=== PATIENT | male | born 1965 | race Two or more races ===

== ENCOUNTER 2020-02-20 09:58 | Outpatient (REF) | payer MEDICAID, SELFPAY ==
--- NOTE | 2020-02-20 10:03 | XR_ITS ---
EXAMINATION: XR KNEE AP STANDING CLINICAL INFORMATION: Primary osteoarthritis left knee. M17.12 COMPARISON: Radiographs left knee 10/02/2018 TECHNIQUE: Standing AP view of both knees is performed. FINDINGS: Left knee shows marked osteoarthritis medial compartment with prominent joint narrowing along with spurring from the femoral condyle and tibial plateau. Small lateral spur seen. There is mild secondary genu varus. No visible erosive change or chondrocalcinosis. No destructive process. Right knee also shows osteoarthritis medial compartment with joint narrowing and spurring. There is secondary right genu varus, slightly greater than that on the left. No visible erosive change or chondrocalcinosis. No destructive process. XR/XR knee standing BI IMPRESSION: 1. Bilateral osteoarthritis, greatest medial knee joint compartments. 2. Bilateral secondary genu varus, slightly greater on right.
== END 2020-02-20 09:59 | disposition home or self-care (01) ==
LOC: HO.HOSX 09:58
PROVIDERS: Visit Provider Orthopaedic Surgery
DX: M17.12 Unilateral primary osteoarthritis, left knee (principal); M75.51 Bursitis of right shoulder
CPT/HCPCS: 20610; 73565; 99202; J1100

== ENCOUNTER 2020-08-14 07:46 | Outpatient (REF) | payer MEDICAID, SELFPAY ==
--- NOTE | ~2020-08-14 | XR_ITS ---
EXAMINATION: XR SHOULDER, RIGHT CLINICAL INFORMATION: Shoulder pain. COMPARISON: X-ray 10/02/2018. TECHNIQUE: Three views of the right shoulder. FINDINGS: Severe glenohumeral joint arthritis, joint space loss, osteophytes, sclerosis and cysts. Cystic focus with peripheral sclerotic margin, could be related to degenerative changes, or could represent underlying avascular necrosis. [id number] AC joint arthritis. No acute fracture or dislocation. XR/XR shoulder RT min 2V IMPRESSION: Severe glenohumeral joint arthritis. Interval progression from previous. Focus of lucency and peripheral sclerosis in the subchondral right femoral head, could be related to arthritic changes versus underlying avascular necrosis. Further evaluation with MRI as clinically warranted.
== END 2020-08-14 07:47 | disposition home or self-care (01) ==
LOC: HO.HOSX 07:46
PROVIDERS: Visit Provider Physician Assistant
DX: M25.511 Pain in right shoulder (principal); M19.011 Primary osteoarthritis, right shoulder; M75.51 Bursitis of right shoulder; F17.210 Nicotine dependence, cigarettes, uncomplicated
CPT/HCPCS: 73030; 99202

== ENCOUNTER 2020-10-12 13:24 | Outpatient (REF) | payer MEDICAID, SELFPAY ==
--- NOTE | ~2020-10-12 | FL_ITS ---
EXAMINATION: XR ARTHROGRAM SHOULDER, RIGHT CLINICAL INFORMATION: Severe right shoulder pain from osteoarthritis. COMPARISON: None TECHNIQUE: Following explaining fluoroscopy-guided right shoulder steroid injection procedure, benefits and risk, a written consent was obtained. Patient was placed supine on fluoroscopy table and anterior aspect of right shoulder was cleaned and draped in usual sterile manner. 1% lidocaine was injected at the marked site along the anterior shoulder. A 22-gauge spinal needle was then inserted from the anterior skin into to the inferior glenohumeral joint space and 2 mL of nonionic contrast was injected. After confirming contrast in the joint space, 3 mL of 1% lidocaine, 3 mL of 0.25% Marcaine and 80 mg of prednisone was injected and needle withdrawn. Patient tolerated procedure extremely well. FINDINGS: On preliminary imaging of the right shoulder, hypertrophic bony spurring along the inferior glenohumeral shoulder joint. There is subchondral cystic change along the superior medial humeral head. Contrast opacifies the right joint space. There is likely hypotrophic capsular changes along the inferior glenohumeral joint producing small focal defects. Successful fluoroscopy-guided steroid injection performed. FLUOROSCOPY TIME: 1.6 minutes DOSE AREA PRODUCT: 9.307 uGy-m2 (microgray-meter squared) FL/FL arthrogram shoulder RT IMPRESSION: Successful fluoroscopy-guided right shoulder steroid injection performed without immediate complications.
== END 2020-10-12 13:25 | disposition home or self-care (01) ==
LOC: HO.XRAY 13:24
PROVIDERS: PCP Internal Medicine Geriatric Medicine; Visit Provider Physician Assistant
DX: M19.011 Primary osteoarthritis, right shoulder (principal)
CPT/HCPCS: 23350; 73040

== ENCOUNTER 2021-09-22 14:12 | Outpatient (REF) | payer MEDICAID, SELFPAY ==
--- NOTE | ~2021-09-22 | US_ITS ---
EXAMINATION: US SOFT TISSUE HEAD/NECK CLINICAL INFORMATION: Mass in area of right mastoid. COMPARISON: None. TECHNIQUE: Linear transducer grayscale and color Doppler examination of the right area of mastoid lump. FINDINGS: There is a hypoechoic heterogeneous lesion with peripheral vascularity in the region of the right mastoid sinus corresponding to the palpable lump. It measures 2.4 x 2.6 x 1.3 cm. No additional lesions seen. US/US soft tiss head and/or neck IMPRESSION: Solid hypoechoic lesion with peripheral vascular flow overlying the right mastoid sinus corresponding to the palpable lump. Question sebaceous cyst or lipoma. Other differential diagnoses, less likely, are fibromatosis, ganglion or schwannoma.
== END 2021-09-22 14:13 | disposition home or self-care (01) ==
LOC: HO.US 14:12
PROVIDERS: Visit Provider Registered Nurse
DX: H93.8X1 Other specified disorders of right ear (principal)
CPT/HCPCS: 76536

== ENCOUNTER 2022-09-10 12:32 | Inpatient (IN) | payer MEDICAID, SELFPAY ==
[2022-09-10] VITALS (7 sets, daily range): BP systolic 130–242; BP diastolic 61–136; PULSE 73–101; RESP 15–24; TEMP 36.2–36.7; O2SAT 88–97; BMI 45.0; BMI 44.2
--- NOTE | ~2022-09-10 | US_ITS ---
EXAMINATION: US SCROTUM CLINICAL INFORMATION: Scrotal swelling. COMPARISON: None available. TECHNIQUE: A sonogram of the scrotum was performed assessing raines-scale appearance and color Doppler flow. Spectral Doppler analysis of the arterial and venous flow were performed in the testes bilaterally. FINDINGS: RIGHT: Right testicle measures 4.9 x 2.3 x 2.9 cm, volume 17.1 mL. No focal testicular parenchymal lesions are visualized. Spectral Doppler analysis of the arterial and venous flow is normal in the right testis. Right epididymal head is normal in size. There is a large right hydrocele present. No right varicocele is seen. Right epididymal Doppler flow is normal. LEFT: Left testicle measures 5.2 x 2.7 x 3.0 cm, volume 21.9 mL. No focal testicular parenchymal lesions are visualized. Spectral Doppler analysis of the arterial and venous flow is normal in the left testis. Left epididymal head is normal in size. No left hydrocele or varicocele is seen. Left epididymal Doppler flow is normal. US/US scrotum IMPRESSION: Large right hydrocele accounts for the patient's scrotal swelling.
--- NOTE | ~2022-09-10 | XR_ITS ---
EXAMINATION: XR CHEST CLINICAL INFORMATION: Shortness of breath. COMPARISON: 06/23/2017 chest radiographs. TECHNIQUE: Frontal view of the chest was obtained. FINDINGS: Mild linear markings are seen at the right lung base. The right upper lung field and left lung are clear. The heart and mediastinal structures are unremarkable XR/XR chest 1V IMPRESSION: Bibasilar linear markings represent interval increase in the previous study and could represent atelectasis. A developing infiltrate cannot be excluded.
--- NOTE | 2022-09-10 13:23 | ECG_ITS ---
Test Reason : SOB Blood Pressure : / mmHG Vent. Rate : 085 BPM Atrial Rate : 085 BPM P-R Int : 144 ms QRS Dur : 082 ms QT Int : 420 ms P-R-T Axes : 071 027 062 degrees QTc Int : 499 ms Normal sinus rhythm Prolonged QT Abnormal ECG No previous ECGs available Referred By: Ori Marshall Electronically Signed By:PORFIRIO PEREZ
[2022-09-10] MEDS: dexAMETHasone 2 MG TABLET 10 MG PO (13:49)
[2022-09-10 14:08] LABS: MANUAL DIFF FLAG NO
[2022-09-10 14:13] LABS: VBG Base Excess 8.3 mmol/L; VBG HCO3 36 mmol/L (22-26); VBG pCO2 63 mmHg; VBG pH 7.36 (7.32-7.43); VBG pO2 75 mmHg
[2022-09-10 14:13] LABS: Venous Blood Gas Refer to POC result
[2022-09-10 14:14] LABS: Basophils Absolute Auto 0.1 X10*3/uL (0.0-0.2); Basophils Percent Auto 0.6 % (0-2); Eosinophils Absolute Auto 0.8 X10*3/uL (0.0-0.4); Hematocrit 40.2 % (42.0-52.0); Hemoglobin 12.6 g/dl (14.0-18.0); Imm Gran Abs Auto 0.03 X10*3/uL (0.00-0.03); Imm Gran Pct Auto 0.3 % (0.0-0.4); Lymphocytes Percent Auto 11.4 % (20-40); Mean Corpuscular HGB Conc 31.3 g/dl (31.0-36.0); Mean Corpuscular Hemoglobin 27.5 pg (27.0-33.0); Mean Corpuscular Volume 87.8 fL (80.0-98.0); Mean Platelet Volume 9.7 fL (9.4-12.4); Monocytes Absolute Auto 0.5 X10*3/uL (0.1-1.2); Monocytes Percent Auto 6.2 % (2-11); Neutrophils Absolute Auto 6.3 x10*3/uL (2.0-8.3); Neutrophils Percent Auto 72.5 % (45-73); Platelet Count 202 X10*3/uL (160-400); Red Blood Count 4.58 X10*6/uL (4.60-5.80); Red Cell Distribution Width 13.8 % (11.0-16.0); White Blood Count 8.7 X10*3/uL (4.8-10.8)
[2022-09-10 14:25] LABS: COVID-19 Test Negative (Negative); IDNOW Serial# BCCEAD1C
[2022-09-10 14:29] LABS: Alanine Aminotransferase 177 U/L (0-40); Albumin Level 3.7 g/dL (3.5-5.0); Alkaline Phosphatase 87 U/L (39-117); Anion Gap 11 (12-20); Aspartate Amino Transferase 194 U/L (5-37); Bilirubin Total 0.3 mg/dL (0.0-1.0); Blood Urea Nitrogen 10 mg/dL (9-16); Calcium 8.9 mg/dL (8.4-10.2); Carbon Dioxide 32 mmol/L (22-29); Chloride 104 mmol/L (96-108); Creatinine Clr Calc Pharmacy 143.3; Estimated Glomerular Filt Rate > 60; Glucose Random 110 mg/dL (60-115); Sodium 143 mmol/L (135-145); Total Protein 7.4 g/dL (6.5-8.0)
--- NOTE | 2022-09-10 14:31 | ED.SOB ---
HPI - SOB/Dyspnea General Chief Complaint: Dyspnea Stated Complaint: Diff breathing per EMS Time Seen by Provider: 09/10/22 12:59 Source: patient Mode of arrival: EMS Limitations: no limitations History of Present Illness HPI Narrative: Patient with history of COPD/ asthma, smoker, obese,with sleep apnea not on CPAP machine not on home oxygen comes here for increased shortness of breath for last few days getting worse saturating 88% at room air has cough mostly dry came with audible wheezing no fever no chills no significant leg swelling no chest pain or palpitation patient had sleep studies done about 2 years ago has not received the machine yet Related Data Home Medications Medication Instructions Recorded Confirmed albuterol sulfate 90 mcg/actuation 1 inh inhalation QID 02/19/20 02/20/20 aerosol inhaler buprenorphine 8 mg-naloxone 2 mg 2 film buccal DAILY 02/19/20 02/20/20 sublingual film (Suboxone) montelukast 10 mg tablet 10 mg PO DAILY 02/19/20 02/20/20 naloxone 4 mg/actuation nasal 4 mg intranasal Q2M PRN 02/19/20 02/20/20 spray (Narcan) Allergies Allergy/AdvReac Type Severity Reaction Status Date / Time No Known Allergies Allergy Verified 08/14/20 14:04 Review of Systems Review of Systems: Yes all other systems are reviewed and are negative PMFSH Past Medical History Medical History Bursitis of right shoulder COPD (chronic obstructive pulmonary disease) Obstructive sleep apnea Opioid use disorder (~08/27/18) Osteoarthritis of left knee Social History Social History Alcohol intake: current Alcohol intake frequency: holidays/special occasions only Advance Directives: No Advance Directives Information Provided: Yes Current occupational status: unemployed Current occupation: right handed Physical Exam Vital Signs: Vital Signs: Last Vital Signs Temp 98.1 F 09/10/22 12:39 Pulse 95 09/10/22 13:54 Resp 15 09/10/22 13:54 BP 157/91 H 09/10/22 12:39 Pulse Ox 97 09/10/22 12:39 O2 Del Method Nasal Cannula 09/10/22 12:39 Oxygen Flow Rate 3 09/10/22 12:39 BMI result Body Mass Index 45.0 Appearance: Alert. Oriented X3. Obese with audible wheezing Eyes: PERRLA, No Nystagmus ENT: Pharynx normal. Oral Mucosa moist Neck: Normal inspection. Neck supple. CVS: Normal heart rate and rhythm. Pulses normal. Respiratory: Moderate respiratory distress. Equal air entry bilateral, bilateral wheezing Abdomen: Soft and nontender. Bowel sounds are present, no mass palpable, no CVA tenderness Skin: Skin warm and dry. Normal skin color. Normal skin turgor. Extremities: Trace lower extremity edema. No calf tenderness Neuro: Oriented X 3. No motor deficit. No sensory deficit.No cerebellar signs , cranial nerves II-XII intact Medications Administered Discontinued Medications Generic Name Dose Route Start Last Admin Trade Name Freq PRN Reason Stop Dose Admin Albuterol Sulfate 5 mg/ 0 mg 09/10/22 13:27 09/10/22 13:49 Albuterol/Ipratropium 3 ml INHALE 09/10/22 13:28 5 each ONCE ONE Administration Dexamethasone 10 mg 09/10/22 13:28 09/10/22 13:49 Dexamethasone 2 Mg Tablet PO 09/10/22 13:29 10 mg ONCE ONE Administration Medical Decision Making Medical Decision Making MDM Narrative: Patient obese sleep apnea COPD hypoxic at room air does not have any oxygen or CPAP at home no signs of CHF chest x-ray clear will admit patient for COPD, chronic hypoxia, sleep apnea Consult Healthcare Provider Management of the patient was discussed with: Hospitalist Lab Data MDM Lab Attestation statement: I reviewed the patient's lab results. 09/10/22 14:01 09/10/22 14:01 Labs: Lab Results 09/10/22 09/10/22 09/10/22 Range/Units 14:01 14:01 14:01 WBC 8.7 (4.8-10.8) X10*3/uL RBC 4.58 L (4.60-5.80) X10*6/uL Hgb 12.6 L (14.0-18.0) g/dl Hct 40.2 L (42.0-52.0) % MCV 87.8 (80.0-98.0) fL MCH 27.5 (27.0-33.0) pg MCHC 31.3 (31.0-36.0) g/dl RDW 13.8 (11.0-16.0) % Plt Count 202 (160-400) X10*3/uL MPV 9.7 (9.4-12.4) fL Immature Gran % (Auto) 0.3 (0.0-0.4) % Neut % (Auto) 72.5 (45-73) % Lymph % (Auto) 11.4 L (20-40) % [place] % (Auto) 6.2 (2-11) % Eos % (Auto) 9.0 H (0-4) % Baso % (Auto) 0.6 (0-2) % Lymph # (Auto) 1.0 L (1.2-4.9) X10*3/uL [place] # (Auto) 0.5 (0.1-1.2) X10*3/uL Eos # (Auto) 0.8 H (0.0-0.4) X10*3/uL Baso # (Auto) 0.1 (0.0-0.2) X10*3/uL Abs Immat Gran (auto) 0.03 (0.00-0.03) X10*3/uL Absolute Neuts (auto) 6.3 (2.0-8.3) x10*3/uL Absolute Nucleated RBC 0.000 (0.0-0.012) X10*3/uL Nucleated RBC % (auto) 0.0 (0.0-0.2) /100WBC VBG pH (7.32-7.43) VBG pCO2 mmHg VBG pO2 mmHg VBG HCO3 (22-26) mmol/L VBG O2 Saturation % VBG Base Excess mmol/L Sodium 143 (135-145) mmol/L Potassium 4.0 (3.3-5.1) mmol/L Chloride 104 (96-108) mmol/L Carbon Dioxide 32 H (22-29) mmol/L Anion Gap 11 L (12-20) BUN 10 (9-16) mg/dL Creatinine 0.81 (0.5-1.4) mg/dL Estim Creat Clear Calc 143.3 Estimated GFR > 60 Random Glucose 110 (60-115) mg/dL Calcium 8.9 (8.4-10.2) mg/dL Total Bilirubin 0.3 (0.0-1.0) mg/dL AST 194 H (5-37) U/L ALT 177 H (0-40) U/L Alkaline Phosphatase 87 (39-117) U/L Troponin I High Sens (<3.5-35.0) ng/L B-Natriuretic Peptide (<100) pg/mL Total Protein 7.4 (6.5-8.0) g/dL Albumin 3.7 (3.5-5.0) g/dL COVID-19 (SABINO) Negative (Negative) COVID-19 Clin Com See Note 09/10/22 09/10/22 09/10/22 Range/Units 14:01 14:01 14:06 WBC (4.8-10.8) X10*3/uL RBC (4.60-5.80) X10*6/uL Hgb (14.0-18.0) g/dl Hct (42.0-52.0) % MCV (80.0-98.0) fL MCH (27.0-33.0) pg MCHC (31.0-36.0) g/dl RDW (11.0-16.0) % Plt Count (160-400) X10*3/uL MPV (9.4-12.4) fL Immature Gran % (Auto) (0.0-0.4) % Neut % (Auto) (45-73) % Lymph % (Auto) (20-40) % [place] % (Auto) (2-11) % Eos % (Auto) (0-4) % Baso % (Auto) (0-2) % Lymph # (Auto) (1.2-4.9) X10*3/uL [place] # (Auto) (0.1-1.2) X10*3/uL Eos # (Auto) (0.0-0.4) X10*3/uL Baso # (Auto) (0.0-0.2) X10*3/uL Abs Immat Gran (auto) (0.00-0.03) X10*3/uL Absolute Neuts (auto) (2.0-8.3) x10*3/uL Absolute Nucleated RBC (0.0-0.012) X10*3/uL Nucleated RBC % (auto) (0.0-0.2) /100WBC VBG pH 7.36 (7.32-7.43) VBG pCO2 63 mmHg VBG pO2 75 mmHg VBG HCO3 36 H (22-26) mmol/L VBG O2 Saturation 93.0 % VBG Base Excess 8.3 mmol/L Sodium (135-145) mmol/L Potassium (3.3-5.1) mmol/L Chloride (96-108) mmol/L Carbon Dioxide (22-29) mmol/L Anion Gap (12-20) BUN (9-16) mg/dL Creatinine (0.5-1.4) mg/dL Estim Creat Clear Calc Estimated GFR Random Glucose (60-115) mg/dL Calcium (8.4-10.2) mg/dL Total Bilirubin (0.0-1.0) mg/dL AST (5-37) U/L ALT (0-40) U/L Alkaline Phosphatase (39-117) U/L Troponin I High Sens 16.1 (<3.5-35.0) ng/L B-Natriuretic Peptide 97 (<100) pg/mL Total Protein (6.5-8.0) g/dL Albumin (3.5-5.0) g/dL COVID-19 (SABINO) (Negative) COVID-19 Clin Com Independent Interpretation I performed an independent interpretation of an: EKG Interpretation: Normal sinus rhythm heart rate 85 beats per minute normal axis QTC 499 no acute ischemia Discharge Plan Discharge Clinical Impression: Acute exacerbation of chronic obstructive airways disease, Chronic respiratory failure due to obstructive sleep apnea Patient Disposition: Admitted As Inpatient
[2022-09-10 14:34] LABS: B Type Natriuretic Peptide 97 pg/mL (<100)
[2022-09-10 14:35] LABS: Troponin-I High Sensitivity 16.1 ng/L (<3.5-35.0)
--- NOTE | 2022-09-10 14:59 | P.HPHOSP_ITS ---
History of Present Illness Date of Service: 09/10/22 Attending physician on admission: Louis Stephens Chief Complaint: sob, productive cough 57 year old male with history of copd, riana not on cpap, htn, and morbid obesity who is a current 5 cigarette per day smoker and uses inhaled heroin presented to the ED for evaluation of worsening SOB/KISER with cough with green sputum production different from baseline over the last few days. He does not use home O2 but has been unable to walk from his bedroom to bathroom without needing to stop. Has been using his nebulizer without success. He does endose orthopnea, apneic episodes, daytime somnolence, and history of BLE edema but states this is has been controlled recently. He was diagnosed with sleep apnea about 2 years ago but never sough out CPAP. No fevers, chills, sore throat, abd pain, n/v/d, lightheadedness, palpitations or chest pain. He is also complaining of scrotal swelling that has been present for over a year. Had an ultrasound at [facility] 10/06 negative for torsion with increasing enlargement of the right epididymal head with worsening marked hyperemia, a worsening large partially complex right hydrocele, and diffuse scroal edema. Findings suggestive of worsening right epididymitis. No urinary symptoms. On arrival, patient hypoxic to 88% placed on 3L supplemental O2, vitals otherwise wnl.No leukocytosis. Renal function normal. Lytes normal, except bicarb 32. VBG ph 7.36, pO2 63, pO2 75 Bicarb 36. AST 194, ALT 177. Bili normal. BNP 97, trop 16.1. UA with trace leuks, +glucose, 3+ protein, elevated specific gravity. Negative for COVID-19. EKG NSR rate 85. No MAUREEN or depressions. CXR shows bibasilar linear markings with possible developing infiltrate. In the ED give 10mg dexamethsone and albuterol neb. Review of Systems Review of Systems: General: No fevers, malaise, unintentional weight loss HEENT: No blurred vision, diplopia. No sore throat, nasal congestion, rhinorrhea, sinus pain, ear pain Cardiovascular: No chest pain, palpitations. +leg edema Respiratory: +sob, kiser, orthopnea, wheezing, productive cough. GI: No abdominal pain, nausea, vomiting, diarrhea, constipation, melena, hematochezia : +scrotal swelling. No dysuria, hematuria, increased urinary frequency, decreased urinary output MSK: No myalgia, back pain Neuro: No headaches, weakness, paresthesias Skin: No rashes or lesions [facility] [place] Medical History (Updated 09/10/22 @ 16:01 by BRINA Patrick) Bursitis of right shoulder Chronic respiratory failure due to obstructive sleep apnea COPD (chronic obstructive pulmonary disease) HTN (hypertension) Obstructive sleep apnea Opioid use disorder (~08/27/18) Osteoarthritis of left knee Social History Alcohol intake: current Alcohol intake frequency: holidays/special occasions only Patient Tobacco Use Status: Current everyday Tobacco user Current occupational status: unemployed Current occupation: right handed Meds Allergies Allergy/AdvReac Type Severity Reaction Status Date / Time No Known Allergies Allergy Verified 08/14/20 14:04 Active Medications: Current Medications Pharmacy Consult (Consult Rx Perform Med Rec) 1 each MISCELLANE ONCE PRN PRN Reason: Consult order Home Medications Medication Instructions Recorded Confirmed Last Taken Type albuterol sulfate 2.5 mg/3 mL 2.5 mg inhalation QID 09/10/22 09/10/22 Unknown History (0.083 %) solution for nebulization albuterol sulfate 90 mcg/actuation 2 puff inhalation Q4-6H PRN 09/10/22 09/10/22 Unknown History aerosol inhaler (Ventolin HFA) Shortness Of Breath Or Wheezing amlodipine 5 mg tablet 5 mg PO DAILY 09/10/22 09/10/22 Unknown History cetirizine 10 mg tablet 10 mg PO DAILY 09/10/22 09/10/22 Unknown History fluticasone 500 mcg-salmeterol 50 1 inh inhalation Q12H 09/10/22 09/10/22 Unknown History mcg/dose blistr powdr for inhalation (Advair Diskus) fluticasone propionate 50 2 spray intranasal DAILY 09/10/22 09/10/22 Unknown History mcg/actuation nasal spray,suspension montelukast 10 mg tablet 10 mg PO QPM 09/10/22 09/10/22 Unknown History Physical Exam Vital Signs and Narrative: Vital Signs: Last Vital Signs Temp 98.1 F 09/10/22 12:39 Pulse 95 09/10/22 13:54 Resp 15 09/10/22 13:54 BP 157/91 H 09/10/22 12:39 Pulse Ox 97 09/10/22 12:39 O2 Del Method Nasal Cannula 09/10/22 12:39 Oxygen Flow Rate 3 09/10/22 12:39 BMI result Body Mass Index 45.0 Constitutional - Somnolent but arousable, No apparent distress Eyes - PERRLA, EOMI Cardiovascular - S1S2, RRR, No edema Respiratory - Normal lung expansion, Normal respiratory effort, No respiratory distress on 3L supplemental O2, coarse lung sounds with diffuse wheezing Gastrointestinal - NT / ND; +BS; No rebound or guarding - right sided testicular swelling, no scrotal edema Extremities - no calf tenderness bilaterally, no swelling Skin - Warm/Dry Neurological - Somnolent but arousable & oriented x3 Psychological - Appropriate affect Results Labs 09/10/22 14:01 09/10/22 14:01 Labs: Laboratory Results - last 24 hr 09/10/22 09/10/22 09/10/22 14:01 14:01 14:01 MCV 87.8 MCH 27.5 MCHC 31.3 RDW 13.8 Plt Count 202 MPV 9.7 Immature Gran % (Auto) 0.3 Neut % (Auto) 72.5 Lymph % (Auto) 11.4 L [place] % (Auto) 6.2 Eos % (Auto) 9.0 H Baso % (Auto) 0.6 Lymph # (Auto) 1.0 L [place] # (Auto) 0.5 Eos # (Auto) 0.8 H Baso # (Auto) 0.1 Abs Immat Gran (auto) 0.03 Absolute Neuts (auto) 6.3 Absolute Nucleated RBC 0.000 Nucleated RBC % (auto) 0.0 VBG pH VBG pCO2 VBG pO2 VBG HCO3 VBG O2 Saturation VBG Base Excess Anion Gap 11 L Estim Creat Clear Calc 143.3 Estimated GFR > 60 Random Glucose 110 Calcium 8.9 Total Bilirubin 0.3 AST 194 H ALT 177 H Alkaline Phosphatase 87 Troponin I High Sens B-Natriuretic Peptide Total Protein 7.4 Albumin 3.7 COVID-19 (SABINO) Negative COVID-19 Clin Com See Note 09/10/22 09/10/22 09/10/22 14:01 14:01 14:06 MCV MCH MCHC RDW Plt Count MPV Immature Gran % (Auto) Neut % (Auto) Lymph % (Auto) [place] % (Auto) Eos % (Auto) Baso % (Auto) Lymph # (Auto) [place] # (Auto) Eos # (Auto) Baso # (Auto) Abs Immat Gran (auto) Absolute Neuts (auto) Absolute Nucleated RBC Nucleated RBC % (auto) VBG pH 7.36 VBG pCO2 63 VBG pO2 75 VBG HCO3 36 H VBG O2 Saturation 93.0 VBG Base Excess 8.3 Anion Gap Estim Creat Clear Calc Estimated GFR Random Glucose Calcium Total Bilirubin AST ALT Alkaline Phosphatase Troponin I High Sens 16.1 B-Natriuretic Peptide 97 Total Protein Albumin COVID-19 (SABINO) COVID-19 Clin Com Imaging Radiologist's Impressions: Impressions Chest X-Ray 09/10/22 13:34 IMPRESSION: Bibasilar linear markings represent interval increase in the previous study and could represent atelectasis. A developing infiltrate cannot be excluded. Assessment and Plan (1) Acute exacerbation of chronic obstructive airways disease: Status: Acute (2) Acute and chronic respiratory failure: Status: Acute Plan 57 year old male with history of copd, riana not on cpap, htn, and morbid obesity who is a current 5 cigarette per day smoker and uses inhaled heroin admitted for acute COPD exacerbation with acute on chronic hypoxemic respiratory failure. #Acute on chronic respiratory failure- 2/2 COPD exacerbation and untreated RIANA -Continue supplemental O2 to maintain oximetry 90-92% -Treat COPD as below #Acute COPD exacerbation -IV methylprednisolone 40mg BID -Duonebs q4h -albuterol wwh prn -Doxycycline BID (initiated 09/10) #Acute developing pneumonia on CXR -with cough with green sputum production. No leukocytosis, Afebile, VSS except for above -IV ceftriaxone and doxycycline bid (initiated 09/10) -supportive management -Follow CBC, cultures #RIANA -Initiate bedtime CPAP -Outpt follow up with pulmonology #Chronic scrotal edema -previous u/s from [facility] concerning for epididymitis -US with trace leuks, +urinary sediment, negative bacteria -U/s scrotum ordered -On ceftriaxone -Follow CBC, UC #Transaminitis -likely fatty liver -Check hep B, C given drug use -Follow CMP #Opiate abuse -addiction medicine consult #Cigarette smoker -declines NRT -Counseled on cessation DVT prophylaxis- lovenox Full code Pt requires inpt stay at least 2 midnights for management of acute on chronic hypoxemic respiratory failure 2/2 COPD exacerbation and RIANA. Time Spent With Patient Time: Total time managing care of this patient today ____ minutes. Quality Stroke Does the patient have a stroke diagnosis?: No VTE Prior VTE?: No VTE Risk Level:: Medical - moderate - high VTE Device Contraindication: Treatment Not Indicated VTE Drug Contraindication: N/A - Med Ordered
--- NOTE | 2022-09-10 15:28 | PHA.MEDREC ---
Pharmacy Consult ? Medication Reconciliation Pharmacy has completed the medication reconciliation. used claim history and significant other (Carmen) to verify medications. She mentioned that the patient is not very adherent with this medications. She said that he last used the nebulizer at home a few days ago but ran out of solution.
[2022-09-10 15:50] LABS: Appearance Urine Cloudy; Color Urine Dark Yellow; Glucose Urine UA 100 mg/dL (Negative); Leukocyte Esterase Urine Trace (Negative); Nitrite Urine Negative (Negative); Specific Gravity - Urine >= 1.030 (1.005-1.025); UMIC TRIGGER UACC YES; Urine Blood Negative (Negative); Urine Ketones Trace mg/dL (Negative); Urine Protein 300 (3+) mg/dL (Neg-Trace)
[2022-09-10 16:03] LABS: Bacteria Urine None Seen (None Seen); Granular Casts Urine Present; Squamous Epithelial Cell Urine >20 /HPF (0-2); UACC Culture Trigger YES; WBC Urine 21-50 /HPF (0-5)
[2022-09-10] MEDS: cefTRIAXone sodium 1 GM in 0.9 % Sodium Chloride 50 ML IV (16:27)
[2022-09-10] MEDS: Albuterol/Iprat 2.5/0.5MG 3 ML AMPUL.NEB INHALE ×2 (16:31→20:10)
[2022-09-10 17:34] LABS: Amphetamine Screen Urine Not Detected (Not Detect); Barbiturates, Urine Not Detected (Not Detect); Benzodiazepines Screen Urine Not Detected (Not Detect); Cannabinoid Screen Urine Not Detected (Not Detect); Cocaine Screen Urine POSITIVE (Not Detect); Fentanyl, urine POSITIVE (Not Detect); Opiate Screen Urine POSITIVE (Not Detect); Phencyclidine Screen Urine Not Detected (Not Detect)
[2022-09-10] MEDS: Doxycycline Hyclate 100 MG in 0.9 % Sodium Chloride 250 ML 166.67 MG IV (20:05)
[2022-09-10] MEDS: guaiFENesin 200 MG/10 ML 10 ML LIQUID PO (20:06)
[2022-09-10] MEDS: Montelukast Sodium 10 MG TABLET PO (20:06)
[2022-09-10] MEDS: Enoxaparin Sodium 40 MG/0.4 ML SYRINGE SUBCUT (20:06)
[2022-09-11] VITALS (13 sets, daily range): BP systolic 125–157; BP diastolic 64–80; PULSE 65–112; RESP 17–28; TEMP 36.2–37.3; O2SAT 56–97
[2022-09-11] MEDS: 0.9 % Sodium Chloride Flush 3 ML SYRINGE IVFLUSH ×4 (00:17→20:47)
--- NOTE | 2022-09-11 02:50 | PC.NURSE ---
approximately 0210, Patient yelled nurse and was found standing, but leaning over bed with severe shortness of breath, arms on bed. O2 sats were 56% room air. RR 28, Patient had CPAP on for the night and removed it so that he could go to the bathroom. He stated he couldnt find call leblanc as it was twisted into sheets. 100% nonrebreather placed and respiratory therapist to floor. O2 sats quickly recovered and patient was placed on nasal cannula ultimately at 3L with sats of 96%. Patient having trouble tolerating CPAP as it is his first time use and does not want it back on. He agrees to cannula for the night. MD and white sugar supervisor notified. Patient placed on continuous O2 monitor and bed alarm on for safety. Instructed to use urinal or call for assistance if OOB and he is agreeable.
[2022-09-11 06:20] LABS: MANUAL DIFF FLAG NO
[2022-09-11] MEDS: methylPREDNISolone Sod Succ 40 MG/ML VIAL IVPUSH (06:24)
[2022-09-11 06:31] LABS: Basophils Percent Auto 0.2 % (0-2); Hematocrit 39.1 % (42.0-52.0); Hemoglobin 12.3 g/dl (14.0-18.0); Imm Gran Abs Auto 0.05 X10*3/uL (0.00-0.03); Imm Gran Pct Auto 0.5 % (0.0-0.4); Lymphocytes Absolute Auto 0.9 X10*3/uL (1.2-4.9); Lymphocytes Percent Auto 9.2 % (20-40); Mean Corpuscular HGB Conc 31.5 g/dl (31.0-36.0); Mean Corpuscular Volume 89.1 fL (80.0-98.0); Mean Platelet Volume 10.1 fL (9.4-12.4); Monocytes Absolute Auto 0.6 X10*3/uL (0.1-1.2); Monocytes Percent Auto 6.2 % (2-11); Neutrophils Absolute Auto 8.3 x10*3/uL (2.0-8.3); Neutrophils Percent Auto 83.9 % (45-73); Platelet Count 206 X10*3/uL (160-400); Red Blood Count 4.39 X10*6/uL (4.60-5.80); Red Cell Distribution Width 13.9 % (11.0-16.0); White Blood Count 9.9 X10*3/uL (4.8-10.8)
[2022-09-11 06:50] LABS: Anion Gap 11 (12-20); Blood Urea Nitrogen 9 mg/dL (9-16); Carbon Dioxide 32 mmol/L (22-29); Chloride 103 mmol/L (96-108); Creatinine Clr Calc Pharmacy 144.4; Estimated Glomerular Filt Rate > 60; Glucose Random 108 mg/dL (60-115); Potassium 4.5 mmol/L (3.3-5.1); Sodium 141 mmol/L (135-145)
[2022-09-11] MEDS: amLODIPine Besylate 5 MG TABLET PO (08:01)
[2022-09-11] MEDS: Fluticasone Propionate Nasal 16 GM SPRAY 2 SPRAY NOSTRIL-B (08:01)
[2022-09-11] MEDS: Loratadine 10 MG TABLET PO (08:01)
[2022-09-11] MEDS: Doxycycline Hyclate 100 MG in 0.9 % Sodium Chloride 250 ML 166.67 MG IV ×2 (08:01→20:47)
[2022-09-11] MEDS: Albuterol/Iprat 2.5/0.5MG 3 ML AMPUL.NEB INHALE ×4 (08:19→19:04)
[2022-09-11] MEDS: Fluticasone/Vilanterol 200/25 BLST.W.DEV 1 PUFF INHALE (08:19)
--- NOTE | 2022-09-11 10:19 | P.PNIM_ITS ---
Subjective Subjective Date of Service: 09/11/22 Interval History: Episode of desaturation overnight when ambulating to bathroom. Return to bed supplemental O2. . . Sats greater than Review of Systems Denies chest pain Admits to exertional shortness of breath Denies nausea vomiting diarrhea Denies fever chills Physical Exam Vital Signs: Vital Signs: Last Vital Signs Temp 97.2 F 09/11/22 07:46 Pulse 75 09/11/22 08:20 Resp 18 09/11/22 08:20 BP 157/80 H 09/11/22 07:46 Pulse Ox 97 09/11/22 07:46 O2 Del Method Nasal Cannula 09/11/22 07:46 O2 Flow Rate 2 09/11/22 07:46 Oxygen Flow Rate 3 09/10/22 12:39 BMI result Body Mass Index 44.2 Const: Other: Awake alert oriented x3 in no acute distress able to speak in full sentences Resp: Other: Diminished at bases with diffuse expiratory wheezes Cardio: Other: No S4; positive S1-S2; no S3 murmurs rubs or gallops GI: Other: Soft nontender nondistended normoactive bowel sounds Extrem: Other: No edema bilaterally Objective Data Active Medications Acetaminophen (Acetaminophen 325 Mg Tablet) 650 mg PO Q6H PRN PRN Reason: Pain, Mild (Pain Scale 1-3) Albuterol Sulfate (Albuterol Sulfate (0.083%) 2.5 Mg/3 Ml Vial.Neb) 2.5 mg INHALE Q2H PRN PRN Reason: Shortness of Breath/Wheezing Albuterol/Ipratropium (Albuterol/Iprat 2.5/0.5mg 3 Ml Ampul.Neb) 3 ml INHALE RQ4H WHILE AWAKE [facility] Last Admin: 09/11/22 08:19 Dose: 3 ml Documented By: KEVIN Amlodipine Besylate (Amlodipine Besylate 5 Mg Tablet) 5 mg PO DAILY [facility]; Protocol Last Admin: 09/11/22 08:01 Dose: 5 mg Documented By: GEOVANNA Benzonatate (Benzonatate 100 Mg Capsule) 100 mg PO TID PRN PRN Reason: Cough Docusate Sodium (Docusate Sodium 100 Mg Capsule) 100 mg PO DAILY PRN PRN Reason: Constipation Enoxaparin Sodium (Enoxaparin Sodium 40 Mg/0.4 Ml Syringe) 40 mg SUBCUT Q24H [facility] Last Admin: 09/10/22 20:06 Dose: 40 mg Documented By: TITA Fluticasone Propionate (Fluticasone Propionate Nasal 16 Gm Means) 2 spray NOSTRIL-B DAILY [facility] Last Admin: 09/11/22 08:01 Dose: 2 spray Documented By: GEOVANNA Fluticasone/Vilanterol (Fluticasone/Vilanterol 200/25 Blst.W.Dev) 1 puff INHALE RDAILY [facility] Last Admin: 09/11/22 08:19 Dose: 1 puff Documented By: KEVIN Guaifenesin (Guaifenesin 200 Mg/10 Ml 10 Ml Liquid) 10 ml PO Q4H PRN PRN Reason: Cough Last Admin: 09/10/22 20:06 Dose: 10 ml Documented By: TITA Ceftriaxone Sodium 1 gm/ (Sodium Chloride) 50 mls @ 100 mls/hr IV Q24H [facility] Last Infusion: 09/10/22 19:00 Dose: 0 mls/hr Documented By: TITA Doxycycline Hyclate 100 mg/ (Sodium Chloride) 250 mls @ 166.67 mls/hr IV Q12H [facility] Last Admin: 09/11/22 08:01 Dose: 166.67 mls/hr Documented By: GEOVANNA Loratadine (Loratadine 10 Mg Tablet) 10 mg PO DAILY [facility] Last Admin: 09/11/22 08:01 Dose: 10 mg Documented By: GEOVANNA Methylprednisolone Sodium Succinate (Methylprednisolone Sod Succ 40 Mg/Ml Vial) 40 mg IVPUSH Q12H [facility] Last Admin: 09/11/22 06:24 Dose: 40 mg Documented By: YASEMIN Montelukast Sodium (Montelukast Sodium 10 Mg Tablet) 10 mg PO BEDTIME [facility] Last Admin: 09/10/22 20:06 Dose: 10 mg Documented By: TITA Ondansetron HCl (Ondansetron Hcl 4 Mg/2 Ml Vial) 4 mg IVPUSH Q8H PRN PRN Reason: Nausea and Vomiting Pharmacy Consult (Consult Rx Perform Med Rec) 1 each MISCELLANE ONCE PRN PRN Reason: Consult order Sodium Chloride (0.9 % Sodium Chloride Flush 3 Ml Syringe) 3 ml IVFLUSH QSHIFT [facility] Last Admin: 09/11/22 08:03 Dose: 3 ml Documented By: GEOVANNA Labs 09/11/22 06:09 09/11/22 06:09 Labs: Laboratory Results - last 24 hr 09/10/22 09/10/22 09/10/22 14:01 14:01 14:01 MCV 87.8 MCH 27.5 MCHC 31.3 RDW 13.8 Plt Count 202 MPV 9.7 Immature Gran % (Auto) 0.3 Neut % (Auto) 72.5 Lymph % (Auto) 11.4 L Rogers % (Auto) 6.2 Eos % (Auto) 9.0 H Baso % (Auto) 0.6 Lymph # (Auto) 1.0 L Rogers # (Auto) 0.5 Eos # (Auto) 0.8 H Baso # (Auto) 0.1 Abs Immat Gran (auto) 0.03 Absolute Neuts (auto) 6.3 Absolute Nucleated RBC 0.000 Nucleated RBC % (auto) 0.0 VBG pH VBG pCO2 VBG pO2 VBG HCO3 VBG O2 Saturation VBG Base Excess Anion Gap 11 L Estim Creat Clear Calc 143.3 Estimated GFR > 60 Random Glucose 110 Calcium 8.9 Total Bilirubin 0.3 AST 194 H ALT 177 H Alkaline Phosphatase 87 Troponin I High Sens B-Natriuretic Peptide Total Protein 7.4 Albumin 3.7 Urine Color Urine Appearance Urine pH Ur Specific Lincoln Urine Protein Urine Glucose (UA) Urine Ketones Urine Blood Urine Nitrite Ur Leukocyte Esterase Urine RBC Urine WBC Ur Squamous Epith Cells Urine Bacteria Hyaline Casts Granular Casts Urine Opiates Screen Urine Fentanyl Screen Ur Barbiturates Screen Ur Phencyclidine Scrn Ur Amphetamines Screen U Benzodiazepines Scrn Urine Cocaine Screen U Marijuana (THC) Screen COVID-19 (SABINO) Negative COVID-19 Clin Com See Note 09/10/22 09/10/22 09/10/22 14:01 14:01 14:06 MCV MCH MCHC RDW Plt Count MPV Immature Gran % (Auto) Neut % (Auto) Lymph % (Auto) Rogers % (Auto) Eos % (Auto) Baso % (Auto) Lymph # (Auto) Rogers # (Auto) Eos # (Auto) Baso # (Auto) Abs Immat Gran (auto) Absolute Neuts (auto) Absolute Nucleated RBC Nucleated RBC % (auto) VBG pH 7.36 VBG pCO2 63 VBG pO2 75 VBG HCO3 36 H VBG O2 Saturation 93.0 VBG Base Excess 8.3 Anion Gap Estim Creat Clear Calc Estimated GFR Random Glucose Calcium Total Bilirubin AST ALT Alkaline Phosphatase Troponin I High Sens 16.1 B-Natriuretic Peptide 97 Total Protein Albumin Urine Color Urine Appearance Urine pH Ur Specific Lincoln Urine Protein Urine Glucose (UA) Urine Ketones Urine Blood Urine Nitrite Ur Leukocyte Esterase Urine RBC Urine WBC Ur Squamous Epith Cells Urine Bacteria Hyaline Casts Granular Casts Urine Opiates Screen Urine Fentanyl Screen Ur Barbiturates Screen Ur Phencyclidine Scrn Ur Amphetamines Screen U Benzodiazepines Scrn Urine Cocaine Screen U Marijuana (THC) Screen COVID-19 (SABINO) COVID-19 Applits Com 09/10/22 09/10/22 09/11/22 15:35 15:35 06:09 MCV 89.1 MCH 28.0 MCHC 31.5 RDW 13.9 Plt Count 206 MPV 10.1 Immature Gran % (Auto) 0.5 H Neut % (Auto) 83.9 H Lymph % (Auto) 9.2 L Rogers % (Auto) 6.2 Eos % (Auto) 0.0 Baso % (Auto) 0.2 Lymph # (Auto) 0.9 L Rogers # (Auto) 0.6 Eos # (Auto) 0.0 Baso # (Auto) 0.0 Abs Immat Gran (auto) 0.05 H Absolute Neuts (auto) 8.3 Absolute Nucleated RBC 0.000 Nucleated RBC % (auto) 0.0 VBG pH VBG pCO2 VBG pO2 VBG HCO3 VBG O2 Saturation VBG Base Excess Anion Gap Estim Creat Clear Calc Estimated GFR Random Glucose Calcium Total Bilirubin AST ALT Alkaline Phosphatase Troponin I High Sens B-Natriuretic Peptide Total Protein Albumin Urine Color Dark Yellow Urine Appearance Cloudy Urine pH 6.0 Ur Specific Lincoln >= 1.030 H Urine Protein 300 (3+) H Urine Glucose (UA) 100 H Urine Ketones Trace Urine Blood Negative Urine Nitrite Negative Ur Leukocyte Esterase Trace H Urine RBC 6-10 H Urine WBC 21-50 H Ur Squamous Epith Cells >20 Urine Bacteria None Seen Hyaline Casts 6-10 Granular Casts Present Urine Opiates Screen POSITIVE H Urine Fentanyl Screen POSITIVE H Ur Barbiturates Screen Not Detected Ur Phencyclidine Scrn Not Detected Ur Amphetamines Screen Not Detected U Benzodiazepines Scrn Not Detected Urine Cocaine Screen POSITIVE H U Marijuana (THC) Screen Not Detected COVID-19 (SABINO) COVID-19 Clin Com 09/11/22 06:09 MCV MCH MCHC RDW Plt Count MPV Immature Gran % (Auto) Neut % (Auto) Lymph % (Auto) Rogers % (Auto) Eos % (Auto) Baso % (Auto) Lymph # (Auto) Rogers # (Auto) Eos # (Auto) Baso # (Auto) Abs Immat Gran (auto) Absolute Neuts (auto) Absolute Nucleated RBC Nucleated RBC % (auto) VBG pH VBG pCO2 VBG pO2 VBG HCO3 VBG O2 Saturation VBG Base Excess Anion Gap 11 L Estim Creat Clear Calc 144.4 Estimated GFR > 60 Random Glucose 108 Calcium 9.0 Total Bilirubin AST ALT Alkaline Phosphatase Troponin I High Sens B-Natriuretic Peptide Total Protein Albumin Urine Color Urine Appearance Urine pH Ur Specific Lincoln Urine Protein Urine Glucose (UA) Urine Ketones Urine Blood Urine Nitrite Ur Leukocyte Esterase Urine RBC Urine WBC Ur Squamous Epith Cells Urine Bacteria Hyaline Casts Granular Casts Urine Opiates Screen Urine Fentanyl Screen Ur Barbiturates Screen Ur Phencyclidine Scrn Ur Amphetamines Screen U Benzodiazepines Scrn Urine Cocaine Screen U Marijuana (THC) Screen COVID-19 (SABINO) COVID-19 Clin Com Microbiology Microbiology Results: Microbiology 09/10/22 16:05 Urine Culture - Final Urine clean catch - Clean Catch Midstream Strep agalactiae (Grp B) Assessment and Plan (1) Acute and chronic respiratory failure: Status: Acute (2) Acute exacerbation of chronic obstructive airways disease: Status: Acute (3) Obstructive sleep apnea: Status: Acute (4) Opioid use disorder: Status: Acute Plan 57 year old male with history of copd, riana not on cpap, htn, and morbid obesity who is a current 5 cigarette per day smoker and uses inhaled heroin admitted for acute COPD exacerbation with acute on chronic hypoxemic respiratory failure. 1.Acute on chronic respiratory failure- 2/2 COPD exacerbation and untreated RIANA -Continue supplemental O2 to maintain oximetry 90-92% -Treat COPD as below 2.Acute COPD exacerbation/pneumonia -increase methylprednisolone to 60mg Q6h -Duonebs q4h -albuterol wwh prn -Doxycycline/CTX(2) 3.RIANA -Initiate bedtime CPAP -Outpt follow up with pulmonology 4.Chronic scrotal edema -previous u/s from [facility] concerning for epididymitis -continue ceftriaxone 5.Opiate abuse -addiction medicine consult david Full code Pt requires ongoing hospitalization for IV antibiotics to treat acute COPD exacerbation secondary to pneumonia Time Spent With Patient Time: Total time managing care of this patient today ____ minutes. Quality Stroke Does the patient have a stroke diagnosis?: No VTE Prior VTE?: No VTE Risk Level:: Medical - moderate - high VTE Device Contraindication: Treatment Not Indicated VTE Drug Contraindication: N/A - Med Ordered
--- NOTE | 2022-09-11 10:39 | MHC.RECOVRN ---
Addendum entered by Theresa Ansari 09/11/22 10:45: Pt is not exhibiting withdrawal at this time. Original Note: Met with pt in 375 after consult placed to Addiction Medicine for opioid use. [place] [facility] [place] to acute and chronic respiratory failure secondary to COPD exacerbation. Pt awake, alert, easily engages in conversation. Pt reports he first began using opioid pills after being released from residential approx 6 years ago. Pt reports upon release he was supposed to seek treatment, however went to [address] street pharmacy. Pt is currently using 1-3 bundles heroin daily, [place], as well as $100-$120 daily cocaine, [place]. Last use prior to arrival. Pt reports being prescribed Suboxone in the past, per chart review it appears he was prescribed around 2019. Per [facility], no Suboxone prescription in the past 2 years. Pt is interested in [facility], discussed risks/benefits, educated pt regarding options, pt would like to restart Suboxone and follow up with the [facility] Pt educated on different induction methods, denies questions or concerns at this time. Discussed with Tanvi Amin APRN.
[2022-09-11] MEDS: methylPREDNISolone Sod Succ 125 MG/2 ML VIAL 60 MG IVPUSH ×3 (11:25→23:22)
--- NOTE | 2022-09-11 11:37 | MHC.RECOVRN ---
After speaking with Tanvi Amin APRN as well as pt, pt choosing to pursue methadone with plans to continue treatment after discharge with [facility] in [place]. Currently, pt QTc 499. Recommendation to not initiate methadone until repeat EKG. If pt is initiated on methadone, referral will need to be sent to [facility] and last dose letter provided upon discharge. Provider aware.
--- NOTE | 2022-09-11 12:17 | MHC.CM.PN ---
PT REPORTS HE LIVES WITH HIS S/O AND IS INDEPENDENT WITH CARE HE HAS A NEBULIZER FOR DME AND NO HOME SERVICES PT WILL CONSIDER COMPLETING A HCP, HE IS AWARE CM CAN ASSIST HE REPORTS HIS PCP IS YAYA JACQUES DCP: HOME NO SERVICES VS WITH [employer] RESOURCES S/O TO TRANSPORT
[2022-09-11] MEDS: cefTRIAXone sodium 1 GM in 0.9 % Sodium Chloride 50 ML IV (15:50)
[2022-09-11] MEDS: Morphine Sulfate 4 MG/ML CARTRIDGE IVPUSH (16:14)
--- NOTE | 2022-09-11 16:44 | ECG_ITS ---
Test Reason : QTc Blood Pressure : / mmHG Vent. Rate : 102 BPM Atrial Rate : 102 BPM P-R Int : 130 ms QRS Dur : 078 ms QT Int : 364 ms P-R-T Axes : 066 013 052 degrees QTc Int : 474 ms Sinus tachycardia Inferior infarct , age undetermined Abnormal ECG When compared with ECG of 10-SEP-2022 13:44, No significant change was found Referred By: Louis Stephens Electronically Signed By:THONY COREY MD
[2022-09-11] MEDS: Enoxaparin Sodium 40 MG/0.4 ML SYRINGE SUBCUT (20:46)
[2022-09-11] MEDS: Montelukast Sodium 10 MG TABLET PO (20:46)
[2022-09-12] VITALS (13 sets, daily range): BP systolic 133–161; BP diastolic 68–85; PULSE 73–110; RESP 16–20; TEMP 36.3–37.1; O2SAT 92–98
[2022-09-12] MEDS: methylPREDNISolone Sod Succ 125 MG/2 ML VIAL 60 MG IVPUSH ×3 (05:06→22:47)
[2022-09-12] MEDS: Morphine Sulfate 4 MG/ML CARTRIDGE IVPUSH ×2 (05:06→08:59)
[2022-09-12 07:22] LABS: Hematocrit 41.5 % (42.0-52.0); Hemoglobin 13.1 g/dl (14.0-18.0); Mean Corpuscular HGB Conc 31.6 g/dl (31.0-36.0); Mean Corpuscular Hemoglobin 27.5 pg (27.0-33.0); Mean Corpuscular Volume 87.2 fL (80.0-98.0); Mean Platelet Volume 10.7 fL (9.4-12.4); Platelet Count 240 X10*3/uL (160-400); Red Blood Count 4.76 X10*6/uL (4.60-5.80); Red Cell Distribution Width 14.2 % (11.0-16.0); White Blood Count 11.3 X10*3/uL (4.8-10.8)
[2022-09-12 07:43] LABS: Alanine Aminotransferase 104 U/L (0-40); Albumin Level 3.7 g/dL (3.5-5.0); Alkaline Phosphatase 73 U/L (39-117); Anion Gap 12 (12-20); Aspartate Amino Transferase 31 U/L (5-37); Bilirubin Total 0.2 mg/dL (0.0-1.0); Blood Urea Nitrogen 15 mg/dL (9-16); Calcium 9.4 mg/dL (8.4-10.2); Carbon Dioxide 30 mmol/L (22-29); Chloride 102 mmol/L (96-108); Creatinine Clr Calc Pharmacy 131.5; Estimated Glomerular Filt Rate > 60; Glucose Fasting 138 mg/dL (60-99); Potassium 4.5 mmol/L (3.3-5.1); Sodium 139 mmol/L (135-145); Total Protein 7.4 g/dL (6.5-8.0)
[2022-09-12] MEDS: Loratadine 10 MG TABLET PO (07:48)
[2022-09-12] MEDS: amLODIPine Besylate 5 MG TABLET PO (07:48)
[2022-09-12] MEDS: Fluticasone Propionate Nasal 16 GM SPRAY 2 SPRAY NOSTRIL-B (07:48)
[2022-09-12] MEDS: Doxycycline Hyclate 100 MG in 0.9 % Sodium Chloride 250 ML 166.67 MG IV ×2 (07:49→21:18)
[2022-09-12 08:18] LABS: HBS Num1 1.16 mIU/mL (0-7.99); HBc Num1 0.09 S/CO (0.00-0.79); HBsAGNum1 0.33 S/CO (0.00-0.99); Hepatitis B Core Antibody Nonreactive (Nonreactive); Hepatitis B Surface Antigen Negative (Negative); ~HepC Num1 0.13 S/CO (0.00-0.79); ~Hepatitis B Surface Antibody NONREACTIVE (Nonreactive); ~Hepatitis C Antibody Nonreactive (Nonreactive)
[2022-09-12] MEDS: methADONE HCl 20 MG/2 ML ORAL.CONC PO (11:37)
[2022-09-12] MEDS: Albuterol/Iprat 2.5/0.5MG 3 ML AMPUL.NEB INHALE ×3 (11:53→20:11)
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
--- NOTE | 2022-09-12 13:00 | P.PNIM_ITS ---
Subjective Subjective Date of Service: 09/12/22 Interval History: Feeling better still complaining of cough productive of clear phlegm, no fevers, no chills, less shortness of breath tolerating diet no nausea, no vomiting, no abdominal pain or diarrhea, no other acute issues overnight. Review of Systems General no headache, no dizziness no fever chills. CVS no chest pain, no palpitation. Gastrointestinal no nausea no vomiting, no abdominal pain no urgency, no frequency Physical Exam Vital Signs: Vital Signs: Last Vital Signs Temp 98.7 F 09/12/22 07:21 Pulse 86 09/12/22 11:54 Resp 18 09/12/22 11:54 BP 144/77 H 09/12/22 07:21 Pulse Ox 97 09/12/22 07:21 O2 Del Method Nasal Cannula 09/12/22 07:21 O2 Flow Rate 2 09/12/22 00:00 Oxygen Flow Rate 3 09/10/22 12:39 BMI result Body Mass Index 44.2 Const: Other: General awake alert x3, resting comfortably in no acute distress. Neck , supple no JVD. CVS regular rate rhythm, Respiratory lungs diminished breath sound, bilateral expiratory wheeze no use of accessory muscles no respiratory distress Gastrointestinal abdomen soft, nontender, bowel sounds audible, no guarding , no rigidity. Extremities no edema. Neuro nonfocal Skin no rash Psych appropriate affect Objective Data Active Medications Acetaminophen (Acetaminophen 325 Mg Tablet) 650 mg PO Q6H PRN PRN Reason: Pain, Mild (Pain Scale 1-3) Albuterol Sulfate (Albuterol Sulfate (0.083%) 2.5 Mg/3 Ml Vial.Neb) 2.5 mg INHALE Q2H PRN PRN Reason: Shortness of Breath/Wheezing Albuterol/Ipratropium (Albuterol/Iprat 2.5/0.5mg 3 Ml Ampul.Neb) 3 ml INHALE RQ4H WHILE AWAKE [facility] Last Admin: 09/12/22 11:53 Dose: 3 ml Documented By: KAREN Amlodipine Besylate (Amlodipine Besylate 5 Mg Tablet) 5 mg PO DAILY [facility]; Protocol Last Admin: 09/12/22 07:48 Dose: 5 mg Documented By: AURELIANO Benzonatate (Benzonatate 100 Mg Capsule) 100 mg PO TID PRN PRN Reason: Cough Docusate Sodium (Docusate Sodium 100 Mg Capsule) 100 mg PO DAILY PRN PRN Reason: Constipation Enoxaparin Sodium (Enoxaparin Sodium 40 Mg/0.4 Ml Syringe) 40 mg SUBCUT Q24H [facility] Last Admin: 09/11/22 20:46 Dose: 40 mg Documented By: GEO Fluticasone Propionate (Fluticasone Propionate Nasal 16 Gm [place]) 2 spray NOSTRIL-B DAILY [facility] Last Admin: 09/12/22 07:48 Dose: 2 spray Documented By: AURELIANO Fluticasone/Vilanterol (Fluticasone/Vilanterol 200/25 Blst.W.Dev) 1 puff INHALE RDAILY [facility] Last Admin: 09/12/22 07:51 Dose: Not Given Documented By: KAREN Non-Admin Reason: pt unavail Guaifenesin (Guaifenesin 200 Mg/10 Ml 10 Ml Liquid) 10 ml PO Q4H PRN PRN Reason: Cough Last Admin: 09/10/22 20:06 Dose: 10 ml Documented By: TITA Ceftriaxone Sodium 1 gm/ (Sodium Chloride) 50 mls @ 100 mls/hr IV Q24H [facility] Last Infusion: 09/11/22 16:27 Dose: 0 mls/hr Documented By: ANITA Doxycycline Hyclate 100 mg/ (Sodium Chloride) 250 mls @ 166.67 mls/hr IV Q12H [facility] Last Infusion: 09/12/22 09:59 Dose: 0 mls/hr Documented By: AURELIANO Loratadine (Loratadine 10 Mg Tablet) 10 mg PO DAILY [facility] Last Admin: 09/12/22 07:48 Dose: 10 mg Documented By: AURELIANO Methadone HCl (Methadone Hcl 20 Mg/2 Ml Oral.Conc) 30 mg PO DAILY [facility] Methylprednisolone Sodium Succinate (Methylprednisolone Sod Succ 125 Mg/2 Ml Vial) 60 mg IVPUSH Q6H [facility] Last Admin: 09/12/22 11:37 Dose: 60 mg Documented By: AURELIANO Montelukast Sodium (Montelukast Sodium 10 Mg Tablet) 10 mg PO BEDTIME [facility] Last Admin: 09/11/22 20:46 Dose: 10 mg Documented By: GEO Ondansetron HCl (Ondansetron Hcl 4 Mg/2 Ml Vial) 4 mg IVPUSH Q8H PRN PRN Reason: Nausea and Vomiting Pharmacy Consult (Consult Rx Perform Med Rec) 1 each MISCELLANE ONCE PRN PRN Reason: Consult order Sodium Chloride (0.9 % Sodium Chloride Flush 3 Ml Syringe) 3 ml IVFLUSH QSHIFT [facility] Last Admin: 09/12/22 07:53 Dose: Not Given Documented By: AURELIANO Non-Admin Reason: IV Running Labs 09/12/22 05:54 09/12/22 05:54 Labs: Laboratory Results - last 24 hr 09/10/22 09/12/22 09/12/22 16:27 05:54 05:54 MCV 87.2 MCH 27.5 MCHC 31.6 RDW 14.2 Plt Count 240 MPV 10.7 Absolute Nucleated RBC 0.000 Nucleated RBC % (auto) 0.0 Anion Gap 12 Estim Creat Clear Calc 131.5 Estimated GFR > 60 Fasting Glucose 138 H Calcium 9.4 Total Bilirubin 0.2 AST 31 ALT 104 H Alkaline Phosphatase 73 Total Protein 7.4 Albumin 3.7 Hep Bs Antigen Negative Hep Bs Antibody NONREACTIVE Hep B Core Total Ab Nonreactive Hepatitis C Ab (EIA) Nonreactive Microbiology Microbiology Results: Microbiology 09/10/22 16:27 Blood Culture - Preliminary Blood - Venous No growth after 24 hours. 09/10/22 16:27 Blood Culture - Preliminary Blood - Venous No growth after 24 hours. 09/10/22 16:05 Urine Culture - Final Urine clean catch - Clean Catch Midstream Strep agalactiae (Grp B) Assessment and Plan (1) Acute and chronic respiratory failure: Status: Acute (2) Acute exacerbation of chronic obstructive airways disease: Status: Acute (3) Obstructive sleep apnea: Status: Acute (4) Opioid use disorder: Status: Acute Plan 57 year old male with history of copd, riana not on cpap, htn, and morbid obesity who is a current 5 cigarette per day smoker and uses inhaled heroin admitted for acute COPD exacerbation with acute on chronic hypoxemic respiratory failure. 1.Acute on chronic respiratory failure- 2/2 COPD exacerbation, developing pneumonia and untreated RIANA -Continue supplemental O2 to maintain oximetry 90-92% -on methylprednisolone 60mg Q6h, will change to 60 q.12 hours continue Duonebs q4h [place],prn albuterol -on IV Doxycycline/CTX day 3 will add scheduled cough medication -add incentive spirometry 3.RIANA -continue bedtime CPAP -Outpt follow up with pulmonology 4.Chronic scrotal edema -previous u/s from [facility] concerning for epididymitis , continue ceftriaxone for 10 days outpatient follow-up with Urology 5.Opiate abuse -urine toxicology positive for opiates, fentanyl and cocaine, on methadone as per addiction medicine 6. Morbid obesity recommend weight reduction and exercise. lovenox Full code Pt. requires ongoing hospitalization for IV antibiotics to treat acute COPD exacerbation secondary to pneumonia Time Spent With Patient Time: Total time managing care of this patient today ____ minutes. Quality Stroke Does the patient have a stroke diagnosis?: No VTE Prior VTE?: No VTE Risk Level:: Medical - moderate - high VTE Device Contraindication: Treatment Not Indicated VTE Drug Contraindication: N/A - Med Ordered
[2022-09-12] MEDS: Benzonatate 100 MG CAPSULE PO ×2 (15:23→21:14)
[2022-09-12] MEDS: cefTRIAXone sodium 1 GM in 0.9 % Sodium Chloride 50 ML IV (15:24)
[2022-09-12] MEDS: Enoxaparin Sodium 40 MG/0.4 ML SYRINGE SUBCUT (21:15)
[2022-09-12] MEDS: Montelukast Sodium 10 MG TABLET PO (21:15)
[2022-09-12] MEDS: 0.9 % Sodium Chloride Flush 3 ML SYRINGE IVFLUSH (22:53)
[2022-09-13] VITALS (8 sets, daily range): BP systolic 135–166; BP diastolic 71–80; PULSE 79–101; RESP 16–20; TEMP 36.2–36.5; O2SAT 94–98
[2022-09-13 07:36] LABS: Alanine Aminotransferase 74 U/L (0-40); Albumin Level 3.9 g/dL (3.5-5.0); Alkaline Phosphatase 69 U/L (39-117); Anion Gap 14 (12-20); Aspartate Amino Transferase 15 U/L (5-37); Bilirubin Total 0.3 mg/dL (0.0-1.0); Blood Urea Nitrogen 15 mg/dL (9-16); Calcium 9.3 mg/dL (8.4-10.2); Carbon Dioxide 29 mmol/L (22-29); Chloride 102 mmol/L (96-108); Creatinine Clr Calc Pharmacy 139.3; Estimated Glomerular Filt Rate > 60; Glucose Fasting 130 mg/dL (60-99); Potassium 4.3 mmol/L (3.3-5.1); Sodium 141 mmol/L (135-145); Total Protein 7.6 g/dL (6.5-8.0)
[2022-09-13] MEDS: Fluticasone/Vilanterol 200/25 BLST.W.DEV 1 PUFF INHALE (07:51)
[2022-09-13] MEDS: Albuterol/Iprat 2.5/0.5MG 3 ML AMPUL.NEB INHALE ×2 (07:52→12:05)
[2022-09-13] MEDS: Doxycycline Hyclate 100 MG in 0.9 % Sodium Chloride 250 ML 166.67 MG IV ×2 (08:22→21:22)
[2022-09-13] MEDS: methADONE HCl 20 MG/2 ML ORAL.CONC 30 MG PO (08:22)
[2022-09-13] MEDS: Benzonatate 100 MG CAPSULE PO ×3 (08:22→21:23)
[2022-09-13] MEDS: Loratadine 10 MG TABLET PO (08:22)
[2022-09-13] MEDS: amLODIPine Besylate 5 MG TABLET PO (08:22)
[2022-09-13] MEDS: 0.9 % Sodium Chloride Flush 3 ML SYRINGE IVFLUSH ×2 (08:23→15:12)
[2022-09-13] MEDS: methylPREDNISolone Sod Succ 125 MG/2 ML VIAL 60 MG IVPUSH (11:34)
--- NOTE | 2022-09-13 13:22 | P.PNIM_ITS ---
Subjective Subjective Date of Service: 09/13/22 Interval History: Feeling better this morning less shortness of breath and cough finger oximetry 95% on 2 L, denies fever chills no other acute events overnight, tolerating diet no nausea, no vomiting, no abdominal pain, no diarrhea, no generalized body ache or tremors. Review of Systems All other system reviewed and negative Physical Exam Vital Signs: Vital Signs: Last Vital Signs Temp 97.3 F 09/13/22 12:00 Pulse 90 09/13/22 12:07 Resp 16 09/13/22 12:07 BP 140/80 H 09/13/22 12:00 Pulse Ox 95 09/13/22 12:00 O2 Del Method Nasal Cannula 09/13/22 12:00 O2 Flow Rate 1.5 09/13/22 12:00 Oxygen Flow Rate 3 09/10/22 12:39 BMI result Body Mass Index 44.2 Const: Other: General awake alert x3, resting comfortably in no acute distress.? Neck , supple no JVD. CVS? regular rate rhythm, Respiratory lungs bilateral expiratory wheeze, no use of accessory muscles, no respiratory distress Gastrointestinal abdomen soft, nontender, bowel sounds audible, no guarding , no rigidity. Extremities no edema. Neuro nonfocal Skin no rash Psych appropriate affect Objective Data Active Medications Acetaminophen (Acetaminophen 325 Mg Tablet) 650 mg PO Q6H PRN PRN Reason: Pain, Mild (Pain Scale 1-3) Albuterol Sulfate (Albuterol Sulfate (0.083%) 2.5 Mg/3 Ml Vial.Neb) 2.5 mg INHALE Q2H PRN PRN Reason: Shortness of Breath/Wheezing Albuterol/Ipratropium (Albuterol/Iprat 2.5/0.5mg 3 Ml Ampul.Neb) 3 ml INHALE RQ4H WHILE AWAKE [facility] Last Admin: 09/13/22 12:05 Dose: 3 ml Documented By: MARIYA Amlodipine Besylate (Amlodipine Besylate 5 Mg Tablet) 5 mg PO DAILY [facility]; Protocol Last Admin: 09/13/22 08:22 Dose: 5 mg Documented By: DABPavithra Benzonatate (Benzonatate 100 Mg Capsule) 100 mg PO TID [facility] Last Admin: 09/13/22 08:22 Dose: 100 mg Documented By: HERMILA Docusate Sodium (Docusate Sodium 100 Mg Capsule) 100 mg PO DAILY PRN PRN Reason: Constipation Enoxaparin Sodium (Enoxaparin Sodium 40 Mg/0.4 Ml Syringe) 40 mg SUBCUT Q24H [facility] Last Admin: 09/12/22 21:15 Dose: 40 mg Documented By: YAIR Fluticasone Propionate (Fluticasone Propionate Nasal 16 Gm [place]) 2 spray NOSTRIL-B DAILY [facility] Last Admin: 09/12/22 07:48 Dose: 2 spray Documented By: AURELIANO Fluticasone/Vilanterol (Fluticasone/Vilanterol 200/25 Blst.W.Dev) 1 puff INHALE RDAILY [facility] Last Admin: 09/13/22 07:51 Dose: 1 puff Documented By: MARIYA Guaifenesin (Guaifenesin 200 Mg/10 Ml 10 Ml Liquid) 10 ml PO TID PRN PRN Reason: Cough Ceftriaxone Sodium 1 gm/ (Sodium Chloride) 50 mls @ 100 mls/hr IV Q24H [facility] Last Infusion: 09/12/22 15:55 Dose: 0 mls/hr Documented By: AURELIANO Doxycycline Hyclate 100 mg/ (Sodium Chloride) 250 mls @ 166.67 mls/hr IV Q12H [facility] Last Infusion: 09/13/22 09:56 Dose: 0 mls/hr Documented By: HERMILA Loratadine (Loratadine 10 Mg Tablet) 10 mg PO DAILY [facility] Last Admin: 09/13/22 08:22 Dose: 10 mg Documented By: HERMILA Methadone HCl (Methadone Hcl 20 Mg/2 Ml Oral.Conc) 30 mg PO DAILY [facility] Last Admin: 09/13/22 08:22 Dose: 30 mg Documented By: HERMILA Methylprednisolone Sodium Succinate (Methylprednisolone Sod Succ 125 Mg/2 Ml Vial) 60 mg IVPUSH Q12H [facility] Last Admin: 09/13/22 11:34 Dose: 60 mg Documented By: HERMILA Montelukast Sodium (Montelukast Sodium 10 Mg Tablet) 10 mg PO BEDTIME [facility] Last Admin: 09/12/22 21:15 Dose: 10 mg Documented By: YAIR Ondansetron HCl (Ondansetron Hcl 4 Mg/2 Ml Vial) 4 mg IVPUSH Q8H PRN PRN Reason: Nausea and Vomiting Pharmacy Consult (Consult Rx Perform Med Rec) 1 each MISCELLANE ONCE PRN PRN Reason: Consult order Sodium Chloride (0.9 % Sodium Chloride Flush 3 Ml Syringe) 3 ml IVFLUSH QSHIFT IVONE Last Admin: 09/13/22 08:23 Dose: 3 ml Documented By: HERMILA Labs 09/12/22 05:54 09/13/22 07:03 Labs: Laboratory Results - last 24 hr 09/13/22 07:03 Anion Gap 14 Estim Creat Clear Calc 139.3 Estimated GFR > 60 Fasting Glucose 130 H Calcium 9.3 Total Bilirubin 0.3 AST 15 ALT 74 H Alkaline Phosphatase 69 Total Protein 7.6 Albumin 3.9 Microbiology Microbiology Results: Microbiology 09/10/22 16:27 Blood Culture - Preliminary Blood - Venous No growth after 48 hours. 09/10/22 16:27 Blood Culture - Preliminary Blood - Venous No growth after 48 hours. Assessment and Plan (1) Acute and chronic respiratory failure: Status: Acute (2) Acute exacerbation of chronic obstructive airways disease: Status: Acute (3) Obstructive sleep apnea: Status: Acute (4) Opioid use disorder: Status: Acute Plan 57 year old male with history of copd, riana not on cpap, htn, and morbid obesity who is a current 5 cigarette per day smoker and uses inhaled heroin admitted for acute COPD exacerbation with acute on chronic hypoxemic respiratory failure. 1.Acute on chronic respiratory failure- 2/2 COPD exacerbation, developing pneumonia and untreated RIANA -wean supplemental O2 to maintain oximetry 90-92% -on methylprednisolone 60mg Q12 hours, continue Duonebs q4h [place],prn albuterol -on IV Doxycycline/CTX day /, continue scheduled cough medication -encourage incentive spirometry -will continue current treatment for 1 more day and re-evaluate patient at a.m. 3.RIANA -continue bedtime CPAP -Outpt follow up with pulmonology, patient not on CPAP at home 4.Chronic scrotal edema -previous u/s from [facility] concerning for epididymitis , scrotal ultrasound on 09/10 showed right hydrocele, continue ceftriaxone for 10 days, outpatient follow-up with Urology 5.Opiate abuse -urine toxicology positive for opiates, fentanyl and cocaine, on methadone as p er addiction medicine 6. Morbid obesity recommend weight reduction and exercise. lovenox Full code Pt. requires ongoing hospitalization for IV antibiotics to treat acute COPD exacerbation secondary to pneumonia, recommend ambulation, and wean oxygen. Time Spent With Patient Time: Total time managing care of this patient today ____ minutes. Quality Stroke Does the patient have a stroke diagnosis?: No VTE Prior VTE?: No VTE Risk Level:: Medical - moderate - high VTE Device Contraindication: Treatment Not Indicated VTE Drug Contraindication: N/A - Med Ordered
--- NOTE | 2022-09-13 14:01 | HO.ADDICTPRO ---
Subjective Subjective Date of Service: 09/13/22 Reason For Visit: copd exacerbation, pneumonia, slava Interim History: Patient seen in follow up Started on methadone 20mg yesterday (09/12). He reports sleeping much better . This morning received methadone 30mg with good effect. Patient denies any withdrawal sx at this time, including anxiety. Discussed increasing dose, patient requesting to stay at this dose for now. Reviewed OTP follow up--information to be provided by bottle label inspector prior to discharge. Review of Systems Constitutional: Reports as per HPI and Reports no additional constitutional complaints Mental Status Exam Mental Status Exam Patient Appearance: Appropriate Patient Orientation: Person, Place, Time and Situation Level of Consciousness: Awake and Appropriate Affect Description: Calm Judgement: Fair Diagnostics Vital Signs (24Hr): Vital Signs - 24 hr 09/12/22 15:37 09/12/22 15:37 09/12/22 19:41 Temperature 97.7 F 97.8 F Pulse Rate 110 H 95 86 Respiratory Rate 20 18 16 Blood Pressure 149/68 H 143/76 H Pulse Oximetry 98 98 Oxygen Delivery Method Room Air Nasal Cannula Oxygen Flow Rate 2 09/12/22 20:14 09/12/22 23:45 09/13/22 02:54 Temperature 97.5 F 97.1 F Pulse Rate 83 84 79 Respiratory Rate 16 16 18 Blood Pressure 158/78 H 166/79 H Pulse Oximetry 96 95 Oxygen Delivery Method CPAP Nasal Cannula Oxygen Flow Rate 2 09/12/22 22:52 09/13/22 07:48 09/13/22 07:54 Temperature 97.3 F Pulse Rate 89 91 Respiratory Rate 17 18 16 Blood Pressure 147/80 H Pulse Oximetry 97 Oxygen Delivery Method Nasal Cannula Oxygen Flow Rate 2 09/13/22 12:07 09/13/22 12:00 Temperature 97.3 F Pulse Rate 90 101 H Respiratory Rate 16 18 Blood Pressure 140/80 H Pulse Oximetry 95 Oxygen Delivery Method Nasal Cannula Oxygen Flow Rate 1.5 BMI result Body Mass Index 44.2 Labs 09/12/22 05:54 09/13/22 07:03 Labs: Laboratory Results - last 48 hr 09/10/22 09/12/22 09/12/22 16:27 05:54 05:54 WBC 11.3 H RBC 4.76 Hgb 13.1 L Hct 41.5 L MCV 87.2 MCH 27.5 MCHC 31.6 RDW 14.2 Plt Count 240 MPV 10.7 Absolute Nucleated RBC 0.000 Nucleated RBC % (auto) 0.0 Sodium 139 Potassium 4.5 Chloride 102 Carbon Dioxide 30 H Anion Gap 12 BUN 15 Creatinine 0.90 Estim Creat Clear Calc 131.5 Estimated GFR > 60 Fasting Glucose 138 H Calcium 9.4 Total Bilirubin 0.2 AST 31 ALT 104 H Alkaline Phosphatase 73 Total Protein 7.4 Albumin 3.7 Hep Bs Antigen Negative Hep Bs Antibody NONREACTIVE Hep B Core Total Ab Nonreactive Hepatitis C Ab (EIA) Nonreactive 09/13/22 07:03 WBC RBC Hgb Hct MCV MCH MCHC RDW Plt Count MPV Absolute Nucleated RBC Nucleated RBC % (auto) Sodium 141 Potassium 4.3 Chloride 102 Carbon Dioxide 29 Anion Gap 14 BUN 15 Creatinine 0.85 Estim Creat Clear Calc 139.3 Estimated GFR > 60 Fasting Glucose 130 H Calcium 9.3 Total Bilirubin 0.3 AST 15 ALT 74 H Alkaline Phosphatase 69 Total Protein 7.6 Albumin 3.9 Hep Bs Antigen Hep Bs Antibody Hep B Core Total Ab Hepatitis C Ab (EIA) Imaging Radiology Impressions: ITS Impressions Chest X-Ray 09/10/22 13:34 IMPRESSION: Bibasilar linear markings represent interval increase in the previous study and could represent atelectasis. A developing infiltrate cannot be excluded. Scrotum Ultrasound 09/10/22 18:10 IMPRESSION: Large right hydrocele accounts for the patient's scrotal swelling. Medications Medications Current Medications Acetaminophen (Acetaminophen 325 Mg Tablet) 650 mg PO Q6H PRN PRN Reason: Pain, Mild (Pain Scale 1-3) Albuterol Sulfate (Albuterol Sulfate (0.083%) 2.5 Mg/3 Ml Vial.Neb) 2.5 mg INHALE Q2H PRN PRN Reason: Shortness of Breath/Wheezing Albuterol/Ipratropium (Albuterol/Iprat 2.5/0.5mg 3 Ml Ampul.Neb) 3 ml INHALE RQ4H WHILE AWAKE [facility] Last Admin: 09/13/22 12:05 Dose: 3 ml Amlodipine Besylate (Amlodipine Besylate 5 Mg Tablet) 5 mg PO DAILY [facility]; Protocol Last Admin: 09/13/22 08:22 Dose: 5 mg Benzonatate (Benzonatate 100 Mg Capsule) 100 mg PO TID IVONE Last Admin: 09/13/22 08:22 Dose: 100 mg Docusate Sodium (Docusate Sodium 100 Mg Capsule) 100 mg PO DAILY PRN PRN Reason: Constipation Enoxaparin Sodium (Enoxaparin Sodium 40 Mg/0.4 Ml Syringe) 40 mg SUBCUT Q24H [facility] Last Admin: 09/12/22 21:15 Dose: 40 mg Fluticasone Propionate (Fluticasone Propionate Nasal 16 Gm [place]) 2 spray NOSTRIL-B DAILY [facility] Last Admin: 09/12/22 07:48 Dose: 2 spray Fluticasone/Vilanterol (Fluticasone/Vilanterol 200/25 Blst.W.Dev) 1 puff INHALE RDAILY [facility] Last Admin: 09/13/22 07:51 Dose: 1 puff Guaifenesin (Guaifenesin 200 Mg/10 Ml 10 Ml Liquid) 10 ml PO TID PRN PRN Reason: Cough Ceftriaxone Sodium 1 gm/ (Sodium Chloride) 50 mls @ 100 mls/hr IV Q24H [facility] Last Infusion: 09/12/22 15:55 Dose: Infused Doxycycline Hyclate 100 mg/ (Sodium Chloride) 250 mls @ 166.67 mls/hr IV Q12H [facility] Last Infusion: 09/13/22 09:56 Dose: Infused Loratadine (Loratadine 10 Mg Tablet) 10 mg PO DAILY [facility] Last Admin: 09/13/22 08:22 Dose: 10 mg Methadone HCl (Methadone Hcl 20 Mg/2 Ml Oral.Conc) 30 mg PO DAILY [facility] Last Admin: 09/13/22 08:22 Dose: 30 mg Methylprednisolone Sodium Succinate (Methylprednisolone Sod Succ 125 Mg/2 Ml Vial) 60 mg IVPUSH Q12H [facility] Last Admin: 09/13/22 11:34 Dose: 60 mg Montelukast Sodium (Montelukast Sodium 10 Mg Tablet) 10 mg PO BEDTIME [facility] Last Admin: 09/12/22 21:15 Dose: 10 mg Ondansetron HCl (Ondansetron Hcl 4 Mg/2 Ml Vial) 4 mg IVPUSH Q8H PRN PRN Reason: Nausea and Vomiting Pharmacy Consult (Consult Rx Perform Med Rec) 1 each MISCELLANE ONCE PRN PRN Reason: Consult order Sodium Chloride (0.9 % Sodium Chloride Flush 3 Ml Syringe) 3 ml IVFLUSH QSHIFT [facility] Last Admin: 09/13/22 08:23 Dose: 3 ml Allergies Allergies Allergy/AdvReac Type Severity Reaction Status Date / Time No Known Allergies Allergy Verified 08/14/20 14:04 Assessment & Plan Assessment & Plan (1) Opioid use disorder: Status: Acute Code(s): F11.99 - Opioid use, unspecified with unspecified opioid-induced disorder Assessment and Plan: continue methadone 30mg daily referral sent to [facility] [place] patient will need last dose letter and take home narcan prior to discharge Total time managing care of this patient today _15___ minutes.
[2022-09-13] MEDS: cefTRIAXone sodium 1 GM in 0.9 % Sodium Chloride 50 ML IV (15:12)
[2022-09-13] MEDS: Enoxaparin Sodium 40 MG/0.4 ML SYRINGE SUBCUT (21:23)
[2022-09-13] MEDS: Montelukast Sodium 10 MG TABLET PO (21:23)
[2022-09-14] MEDS: methylPREDNISolone Sod Succ 125 MG/2 ML VIAL 60 MG IVPUSH ×2 (00:08→11:50)
[2022-09-14] MEDS: 0.9 % Sodium Chloride Flush 3 ML SYRINGE IVFLUSH ×2 (00:09→08:22)
[2022-09-14 03:20] VITALS: BP 144/78; PULSE 67; RESP 16; TEMP 36.4; O2SAT 94
[2022-09-14 04:00] VITALS: O2SAT 97
[2022-09-14 06:39] LABS: Alanine Aminotransferase 53 U/L (0-40); Albumin Level 3.7 g/dL (3.5-5.0); Alkaline Phosphatase 67 U/L (39-117); Anion Gap 11 (12-20); Aspartate Amino Transferase 13 U/L (5-37); Bilirubin Total 0.3 mg/dL (0.0-1.0); Blood Urea Nitrogen 14 mg/dL (9-16); Calcium 9.3 mg/dL (8.4-10.2); Carbon Dioxide 34 mmol/L (22-29); Chloride 100 mmol/L (96-108); Creatinine Clr Calc Pharmacy 131.5; Estimated Glomerular Filt Rate > 60; Glucose Fasting 165 mg/dL (60-99); Potassium 4.5 mmol/L (3.3-5.1); Sodium 140 mmol/L (135-145); Total Protein 7.3 g/dL (6.5-8.0)
[2022-09-14 07:34] VITALS: BP 157/91; PULSE 86; RESP 18; TEMP 37.1; O2SAT 90
[2022-09-14] MEDS: Albuterol/Iprat 2.5/0.5MG 3 ML AMPUL.NEB INHALE ×2 (07:41→11:35)
[2022-09-14 07:43] VITALS: PULSE 86; RESP 18; O2SAT 95
[2022-09-14] MEDS: Loratadine 10 MG TABLET PO (08:18)
[2022-09-14] MEDS: Fluticasone Propionate Nasal 16 GM SPRAY 2 SPRAY NOSTRIL-B (08:18)
[2022-09-14] MEDS: amLODIPine Besylate 5 MG TABLET PO (08:18)
[2022-09-14] MEDS: methADONE HCl 20 MG/2 ML ORAL.CONC 30 MG PO (08:18)
[2022-09-14] MEDS: Doxycycline Hyclate 100 MG in 0.9 % Sodium Chloride 250 ML 166.67 MG IV (08:18)
[2022-09-14] MEDS: Benzonatate 100 MG CAPSULE PO (08:18)
--- NOTE | 2022-09-14 10:55 | MHC.CM.PN ---
DP: PT HAS BEEN MEDICALLY CLEARED FOR DC HOME, NO SERVICES. PT HAS OWN RIDE HOME.
[2022-09-14 11:37] VITALS: PULSE 83; RESP 18; O2SAT 94
--- NOTE | 2022-09-14 11:48 | PM.DS ---
DS: Providers Provider Date of Service: 09/14/22 Date of admission: 09/10/22 15:30 Primary care physician: [facility] Consults: 09/10/22 15:35 Addiction Medicine Routine Consulting Provider: Addiction Covering Reason for consultation: opiate use disorder DS: Diagnosis Discharge Diagnosis (1) Opioid use disorder: Status: Acute DS: Summary Hospital Course Hospital Course: History of presenting illness: Date of Service: 09/10/22 Attending physician on admission: Louis Stephens Chief Complaint: sob, productive cough 57 year old male with history of copd, riana not on cpap, htn, and morbid obesity who is a current 5 cigarette per day smoker and uses inhaled heroin presented to the ED for evaluation of worsening SOB/KISER with cough with green sputum production different from baseline over the last few days. He does not use home O2 but has been unable to walk from his bedroom to bathroom without needing to stop. Has been using his nebulizer without success. He does endose orthopnea, apneic episodes, daytime somnolence, and history of BLE edema but states this is has been controlled recently. He was diagnosed with sleep apnea about 2 years ago but never sough out CPAP. No fevers, chills, sore throat, abd pain, n/v/d, lightheadedness, palpitations or chest pain. He is also complaining of scrotal swelling that has been present for over a year. Had an ultrasound at [facility] 10/06 negative for torsion with increasing enlargement of the right epididymal head with worsening marked hyperemia, a worsening large partially complex right hydrocele, and diffuse scroal edema. Findings suggestive of worsening right epididymitis. No urinary symptoms. On arrival, patient hypoxic to 88% placed on 3L supplemental O2, vitals otherwise wnl.No leukocytosis. Renal function normal. Lytes normal, except bicarb 32. VBG ph 7.36, pO2 63, pO2 75 Bicarb 36. AST 194, ALT 177. Bili normal. BNP 97, trop 16.1. UA with trace leuks, +glucose, 3+ protein, elevated specific gravity. Negative for COVID-19. EKG NSR rate 85. No MAUREEN or depressions. CXR shows bibasilar linear markings with possible developing infiltrate. In the ED give 10mg dexamethsone and albuterol neb. Hospital course 57 year old male with history of copd, riana not on cpap, htn, and morbid obesity who is a current 5 cigarette per day smoker and uses inhaled heroin admitted for acute COPD exacerbation with acute on chronic hypoxemic respiratory failure. 1.Acute on chronic respiratory failure- 2/2 COPD exacerbation, developing pneumonia and untreated RIANA, patient admitted to medical floor treated with IV doxycycline and ceftriaxone, also treated with iv methylprednisolone 60mg Q12 hours,Duonebs q4h [place],prn albuterol patient responded well to above treatment oxygen has been weaned off with stable finger oximetry on room air at discharge patient is now being discharged home on tapering dose of steroids recommended to take cough medication as needed and finished course of antibiotics. 3.RIANA patient treated with CPAP he had outpatient sleep study and waiting for CPAP recommend to follow up with PCP 4.Chronic scrotal edema -previous u/s from [facility] concerning for epididymitis , scrotal ultrasound on 09/10 showed right hydrocele, recommend outpatient follow-up with Urology. 5.Opiate abuse -urine toxicology positive for opiates, fentanyl and cocaine, treated with methadone as per addiction medicine, recommend outpatient follow-up at methadone clinic. 6. Morbid obesity recommend weight reduction and exercise. Time Spent with Patient Time attestation: Total time managing care of this patient today ____ minutes. Discharge coordination time: Greater than 30 minutes Quality: Safe Use of Opioids Does Pt have an Active Cancer Diagnosis on the Problem List?: No Quality: Stroke Does the patient have a stroke diagnosis?: No Physical Exam Vital Signs: Vital Signs: Last Vital Signs Temp 98.7 F 09/14/22 07:34 Pulse 83 09/14/22 11:37 Resp 18 09/14/22 11:37 BP 157/91 H 09/14/22 07:34 Pulse Ox 90 L 09/14/22 07:34 O2 Del Method Nasal Cannula 09/14/22 07:34 O2 Flow Rate 3 09/14/22 07:34 Oxygen Flow Rate 3 09/10/22 12:39 BMI result Body Mass Index 44.2 Const: Other: General awake alert x3, resting comfortably in no acute distress.? Neck , supple no JVD. CVS? regular rate rhythm, Respiratory lungs few expiratory wheeze, no use of accessory muscles, no respiratory distress Gastrointestinal abdomen soft, nontender, bowel sounds audible, no guarding , no rigidity. Extremities no edema. Neuro nonfocal Skin no rash Psych appropriate affect DS: Data Data Completed and Pending Labs on day of discharge: Laboratory Results - last 24 hr 09/14/22 05:55 Sodium 140 Potassium 4.5 Chloride 100 Carbon Dioxide 34 H Anion Gap 11 L BUN 14 Creatinine 0.90 Estim Creat Clear Calc 131.5 Estimated GFR > 60 Fasting Glucose 165 H Calcium 9.3 Total Bilirubin 0.3 AST 13 ALT 53 H Alkaline Phosphatase 67 Total Protein 7.3 Albumin 3.7 Preliminary micro results at discharge 09/10/22 16:27 Blood Culture - Preliminary Blood - Venous No growth after 48 hours. 09/10/22 16:27 Blood Culture - Preliminary Blood - Venous No growth after 48 hours. Discharge Plan Discharge Anticipated Discharge Date/Time: 09/14/22 10:46 Patient Disposition: Home, Self-Care Discharge Diagnosis: Acute on chronic respiratory failure due to COPD exacerbation Early pneumonia Referrals: [place],[facility] [Primary Care Provider] - 1 Week Discharge Medications: New prednisone 20 mg tablet 20 mg PO DAILY Qty: 5 0RF ipratropium-albuterol 0.5 mg-3 mg(2.5 mg base)/3 mL solution for nebulization 3 ml inhalation Q4H PRN (Reason: shortness of breath or wheezing) Qty: 90 0RF Rx Instructions: for 3 doses cefuroxime axetil 500 mg tablet 500 mg PO Q12H Qty: 10 0RF Continued albuterol sulfate 2.5 mg /3 mL (0.083 %) solution for nebulization 2.5 mg inhalation QID cetirizine 10 mg tablet 10 mg PO DAILY amlodipine 5 mg tablet 5 mg PO DAILY fluticasone propion-salmeterol [Advair Diskus] 500-50 mcg/dose blister with device 1 inh INHALATION Q12H montelukast 10 mg tablet 10 mg PO QPM albuterol sulfate [Ventolin HFA] 90 mcg/actuation HFA aerosol inhaler 2 puff INHALATION Q4-6H PRN (Reason: Shortness Of Breath Or Wheezing) fluticasone propionate 50 mcg/actuation spray,suspension 2 spray intranasal DAILY Discharge Orders: Discharge Order (Routine); Ordered 09/14/22 Ordered By: Khalif Polo Diet: Advance to usual diet Activity on Discharge: As tolerated Stand Alone Forms: Patient Portal Discharge page Care Plan Goals: Take all medications as prescribed, take prednisone with food Follow-up at methadone clinic Follow low-calorie diet Obstructive sleep apnea follow-up with PCP for CPAP Health Concerns: Continue all medications as prescribed Plan of Treatment: Follow-up with primary care physician, need referral for outpatient urology follow-up for right scrotal swelling Assessment: As above
--- NOTE | 2022-09-14 12:14 | MHC.RECOVRN ---
This selling underwriter met with patient, patient reports will be discharging today. Patient provided with Last dose letter and [facility] information. Reviewed referral sent to [facility], reviewed must bring last dose letter to [facility] intake and arrive early to be seen. Patient verbalized understanding.
== END 2022-09-14 12:08 | disposition home or self-care (01) | DRG 139 ==
LOC: HO.ED 14:51 → HO.EDOVER 15:39 → HO.S3 17:28
PROVIDERS: Hospitalist; Admitting Provider Physician Assistant; Emergency Provider Internal Medicine; PCP Internal Medicine Geriatric Medicine; Visit Provider Hospitalist
DX: J18.9 Pneumonia, unspecified organism (principal); J96.21 Acute and chronic respiratory failure with hypoxia; K76.0 Fatty (change of) liver, not elsewhere classified; J44.0 Chronic obstructive pulmonary disease with (acute) lower respiratory infection; J44.1 Chronic obstructive pulmonary disease with (acute) exacerbation; G47.33 Obstructive sleep apnea (adult) (pediatric); E66.01 Morbid (severe) obesity due to excess calories; F11.10 Opioid abuse, uncomplicated; Z68.41 Body mass index [BMI] 40.0-44.9, adult; N43.3 Hydrocele, unspecified; N45.1 Epididymitis; F17.210 Nicotine dependence, cigarettes, uncomplicated; Z71.6 Tobacco abuse counseling; Z20.822 Contact with and (suspected) exposure to COVID-19; Z79.51 Long term (current) use of inhaled steroids; Z79.899 Other long term (current) drug therapy
CPT/HCPCS: 36415; 71045; 76870; 80048; 80053; 80307; 81001; 82803; 83880; 84484; 85025; 85027; 86704; 86706; 86803; 87040; 87086; 87147; 87340; 87635; 93005; 94640; 94660; 99285; J0696; J1650; J2270; J2920; J2930; J8540

== ENCOUNTER 2023-02-25 19:55 | Inpatient (IN) | payer MEDICAID, SELFPAY ==
--- NOTE | ~2023-02-25 | XR_ITS ---
EXAMINATION: XR PORTABLE CHEST CLINICAL INFORMATION: Shortness of breath COMPARISON: 09/10/2022 TECHNIQUE: AP portable upright view of the chest FINDINGS: KUBs over the chest. Lungs are clear. No consolidation, pneumothorax, or pleural effusion. Cardiac and mediastinal contours are normal. Pulmonary vasculature is unremarkable. Osseous structures are unremarkable. XR/XR chest 1V IMPRESSION: No acute cardiopulmonary findings
[2023-02-25 20:02] VITALS: BP 149/80; PULSE 95; RESP 25; TEMP 36.1; O2SAT 93; BMI 43.4
--- NOTE | 2023-02-25 20:03 | ECG_ITS ---
Test Reason : SOB Blood Pressure : / mmHG Vent. Rate : 094 BPM Atrial Rate : 094 BPM P-R Int : 148 ms QRS Dur : 078 ms QT Int : 402 ms P-R-T Axes : 077 035 052 degrees QTc Int : 502 ms Sinus rhythm with occasional Premature ventricular complexes Abnormal ECG When compared with ECG of 11-SEP-2022 16:49, Premature ventricular complexes are now Present Referred By: Ivon Marie Electronically Signed By:PAPITO PHILLIPS MD
--- NOTE | 2023-02-25 20:05 | ED.SOB ---
HPI - SOB/Dyspnea General Chief Complaint: Dyspnea Stated Complaint: asthma sob Time Seen by Provider: 02/25/23 21:52 Source: patient and family Mode of arrival: ambulatory Limitations: no limitations History of Present Illness HPI Narrative: Patient is a 58-year-old male with history of HTN, chronic respiratory failure due to RIANA, COPD, opioid use disorder presenting to the emergency department with 2 days of increasing wheezing and shortness of breath. He denies fevers. Denies chest pain or palpitations. Denies lower extremity edema. Reports does not have any asthma medications at home. MD elicited complaint: shortness of breath Pertinent past history: COPD and other (riana) Onset (ago): day(s) Timing: constant Severity: severe Exacerbating factors: exertion Relieving factors: nothing Known history of: COPD Associated symptoms: wheezing Treatment prior to arrival: none Related Data Home Medications Medication Instructions Recorded Confirmed albuterol sulfate 2.5 mg/3 mL 2.5 mg inhalation QID 09/10/22 09/10/22 (0.083 %) solution for nebulization albuterol sulfate 90 mcg/actuation 2 puff inhalation Q4-6H PRN 09/10/22 09/10/22 aerosol inhaler (Ventolin HFA) Shortness Of Breath Or Wheezing amlodipine 5 mg tablet 5 mg PO DAILY 09/10/22 09/10/22 cetirizine 10 mg tablet 10 mg PO DAILY 09/10/22 09/10/22 fluticasone 500 mcg-salmeterol 50 1 inh inhalation Q12H 09/10/22 09/10/22 mcg/dose blistr powdr for inhalation (Advair Diskus) fluticasone propionate 50 2 spray intranasal DAILY 09/10/22 09/10/22 mcg/actuation nasal spray,suspension montelukast 10 mg tablet 10 mg PO QPM 09/10/22 09/10/22 Previous Rx's Medication Instructions Recorded cefuroxime axetil 500 mg tablet 500 mg PO Q12H #10 tabs 09/14/22 ipratropium 0.5 mg-albuterol 3 mg 3 ml inhalation Q4H PRN shortness 09/14/22 (2.5 mg base)/3 mL nebulization of breath or wheezing #90 mL soln prednisone 20 mg tablet 20 mg PO DAILY #5 tabs 09/14/22 Allergies Allergy/AdvReac Type Severity Reaction Status Date / Time No Known Allergies Allergy Verified 08/14/20 14:04 Review of Systems Review of Systems: As per HPI. Yes all other systems are reviewed and are negative [facility] Past Medical History Medical History (Updated 02/25/23 @ 23:37 by Jessi Caldera NP) HTN (hypertension) Chronic respiratory failure due to obstructive sleep apnea Bursitis of right shoulder Osteoarthritis of left knee COPD (chronic obstructive pulmonary disease) Obstructive sleep apnea Opioid use disorder (~08/27/18) Social History Social History Household Members: Family Housing: House Do you presently have visiting nurse or other home services: No Alcohol intake: current Alcohol intake frequency: holidays/special occasions only Patient Tobacco Use Status: Current everyday Tobacco user Tobacco use type: Cigarette Cigarettes Per Day: 5 Years Smoked: 5 Smoked in Last 30 Days: No Use of substances other than those prescribed or required for medical reasons: Yes Substance Use Type: Crack/Cocaine Substance Use Frequency: Daily Last Used Substance: Just Prior to Admission Advance Directives: No Advance Directives Information Provided: Yes service: No Current occupational status: unemployed Current occupation: right handed Physical Exam Vital Signs: Vital Signs: Last Vital Signs Temp 99.1 F 02/25/23 22:25 Pulse 90 02/25/23 22:25 Resp 16 02/25/23 22:25 BP 128/62 02/25/23 22:25 Pulse Ox 94 02/25/23 22:25 O2 Del Method Nasal Cannula 02/25/23 22:25 O2 Flow Rate 2 02/25/23 22:25 Oxygen Flow Rate 2 02/25/23 20:02 BMI result Body Mass Index 43.4 Vital signs have been reviewed and appear to be correct. Blood pressure normal. Heart rate normal. Respiratory rate normal. Temperature normal. Oxygen saturation hypoxic on room air, requiring O2 to maintain O2 saturation. Const: General: no acute distress, alert and awake Orientation/consciousness: patient oriented x3 Limitations: no limitations HEENT: Head: Yes normocephalic and Yes atraumatic Mouth: Normal oral and palatal mucosa present Throat: Yes posterior oropharynx normal, Yes uvula midline and No uvular edema Eyes: Pupils: Equal, round and reactive pupils present Neck: Neck: Yes normal visual inspection and Yes supple Lymphatic: no lymphadenopathy noted Resp: Effort & Inspection: audible wheezes, no retractions and uses accessory muscles Auscultation: wheezes expiratory wheezes, inspiratory wheezes and throughout Cardio: Rate: regular rate Rhythm: regular rhythm Heart sounds: S1 normal heart sound present and S2 normal heart sound present GI: Inspection: Yes normal to inspection Palpation (GI): Soft to palpation and nontender Auscultation: normoactive bowel sounds Skin: General skin exam: elasticity normal and turgor normal Neuro: General: patient oriented x3, tone normal, moves all extremities and CN's II-XI intact bilaterally Cranial nerves: Yes Equal, round and reactive pupils present Extrem: General: Yes normal to inspection, Yes full ROM, Yes capillary refill normal, Yes no pedal edema and Yes no calf tenderness Course Course Course Narrative: this is a rapid medical exam. Defer additional HPI, ROS and PE to prior provider. 58-year-old male with a history of asthma, OUD presents the ER with complaints of shortness of breath. Patient is tachycardic, hypoxic, tachypneic in triage in respiratory distress. Will obtain labs, EKG, chest x-ray, viral testing. Nebulizer, Solu-Medrol, magnesium ordered. Charge nurse notified patient needs immediate placement. Medications Administered Discontinued Medications Generic Name Dose Route Start Last Admin Trade Name Ruiq PRN Reason Stop Dose Admin Albuterol Sulfate 5 mg/ 7.5 mg 02/25/23 20:25 02/25/23 20:28 Albuterol Sulfate 2.5 mg INHALE 02/25/23 20:26 7.5 mg ONCE ONE Administration Albuterol Sulfate 2.5 mg/ 0 mg 02/25/23 20:32 02/25/23 20:35 Albuterol/Ipratropium 3 ml INHALE 02/25/23 20:33 7.5 dose ONCE ONE Administration Magnesium Sulfate 2 gm in 50 mls @ 25 mls/hr 02/25/23 20:03 02/25/23 22:21 Magnesium Sulfate/H2o IV 02/25/23 22:02 Infused ONCE ONE Infusion Ceftriaxone Sodium 1 gm/ 50 mls @ 100 mls/hr 02/25/23 22:54 02/25/23 23:03 Sodium Chloride IV 02/25/23 23:23 100 mls/hr ONCE ONE Administration Methylprednisolone Sodium Succinate 125 mg 02/25/23 20:03 02/25/23 20:18 Methylprednisolone Sod Succ 125 Mg/2 Ml Vial IVPUSH 02/25/23 20:04 125 mg ONCE ONE Administration Medical Decision Making Medical Decision Making [facility] Narrative: Patient is a 58-year-old male with history of HTN, chronic respiratory failure due to RIANA, COPD, opioid use disorder presenting to the emergency department with 2 days of increasing wheezing and shortness of breath. On exam patient is awake, A+Ox3, requiring oxygen via nasal cannula to maintan adequate oxygen saturation, VS otherwise WNL, afebrile, normal neurological exam without focal deficits, physical exam findings as above. Given reported symptoms and physical exam findings, initial differential includes COPD exacerbation, asthma, CHF exacerbation, pneumonia, ACS, viral illness. Do not suspect sepsis at this time. Labs notable for anemia consistent with baseline. X-ray notable for no acute abnormalities. My interpretation is in agreement with the radiologist's interpretation. Patient continues to require oxygen to maintain adequate oxygenation despite medications in the ED. IV ceftriaxone ordered. Discussed admission with Dr. Aragon who accepts admission. Differential Diagnosis Differential Diagnoses: The differential diagnosis associated with the presentation includes As per [facility]. Admission/Observation Consideration of admission/observation: Escalation of care including admission/observation considered Consult Healthcare Provider Management of the patient was discussed with: Hospitalist (Dr. Aragon) Lab Data [facility] Lab Attestation statement: I reviewed the patient's lab results. As per [facility] 02/25/23 20:27 02/25/23 20:27 Labs: Lab Results 02/25/23 02/25/23 Range/Units 20:27 20:33 WBC 8.9 (4.8-10.8) X10*3/uL RBC 4.48 L (4.60-5.80) X10*6/uL Hgb 12.6 L (14.0-18.0) g/dl Hct 39.5 L (42.0-52.0) % MCV 88.2 (80.0-98.0) fL MCH 28.1 (27.0-33.0) pg MCHC 31.9 (31.0-36.0) g/dl RDW 13.3 (11.0-16.0) % Plt Count 219 (160-400) X10*3/uL MPV 9.6 (9.4-12.4) fL Immature Gran % (Auto) 0.1 (0.0-0.4) % Neut % (Auto) 66.7 (45-73) % Lymph % (Auto) 18.4 L (20-40) % [place] % (Auto) 7.2 (2-11) % Eos % (Auto) 7.1 H (0-4) % Baso % (Auto) 0.5 (0-2) % Lymph # (Auto) 1.6 (1.2-4.9) X10*3/uL [place] # (Auto) 0.6 (0.1-1.2) X10*3/uL Eos # (Auto) 0.6 H (0.0-0.4) X10*3/uL Baso # (Auto) 0.0 (0.0-0.2) X10*3/uL Abs Immat Gran (auto) 0.01 (0.00-0.03) X10*3/uL Absolute Neuts (auto) 5.9 (2.0-8.3) x10*3/uL Absolute Nucleated RBC 0.000 (0.0-0.012) X10*3/uL Nucleated RBC % (auto) 0.0 (0.0-0.2) /100WBC PT 11.6 (11.1-13.3) SEC INR 1.0 (0.9-1.1) VBG pH 7.43 (7.32-7.43) VBG pCO2 55 mmHg VBG pO2 142 mmHg VBG HCO3 37 H (22-26) mmol/L VBG O2 Saturation 99.0 % VBG Base Excess 11.0 mmol/L Sodium 144 (135-145) mmol/L Potassium 3.8 (3.3-5.1) mmol/L Chloride 102 (96-108) mmol/L Carbon Dioxide 34 H (22-29) mmol/L Anion Gap 12 (12-20) BUN 8 L (9-16) mg/dL Creatinine 0.92 (0.5-1.4) mg/dL Estim Creat Clear Calc 129.5 Estimated GFR > 60 Random Glucose 140 H (60-115) mg/dL Lactic Acid 1.0 (0.5-2.0) mmol/L Calcium 8.8 (8.4-10.2) mg/dL Magnesium 2.1 (1.6-2.6) mg/dL Total Bilirubin 0.2 (0.0-1.0) mg/dL Direct Bilirubin 0.2 (0.0-0.5) mg/dL AST 23 (5-37) U/L ALT 19 (0-40) U/L Alkaline Phosphatase 79 (39-117) U/L Troponin I High Sens 5.3 D (<3.5-35.0) ng/L Total Protein 8.1 H (6.5-8.0) g/dL Albumin 3.9 (3.5-5.0) g/dL Influenza Type A (PCR) NEGATIVE (Negative) Influenza Type B (PCR) NEGATIVE (Negative) RSV RNA Qual (PCR) NEGATIVE (Negative) SARS-CoV-2 RNA (RT-PCR) NEGATIVE (Negative) Independent Interpretation I performed an independent interpretation of an: EKG and Plain X-Ray Interpretation: EKG shows sinus rhythm with occasional PVCs, rate 94 BPM, prolonged QT interval No acute abnormalities Radiology Impression Discussion of test interpretation with radiology: I have reviewed the radiologist's reading. Radiologist Impression: XR/XR chest 1V IMPRESSION: No acute cardiopulmonary findings Independent Historian Clinical information obtained from an independent historian. History obtained from or confirmed by: Spouse External Record Review External record reviewed: Inpatient record, Office record and Outpatient record Prescription Management I considered prescription management with: Antibiotic Discharge Plan Discharge Patient Disposition: Admitted As Inpatient Prescriptions: No Action albuterol sulfate 2.5 mg /3 mL (0.083 %) solution for nebulization 2.5 mg inhalation QID cetirizine 10 mg tablet 10 mg PO DAILY amlodipine 5 mg tablet 5 mg PO DAILY fluticasone propion-salmeterol [Advair Diskus] 500-50 mcg/dose blister with device 1 inh INHALATION Q12H montelukast 10 mg tablet 10 mg PO QPM albuterol sulfate [Ventolin HFA] 90 mcg/actuation HFA aerosol inhaler 2 puff INHALATION Q4-6H PRN (Reason: Shortness Of Breath Or Wheezing) fluticasone propionate 50 mcg/actuation spray,suspension 2 spray intranasal DAILY prednisone 20 mg tablet 20 mg PO DAILY Qty: 5 0RF ipratropium-albuterol 0.5 mg-3 mg(2.5 mg base)/3 mL solution for nebulization 3 ml inhalation Q4H PRN (Reason: shortness of breath or wheezing) Qty: 90 0RF Rx Instructions: for 3 doses cefuroxime axetil 500 mg tablet 500 mg PO Q12H Qty: 10 0RF
[2023-02-25 20:18] VITALS: PULSE 97; RESP 21; O2SAT 91
[2023-02-25] MEDS: methylPREDNISolone Sod Succ 125 MG/2 ML VIAL IVPUSH (20:18)
[2023-02-25] MEDS: Magnesium Sulfate/H2O 2 GM/50 ML PIGGYBACK IV (20:18)
[2023-02-25] MEDS: Albuterol Sulfate 5 MG, Albuterol Sulfate (0.083%) 2.5 MG 7.5 MG INHALE (20:28)
[2023-02-25 20:32] VITALS: BP 149/76; PULSE 97; RESP 18; O2SAT 98
[2023-02-25 20:33] LABS: MANUAL DIFF FLAG NO
[2023-02-25 20:35] LABS: Basophils Percent Auto 0.5 % (0-2); Eosinophils Absolute Auto 0.6 X10*3/uL (0.0-0.4); Eosinophils Percent Auto 7.1 % (0-4); Hematocrit 39.5 % (42.0-52.0); Hemoglobin 12.6 g/dl (14.0-18.0); Imm Gran Abs Auto 0.01 X10*3/uL (0.00-0.03); Imm Gran Pct Auto 0.1 % (0.0-0.4); Lymphocytes Absolute Auto 1.6 X10*3/uL (1.2-4.9); Lymphocytes Percent Auto 18.4 % (20-40); Mean Corpuscular HGB Conc 31.9 g/dl (31.0-36.0); Mean Corpuscular Hemoglobin 28.1 pg (27.0-33.0); Mean Corpuscular Volume 88.2 fL (80.0-98.0); Mean Platelet Volume 9.6 fL (9.4-12.4); Monocytes Absolute Auto 0.6 X10*3/uL (0.1-1.2); Monocytes Percent Auto 7.2 % (2-11); Neutrophils Absolute Auto 5.9 x10*3/uL (2.0-8.3); Neutrophils Percent Auto 66.7 % (45-73); Platelet Count 219 X10*3/uL (160-400); Red Blood Count 4.48 X10*6/uL (4.60-5.80); Red Cell Distribution Width 13.3 % (11.0-16.0); White Blood Count 8.9 X10*3/uL (4.8-10.8)
[2023-02-25] MEDS: Albuterol Sulfate 2.5 MG, Albuterol/Iprat 2.5/0.5MG 3 ML 3 ML INHALE (20:35)
[2023-02-25 20:37] LABS: VBG HCO3 37 mmol/L (22-26); VBG pCO2 55 mmHg; VBG pH 7.43 (7.32-7.43); VBG pO2 142 mmHg
[2023-02-25 20:39] LABS: Venous Blood Gas Refer to POC result
[2023-02-25 20:40] LABS: Prothrombin Time 11.6 SEC (11.1-13.3)
[2023-02-25 20:49] LABS: Alanine Aminotransferase 19 U/L (0-40); Albumin Level 3.9 g/dL (3.5-5.0); Alkaline Phosphatase 79 U/L (39-117); Anion Gap 12 (12-20); Aspartate Amino Transferase 23 U/L (5-37); Bilirubin Direct 0.2 mg/dL (0.0-0.5); Bilirubin Total 0.2 mg/dL (0.0-1.0); Blood Urea Nitrogen 8 mg/dL (9-16); Calcium 8.8 mg/dL (8.4-10.2); Carbon Dioxide 34 mmol/L (22-29); Chloride 102 mmol/L (96-108); Creatinine Clr Calc Pharmacy 129.5; Estimated Glomerular Filt Rate > 60; Glucose Random 140 mg/dL (60-115); Magnesium 2.1 mg/dL (1.6-2.6); Potassium 3.8 mmol/L (3.3-5.1); Sodium 144 mmol/L (135-145); Total Protein 8.1 g/dL (6.5-8.0)
[2023-02-25 20:57] LABS: Troponin-I High Sensitivity 5.3 ng/L (<3.5-35.0)
--- NOTE | 2023-02-25 21:02 | PC.NURSE ---
pt comes in today d/t asthma exacerbation. pt displays w/ sob/inspiratory/expiratory wheezing. O2 at 98% on RA. pt put on 2L via NC to promote comfort. 2, 20gIVs placed in AC's bilaterally. pt medicated per provider order. labs drawn and sent to lab. pt displays w/ eyes rolling to the back of his head. per pt's - this is not pt's baseline. pt admits to using cocaine intranasally just prior to arrival. pt denies unknown amount. pt unable to to speak in full/clear sentences w/o difficulty. respirations even and labored. bedside. call leblanc placed within reach.
[2023-02-25 21:17] LABS: Influenza A PCR NEGATIVE (Negative); Influenza B PCR NEGATIVE (Negative); Resp Syncy Virus RNA Qual PCR NEGATIVE (Negative); SARS COV2 PCR INHOUSE NEGATIVE (Negative)
[2023-02-25 22:25] VITALS: BP 128/62; PULSE 90; RESP 16; TEMP 37.3; O2SAT 94
--- NOTE | 2023-02-25 22:39 | PC.NURSE ---
pt reassessed after inh tx and meds, pt spo2 94% on nc 2L. pt speaking full sentences, no resp distress observed
[2023-02-25] MEDS: cefTRIAXone sodium 1 GM in 0.9 % Sodium Chloride 50 ML IV (23:03)
--- NOTE | 2023-02-25 23:38 | PM.IMHP ---
History of Present Illness Date of Service: 02/25/23 Chief Complaint: Dyspnea This is a 58-year-old male with pertinent history of COPD not on home oxygen, tobacco use disorder, essential hypertension who presents to the emergency department for evaluation of dyspnea. Patient states his symptoms started 2 days prior to presentation. He has been having dyspnea which is worse with exertion. Also has been having associated nonproductive cough and wheezing. Patient states he smokes a few cigarettes every day. Is awaiting sleep study for RIANA. No fever, chills, chest discomfort, palpitations, nausea, vomiting, abdominal pain, changes in urinary or bowel habits. In the emergency department, patient requiring supplemental oxygen and continued to have wheezing despite multiple DuoNeb treatments. Review of Systems Constitutional: Constitutional: Reports fatigue and Reports lethargy Cardiovascular: Cardiovascular: Reports dyspnea on exertion Respiratory: Respiratory: Reports cough, Reports dyspnea on exertion and Reports wheezing Gastrointestinal: Gastrointestinal: Reports no additional gastrointestinal complaints Genitourinary: Genitourinary: Reports no additional male genitourinary complaints Endocrine: Endocrine: Reports fatigue Allergic/Immunologic: Allergic/Immunologic: Reports wheezing [facility] Medical History HTN (hypertension) Chronic respiratory failure due to obstructive sleep apnea Bursitis of right shoulder Osteoarthritis of left knee COPD (chronic obstructive pulmonary disease) Obstructive sleep apnea Opioid use disorder (~08/27/18) Pertinent family history: No family history of early CAD Social History Household Members: Family Housing: House Do you presently have visiting nurse or other home services: No Alcohol intake: current Alcohol intake frequency: holidays/special occasions only Patient Tobacco Use Status: Current everyday Tobacco user Tobacco use type: Cigarette Cigarettes Per Day: 5 Years Smoked: 5 Smoked in Last 30 Days: No Use of substances other than those prescribed or required for medical reasons: Yes Substance Use Type: Crack/Cocaine Substance Use Frequency: Daily Last Used Substance: Just Prior to Admission Advance Directives: No Advance Directives Information Provided: Yes service: No Current occupational status: unemployed Current occupation: right handed Meds Allergies Allergy/AdvReac Type Severity Reaction Status Date / Time No Known Allergies Allergy Verified 08/14/20 14:04 Active Medications: Current Medications Acetaminophen (Acetaminophen 325 Mg Tablet) 650 mg PO Q6H PRN PRN Reason: Pain, Mild (Pain Scale 1-3) Albuterol/Ipratropium (Albuterol/Iprat 2.5/0.5mg 3 Ml Ampul.Neb) 3 ml INHALE RQ4H WHILE AWAKE [facility] Enoxaparin Sodium (Enoxaparin Sodium 40 Mg/0.4 Ml Syringe) 40 mg SUBCUT Q24H IVONE Melatonin (Melatonin 3 Mg Tablet) 6 mg PO BEDTIME PRN PRN Reason: Insomnia Methylprednisolone Sodium Succinate (Methylprednisolone Sod Succ 40 Mg/Ml Vial) 40 mg IVPUSH Q12H IVONE Ondansetron HCl (Ondansetron Hcl 4 Mg/2 Ml Vial) 4 mg IVPUSH Q8H PRN PRN Reason: Nausea and Vomiting Sodium Chloride (0.9 % Sodium Chloride Flush 3 Ml Syringe) 3 ml IVFLUSH QSHIFT [facility] Home Medications Medication Instructions Recorded Confirmed Last Taken Type albuterol sulfate 2.5 mg/3 mL 2.5 mg inhalation QID 09/10/22 09/10/22 Unknown History (0.083 %) solution for nebulization albuterol sulfate 90 mcg/actuation 2 puff inhalation Q4-6H PRN 09/10/22 09/10/22 Unknown History aerosol inhaler (Ventolin HFA) Shortness Of Breath Or Wheezing amlodipine 5 mg tablet 5 mg PO DAILY 09/10/22 09/10/22 Unknown History cetirizine 10 mg tablet 10 mg PO DAILY 09/10/22 09/10/22 Unknown History fluticasone 500 mcg-salmeterol 50 1 inh inhalation Q12H 09/10/22 09/10/22 Unknown History mcg/dose blistr powdr for inhalation (Advair Diskus) fluticasone propionate 50 2 spray intranasal DAILY 09/10/22 09/10/22 Unknown History mcg/actuation nasal spray,suspension montelukast 10 mg tablet 10 mg PO QPM 09/10/22 09/10/22 Unknown History Physical Exam Vital Signs and Narrative: Vital Signs: Last Vital Signs Temp 99.1 F 02/25/23 22:25 Pulse 90 02/25/23 22:25 Resp 16 02/25/23 22:25 BP 128/62 02/25/23 22:25 Pulse Ox 94 02/25/23 22:25 O2 Del Method Nasal Cannula 02/25/23 22:25 O2 Flow Rate 2 02/25/23 22:25 Oxygen Flow Rate 2 02/25/23 20:02 BMI result Body Mass Index 43.4 Middle-aged male lying in bed in mild distress on supplemental oxygen Neck supple, no JVD Regular rate and rhythm, S1-S2 heard Bilateral wheezing without crackles Abdomen soft nontender, no guarding, no rigidity Patient is awake, alert and oriented to self, place, time and person ; no focal motor deficit Psych: Normal mood No pedal edema Results Labs 02/25/23 20:27 02/25/23 20:27 Labs: Laboratory Results - last 24 hr 02/25/23 02/25/23 20:27 20:33 MCV 88.2 MCH 28.1 MCHC 31.9 RDW 13.3 Plt Count 219 MPV 9.6 Immature Gran % (Auto) 0.1 Neut % (Auto) 66.7 Lymph % (Auto) 18.4 L [place] % (Auto) 7.2 Eos % (Auto) 7.1 H Baso % (Auto) 0.5 Lymph # (Auto) 1.6 [place] # (Auto) 0.6 Eos # (Auto) 0.6 H Baso # (Auto) 0.0 Abs Immat Gran (auto) 0.01 Absolute Neuts (auto) 5.9 Absolute Nucleated RBC 0.000 Nucleated RBC % (auto) 0.0 PT 11.6 INR 1.0 VBG pH 7.43 VBG pCO2 55 VBG pO2 142 VBG HCO3 37 H VBG O2 Saturation 99.0 VBG Base Excess 11.0 Anion Gap 12 Estim Creat Clear Calc 129.5 Estimated GFR > 60 Random Glucose 140 H Lactic Acid 1.0 Calcium 8.8 Magnesium 2.1 Total Bilirubin 0.2 Direct Bilirubin 0.2 AST 23 ALT 19 Alkaline Phosphatase 79 Total Protein 8.1 H Albumin 3.9 Influenza Type A (PCR) NEGATIVE Influenza Type B (PCR) NEGATIVE RSV RNA Qual (PCR) NEGATIVE SARS-CoV-2 RNA (RT-PCR) NEGATIVE Imaging Radiologist's Impressions: Impressions Chest X-Ray 02/25/23 21:05 IMPRESSION: No acute cardiopulmonary findings Assessment and Plan (1) COPD exacerbation: Status: Acute Plan This is a 58-year-old male with pertinent history of COPD not on home oxygen, tobacco use disorder, essential hypertension who presents to the emergency department for evaluation of dyspnea. #. Acute hypoxemic respiratory failure secondary to acute exacerbation of COPD: Will admit patient with supplemental oxygen. Scheduled and p.r.samantha Palmer. Initiating azithromycin for pleiotropy. Continue supplemental oxygen and wean as tolerated. Maintain oxygen saturation greater than 88%. Continue home inhalers #. Essential hypertension: On amlodipine #. Tobacco use disorder: Counseled regarding cessation. Refused nicotine patch #. Obesity: Counseled regarding diet and exercise Med rec pending DVT prophylaxis: Lovenox Admit as inpatient and will require two night minimum hospital stay for supplemental oxygen (as above), which is not possible in a lesser acute setting. Quality Stroke Does the patient have a stroke diagnosis?: No VTE Prior VTE?: No VTE Risk Level:: Medical - moderate - high VTE Device Contraindication: Treatment Not Indicated VTE Drug Contraindication: N/A - Med Ordered
[2023-02-26] VITALS (8 sets, daily range): BP systolic 129–144; BP diastolic 50–76; PULSE 74–97; RESP 14–18; TEMP 36–36.5; O2SAT 94–98; BMI 42.2
[2023-02-26] MEDS: Enoxaparin Sodium 40 MG/0.4 ML SYRINGE SUBCUT ×2 (00:06→20:30)
[2023-02-26] MEDS: Azithromycin 500 MG in 0.9 % Sodium Chloride 250 ML 125 MG IV ×2 (00:06→20:30)
[2023-02-26 00:40] LABS: Troponin-I High Sensitivity < 2.7 ng/L (<3.5-35.0)
[2023-02-26] MEDS: 0.9 % Sodium Chloride Flush 3 ML SYRINGE IVFLUSH ×4 (01:08→19:49)
[2023-02-26] MEDS: Albuterol/Iprat 2.5/0.5MG 3 ML AMPUL.NEB INHALE ×3 (03:39→19:35)
[2023-02-26 06:18] LABS: Basophils Percent Auto 0.1 % (0-2); Hematocrit 38.7 % (42.0-52.0); Hemoglobin 12.2 g/dl (14.0-18.0); Imm Gran Abs Auto 0.02 X10*3/uL (0.00-0.03); Imm Gran Pct Auto 0.2 % (0.0-0.4); Lymphocytes Absolute Auto 0.6 X10*3/uL (1.2-4.9); MANUAL DIFF FLAG SCAN; Mean Corpuscular HGB Conc 31.5 g/dl (31.0-36.0); Mean Corpuscular Hemoglobin 28.3 pg (27.0-33.0); Mean Corpuscular Volume 89.8 fL (80.0-98.0); Mean Platelet Volume 9.6 fL (9.4-12.4); Monocytes Absolute Auto 0.1 X10*3/uL (0.1-1.2); Monocytes Percent Auto 0.8 % (2-11); Neutrophils Absolute Auto 7.8 x10*3/uL (2.0-8.3); Neutrophils Percent Auto 91.9 % (45-73); Platelet Count 218 X10*3/uL (160-400); Red Blood Count 4.31 X10*6/uL (4.60-5.80); Red Cell Distribution Width 13.2 % (11.0-16.0); SCAN SMEAR FLAG 1; White Blood Count 8.5 X10*3/uL (4.8-10.8)
[2023-02-26 06:34] LABS: Anion Gap 10 (12-20); Blood Urea Nitrogen 10 mg/dL (9-16); Calcium 9.1 mg/dL (8.4-10.2); Carbon Dioxide 33 mmol/L (22-29); Chloride 102 mmol/L (96-108); Creatinine Clr Calc Pharmacy 144.8; Estimated Glomerular Filt Rate > 60; Glucose Random 142 mg/dL (60-115); Potassium 4.2 mmol/L (3.3-5.1); Sodium 141 mmol/L (135-145)
[2023-02-26 06:56] LABS: SLIDE REVIEW VERIFIED
[2023-02-26] MEDS: methylPREDNISolone Sod Succ 40 MG/ML VIAL IVPUSH ×2 (08:23→19:47)
--- NOTE | 2023-02-26 11:09 | HO.PM.IMPN ---
Subjective Subjective Date of Service: 02/26/23 Interval History: Feeling better less short of breath, but coughing and bringing up take yellow phlegm, denies fever, no chills, no headache, no dizziness, not feeling hungry denies nausea, no other acute events overnight. Review of Systems All other system reviewed and negative Physical Exam Vital Signs: Vital Signs: Last Vital Signs Temp 97.1 F 02/26/23 08:00 Pulse 74 02/26/23 08:00 Resp 18 02/26/23 08:00 BP 135/76 02/26/23 08:00 Pulse Ox 94 02/26/23 08:00 O2 Del Method Nasal Cannula 02/26/23 08:00 O2 Flow Rate 2.0 02/26/23 08:00 Oxygen Flow Rate 2 02/25/23 20:02 BMI result Body Mass Index 42.2 Const: Other: General awake alert x3, in no acute distress. Neck no JVD. CVS regular rate rhythm, Respiratory lungs coarse breath sounds, no respiratory distress, no wheeze, no rhonchi. Gastrointestinal abdomen soft, nontender, bowel sounds audible, no guarding , no rigidity. Extremities no edema. Neuro nonfocal Skin no rash Psych appropriate affect Objective Data Active Medications Acetaminophen (Acetaminophen 325 Mg Tablet) 650 mg PO Q6H PRN PRN Reason: Pain, Mild (Pain Scale 1-3) Albuterol/Ipratropium (Albuterol/Iprat 2.5/0.5mg 3 Ml Ampul.Neb) 3 ml INHALE RQ4H WHILE AWAKE [facility] Last Admin: 02/26/23 07:39 Dose: 3 ml Documented By: KEVIN Albuterol/Ipratropium (Albuterol/Iprat 2.5/0.5mg 3 Ml Ampul.Neb) 3 ml INHALE Q4H PRN PRN Reason: Wheezing Last Admin: 02/26/23 03:39 Dose: 3 ml Documented By: MERY Enoxaparin Sodium (Enoxaparin Sodium 40 Mg/0.4 Ml Syringe) 40 mg SUBCUT BEDTIME [facility] Last Admin: 02/26/23 00:06 Dose: 40 mg Documented By: RACHELL Azithromycin 500 mg/ Sodium (Chloride) 250 mls @ 125 mls/hr IV BEDTIME [facility] Last Infusion: 02/26/23 02:15 Dose: Infused Documented By: RACHELL Melatonin (Melatonin 3 Mg Tablet) 6 mg PO BEDTIME PRN PRN Reason: Insomnia Methylprednisolone Sodium Succinate (Methylprednisolone Sod Succ 40 Mg/Ml Vial) 40 mg IVPUSH Q12H [facility] Last Admin: 02/26/23 08:23 Dose: 40 mg Documented By: WINSTON Ondansetron HCl (Ondansetron Hcl 4 Mg/2 Ml Vial) 4 mg IVPUSH Q8H PRN PRN Reason: Nausea and Vomiting Sodium Chloride (0.9 % Sodium Chloride Flush 3 Ml Syringe) 3 ml IVFLUSH QSHIFT [facility] Last Admin: 02/26/23 08:23 Dose: 3 ml Documented By: WINSTON Labs 02/26/23 06:02 02/26/23 06:02 Labs: Laboratory Results - last 24 hr 02/25/23 02/25/23 02/26/23 20:27 20:33 06:02 MCV 88.2 89.8 MCH 28.1 28.3 MCHC 31.9 31.5 RDW 13.3 13.2 Plt Count 219 218 MPV 9.6 9.6 Immature Gran % (Auto) 0.1 0.2 Neut % (Auto) 66.7 91.9 H Lymph % (Auto) 18.4 L 7.0 L Tucker % (Auto) 7.2 0.8 L Eos % (Auto) 7.1 H 0.0 Baso % (Auto) 0.5 0.1 Lymph # (Auto) 1.6 0.6 L Tucker # (Auto) 0.6 0.1 Eos # (Auto) 0.6 H 0.0 Baso # (Auto) 0.0 0.0 Abs Immat Gran (auto) 0.01 0.02 Absolute Neuts (auto) 5.9 7.8 Absolute Nucleated RBC 0.000 0.000 Nucleated RBC % (auto) 0.0 0.0 Smear Tech's Comments VERIFIED PT 11.6 INR 1.0 VBG pH 7.43 VBG pCO2 55 VBG pO2 142 VBG HCO3 37 H VBG O2 Saturation 99.0 VBG Base Excess 11.0 Anion Gap 12 10 L Estim Creat Clear Calc 129.5 144.8 Estimated GFR > 60 > 60 Random Glucose 140 H 142 H Lactic Acid 1.0 Calcium 8.8 9.1 Magnesium 2.1 Total Bilirubin 0.2 Direct Bilirubin 0.2 AST 23 ALT 19 Alkaline Phosphatase 79 Total Protein 8.1 H Albumin 3.9 Influenza Type A (PCR) NEGATIVE Influenza Type B (PCR) NEGATIVE RSV RNA Qual (PCR) NEGATIVE SARS-CoV-2 RNA (RT-PCR) NEGATIVE Assessment and Plan (1) COPD exacerbation: Status: Acute (2) Opioid use disorder: Status: Acute Plan 58-year-old male with pertinent history of COPD not on home oxygen, tobacco use disorder, essential hypertension who presents to the emergency department for evaluation of dyspnea. #. Acute hypoxemic respiratory failure secondary to acute exacerbation of COPD: Feeling better this morning still with cough productive of yellow phlegm Not on home O2, continue oxygen and wean as tolerated on Scheduled and p.r.nCliff Palmer,on azithromycin day 2 Cough medications # history of polysubstance use on methadone, continue dose of methadone # history of obstructive sleep apnea not on CPAP at home recommend outpatient follow-up with pulmonology #. Essential hypertension: On amlodipine 5mg #. Tobacco use disorder: Counseled regarding cessation. Refused nicotine patch #. Obesity: Counseled regarding diet and exercise DVT prophylaxis: Lovenox Patient will require continued inpatient hospitalization for acute respiratory failure requiring oxygen and IV steroids treatment cannot be provided in less acute setting. Quality Stroke Does the patient have a stroke diagnosis?: No VTE Prior VTE?: No VTE Risk Level:: Medical - moderate - high VTE Device Contraindication: Treatment Not Indicated VTE Drug Contraindication: N/A - Med Ordered
--- NOTE | 2023-02-26 16:32 | MHC.CM.PN ---
Addendum entered by Ciera Horan 02/27/23 10:52: PT COMPLETED A HCP TODAY NAMING HIS S/O MORENO MCDONALD AND DAUGHTER, REBECA ZACARIAS, HIS AGENTS Original Note: CM MET WIT PT AND S/O AT BEDSIDE PT LIVES AT HOME WITH S/O AND IS INDEPENDENT WITH CARE HE DENIES HAVING ANY HOME SERVICES AND IS ACTIVE WITH [facility] FOR MMTP PT CONFIRMS HE HAS TAKEN HIS METHADONE DOSE FROM HOME TODAY, RN AWARE PT HAS A NEBULIZER FOR DME BUT STATES HE IS SUPPOSED TO BE GETTING A SLEEP STUDY FOR A CPAP WELL HE WILL CONSIDER COMPLETING A HCP PCP: YAYA NAME DCP: HOME NO SERVICES TO TRANSPORT
--- NOTE | 2023-02-26 17:16 | HE.PHANOTE ---
Methadone Maintenance Clinic Verification Form Received : 55 mg last dose given on 02/26/23 , [facility]
[2023-02-27 01:54] VITALS: PULSE 79; RESP 18; O2SAT 96
[2023-02-27] MEDS: Albuterol/Iprat 2.5/0.5MG 3 ML AMPUL.NEB INHALE ×3 (01:54→11:50)
[2023-02-27 04:00] VITALS: BP 122/64; PULSE 85; RESP 18; TEMP 36; O2SAT 97
[2023-02-27 07:13] VITALS: BP 123/59; PULSE 74; RESP 20; TEMP 36.7; O2SAT 97
[2023-02-27 07:48] VITALS: PULSE 74; RESP 20; O2SAT 94
[2023-02-27] MEDS: amLODIPine Besylate 5 MG TABLET PO (08:10)
[2023-02-27] MEDS: Fluticasone Propionate Nasal 16 GM SPRAY 2 SPRAY NOSTRIL-B (08:10)
[2023-02-27] MEDS: 0.9 % Sodium Chloride Flush 3 ML SYRINGE IVFLUSH (08:10)
[2023-02-27] MEDS: methylPREDNISolone Sod Succ 40 MG/ML VIAL IVPUSH (08:10)
[2023-02-27] MEDS: Loratadine 10 MG TABLET PO (08:10)
--- NOTE | 2023-02-27 10:24 | HE.PHANOTE ---
RE: methadone Last dose verification from [facility]; 55mg given 02/25, take home bottle for 02/26/23
[2023-02-27 10:46] VITALS: O2SAT 94
--- NOTE | 2023-02-27 11:22 | MHC.CM.PN ---
Addendum entered by Yanna Loja 02/27/23 11:34: Patient is discharged today to home self care. A note regarding his methadone has been given to the patient to present to [facility]. He will go directly to [facility] for his Methadone after discharge. He has arranged for transportation to his Methadone clinic. Original Note: Patient did not receive Methadone from [facility]. On 02/26/23 He used a home dose. He is discharged 02/27/23. No Methadone has been ordered for him today. He will receive his Methadone dose from [facility]. Yanna Loja RN Case Manager [phone]
--- NOTE | 2023-02-27 11:28 | PM.DS ---
DS: Providers Provider Date of Service: 02/27/23 Date of admission: 02/25/23 23:36 Primary care physician: Bg Asencio MD DS: Diagnosis Discharge Diagnosis (1) COPD exacerbation: Status: Acute (2) Opioid use disorder: Status: Acute DS: Summary Hospital Course Hospital Course: History of presenting illness: Date of Service: 02/25/23 Chief Complaint: Dyspnea This is a 58-year-old male with pertinent history of COPD not on home oxygen, tobacco use disorder, essential hypertension who presents to the emergency department for evaluation of dyspnea. Patient states his symptoms started 2 days prior to presentation. He has been having dyspnea which is worse with exertion. Also has been having associated nonproductive cough and wheezing. Patient states he smokes a few cigarettes every day. Is awaiting sleep study for RIANA. No fever, chills, chest discomfort, palpitations, nausea, vomiting, abdominal pain, changes in urinary or bowel habits. In the emergency department, patient requiring supplemental oxygen and continued to have wheezing despite multiple DuoNeb treatments. Hospital course: 58-year-old male with pertinent history of COPD not on home oxygen, tobacco use disorder, essential hypertension who presents to the emergency department for evaluation of dyspnea. #. Acute hypoxemic respiratory failure secondary to acute exacerbation of COPD, admitted to medical floor treated with IV steroids scheduled and as needed updraft treatment and azithromycin patient responded well to above treatment hypoxia resolved currently on room air 94 95% ambulating without worsening shortness of breath therefore is being discharged home on tapering dose of steroids, azithromycin and recommend to use DuoNeb 4 times a day, strongly recommend to abstain from smoking. # history of polysubstance use on methadone, continue dose of methadone as before. # history of obstructive sleep apnea not on CPAP at home recommend outpatient follow-up with pulmonology #. Essential hypertension: Continue amlodipine 5mg #. Tobacco use disorder: Counseled regarding cessation. Refused nicotine patch #. Obesity: Counseled regarding diet and exercise. Time Attestation Discharge coordination time: Greater than 30 minutes Quality: Safe Use of Opioids Does Pt have an Active Cancer Diagnosis on the Problem List?: No Quality: Stroke Does the patient have a stroke diagnosis?: No Physical Exam Vital Signs: Vital Signs: Last Vital Signs Temp 98.0 F 02/27/23 07:13 Pulse 74 02/27/23 07:48 Resp 20 02/27/23 07:48 BP 123/59 L 02/27/23 07:13 Pulse Ox 94 02/27/23 10:46 O2 Del Method Room Air 02/27/23 10:46 O2 Flow Rate 3 02/27/23 04:00 Oxygen Flow Rate 2 02/25/23 20:02 BMI result Body Mass Index 42.2 Const: Other: General awake alert x3, in no acute distress. Neck no JVD. CVS regular rate rhythm, Respiratory lungs coarse breath sounds, no respiratory distress, no wheeze, no rhonchi. Gastrointestinal abdomen soft, nontender, bowel sounds audible, no guarding , no rigidity. Extremities no edema. Neuro nonfocal Skin no rash Psych appropriate affect DS: Data Data Completed and Pending Labs on day of discharge: Preliminary micro results at discharge 02/25/23 20:40 Blood Culture - Preliminary Blood - Venous No growth after 24 hours. 02/25/23 20:40 Blood Culture - Preliminary Blood - Venous No growth after 24 hours. Discharge Plan Discharge Anticipated Discharge Date/Time: 02/27/23 10:41 Patient Disposition: Home, Self-Care Discharge Diagnosis: Acute COPD exacerbation Referrals: Name,MD Bg [Primary Care Provider] - 1 Week Discharge Medications: New prednisone 10 mg tablet 10 mg PO DIRECTED Qty: 30 0RF Rx Instructions: see taper instructions azithromycin 500 mg tablet 500 mg PO DAILY 3 Days Qty: 3 0RF Continued methadone 10 mg/mL Concentrate 55 mg PO DAILY albuterol sulfate 2.5 mg /3 mL (0.083 %) solution for nebulization 2.5 mg inhalation QID Qty: 90 0RF cetirizine 10 mg tablet 10 mg PO DAILY amlodipine 5 mg tablet 5 mg PO DAILY fluticasone propion-salmeterol [Advair Diskus] 500-50 mcg/dose blister with device 1 inh INHALATION Q12H albuterol sulfate [Ventolin HFA] 90 mcg/actuation HFA aerosol inhaler 2 puff INHALATION Q4-6H PRN (Reason: Shortness Of Breath Or Wheezing) fluticasone propionate 50 mcg/actuation spray,suspension 2 spray intranasal DAILY Discharge Orders: Discharge Order (Routine); Ordered 02/27/23 Ordered By: Khalif Polo Diet: Advance to usual diet Activity on Discharge: As tolerated Stand Alone Forms: Patient Portal Discharge page Care Plan Goals: Take DuoNeb updraft 4 times a day and as needed for shortness of breath Finish course of prednisone as ordered Finish course of azithromycin 1 tablet daily for 3 more days Strongly recommend to abstain from smoking Health Concerns: Take all home medications Plan of Treatment: Outpatient follow-up with primary care physician Outpatient follow-up with Dr. Carlos Staley from pulmonology call to make an appointment. Assessment: As above
[2023-02-27 11:51] VITALS: PULSE 86; RESP 20; O2SAT 99
== END 2023-02-27 12:28 | disposition home or self-care (01) | DRG 140 ==
LOC: HO.ED 23:37 → HO.EDOVER 23:40 → HO.S3 02-26 00:39
PROVIDERS: Nurse Practitioner Family; Registered Nurse Emergency; Admitting Provider Student in an Organized Health Care Education/Training Program; Emergency Provider Student in an Organized Health Care Education/Training Program; PCP Internal Medicine Geriatric Medicine; Visit Provider Hospitalist
DX: J44.1 Chronic obstructive pulmonary disease with (acute) exacerbation (principal); J96.01 Acute respiratory failure with hypoxia; F11.20 Opioid dependence, uncomplicated; F17.210 Nicotine dependence, cigarettes, uncomplicated; I10 Essential (primary) hypertension; G47.33 Obstructive sleep apnea (adult) (pediatric); E66.9 Obesity, unspecified; Z68.41 Body mass index [BMI] 40.0-44.9, adult; Z20.822 Contact with and (suspected) exposure to COVID-19; Z71.6 Tobacco abuse counseling; Z79.51 Long term (current) use of inhaled steroids; Z79.899 Other long term (current) drug therapy
CPT/HCPCS: 0241U; 36415; 71045; 80048; 80076; 82803; 83605; 83735; 84484; 85025; 85610; 87040; 93005; 94640; 99285; J0456; J0696; J1650; J2920; J2930; J3475

== ENCOUNTER → 2023-02-25 23:36 | Outpatient (BNV) | payer MEDICAID, SELFPAY | PROVIDERS: Admitting Provider Student in an Organized Health Care Education/Training Program; Emergency Provider Student in an Organized Health Care Education/Training Program; Visit Provider Student in an Organized Health Care Education/Training Program | DX: J44.1 Chronic obstructive pulmonary disease with (acute) exacerbation (principal); F11.99 Opioid use, unspecified with unspecified opioid-induced disorder | CPT/HCPCS: 99222; 99233; 99239 ==

== ENCOUNTER 2023-03-29 09:52 | Outpatient (AMB) | payer MEDICAID, SELFPAY ==
--- NOTE | 2023-03-29 10:11 | MHC.OFFVIS ---
Intake Vital Signs 03/29/23 10:12 Height 6 ft Weight 322 lb BMI 43.7 BP 142/84 H Blood Pressure Location Lt brachial Position Sitting Pulse 89 Pulse Source Pulse Oximeter Pulse Oximetry (%) 95 Oxygen Delivery Method Room Air Intake Visit Reasons: Asthma/COPD Intake Note: pt is here as new patient, he has a lot of trouble with shortness of breath with stairs, carrying things. some wheeze on/off. pt also states he is tired all the time, snores very loud, gasping in sleep, he feels he could fall asleep all the time. Photographic Process Attendant Required: No Allergies No Known Allergies Allergy (Verified 03/29/23 10:32) Medication List - Last Reconciled 03/29/23 by Annie Stewart MD albuterol sulfate 90 mcg/actuation (Ventolin HFA) 2 puffs inhalation Q4-6H PRN albuterol sulfate 2.5 mg (3 mL) inhalation QID amlodipine 5 mg PO DAILY cetirizine 10 mg PO DAILY fluticasone propion-salmeterol 500-50 mcg/dose (Advair Diskus) 1 inh inhalation Q12H fluticasone propionate 50 mcg/actuation 2 sprays intranasal DAILY methadone 55 mg PO DAILY montelukast 10 mg PO QPM tiotropium bromide 1.25 mcg/actuation (Spiriva Respimat) 2 puffs inhalation QAM Do you need a note to return to daycare/school/sports/work: No HPI Asthma/COPD HPI Details THIS GENTLEMAN IS 58 YEARS OLD MORBIDLY OBESE. SINCE QUITE A FEW YEARS, HE HAS HISTORY OF LOUD SNORING AT NIGHT WITH INTERRUPTED SLEEP AND EXCESSIVE DAYTIME SLEEPINESS. HE HAD A POLYSOMNOGRAM STUDY IN THE SLEEP LAB ON 01/15/2018, IT SHOWED MILD OBSTRUCTIVE SLEEP APNEA DURING THE WHOLE SLEEP BUT A RATHER MODERATELY SEVERE DEGREE OF SLEEP APNEA DURING REM SLEEP, ALONG WITH EXCESSIVE SNORING. NO INTERVENTION HAS BEEN UNDERTAKEN SINCE THEN. HE COMPLAINS OF POOR SLEEP AT NIGHT WITH FREQUENT AWAKENINGS DUE TO SHORTNESS OF BREATH, HE COMPLAINS OF DAYTIME SLEEPINESS ALL THE TIME, IF HE IS SITTING AND NOT WALKING AROUND HE CAN NOT FALL ASLEEP ANY TIME. HE CONTINUES TO BE MORBIDLY OBESE, HAS NOT BEEN AN ANY REGULATED WEIGHT REDUCTION PROGRAM. HE ALSO HAS LONGSTANDING HISTORY OF INTERMITTENT COUGH AND WHEEZING, HE IS BEING TREATED FOR BRONCHIAL ASTHMA/COPD. DURING 2022 HE HAS BEEN ADMITTED TWICE TO THE HOSPITAL WITH ACUTE EXACERBATIONS, AND TREATED WITH IV STEROIDS FOLLOWED BY PREDNISONE TAPER. HE CONTINUES TO USE ADVAIR 500-50 B.I.D., SPIRIVA RESPIMAT 1.25 MG 2 INHALATION DAILY AND PROAIR NEEDED. HE NEEDS TO USE PROAIR ONLY ONCE OR TWICE A WEEK. HE GETS SHORT OF BREATH ON MINIMAL EXERTION AND THIS IS PROBABLY RELATED TO HIS MORBID OBESITY. ALSO HAS LONGSTANDING SYMPTOMS OF NASAL CONGESTION WITH POSTNASAL DRIP DIAGNOSED ALLERGIC RHINITIS. HE IS ON MONTELUKAST 10 MG DAILY ALSO USES FLONASE SPRAY DAILY AND CETIRIZINE 10 MG ONCE A DAY. PATIENT HAS PAST HISTORY OF OPIOIDS ABUSE, CURRENTLY ON METHADONE PROGRAM 55 MG DAILY. HE IS NON-EMPLOYED AND STAYS MOSTLY IN THE HOUSE. HE SMOKES ABOUT 2-3 CIGARETTES PER DAY . [facility] Medical History (Updated 03/29/23 @ 10:54 by Annie Stewart MD) Snoring Asthma-COPD overlap syndrome Asthma Allergic rhinitis Somnolence, daytime Morbid obesity Obstructive sleep apnea HTN (hypertension) Chronic respiratory failure due to obstructive sleep apnea Bursitis of right shoulder Osteoarthritis of left knee Opioid use disorder (~08/27/18) Social History Household Members: Significant Other Housing: House Do you presently have visiting nurse or other home services: No Alcohol intake: current Alcohol intake frequency: holidays/special occasions only Patient Tobacco Use Status: Current everyday Tobacco user Tobacco use type: Cigarette Cigarettes Per Day: 2 Years Smoked: 5 e-Cigarette/Vaping Use: Never Used Substance Use Type: Crack/Cocaine and Heroin service: No Current occupational status: unemployed Current occupation: right handed Review of Systems Const All systems reviewed & are unremarkable except as noted in HPI and below Eyes Reports no additional complaints ENT Reports nasal congestion and Reports nasal discharge Card Denies chest pain, Denies irregular heart rhythm and Reports leg edema (1 + STASIS EDEMA OF THE LEGS) Resp Reports as per HPI GI Reports no additional complaints Reports no additional complaints Musc Reports no additional complaints Skin/Breast Reports system reviewed and no additional complaints, except as documented Neuro Reports no additional complaints Psych Reports no additional complaints Abel/Lymph Reports no additional complaints Physical Exam Vital Signs: Last Vital Signs Pulse 89 03/29/23 10:12 BP 142/84 H 03/29/23 10:12 Pulse Ox 95 03/29/23 10:12 Oxygen Delivery Method Room Air 03/29/23 10:12 BMI result Body Mass Index 43.7 GROSSLY OBESE WITH A ROUND FACE, CROWDED OROPHARYNX, AND NECK SIZE OF 18-1/2 INCH. Const General: comfortable, no acute distress, alert and awake Orientation/consciousness: patient oriented x3 HEENT Head: Yes normal to inspection General nose exam: No nasal polyps present, No nasal discharge present and Other nasal findings present (MILD NASAL CONGESTION) Face and sinus: Yes sinuses nontender Mouth: oropharynx abnormals (CROWDED OROPHARYNX MALLAMPATI CLASS 3) Throat: Yes posterior oropharynx normal Eyes General: appearance normal, both eyes and all related structures Neck Neck: Yes normal visual inspection, Yes no lymphadenopathy, Yes trachea midline, Yes no JVD and Yes other (NECK CIRCUMFERENCE 18-1/2 INCH) Thyroid: Thyroid normal Chest Chest palpation & inspection: normal inspection of the chest, normal palpation of entire chest wall and no tenderness Resp Other: PERCUSSION NOTE IS DECREASED BECAUSE OF THE THICK CHEST WALL. BREATH SOUNDS SOUNDS ARE DISTANT ON BOTH SIDES, HE DOES HAVE A FEW SCATTERED EXPIRATORY WHEEZES OVER THE LOWER PARTS OF THE CHEST ON BOTH SIDES. Cardio Palpation: PMI not normal (NOT PALPABLE) Rate: regular rate Rhythm: regular rhythm Heart sounds: no gallops and no murmurs Peripheral pulses: Peripheral pulses 2+ throughout GI Palpation (GI): Soft to palpation, Tenderness to palpation present (GI), No hepatosplenomegaly present, Palpable mass present and Other GI palpation findings present (ABDOMEN IS OBESE AND PROTUBERANT) Auscultation: normal bowel sounds Back/Spine/Pelvis Thoracic/Lumbar Spine: thoracic and lumbar spine normal to inspection and thoraco-lumbar ROM limited Skin General skin exam: no rashes or lesions noted Neuro General: patient oriented x3 and no focal motor deficits Cranial nerves: Yes CN's II-XII intact bilaterally Extrem General: Yes normal to inspection, Yes no calf tenderness and Yes edema (1 + PITTING EDEMA OF BOTH LEGS, HAS ELASTIC STOCKINGS ON.) Psych Appearance: grossly normal and well kempt Speech and movement: Normal speech and movement present Results Reviewed Results Reviewed: CHEST X-RAY ON 02/25/2023 NORMAL Assessment & Plan Assessment & Plan (1) Morbid obesity: Comment: HAS BEEN MORBIDLY OBESE THROUGHOUT HIS ADULT LIFE. Code(s): E66.01 - Morbid (severe) obesity due to excess calories Plan: TALKED TO HIM ABOUT DIET AND NEED TO EXERCISE. AT THIS POINT HE IS NOT IN ANY SHAPE TO JOIN WEIGHT REDUCTION PROGRAM. (2) Somnolence, daytime: Comment: CLINICALLY HE DOES HAVE OBSTRUCTIVE SLEEP APNEA AND BECAUSE IT IS NOT BEING TREATED HE HAS EXCESSIVE DAYTIME SLEEPINESS Code(s): R40.0 - Somnolence Plan: NEEDS TO BE EVALUATED FOR SLEEP APNEA (3) Allergic rhinitis: Comment: MILD TO MODERATE NASAL CONGESTION OFF AND ON AROUND THE WHOLE YEAR Code(s): J30.9 - Allergic rhinitis, unspecified Plan: CONTINUE FLONASE 2 SPRAY EACH NOSTRIL DAILY MONTELUKAST 10 MG DAILY CETIRIZINE 10 MG ONCE A DAY P.R.N. (4) Obstructive sleep apnea: Comment: HE HAS TYPICAL FEATURES OF OBSTRUCTIVE SLEEP APNEA, DUE TO HIS MORBID OBESITY. HE HAS DISTURB SLEEP AT NIGHT AND ALSO SIGNIFICANT DAYTIME SLEEPINESS. Code(s): G47.33 - Obstructive sleep apnea (adult) (pediatric) Plan: WILL ORDER HOME-BASED SLEEP STUDY, EDUCATED ABOUT THE SLEEP APNEA AND HOME SLEEP STUDY (5) Asthma-COPD overlap syndrome: Comment: HE HAS LONGSTANDING HISTORY OF GETTING SHORT OF BREATH ON EXERTION WITH INTERMITTENT COUGH AND WHEEZING. THIS IS PROBABLY DUE TO COMBINATION OF ASTHMA/COPD, HE MAY ALSO HAVE SIGNIFICANT RESTRICTIVE PULMONARY DISORDER. Code(s): J44.89 - Other specified chronic obstructive pulmonary disease Plan: PULMONARY FUNCTION TEST IS ORDERED CONTINUE ADVAIR 500-51 INHALATION B.I.D., SPIRIVA RESPIMAT 1.25 MG 2 INHALATIONS DAILY IN THE MORNING. PROAIR 2 PUFFS Q 4-6 HOURS ONLY P.R.N.. (6) Snoring: Comment: IS PART OF HIS OBSTRUCTIVE SLEEP APNEA Code(s): R06.83 - Snoring Plan: HST BEING ORDERED Orders: Orders RT home sleep study Today E66.01 - Morbid (severe) obesity due to excess calories, R06.83 - Snoring, R40.0 - Somnolence PFT pulmonary function test Today E66.01 - Morbid (severe) obesity due to excess calories, J30.9 - Allergic rhinitis, unspecified, J44.89 - Other specified chronic obstructive pulmonary disease Coding Level of Care Code New Pt Level 4 (10389) Diagnoses Morbid obesity E66.01 Somnolence, daytime R40.0 Allergic rhinitis J30.9 Obstructive sleep apnea G47.33 Asthma-COPD overlap syndrome J44.89 Snoring R06.83
[2023-03-29 10:12] VITALS: BP 142/84; PULSE 89; O2SAT 95; BMI 43.7
== END 2023-03-29 10:34 | disposition home or self-care (01) ==
PROVIDERS: PCP Internal Medicine Geriatric Medicine; Referring Provider Registered Nurse; Visit Provider Internal Medicine
DX: E66.01 Morbid (severe) obesity due to excess calories (principal); R40.0 Somnolence; J30.9 Allergic rhinitis, unspecified; G47.33 Obstructive sleep apnea (adult) (pediatric); J44.89 Other specified chronic obstructive pulmonary disease; R06.83 Snoring
CPT/HCPCS: 99204

== ENCOUNTER → 2023-03-29 09:52 | Outpatient (BNVA) | payer MEDICAID, SELFPAY | PROVIDERS: PCP Internal Medicine Geriatric Medicine; Referring Provider Registered Nurse; Visit Provider Internal Medicine | DX: R40.0 Somnolence (principal); R06.83 Snoring; J30.9 Allergic rhinitis, unspecified; G47.33 Obstructive sleep apnea (adult) (pediatric); J44.89 Other specified chronic obstructive pulmonary disease; E66.01 Morbid (severe) obesity due to excess calories; Z68.41 Body mass index [BMI] 40.0-44.9, adult | CPT/HCPCS: 99202 ==

== ENCOUNTER 2023-05-09 10:28 | Outpatient (REF) | payer MEDICAID, SELFPAY ==
--- NOTE | 2023-05-09 11:33 | PFT_ITS ---
Flows: FEV1: 81 % of predicted at 3.15 L FVC: 84 % of predicted at 4.23 L FEV1/FVC: 75 % Bronchodilator response: Absent Volumes: Total lung capacity: 97 % of predicted at 7.48 L Residual volume: 148 % of predicted at 3.39 L Slow vital capacity: 75 % of predicted at 4.09 L Expiratory reserve volume: 56 % of predicted at 0.84 L Diffusion capacity: Normal Impression: No obstructive or restrictive ventilatory defect. No bronchodilator response. Increased residual volume suggests air trapping. Decreased expiratory reserve volume suggests extrathoracic restriction secondary to underlying abdominal obesity. MTDD
== END 2023-05-09 10:29 | disposition home or self-care (01) ==
LOC: HO.RESP 10:28
PROVIDERS: PCP Internal Medicine Geriatric Medicine; Visit Provider Internal Medicine
DX: J44.89 Other specified chronic obstructive pulmonary disease (principal); J30.9 Allergic rhinitis, unspecified; E66.01 Morbid (severe) obesity due to excess calories
CPT/HCPCS: 94010; 94727; 94729

== ENCOUNTER → 2023-05-09 11:33 | Outpatient (BNV) | payer MEDICAID, SELFPAY | PROVIDERS: PCP Internal Medicine Geriatric Medicine; Visit Provider Internal Medicine Pulmonary Disease | DX: J44.89 Other specified chronic obstructive pulmonary disease (principal); J30.9 Allergic rhinitis, unspecified | CPT/HCPCS: 94060; 94727; 94729 ==

== ENCOUNTER → 2023-08-14 08:29 | Outpatient (REF) | payer MEDICAID, SELFPAY | LOC: HO.SL 08:29 | PROVIDERS: PCP Internal Medicine Geriatric Medicine; Visit Provider Internal Medicine | DX: G47.33 Obstructive sleep apnea (adult) (pediatric) (principal); E66.01 Morbid (severe) obesity due to excess calories; R40.0 Somnolence; R06.83 Snoring | CPT/HCPCS: 95806 ==

== ENCOUNTER → 2023-08-14 09:17 | Outpatient (BNV) | payer MEDICAID, SELFPAY | PROVIDERS: PCP Internal Medicine Geriatric Medicine; Visit Provider Internal Medicine | DX: G47.33 Obstructive sleep apnea (adult) (pediatric) (principal) | CPT/HCPCS: 95806 ==

== ENCOUNTER 2023-09-28 10:00 | Outpatient (AMB) | payer MEDICAID, SELFPAY ==
[2023-09-28 10:08] VITALS: BP 130/70; PULSE 84; O2SAT 95; BMI 42.0
--- NOTE | 2023-09-28 10:08 | A.OFFVIS_ITS ---
Vital Signs 09/28/23 10:08 Height 6 ft Weight 310 lb BMI 42.0 BP 130/70 Blood Pressure Location Lt brachial Position Sitting Pulse 84 Pulse Source Pulse Oximeter Pulse Oximetry (%) 95 Oxygen Delivery Method Room Air Intake Visit Reasons: f/u sleep study Intake Note: pt is here for follow up of sleep study, states he is short of breath with carrying things, stairs and long distance. if you feel he still needs a nebulizer, please send for replacement. 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 Allergies No Known Allergies Allergy (Verified 09/28/23 10:32) Medication List - Last Reconciled 09/28/23 by Annie Stewart MD albuterol sulfate 90 mcg/actuation (Ventolin HFA) 2 puffs inhalation Q4-6H PRN albuterol sulfate 2.5 mg (3 mL) inhalation QID amlodipine 5 mg PO DAILY cetirizine 10 mg PO DAILY fluticasone propion-salmeterol 500-50 mcg/dose (Advair Diskus) 1 inh inhalation Q12H fluticasone propionate 50 mcg/actuation 2 sprays intranasal DAILY methadone 55 mg PO DAILY montelukast 10 mg PO QPM tiotropium bromide 1.25 mcg/actuation (Spiriva Respimat) 2 puffs inhalation QAM Do you need a note to return to daycare/school/sports/work: No HPI HPI f/u sleep study: Details: THIS 58 YEARS OLD GENTLEMAN WITH MORBID OBESITY AND SEVERE COPD, COMPLAINS OF SHORTNESS OF BREATH ON WALKING AND NOW LATELY HE IS SHORT OF BREATH EVEN WHILE SITTING AND RESTING, SMOKING IS DOWN TO A FEW. CIGARETTES EVERY DAY HE HAS HARD TIME IN SLEEPING AND HE SNORES HEAVY, HOME-BASED SLEEP STUDY HAS BEEN DONE AND IT DOES SHOW OBSTRUCTIVE SLEEP APNEA WELL NOCTURNAL HYPOXEMIA. HE IS ANXIOUS TO KNOW ABOUT THE RESULTS AND SEE WHAT CAN BE DONE. HE IS TRYING TO LOSE WEIGHT AND HAS LOST ABOUT 9 LB IN THE LAST MONTH. [facility] Medical History (Updated 09/28/23 @ 10:43 by Annie Stewart MD) Nocturnal hypoxemia Snoring Asthma-COPD overlap syndrome Asthma Allergic rhinitis Somnolence, daytime Morbid obesity Obstructive sleep apnea HTN (hypertension) Chronic respiratory failure due to obstructive sleep apnea Bursitis of right shoulder Osteoarthritis of left knee Opioid use disorder (~05/13/19) Social History Household Members: Significant Other Housing: House Do you presently have visiting nurse or other home services: No Alcohol intake: current Alcohol intake frequency: holidays/special occasions only Patient Tobacco Use Status: Current everyday Tobacco user Tobacco use type: Cigarette Cigarettes Per Day: 1 Years Smoked: 5 e-Cigarette/Vaping Use: Never Used Substance Use Type: Crack/Cocaine and Heroin service: No Current occupational status: unemployed Current occupation: right handed Review of Systems Const All systems reviewed & are unremarkable except as noted in HPI and below Eyes Reports no additional complaints ENT Reports nasal congestion and Reports nasal discharge Card Denies chest pain, Denies irregular heart rhythm and Reports leg edema (1 + STASIS EDEMA OF THE LEGS) Resp Reports as per HPI GI Reports no additional complaints Reports no additional complaints Musc Reports no additional complaints Skin/Breast Reports system reviewed and no additional complaints, except as documented Neuro Reports no additional complaints Psych Reports no additional complaints Abel/Lymph Reports no additional complaints Physical Exam Vital Signs: Last Vital Signs Pulse 84 09/28/23 10:08 BP 130/70 09/28/23 10:08 Pulse Ox 95 09/28/23 10:08 Oxygen Delivery Method Room Air 09/28/23 10:08 BMI result Body Mass Index 42.0 GROSSLY OBESE WITH A ROUND FACE, CROWDED OROPHARYNX, AND NECK SIZE OF 18-1/2 INCH. Const General: comfortable, no acute distress, alert and awake Orientation/consciousness: patient oriented x3 HEENT Head: Yes normal to inspection General nose exam: No nasal polyps present, No nasal discharge present and Other nasal findings present (MILD NASAL CONGESTION) Face and sinus: Yes sinuses nontender Mouth: oropharynx abnormals (CROWDED OROPHARYNX MALLAMPATI CLASS 3) Throat: Yes posterior oropharynx normal Eyes General: appearance normal, both eyes and all related structures Neck Neck: Yes normal visual inspection, Yes no lymphadenopathy, Yes trachea midline, Yes no JVD and Yes other (NECK CIRCUMFERENCE 18-1/2 INCH) Thyroid: Thyroid normal Chest Chest palpation & inspection: normal inspection of the chest, normal palpation of entire chest wall and no tenderness Resp Other: PERCUSSION NOTE IS DECREASED BECAUSE OF THE THICK CHEST WALL. BREATH SOUNDS SOUNDS ARE DISTANT ON BOTH SIDES, HE DOES HAVE A FEW SCATTERED EXPIRATORY WHEEZES OVER THE LOWER PARTS OF THE CHEST ON BOTH SIDES. Cardio Palpation: PMI not normal (NOT PALPABLE) Rate: regular rate Rhythm: regular rhythm Heart sounds: no gallops and no murmurs Peripheral pulses: Peripheral pulses 2+ throughout GI Palpation (GI): Soft to palpation, Tenderness to palpation present (GI), No hepatosplenomegaly present, Palpable mass present and Other GI palpation findings present (ABDOMEN IS OBESE AND PROTUBERANT) Auscultation: normal bowel sounds Back/Spine/Pelvis Thoracic/Lumbar Spine: thoracic and lumbar spine normal to inspection and thoraco-lumbar ROM limited Skin General skin exam: no rashes or lesions noted Neuro General: patient oriented x3 and no focal motor deficits Cranial nerves: Yes CN's II-XII intact bilaterally Extrem General: Yes normal to inspection, Yes no calf tenderness and Yes edema (1 + PITTING EDEMA OF BOTH LEGS, HAS ELASTIC STOCKINGS ON.) Psych Appearance: grossly normal and well kempt Speech and movement: Normal speech and movement present Results Reviewed Results Reviewed: HOME-BASED SLEEP STUDY ON 08/15/2023. SHOWED THE FOLLOWING TOTAL SLEEP TIME AHI 5.3, SUPINE POSITION AHI 32 SNORING WAS RECORDED ONLY 3.3% BUT IT DOES NOT SEEM TO BE ACCURATE. ALSO HAD NOCTURNAL HYPOXEMIA WITH AVERAGE O2 SAT THROUGHOUT THE NIGHT 89% AND O2 SAT BELOW 88% FOR 79 MINUTES Assessment & Plan Assessment & Plan (1) Morbid obesity: Comment: HAS BEEN MORBIDLY OBESE THROUGHOUT HIS ADULT LIFE. TRYING, TO RESTRICT HIS DIET CURRENTLY WEIGHT DOWN BY 9 LB Code(s): E66.01 - Morbid (severe) obesity due to excess calories Category: Medical Plan: ENCOURAGED TO KEEP ON WALKING AROUND, RESTRICT CALORIES. INTAKE AND KEEP ON LOSING WEIGHT (2) Obstructive sleep apnea: Comment: HE HAS TYPICAL FEATURES OF OBSTRUCTIVE SLEEP APNEA, DUE TO HIS MORBID OBESITY. HE HAS DISTURB SLEEP AT NIGHT AND ALSO SIGNIFICANT DAYTIME SLEEPINESS. HOME-BASED SLEEP STUDY DOES SHOW EVIDENCE OF OBSTRUCTIVE SLEEP APNEA EVEN THOUGH IT IS MILD, BUT IT IS WORSE DURING SLEEP IN SUPINE POSITION. IT IS ACCOMPANIED BY ADVANCED COPD AND NOCTURNAL HYPOXEMIA. Code(s): G47.33 - Obstructive sleep apnea (adult) (pediatric) Category: Medical Plan: PATIENT WOULD BENEFIT FROM USE OF CPAP. I HAVE EXPLAINED TO HIM AND HIS ABOUT THIS AND HE IS EAGER TO GET CPAP DEVICE. GIVEN INSTRUCTIONS ABOUT THE CPAP USAGE. WILL ORDER WITH AUTO PAP MODE AND PRESSURE SETTING OF 6-20 CM. ONCE HE STARTS USING CPAP REGULARLY WE WILL DO AN OVERNIGHT OXIMETRY RECORDING TO MAKE SURE THAT HYPOXEMIA IS CORRECTED. (3) Asthma-COPD overlap syndrome: Comment: HE HAS LONGSTANDING HISTORY OF GETTING SHORT OF BREATH ON EXERTION WITH INTERMITTENT COUGH AND WHEEZING. THIS IS PROBABLY DUE TO COMBINATION OF ASTHMA/COPD, HE MAY ALSO HAVE SIGNIFICANT RESTRICTIVE PULMONARY DISORDER. Code(s): J44.89 - Other specified chronic obstructive pulmonary disease Category: Medical Plan: CONTINUE PRESENT MEDICAL REGIMEN WHICH INCLUDES: FLUTICASONE-SALMETEROL 500-51 INHALATION B.I.D., TIOTROPIUM BROMIDE 1.25 MCG 2 INHALATIONS DAILY MONTELUKAST 10 MG DAILY ALBUTEROL HFA 2 PUFFS Q 6 HOURS P.R.N. OR ALTERNATIVELY ALBUTEROL SOLUTION IN THE NEBULIZER Q 4-6 HOURS P.R.N. (4) Nocturnal hypoxemia: Comment: DURING HIS SLEEP STUDY HE HAS, PERSISTENT NOCTURNAL HYPOXEMIA WITH O2 SAT 89%, AND O2 SAT BELOW 88% FOR 79 MINUTES Code(s): G47.34 - Idiopathic sleep related nonobstructive alveolar hypoventilation Category: Medical Plan: THE NOCTURNAL HYPOXEMIA IS ASSOCIATED WITH OBSTRUCTIVE SLEEP APNEA. 1ST STEP WOULD BE TO START HIM ON CPAP THERAPY AND THEN MONITOR THE OXYGENATION AT NIGHT. Coding Level of Care Code Est Pt Level 4 (36487) Diagnoses Morbid obesity E66.01 Obstructive sleep apnea G47.33 Asthma-COPD overlap syndrome J44.89 Nocturnal hypoxemia G47.34
== END 2023-09-28 10:32 | disposition home or self-care (01) ==
PROVIDERS: PCP Internal Medicine Geriatric Medicine; Referring Provider Internal Medicine Geriatric Medicine; Visit Provider Internal Medicine
DX: E66.01 Morbid (severe) obesity due to excess calories (principal); G47.33 Obstructive sleep apnea (adult) (pediatric); J44.89 Other specified chronic obstructive pulmonary disease; G47.34 Idiopathic sleep related nonobstructive alveolar hypoventilation
CPT/HCPCS: 99214

== ENCOUNTER → 2023-09-28 10:00 | Outpatient (BNVA) | payer MEDICAID, SELFPAY | PROVIDERS: PCP Internal Medicine Geriatric Medicine; Visit Provider Internal Medicine | DX: J44.89 Other specified chronic obstructive pulmonary disease (principal); G47.33 Obstructive sleep apnea (adult) (pediatric); G47.34 Idiopathic sleep related nonobstructive alveolar hypoventilation; E66.01 Morbid (severe) obesity due to excess calories; Z68.41 Body mass index [BMI] 40.0-44.9, adult | CPT/HCPCS: 99212 ==

== ENCOUNTER 2024-01-13 17:03 | Emergency (ER) | payer MEDICAID, SELFPAY ==
[2024-01-13 17:06] VITALS: BP 162/84; PULSE 92; RESP 22; TEMP 36.6; O2SAT 97; BMI 43.4
--- NOTE | 2024-01-13 17:07 | ED_ITS ---
HPI - SOB/Dyspnea General Chief Complaint: Dyspnea Stated Complaint: sob-asthma Related Data Home Medications ?Medication ?Instructions ?Recorded ?Confirmed albuterol sulfate 90 mcg/actuation 2 puff inhalation Q4-6H PRN 09/10/22 09/28/23 aerosol inhaler (Ventolin HFA) Shortness Of Breath Or Wheezing amlodipine 5 mg tablet 5 mg PO DAILY 09/10/22 09/28/23 cetirizine 10 mg tablet 10 mg PO DAILY 09/10/22 09/28/23 fluticasone 500 mcg-salmeterol 50 1 inh inhalation Q12H 09/10/22 09/28/23 mcg/dose blistr powdr for inhalation (Advair Diskus) fluticasone propionate 50 2 spray intranasal DAILY 09/10/22 09/28/23 mcg/actuation nasal spray,suspension methadone 10 mg/mL oral concentrate 55 mg PO DAILY 02/27/23 09/28/23 montelukast 10 mg tablet 10 mg PO QPM 03/29/23 09/28/23 tiotropium bromide 1.25 2 puff inhalation QAM 03/29/23 09/28/23 mcg/actuation mist for inhalation (Spiriva Respimat) Previous Rx's ?Medication ?Instructions ?Recorded albuterol sulfate 2.5 mg/3 mL 2.5 mg (3 mL) inhalation QID #90 mL 02/27/23 (0.083 %) solution for nebulization Allergies Allergy/AdvReac Type Severity Reaction Status Date / Time No Known Allergies Allergy Verified 01/13/24 17:09 [facility] Past Medical History Medical History (Updated 01/17/24 @ 10:50 by BRINA Gillette) Nocturnal hypoxemia Snoring Asthma-COPD overlap syndrome Asthma Allergic rhinitis Somnolence, daytime Morbid obesity Obstructive sleep apnea HTN (hypertension) Chronic respiratory failure due to obstructive sleep apnea Bursitis of right shoulder Osteoarthritis of left knee Opioid use disorder (~08/27/18) Social History Social History Household Members: Significant Other Housing: House Do you presently have visiting nurse or other home services: No Alcohol intake: current Alcohol intake frequency: holidays/special occasions only Patient Tobacco Use Status: Current everyday Tobacco user Tobacco use type: Cigarette Cigarettes Per Day: 1 Years Smoked: 5 e-Cigarette/Vaping Use: Never Used Substance Use Type: Crack/Cocaine and Heroin Advance Directives: No Advance Directives Information Provided: No service: No Current occupational status: unemployed Current occupation: right handed Physical Exam Vital Signs: Vital Signs: Last Vital Signs Temp 97.8 F 01/13/24 17:06 Pulse 92 01/13/24 17:06 Resp 22 H 01/13/24 17:06 BP 162/84 H 01/13/24 17:06 Pulse Ox 97 01/13/24 17:06 O2 Del Method Room Air 01/13/24 17:06 BMI result Body Mass Index 43.4 Course Course Course Narrative: This is an RME: Additional HPI, ROS, PE not included below will be deferred to primary provider. RME assessment and note performed by: Vi Rios PA-C This is a 58-year old male, with a history of COPD, asthma, hypertension, who presents emergency department with complaints of acute onset shortness for breath which started today. No chest pain or shortness of breath. States he ran out of his inhaler. Patient tachypneic however lungs are clear to auscultation. Patient does report some swelling in his lower extremities, 1+ noted bilaterally. Plan: Labs, EKG, chest x-ray, further ER evaluation needed. Reevaluation(s) Reevaluation #1: Patient left without completing treatment. Discharge Plan Discharge Clinical Impression: Shortness of breath Patient Disposition: Left W/O Completing Treatment Prescriptions: No Action methadone 10 mg/mL Concentrate 55 mg PO DAILY albuterol sulfate 2.5 mg /3 mL (0.083 %) solution for nebulization 2.5 mg inhalation QID Qty: 90 0RF cetirizine 10 mg tablet 10 mg PO DAILY amlodipine 5 mg tablet 5 mg PO DAILY fluticasone propion-salmeterol [Advair Diskus] 500-50 mcg/dose blister with device 1 inh INHALATION Q12H albuterol sulfate [Ventolin HFA] 90 mcg/actuation HFA aerosol inhaler 2 puff INHALATION Q4-6H PRN (Reason: Shortness Of Breath Or Wheezing) fluticasone propionate 50 mcg/actuation spray,suspension 2 spray intranasal DAILY Spiriva Respimat 1.25 mcg/actuation mist 2 puff inhalation QAM montelukast 10 mg tablet 10 mg PO QPM Discharge Date/Time: 01/13/24 22:01
--- NOTE | 2024-01-13 17:58 | MHC.EDTECH ---
This pct along with another pct called patient between the both us 5 times patient did not respond RN Aware
== END 2024-01-13 22:01 | disposition left against medical advice (07) ==
PROVIDERS: Emergency Provider Emergency Medicine; PCP Internal Medicine Geriatric Medicine
DX: R06.02 Shortness of breath (principal); Z53.21 Procedure and treatment not carried out due to patient leaving prior to being seen by health care provider
CPT/HCPCS: 99281

== ENCOUNTER 2024-04-15 10:46 | Outpatient (REF) | payer MEDICAID, SELFPAY ==
[2024-04-15 13:38] LABS: Estimated Average Glucose 111 mg/dL; Hemoglobin A1C 116.4242 umol/L; Hemoglobin A1c % 5.5 % (<6.0); Total Hemoglobin (HGBA1C) 3224.2364 umol/L
[2024-04-15 13:46] LABS: Anion Gap 9 (12-20); Blood Urea Nitrogen 8 mg/dL (9-16); Calcium 8.7 mg/dL (8.4-10.2); Carbon Dioxide 33 mmol/L (22-29); Chloride 105 mmol/L (96-108); Cholesterol 140 mg/dL (<200); Estimated Glomerular Filt Rate > 60; Glucose Random 92 mg/dL (60-115); HDL Cholesterol 47 mg/dL (>40); Iron 30 mcg/dL (45-160); LDL Cholesterol Calculated 81 mg/dL (<100); Percent Iron Saturation 11 % (15-50); Potassium 4.3 mmol/L (3.3-5.1); Sodium 143 mmol/L (135-145); Total Iron Binding Capacity 267 mcg/dL (228-428); Triglycerides 60 mg/dL (<150); Unsaturated Iron Binding 237 ug/dL
[2024-04-15 13:58] LABS: Ferritin 61 ng/mL (20-250)
[2024-04-15 14:00] LABS: HBS Num1 1.34 mIU/mL (0-7.99); HBc Num1 0.32 S/CO (0.00-0.79); HBsAGNum1 0.42 S/CO (0.00-0.99); HIV AB/AG Nonreactive (Nonreactive); HIV Num 1 0.05 S/CO (0.00-0.99); Hepatitis B Core Antibody Nonreactive (Nonreactive); Hepatitis B Surface Antigen Negative (Negative); ~HepC Num1 0.11 S/CO (0.00-0.79); ~Hepatitis B Surface Antibody NONREACTIVE (Nonreactive); ~Hepatitis C Antibody Nonreactive (Nonreactive)
[2024-04-15 14:15] LABS: Folate 13.3 ng/mL (> or = 4.0); Vitamin B12 560 pg/mL (200-900)
== END 2024-04-15 10:47 | disposition home or self-care (01) ==
LOC: HO.HHCL 10:46
PROVIDERS: Visit Provider Nurse Practitioner
DX: I10 Essential (primary) hypertension (principal); E66.01 Morbid (severe) obesity due to excess calories; Z13.9 Encounter for screening, unspecified; D64.9 Anemia, unspecified
CPT/HCPCS: 36415; 80048; 80061; 82607; 82728; 82746; 83036; 83540; 86704; 86706; 86803; 87340; 87389

== ENCOUNTER 2024-05-31 17:48 | Inpatient (IN) | payer MEDICARE, MEDICAID, SELFPAY ==
[2024-05-31] VITALS (8 sets, daily range): BP systolic 115–204; BP diastolic 66–105; PULSE 98–125; RESP 21–26; TEMP 37.2–38.8; O2SAT 82–98; BMI 38.5
--- NOTE | ~2024-05-31 | XR_ITS ---
CLINICAL HISTORY: hypoxia 1 view chest x-ray Comparison: CR/SR - XR CHEST 1V - 02/25/23 20:52 EST Findings: Bibasilar pneumonia. Heart size is normal. No acute fracture. IMPRESSION: Bibasilar pneumonia. This document has been electronically signed by: Fredis Patel MD on 05/31/2024 20:30:04
--- NOTE | 2024-05-31 18:17 | ED_ITS ---
HPI - General Adult General Chief complaint: Asthma Stated complaint: SOB Time Seen by Provider: 05/31/24 18:29 Source: patient, RN notes reviewed and old records reviewed Mode of arrival: ambulatory Limitations: no limitations History of Present Illness ED Provider: Verenice HPI narrative: Patient is a 59-year-old male with history of COPD, asthma, RIANA, obesity presenting to the emergency department with complaint of worsening shortness of breath for the past 2 days. Denies fevers at home, febrile in triage. Denies any sick family members at home. Denies chest pain or palpitations. Denies pedal edema. Denies abdominal pain, nausea, vomiting or diarrhea. MD complaint: shortness of breath Onset (ago): day(s) Related Data Home Medications ?Medication ?Instructions ?Recorded ?Confirmed albuterol sulfate 90 mcg/actuation 2 puff inhalation Q4-6H PRN 09/10/22 09/28/23 aerosol inhaler (Ventolin HFA) Shortness Of Breath Or Wheezing amlodipine 5 mg tablet 5 mg PO DAILY 09/10/22 09/28/23 cetirizine 10 mg tablet 10 mg PO DAILY 09/10/22 09/28/23 fluticasone 500 mcg-salmeterol 50 1 inh inhalation Q12H 09/10/22 09/28/23 mcg/dose blistr powdr for inhalation (Advair Diskus) fluticasone propionate 50 2 spray intranasal DAILY 09/10/22 09/28/23 mcg/actuation nasal spray,suspension methadone 10 mg/mL oral concentrate 55 mg PO DAILY 02/27/23 09/28/23 montelukast 10 mg tablet 10 mg PO QPM 03/29/23 09/28/23 tiotropium bromide 1.25 2 puff inhalation QAM 03/29/23 09/28/23 mcg/actuation mist for inhalation (Spiriva Respimat) Previous Rx's ?Medication ?Instructions ?Recorded albuterol sulfate 2.5 mg/3 mL 2.5 mg (3 mL) inhalation QID #90 mL 02/27/23 (0.083 %) solution for nebulization Allergies Allergy/AdvReac Type Severity Reaction Status Date / Time No Known Allergies Allergy Verified 05/31/24 18:16 Review of Systems 2 Review of Systems: As per HPI Yes all other systems are reviewed and are negative Constitutional: Constitutional: Reports as per HPI [facility] Past Medical History Medical History Nocturnal hypoxemia Snoring Asthma-COPD overlap syndrome Asthma Allergic rhinitis Somnolence, daytime Morbid obesity Obstructive sleep apnea HTN (hypertension) Chronic respiratory failure due to obstructive sleep apnea Bursitis of right shoulder Osteoarthritis of left knee Opioid use disorder (~08/27/18) Social History Social History Household Members: Significant Other Housing: House Do you presently have visiting nurse or other home services: No Alcohol intake: current Alcohol intake frequency: holidays/special occasions only Patient Tobacco Use Status: Current everyday Tobacco user Tobacco use type: Cigarette Cigarettes Per Day: 1 Years Smoked: 5 Smoked in Last 30 Days: Yes e-Cigarette/Vaping Use: Never Used Use of substances other than those prescribed or required for medical reasons: Yes Substance Use Type: Heroin Advance Directives: Yes Advance Directives on File: Yes Advance Directives Date on File: 02/28/23 service: No Current occupational status: unemployed Current occupation: right handed Physical Exam ED Vital Signs: Vital Signs - 24 hr 05/31/24 18:14 05/31/24 18:28 Temperature 99.0 F 101.9 F H Pulse Rate 118 H 116 H Respiratory Rate 26 H 26 H Blood Pressure 204/105 H 135/73 Pulse Oximetry 82 L 90 L Oxygen Delivery Method Room Air Nasal Cannula Oxygen Flow Rate 5 BMI result Body Mass Index 38.5 Vital signs have been reviewed and appear to be correct. Blood pressure normal. Heart rate tachycardic. Respiratory rate tachypneic. Temperature febrile. Oxygen saturation hypoxic on room air. Const General: cooperative and acute distress respiratory Nutritional Appearance: obese Orientation/consciousness: oriented to person, oriented to place, oriented to time and patient oriented x3 Limitations: no limitations HENMT Head: Yes normocephalic and Yes atraumatic Ears: external ears normal General nose exam: Normal external nose present Face and sinus: Yes face symmetric Mouth: oropharynx normal and moist mucous membranes Throat: Yes uvula midline Eyes Pupils: Equal, round and reactive pupils present Neck Neck: Yes normal visual inspection and Yes supple Resp Effort & Inspection: normal respiratory effort, able to speak in complete sentences, labored, tachypneic and uses accessory muscles Auscultation: wheezes expiratory wheezes, inspiratory wheezes and throughout Cardio Rate: tachycardic Rhythm: regular rhythm Heart sounds: S1 normal heart sound present and S2 normal heart sound present Peripheral pulses: Peripheral pulses 2+ throughout GI Palpation (GI): Soft to palpation and nontender Auscultation: normoactive bowel sounds General: Yes no CVA tenderness Back/Spine/Pelvis Back: no CVA tenderness Skin General skin exam: elasticity normal and turgor normal Neuro General: oriented to person, oriented to place, oriented to time, patient oriented x3, moves all extremities, no focal motor deficits and CN's II-XI intact bilaterally Cranial nerves: Yes Equal, round and reactive pupils present Cognition (Neuro): normal cognition Extrem General: Yes full ROM, Yes no pedal edema and Yes no calf tenderness Psych Mental Status: mental status grossly normal Affect: normal affect Thought process: Normal thought process present Course Course Course Narrative: RME, this is a rapid medical exam performed by Nicko Vieira please refer to primary provider for complete H&P- 59-year-old male presents for evaluation of shortness of breath. The patient has a history of asthma and COPD. He was in respiratory distress in triage, his oxygen saturation is 82%. He was quite wheezy on exam. He was brought back to room 5 immediately Medications Administered Generic Name Dose Route Start Last Admin Trade Name Freq PRN Reason Stop Dose Admin Levalbuterol HCl 1.25 mg 05/31/24 20:00 05/31/24 20:08 Levalbuterol Hcl 1.25 Mg/3 Ml Vial.Neb INHALE 1.25 mg RQ4H IVONE Administration Discontinued Medications Generic Name Dose Route Start Last Admin Trade Name Freq PRN Reason Stop Dose Admin Ceftriaxone Sodium 1 gm 05/31/24 18:32 05/31/24 18:59 Ceftriaxone Sodium 1 Gm Vial IVPUSH 05/31/24 18:33 1 gm ONCE ONE Administration Albuterol Sulfate 7.5 mg/ 0 mg 05/31/24 18:25 05/31/24 18:31 Albuterol/Ipratropium 3 ml INHALE 05/31/24 18:26 10 each ONCE ONE Administration Magnesium Sulfate 2 gm in 50 mls @ 25 mls/hr 05/31/24 18:18 05/31/24 18:44 Magnesium Sulfate/H2o IV 05/31/24 20:17 25 mls/hr ONCE ONE Administration Lactated Ringer's 2,328 mls @ 2,328 mls/hr 05/31/24 19:09 05/31/24 19:16 Lr IV 05/31/24 20:08 2,328 mls/hr .Q1H ONE Administration Methylprednisolone Sodium Succinate 125 mg 05/31/24 18:18 05/31/24 18:45 Methylprednisolone Sod Succ 125 Mg/2 Ml Vial IVPUSH 05/31/24 18:19 125 mg ONCE ONE Administration Medical Decision Making Medical Decision Making [facility] Narrative: Patient is a 59-year-old male with history of COPD, asthma, RIANA, obesity presenting to the emergency department with complaint of worsening shortness of breath for the past 2 days. On exam patient is awake, A+Ox3, hypoxic, tachypneic, tachycardic, febrile, normal neurological exam without focal deficits, physical exam findings as above. Given reported symptoms and physical exam findings, initial differential includes but is not limited to sepsis, asthma/COPD exacerbation, viral illness, covid, flu, RSV, pneumonia. EKG shows sinus tachycardia. Labs notable for significant leukocytosis with 22% bands, elevated bicarb on VBG, hypomagnesemia, normal lactic. IV magnesium and ceftriaxone ordered as well as 30mL/kg bolus of LR. Viral serology positive for influenza A. X-ray notable for bibasilar pneumonia. My interpretation is in agreement with the radiologist's interpretation. Case discussed with Dr. Aragon who accepts admission to medicine. Differential Diagnosis Differential Diagnoses: The differential diagnosis associated with the presentation includes As per [facility] Admission/Observation Consideration of admission/observation: Escalation of care including admission/observation considered Consult Healthcare Provider Management of the patient was discussed with: Hospitalist Lab Data [facility] Lab Attestation statement: I reviewed the patient's lab results. As per [facility] 05/31/24 18:37 05/31/24 18:37 Labs: Lab Results 05/31/24 05/31/24 05/31/24 Range/Units 18:37 18:38 18:59 WBC 24.0 H (4.8-10.8) X10*3/uL RBC 4.75 (4.60-5.80) X10*6/uL Hgb 13.8 L (14.0-18.0) g/dl Hct 39.3 L (42.0-52.0) % MCV 82.7 (80.0-98.0) fL MCH 29.1 (27.0-33.0) pg MCHC 35.1 (31.0-36.0) g/dl RDW 13.8 (11.0-16.0) % Plt Count 149 L D (160-400) X10*3/uL MPV 9.7 (9.4-12.4) fL Immature Gran % (Auto) Cancelled Neut % (Auto) Cancelled Lymph % (Auto) Cancelled Seward % (Auto) Cancelled Eos % (Auto) Cancelled Baso % (Auto) Cancelled Lymph # (Auto) Cancelled Seward # (Auto) Cancelled Eos # (Auto) Cancelled Baso # (Auto) Cancelled Abs Immat Gran (auto) Cancelled Absolute Neuts (auto) Cancelled Absolute Nucleated RBC 0.000 (0.0-0.012) X10*3/uL Nucleated RBC % (auto) 0.0 (0.0-0.2) /100WBC Neutrophils % (Manual) 71 (45-73) % Band Neutrophils % 22 H (3-5) % Lymphocytes % (Manual) 6 L (20-40) % Monocytes % (Manual) 1 L (2-11) % Abs Neuts (Manual) 22.3 H (2.0-8.3) X10*3/uL Lymphocytes # (Manual) 1.4 (1.2-4.9) X10*3/uL Monocytes # (Manual) 0.2 (0.1-1.2) X10*3/uL Toxic Vacuolation PRESENT Dohle Bodies PRESENT Platelet Estimate NORMAL (NORMAL) Large Platelets PRESENT Plt Morphology Comment NOTED RBC Morphology NORMAL Smear Tech's Comments MANUAL DIFF PT (10.9-12.4) SEC INR (0.9-1.1) VBG pH (7.32-7.43) VBG pCO2 mmHg VBG pO2 mmHg VBG HCO3 (22-26) mmol/L VBG O2 Saturation % VBG Base Excess mmol/L Sodium 132 L (135-145) mmol/L Potassium 3.3 D (3.3-5.1) mmol/L Chloride 96 (96-108) mmol/L Carbon Dioxide 27 (22-29) mmol/L Anion Gap 12 (12-20) BUN 12 (9-16) mg/dL Creatinine 0.96 (0.5-1.4) mg/dL Estim Creat Clear Calc 114.9 Estimated GFR > 60 Random Glucose 116 H (60-115) mg/dL Lactic Acid 1.8 (0.5-2.0) mmol/L Calcium 8.7 (8.4-10.2) mg/dL Magnesium 1.5 L (1.6-2.6) mg/dL Total Bilirubin 0.9 (0.0-1.0) mg/dL AST 38 H (5-37) U/L ALT 23 (0-40) U/L Alkaline Phosphatase 79 (39-117) U/L Troponin I High Sens 8.9 D (<3.5-35.0) ng/L B-Natriuretic Peptide 148 H (<100) pg/mL Total Protein 8.8 H (6.5-8.0) g/dL Albumin 3.8 (3.5-5.0) g/dL Lipase 4 L (8-78) U/L Influenza Type A (PCR) POSITIVE A (Negative) Influenza Type B (PCR) NEGATIVE (Negative) RSV RNA Qual (PCR) NEGATIVE (Negative) SARS-CoV-2 RNA (RT-PCR) NEGATIVE (Negative) 05/31/24 05/31/24 Range/Units 19:00 19:03 WBC (4.8-10.8) X10*3/uL RBC (4.60-5.80) X10*6/uL Hgb (14.0-18.0) g/dl Hct (42.0-52.0) % MCV (80.0-98.0) fL MCH (27.0-33.0) pg MCHC (31.0-36.0) g/dl RDW (11.0-16.0) % Plt Count (160-400) X10*3/uL MPV (9.4-12.4) fL Immature Gran % (Auto) Neut % (Auto) Lymph % (Auto) Seward % (Auto) Eos % (Auto) Baso % (Auto) Lymph # (Auto) Seward # (Auto) Eos # (Auto) Baso # (Auto) Abs Immat Gran (auto) Absolute Neuts (auto) Absolute Nucleated RBC (0.0-0.012) X10*3/uL Nucleated RBC % (auto) (0.0-0.2) /100WBC Neutrophils % (Manual) (45-73) % Band Neutrophils % (3-5) % Lymphocytes % (Manual) (20-40) % Monocytes % (Manual) (2-11) % Abs Neuts (Manual) (2.0-8.3) X10*3/uL Lymphocytes # (Manual) (1.2-4.9) X10*3/uL Monocytes # (Manual) (0.1-1.2) X10*3/uL Toxic Vacuolation Dohle Bodies Platelet Estimate (NORMAL) Large Platelets Plt Morphology Comment RBC Morphology Smear Tech's Comments PT 15.8 H (10.9-12.4) SEC INR 1.4 H (0.9-1.1) VBG pH 7.44 H (7.32-7.43) VBG pCO2 50 mmHg VBG pO2 35 mmHg VBG HCO3 34 H (22-26) mmol/L VBG O2 Saturation 55.0 % VBG Base Excess 8.4 mmol/L Sodium (135-145) mmol/L Potassium (3.3-5.1) mmol/L Chloride (96-108) mmol/L Carbon Dioxide (22-29) mmol/L Anion Gap (12-20) BUN (9-16) mg/dL Creatinine (0.5-1.4) mg/dL Estim Creat Clear Calc Estimated GFR Random Glucose (60-115) mg/dL Lactic Acid (0.5-2.0) mmol/L Calcium (8.4-10.2) mg/dL Magnesium (1.6-2.6) mg/dL Total Bilirubin (0.0-1.0) mg/dL AST (5-37) U/L ALT (0-40) U/L Alkaline Phosphatase (39-117) U/L Troponin I High Sens (<3.5-35.0) ng/L B-Natriuretic Peptide (<100) pg/mL Total Protein (6.5-8.0) g/dL Albumin (3.5-5.0) g/dL Lipase (8-78) U/L Influenza Type A (PCR) (Negative) Influenza Type B (PCR) (Negative) RSV RNA Qual (PCR) (Negative) SARS-CoV-2 RNA (RT-PCR) (Negative) Independent Interpretation I performed an independent interpretation of an: EKG (sinus tachycardia, rate 131bpm, normal NE interval) and Plain X-Ray Interpretation: Chest x-ray notable for bibasilar pneumonia. Radiology Impression Discussion of test interpretation with radiology: I have reviewed the radiologist's reading. External Record Review External record reviewed: Inpatient record, Office record and Outpatient record Prescription Management I considered prescription management with: Antibiotic and Other Critical Care Time Critical Care Time Critical Care Time: Yes Total Critical Care Time: 40 Attestation: I have personally provided critical care time exclusive of time spent on separately billable procedures. Time includes review of lab data, radiology results, discussion with consultants, and monitoring for potential decompensation. Intervention performed as documented. Discharge Plan Discharge Clinical Impression: Sepsis, Acute exacerbation of chronic obstructive airways disease, Influenza A Patient Disposition: Admitted As Inpatient
--- NOTE | 2024-05-31 18:18 | ECG_ITS ---
Test Reason : SOB Blood Pressure : */* mmHG Vent. Rate : 131 BPM Atrial Rate : 131 BPM P-R Int : 126 ms QRS Dur : 80 ms QT Int : 316 ms P-R-T Axes : 69 34 48 degrees QTcB Int : 466 ms Sinus tachycardia Cannot rule out Inferior infarct , age undetermined Abnormal ECG When compared with ECG of 25-Feb-2023 20:19, Premature ventricular complexes are no longer Present Referred By: Fredis Vieira Electronically Signed By: THONY COREY MD
[2024-05-31] MEDS: Albuterol Sulfate 7.5 MG, Albuterol/Iprat 2.5/0.5MG 3 ML 3 ML INHALE (18:31)
[2024-05-31] MEDS: Magnesium Sulfate/H2O 2 GM/50 ML PIGGYBACK IV (18:44)
[2024-05-31 18:45] LABS: Hematocrit 39.3 % (42.0-52.0); Hemoglobin 13.8 g/dl (14.0-18.0); Mean Corpuscular HGB Conc 35.1 g/dl (31.0-36.0); Mean Corpuscular Hemoglobin 29.1 pg (27.0-33.0); Mean Corpuscular Volume 82.7 fL (80.0-98.0); Mean Platelet Volume 9.7 fL (9.4-12.4); Platelet Count 149 X10*3/uL (160-400); Red Blood Count 4.75 X10*6/uL (4.60-5.80); Red Cell Distribution Width 13.8 % (11.0-16.0)
[2024-05-31] MEDS: methylPREDNISolone Sod Succ 125 MG/2 ML VIAL IVPUSH (18:45)
[2024-05-31] MEDS: cefTRIAXone sodium 1 GM VIAL IVPUSH (18:59)
[2024-05-31 19:02] LABS: Lactic Acid 1.8 mmol/L (0.5-2.0)
[2024-05-31 19:03] LABS: Alanine Aminotransferase 23 U/L (0-40); Albumin Level 3.8 g/dL (3.5-5.0); Alkaline Phosphatase 79 U/L (39-117); Anion Gap 12 (12-20); Aspartate Amino Transferase 38 U/L (5-37); Bilirubin Total 0.9 mg/dL (0.0-1.0); Blood Urea Nitrogen 12 mg/dL (9-16); Calcium 8.7 mg/dL (8.4-10.2); Carbon Dioxide 27 mmol/L (22-29); Chloride 96 mmol/L (96-108); Creatinine Clr Calc Pharmacy 114.9; Estimated Glomerular Filt Rate > 60; Glucose Random 116 mg/dL (60-115); Lipase 4 U/L (8-78); Magnesium 1.5 mg/dL (1.6-2.6); Potassium 3.3 mmol/L (3.3-5.1); Sodium 132 mmol/L (135-145); Total Protein 8.8 g/dL (6.5-8.0)
--- OUTSIDE RECORDS SUMMARY | 2024-05-31 19:04 | XMS_ITS | Encounter Summary ---
Author Organization [employer] [facility] Address [address] [place] [address] [place] [address] Care Team Providers Care Recovery Room Rn Name Role Phone Kimmie Henao Primary Care Provider [phone] Rebecca Hogan NP Primary Care Provider [phone] Reason for Visit * Reason Comments Med Refill Encounter Details Date Type Department Care Team (Late st Contact Info) Description 07/21/[address] [facility] MEDICINE [address] [place] [address] Kimmie Henao FNP [address] [place] [address] Dept [place] [address] Seasonal allergic rhinitis, unspecified trigger Social History Tobacco Use Types Packs/Day Years Used Date Smoking Tobacco: Never Assessed Sex and Gender Information Value Date Recorded Sex Assigned at Male 02/14/2022 10:30 AM EDT Legal Sex Male 10:30 AM EDT Gender Identity Male 02/14/2022 10:30 AM EDT Sexual Orientation Straight 02/14/2022 10 :30 AM EDT documented as of this encounter Plan of Treatment Upcoming Encounters Date Type Department Care Team (Late st Contact Info) Description 07/15/2024 10:15 AM EDT Office Visit [facility] MEDICINE [address] [place] [address] Rebecca Hogan NP [address] [place] [address] documented as of this encounter Visit Diagnoses Diagnosis Seasonal allergic rhinitis, unspecified trigger documented in this encounter Care Teams Recovery Room Rn Relationship Specialty Start Date End Date Kimmie Henao FNP PCP - General Family Medicine 10/06/21 01/19/23 Rebecca Hogan NP [address] [place] [id number] PCP - General Family Medicine 01/20/23 documented as of this encounter
--- OUTSIDE RECORDS SUMMARY | 2024-05-31 19:04 | XMS_ITS | Encounter Summary ---
Author Organization [employer] Address [address] [place] [address] Care Team Providers Care Glassworker Name Role Phone Rebecca Hogan SITA Primary Care Provider [phone] Encounter Details Date Type Department Care Team ([facility] st Contact Info) Description 05/08/2024 Telephone [facility] MEDICINE [address] [place] [address] Xiomara Laura [place] Social History Tobacco Use Types Packs/Day Years Used Date Smoking Tobacco: Every Day Cigarettes Smokeless Tobacco: Never Comments:Smokes once in a bl ue espinoza. Started smoking 2010 about 1 ppd Alcohol Use Standard Drinks/Week Comments Yes 0 (1 standard drink = 0.6 oz pure alcohol) maybe 1 beer in a 6 month period; stopped more frequent drinking couple years ago Depression Answer Date Recorded Patient Health Questionnaire-9 Score 18 05/12/2023 Patient Health Questionnaire-9 Score 18 05/12/2023 Last PHQ-9: Questionnaire Data Not on file 0 05/12/2023 Housing Stability Answer Date Recorded What is your housing situation today? I have johanna najera 02/03/[address] you li ve. Do you have problems with any of the following? None of the above 02/03/2023 Food Insecurity Answer Date Recorded Within the past 12 months, y ou worried that your food would run out before you got money to buy more: Never True 02/03/2023 Within the past 12 months,th e food you bought just didn't last and you didn't have enough money to get more: Never True Transportation Answer Date Recorded In the past 12 months, has l ack of transportation kept you from medical appts, meetings, work or from getting things needed for daily living? Yes, it has kept me from medical appointments or getting medications. 05/05/2023 Utilities Answer Date Recorded In the past 12 months, has t he electric, gas, oil or water company threatened to shut off services in your home? No 02/03/2023 Depression Answer Date Recorded Patient Health Questionnaire-2 Score 5 05/12/2023 Sex and Gender Information Value Date Recorded Sex Assigned at Male 02/14/2022 10:30 AM EDT Legal Sex Male 10:30 AM EDT Gender Identity Male 02/14/2022 10:30 AM EDT Sexual Orientation Straight 02/14/2022 10 :30 AM EDT documented as of this encounter Miscellaneous Notes * Telephone Encounter - Xiomara Laura MA - 05/08/2024 10:20 AM EST Called pt to schedule OBAT rN appt, lvm for pt to return t/c. documented in this encounter Plan of Treatment Upcoming Encounters Date Type Department Care Team (Late st Contact Info) Description 07/15/2024 10:15 AM EDT Office Visit [facility] [address] [place] [address] Rebecca Hogan NP [address] [place] [address] documented as of this encounter Visit Diagnoses Not on filedocumented in this encounter Additional Health Concerns Assessment Noted Time PHQ-9 Depression Total Score: 18 024 1:40 PM EST documented as of this encounter Care Teams Glassworker Relationship Specialty Start Date End Date Rebecca Hogan NP [address] [place] [address] PCP - General Family Medicine 01/20/23 documented as of this encounter
--- OUTSIDE RECORDS SUMMARY | 2024-05-31 19:04 | XMS_ITS | Encounter Summary ---
Author Organization [employer] Address [address] [place] [address] [address] [place] [address] Care Team Providers Care Asw Specialist Name Role Phone Kimmie Henao Mary ROCHA Primary Care Provider [phone] Rebecca Hogan NP Primary Care Provider [phone] Encounter Details Date Type Department Care Team (Late st Contact Info) Description 06/13/2022 Orders Only [facility] [address] [place] [phone] Tess Perez LPN Social History Tobacco Use Types Packs/Day Years [...] 10:15 AM EDT Office Visit [facility] [address] [place] [address] Rebecca Hogan NP [address] [place] [address] documented as of this encounter Procedures Procedure Name Priority Date/Time Associated Diagnosis Comments VENOUS BLOOD GAS Routine 02/25/2023 8:33 PM EST HIGH SENSITIVITY TROPONIN I Routine 02/25/2023 8:27 PM EST SARS COV2/INFLUENZA A/B AND RSV RNA QL NAAT Routine 02/25/2023 8:27 PM EST CBC WITH AUTO DIFFERENTIAL Routine 02/25/2023 8:27 PM EST PROTHROMBIN TIME-INR Routine 02/25/2023 8:27 PM EST MAGNESIUM Routine 02/25/2023 8:27 PM EST LACTIC ACID Routine 02/25/2023 8:27 PM EST HEPATIC FUNCTION PANEL Routine 8:27 PM EST BASIC METABOLIC PANEL Routine 02/25/2023 8:27 PM EST VENOUS BLOOD GAS Routine 09/10/2022 2:06 PM EDT COVID-19 ID NOW (BONDS) Routine 09/10/2022 2:01 PM EDT HIGH SENSITIVITY TROPONIN I Routine 09/10/2022 2:01 PM EDT CBC WITH AUTO DIFFERENTIAL Routine 09/10/2022 2:01 PM EDT B TYPE NATRIURETIC PEPTIDE (BNP) Routine 09/10/2022 2:01 PM EDT COMPREHENSIVE METABOLIC PANEL Routine 09/10/2022 2:01 PM EDT documented in this encounter Results * (ABNORMAL) VENOUS BLOOD GAS (02/25/2023 8:33 PM EST) VBG pH 7.43 7.32 - 7.43 [facility] Comment:METER #: [id number] additional_comment: Lester mauro VBG PCO2 55 mmHg [facility] Comment:METER #: [id number] additional_comment: Lester mauro VBG PO2 142 mmHg [facility] Comment:METER #: [id number] additional_comment: Lester mauro VBG Base Excess 11.0 mmol/L [facility] Comment:METER #: [id number] additional_comment: Lester mauro VBG HCO3 37(H) 22 - 26 mmol/L [facility] Comment:METER #: [id number] additional_comment: Lester mauro O2 Sat, Domenic 99.0 % [facility] Comment:METER #: [id number] additional_comment: Lester mauro 02/25/2023 8:33 PM EST 02/25/2023 8:37 PM EST Generic External Data Provider LAB BLOOD ORDERAB LES Final Result Performing Organization Address [facility] de Phone Number [facility] [address] [place] [address] [phone] * SARS-CoV-2 RNA, Influenza A/B, and RSV RNA, Ql NAAT (02/25/2023 8:27 PM EST) Influenza A PCR NEGATIVE Negative [facility] Influenza B PCR NEGATIVE Negative [facility] Resp Syncy Virus RNA Qual PCR NEGATIVE Negative [facility] SARS COV2 PCR NEGATIVE Negative [facility] Comment:All test results mus t be correlated with clinical findings.Negative results do not preclude SARS-CoV2, influenza Avirus, influenza B virus and/or RSV infectionand should not be used as the sole basis for treatment orother patient management decisions. Negative results must becombined with clinical observations, patient history, andepidemiological information.This test has not been evaluated for monitoring treatment ofinfection.This test has been authorized by the FDA under an EmergencyUse Authorization (EUA) for use by authorized laboratories.Testing performed on the [employer] GeneXpert utilizingreal-time RT-PCR.All SARS CoV2 and positive influenza A/B results arereported to [facility]. 02/25/2023 8:27 PM EST 02/25/2023 8:31 PM EST us Generic External Data Provider LAB MICROBIOLOGY - GENERAL ORDERABLES Final Result Performing Organization Address [facility] [place] [facility]/ZIP Co de Phone Number [facility] [address] [place] [address] [phone] * High Sensitivity Troponin I (02/25/2023 8:27 PM EST) [facility] TROPONIN I HIGH SENSITIVITY 5.3 <3.5 - 35.0 ng/L [facility] Comment:The Bonds high sens itivity Troponin-I results should beused in conjunction with other diagnostic information suchas ECG, clinical observations and information, and patientsymptoms to aid in the diagnosis of [place]. 02/25/2023 8:27 PM EST 02/25/2023 8:31 PM EST Generic External Data Provider LAB BLOOD ORDERAB LES Final Result Performing Organization Address [facility] [place] [facility] Phone Number [facility] [address] [place] [phone] * Magnesium (02/25/2023 8:27 PM EST) [facility] Magnesium 2.1 1.6 - 2.6 mg/dL [facility] 02/25/2023 8:27 PM EST 02/25/2023 8:31 PM EST Generic External Data Provider LAB BLOOD ORDERAB LES Final Result Performing Organization Address [facility] [place] [facility] de Phone Number [facility] [address] [place] [phone] * (ABNORMAL) Basic Metabolic Panel (02/25/2023 8:27 PM EST) [facility] Sodium 144 135 - 145 mmol/L [facility] Potassium 3.8 3.3 - 5.1 mmol/L [facility] Chloride 102 96 - 108 mmol/L [facility] Carbon Dioxide 34(H) 22 - 29 mmol/L [facility] Anion Gap 12 12 - 20 [facility] Urea Nitrogen (BUN) 8(L) 9 - 16 mg/dL [facility] Creatinine, Serum 0.92 0.5 - 1.4 mg/dL [facility] Creatinine Clr Calc Pharmacy 129.5 [facility] Comment:eGFR (calculated fro m the MDRD study equation) and eCrCl(calculated from the Cockcroft-Gault equation) are based ondifferent parameters and may not yield comparable results.If eCrCl result is absurd, please check patient'sheight/weight. Estimated Glomerular Filt Rate >60 [facility] Comment:NOTE: For -Am erican individuals, multiply the result by 1.210.Chronic Kidney Disease: Estimated GFR < 60 mL/min/[id number] Kidney Disease: Estimated GFR < 15 mL/min/1.73m2 Glucose 140(H) 60 - 115 mg/dL [facility] Calcium 8.8 8.4 - 10.2 mg/dL [facility] 02/25/2023 8:27 PM EST 02/25/2023 8:31 PM EST us Generic External Data Provider LAB BLOOD ORDERAB LES Final Result [facility] [address] [place] [phone] * (ABNORMAL) Hepatic Function Panel (02/25/2023 8:27 PM EST) Bilirubin, Total 0.2 0.0 - 1.0 mg/dL [facility] Bilirubin, Direct 0.2 0.0 - 0.5 mg/dL [facility] Aspartate Amino Transferase 23 5 - 37 U/L [facility] Alanine Aminotransferase 19 0 - 40 U/L [facility] Total Protein 8.1(H) 6.5 - 8.0 g/dL [facility] Albumin Level 3.9 3.5 - 5.0 g/dL [facility] Alkaline Phosphatase 79 39 - 117 U/L [facility] 02/25/2023 8:27 PM EST 02/25/2023 8:31 PM EST Generic External Data Provider LAB BLOOD ORDERAB LES Final Result Performing Organization Address [facility]/ZIP Co de Phone Number [facility] [address] [place] [phone] * Lactic Acid (02/25/2023 8:27 PM EST) [facility] Lactic Acid 1.0 0.5 - 2.0 mmol/L [facility] 02/25/2023 8:27 PM EST 02/25/2023 8:31 PM EST Generic External Data Provider LAB BLOOD ORDERAB LES Final Result Performing Organization Address [facility] Phone Number [facility] [address] [place] [phone] * Prothrombin Time-INR (02/25/2023 8:27 PM EST) [facility] Prothrombin Time 11.6 11.1 - 13.3 SEC [facility] INTERNATIONAL NORM RATIO 1.0 0.9 - 1.1 [facility] Comment:INTERNATIONAL NORMAL IZED RATIO (INR) REFERENCE RANGES Reference RangeFor patients not on anticoagulant therapy: 0.9 - 1.1INR ranges for oral anticoagulanttherapy:For prevention and treatment of venous thrombosis and pulmonary embolism: 2.0 - 3.0For acute myocardial infarction with aspirin therapy: 2.0 - 3.0For acute myocardial infarction without aspirin therapy: 3.0 - 4.0For patients with mechanical prosthetic heart valves: 2.5 - 3.5 02/25/2023 8:27 PM EST 02/25/2023 8:31 PM EST Generic External Data Provider LAB BLOOD ORDERAB LES Final Result Performing Organization Address [facility] [place] [facility] Co de Phone Number [facility] [address] [place] [phone] * (ABNORMAL) CBC auto differential (02/25/2023 8:27 PM EST) White Blood Count 8.9 4.8 - 10.8 X10*3/uL [facility] Red Blood Count 4.48(L) 4.60 - 5.80 X10*6/uL [facility] Hemoglobin 12.6(L) 14.0 - 18.0 g/dl [facility] Hematocrit 39.5(L) 42.0 - 52.0 % [facility] Mean Corpuscular Volume 88.2 80.0 - 98.0 fL [facility] Mean Corpuscular Hemoglobin 28.1 27.0 - 33.0 pg [facility] Mean Corpuscular HGB Conc 31.9 31.0 - 36.0 g/dl [facility] Red Cell Distribution Width 13.3 11.0 - 16.0 % [facility] Platelet Count 219 160 - 400 X10*3/uL [facility] Mean Platelet Volume 9.6 9.4 - 12.4 fL [facility] Neutrophils Percent Auto 66.7 45 - 73 % [facility] Imm Gran Pct Auto 0.1 0.0 - 0.4 % [facility] Lymphocytes Percent Auto 18.4(L) 20 - 40 % [facility] Monocytes Percent Auto 7.2 2 - 11 % [facility] Eosinophils Percent Auto 7.1(H) 0 - 4 % [facility] Basophils Percent Auto 0.5 0 - 2 % [facility] NRBC Pct Auto 0.0 0.0 - 0.2 /100WBC [facility] Neutrophils Absolute Auto 5.9 2.0 - 8.3 x10*3/uL [facility] Imm Gran Abs Auto 0.01 0.00 - 0.03 X10*3/uL [facility] Lymphocytes Absolute Auto 1.6 1.2 - 4.9 X10*3/uL [facility] Monocytes Absolute Auto 0.6 0.1 - 1.2 X10*3/uL [facility] Eosinophils Absolute Auto 0.6(H) 0.0 - 0.4 X10*3/uL [facility] Basophils Absolute Auto 0.0 0.0 - 0.2 X10*3/uL [facility] NRBC Abs Auto 0.000 0.0 - 0.012 X10*3/uL [facility] 02/25/2023 8:27 PM EST 02/25/2023 8:31 PM EST Generic External Data Provider LAB BLOOD ORDERAB LES Final Result Performing Organization Address [facility] Co de Phone Number [facility] [address] [place] [phone] * (ABNORMAL) VENOUS BLOOD GAS (09/10/2022 2:06 PM EDT) [facility] VBG pH 7.36 7.32 - 7.43 [facility] Comment:METER #: [id number] additional_comment: Cbfurrkat VBG PCO2 63 mmHg [facility] Comment:METER #: [id number] additional_comment: Cbfurrkat VBG PO2 75 mmHg [facility] Comment:METER #: [id number] additional_comment: Cbfurrkat VBG Base Excess 8.3 mmol/L [facility] Comment:METER #: [id number] additional_comment: Cbfurrkat VBG HCO3 36(H) 22 - 26 mmol/L [facility] Comment:METER #: [id number] additional_comment: Cbfurrkat O2 Sat, Domenic 93.0 % [facility] Comment:METER #: [id number] additional_comment: Cbfurrkat 09/10/2022 2:06 PM EDT 09/10/2022 2:13 PM EDT [facility] External Provider LAB BLO OD ORDERABLES Final Result Performing Organization Address [facility] Co de Phone Number [facility] [address] [place] [phone] * High Sensitivity Troponin I (09/10/2022 2:01 PM EDT) [facility] TROPONIN I HIGH SENSITIVITY 16.1 <3.5 - 35.0 ng/L [facility] Comment:The Bonds high sens itivity Troponin-I results should beused in conjunction with other diagnostic information suchas ECG, clinical observations and information, and patientsymptoms to aid in the diagnosis of [place]. 09/10/2022 2:01 PM EDT 09/10/2022 2:06 PM EDT [facility] External Provider LAB BLO OD ORDERABLES Final Result Performing Organization Address [facility] Co de Phone Number [facility] [address] [place] [phone] * B Type Natriuretic Peptide (BNP) (09/10/2022 2:01 PM EDT) [facility] B Type Natriuretic Peptide 97 <100 pg/mL [facility] Comment:For those patients w ho are being treated with Natrecor(nesiritide, recombinant BNP), BNP testing should beperformed at least two hours post treatment in order toensure that only endogenous levels of BNP are detected. 09/10/2022 2:01 PM EDT 09/10/2022 2:06 PM EDT [facility] External Provider LAB BLO OD ORDERABLES Final Result Performing Organization Address [facility] Co de Phone Number [facility] [address] [place] [phone] * (ABNORMAL) Comprehensive Metabolic Panel (09/10/2022 2:01 PM EDT) [facility] Sodium 143 135 - 145 mmol/L [facility] Potassium 4.0 3.3 - 5.1 mmol/L [facility] Chloride 104 96 - 108 mmol/L [facility] Carbon Dioxide 32(H) 22 - 29 mmol/L [facility] Anion Gap 11(L) 12 - 20 [facility] Urea Nitrogen (BUN) 10 9 - 16 mg/dL [facility] Creatinine, Serum 0.81 0.5 - 1.4 mg/dL [facility] Creatinine Clr Calc Pharmacy 143.3 [facility] Comment:eGFR (calculated fro m the MDRD study equation) and eCrCl(calculated from the Cockcroft-Gault equation) are based ondifferent parameters and may not yield comparable results.If eCrCl result is absurd, please check patient'sheight/weight. Estimated Glomerular Filt Rate >60 [facility] Comment:NOTE: For -Am erican individuals, multiply the result by 1.210.Chronic Kidney Disease: Estimated GFR < 60 mL/min/1.02o5Xmfjjk Kidney Disease: Estimated GFR < 15 mL/min/1.73m2 Glucose 110 60 - 115 mg/dL [facility] Calcium 8.9 8.4 - 10.2 mg/dL [facility] Bilirubin, Total 0.3 0.0 - 1.0 mg/dL [facility] Aspartate Amino Transferase 194(H) 5 - 37 U/L [facility] Alanine Aminotransferase 177(H) 0 - 40 U/L [facility] Total Protein 7.4 6.5 - 8.0 g/dL [facility] Albumin Level 3.7 3.5 - 5.0 g/dL [facility] Alkaline Phosphatase 87 39 - 117 U/L [facility] 09/10/2022 2:01 PM EDT 09/10/2022 2:06 PM EDT us [facility] External Provider LAB BLO OD ORDERABLES Final Result [facility] [address] [place] [phone] * COVID-19 ID NOW (BONDS) (09/10/2022 2:01 PM EDT) IDNOW SERIAL# [id number] [facility] COVID-19 TEST Negative Negative [facility] COVID-19 NOTE See Note [facility] Comment: Results are for the identification of SARS-CoV2 RNA. TheSARS-CoV2 RNA is generally detectable in respiratory samplesduring the acute phase of infection. Positive results areindicative of the presence of SARS-CoV-2 RNA; clinicalcorrelation with patient history and other diagnosticinformation is necessary to determine patient infectionstatus. Positive results do not rule out bacterial infectionor co- infection with other viruses.Testing facilities within the [facility] and itsterritories are required to report all positive results tothe appropriate public health authorities.Negative results should be treated as presumptive and, ifinconsistent with clinical signs and symptoms or necessaryfor patient management, should be tested with differentauthorized or cleared molecular tests. Negative results donot preclude SARS-CoV2 RNA infection and should not be usedas the sole basis for patient management decisions. Negativeresults should be considered in the context of a patient'srecent exposures, history and the presence of clinical signsand symptoms consistent with COVID-19.This test has been authorized by the FDA under an EmergencyUse Authorization (EUA) for use by authorized laboratories.Testing performed on the [employer] NOW utilizing NAAT. 09/10/2022 2:01 PM EDT 09/10/2022 2:06 PM EDT [facility] Exter nal Provider LAB MOLECULAR DIAGNOSTICS ORDERABLES Final Result [facility] [address] [place] [address] [phone] * (ABNORMAL) CBC auto differential (09/10/2022 2:01 PM EDT) White Blood Count 8.7 4.8 - 10.8 X10*3/uL [facility] Red Blood Count 4.58(L) 4.60 - 5.80 X10*6/uL [facility] Hemoglobin 12.6(L) 14.0 - 18.0 g/dl [facility] Hematocrit 40.2(L) 42.0 - 52.0 % [facility] Mean Corpuscular Volume 87.8 80.0 - 98.0 fL [facility] Mean Corpuscular Hemoglobin 27.5 27.0 - 33.0 pg [facility] Mean Corpuscular HGB Conc 31.3 31.0 - 36.0 g/dl [facility] Red Cell Distribution Width 13.8 11.0 - 16.0 % [facility] Platelet Count 202 160 - 400 X10*3/uL [facility] Mean Platelet Volume 9.7 9.4 - 12.4 fL [facility] Neutrophils Percent Auto 72.5 45 - 73 % [facility] Imm Gran Pct Auto 0.3 0.0 - 0.4 % [facility] Lymphocytes Percent Auto 11.4(L) 20 - 40 % [facility] Monocytes Percent Auto 6.2 2 - 11 % [facility] Eosinophils Percent Auto 9.0(H) 0 - 4 % [facility] Basophils Percent Auto 0.6 0 - 2 % [facility] NRBC Pct Auto 0.0 0.0 - 0.2 /100WBC [facility] Neutrophils Absolute Auto 6.3 2.0 - 8.3 x10*3/uL [facility] Imm Gran Abs Auto 0.03 0.00 - 0.03 X10*3/uL [facility] Lymphocytes Absolute Auto 1.0(L) 1.2 - 4.9 X10*3/uL [facility] Monocytes Absolute Auto 0.5 0.1 - 1.2 X10*3/uL [facility] Eosinophils Absolute Auto 0.8(H) 0.0 - 0.4 X10*3/uL [facility] Basophils Absolute Auto 0.1 0.0 - 0.2 X10*3/uL [facility] NRBC Abs Auto 0.000 0.0 - 0.012 X10*3/uL [facility] 09/10/2022 2:01 PM EDT 09/10/2022 2:06 PM EDT us [facility] External Provider LAB BLO OD ORDERABLES Final Result [facility] [address] [place] [phone] documented in this encounter Visit Diagnoses Not on filedocumented in this encounter Care Teams Asw Specialist Relationship Specialty Start Date End Date Kimmie Henao FNP PCP - General Family Medicine 10/06/21 01/19/23 Rebecca Hogan NP [address] [place] [phone] PCP - General Family Medicine 01/20/23 documented as of this encounter
--- OUTSIDE RECORDS SUMMARY | 2024-05-31 19:04 | XMS_ITS | Encounter Summary ---
Author Organization [employer] Address [address] [facility] 7t [place] [address] Care Team Providers Care Medical Laboratory Scientist Name Role Phone Nikagabriel Rebecca SITA Primary Care Provider [phone] Encounter Details Date Type Department Care Team ([facility] st Contact Info) Description 05/03/2024 Telephone [facility] MEDICINE [address] [place], [place] [phone] Paola Gagnon, NAYANA [address] [place], [place] [phone] Social History Tobacco Use Types Packs/Day Years [...] encounter Miscellaneous Notes * Telephone Encounter - Paola Gagnon RN - 05/03/2024 10:43 AM EST T/C to pt. Advised of message from pcp re: lab results. Pt verbalized understanding. Pt requesting pcp to send prednisone rx to pharmacy. Pt reports his breathing was squeaky at last appointment. Pt c/o frequest cough productive of mendosa brown phlegm. SOB noted during call. Pt denies fever and repo rts O2 97% on room air. Recommended that pt present to [facility] for evaluation. Pt reports agreement with plan. * Telephone Encounter - Paola Gagnon RN - 05/03/2024 10:36 AM EST ----- Message from Rebecca Hogan sent at 05/03/2024 8:31 AM EST ----- Please inform patient of lab results that reveal iron deficiency anemia. I have sent supplementation to the pharmacy. BUN level remains slightly low which could indicate decreased protein intake. Advised increased protein intake and weight loss. Remainder of labs are within acceptable ranges. Thanks documented in this encounter Plan of Treatment Upcoming Encounters Date Type Department Care Team (Late st Contact Info) Description 07/15/2024 10:15 AM EDT Office Visit [facility] MEDICINE [address] [place] [address] Rebecca Hogan NP [address] [place] [address] documented as of this encounter Visit Diagnoses Not on filedocumented in this encounter Additional Health Concerns Assessment Noted Time PHQ-9 Depression Total Score: 18 024 1:40 PM EST documented as of this encounter Care Teams Medical Laboratory Scientist Relationship Specialty Start Date End Date Rebecca Hogan NP [address] [place] [address] PCP - General Family Medicine 01/20/23 documented as of this encounter
--- OUTSIDE RECORDS SUMMARY | 2024-05-31 19:04 | XMS_ITS | Encounter Summary ---
Author Organization [employer] Address [address] [facility] 7t [place] [address] Care Team Providers Care [employer] Teacher Name Role Phone Rebecca Hogan NP Primary Care Provider [phone] Reason for Visit * Reason Onset Date Comments Med Refill 02/14/2024 Encounter Details Date Type Department Care Team ([facility] st Contact Info) Description 02/14/2024 Refill [facility] MEDICINE [address] [place] [address] Rebecca Hogan NP [address] [place] [address] Social History Tobacco Use Types Packs/Day Years [...] Description 07/15/2024 10:15 AM EDT Office Visit [facility] MEDICINE [address] [place] [address] Rebecca Hogan NP [address] [place] [address] documented as of this encounter Visit Diagnoses Not on filedocumented in this encounter Additional Health Concerns Assessment Noted Time PHQ-9 Depression Total Score: 18 024 1:40 PM EST documented as of this encounter Care Teams [employer] Teacher Relationship Specialty Start Date End Date Rebecca Hogan NP [address] [place] [address] PCP - General Family Medicine 01/20/23 documented as of this encounter
--- OUTSIDE RECORDS SUMMARY | 2024-05-31 19:04 | XMS_ITS | Encounter Summary ---
Author Organization [employer] Address [address] [facility] 7t [place] [address] Care Team Providers Care Field Foreman Name Role Phone Nikagabriel Rebecca SITA Primary Care Provider [phone] Reason for Visit * Reason Comments Med Refill Encounter Details Date Type Department Care Team ([facility] st Contact Info) Description 05/05/2023 Refill [facility] MEDICINE [address] [place], [place] [phone] Name, MD Bg [address] [place] [address] Seasonal allergic rhinitis, unspecified trigger; Primary hypertension Social History Tobacco Use Types Packs/Day Years Used Date Smoking Tobacco: Every Day Cigarettes Smokeless Tobacco: Never Housing Stability Answer Date Recorded What is [...] off services in your home? No 02/03/2023 Sex and Gender Information Value Date Recorded Sex Assigned at Male 02/14/2022 10:30 AM EDT Legal Sex Male 10:30 AM EDT Gender Identity Male 02/14/2022 10:30 AM EDT Sexual Orientation Straight 02/14/2022 10 :30 AM EDT documented as of this encounter Miscellaneous Notes * Telephone Encounter - Rebecca Hogan NP - 05/08/2023 9:15 PM EST Approving, but needs appt for additional refills. documented in this encounter Plan of Treatment Upcoming Encounters Date Type Department Care Team (Late st Contact Info) Description 07/15/2024 10:15 AM EDT Office Visit [facility] MEDICINE [address] [place] [address] Rebecca Hogan NP [address] [place] [address] documented as of this encounter Visit Diagnoses Diagnosis Seasonal allergic rhinitis, unspecified trigger Primary hypertension Unspecified essential hypertension documented in this encounter Care Teams Field Foreman Relationship Specialty Start Date End Date Rebecca Hogan NP [address] [place] [address] PCP - General Family Medicine 01/20/23 documented as of this encounter
--- OUTSIDE RECORDS SUMMARY | 2024-05-31 19:04 | XMS_ITS | Encounter Summary ---
Author Organization [employer] Address [address] [facility] 7t [place] [address] Care Team Providers Care Public Health Director Name Role Phone Rebecca Hogan NP Primary Care Provider [phone] Encounter Details Date Type Department Care Team ([facility] st Contact Info) Description 05/03/2024 Orders Only [facility] MEDICINE [address] [place] [address] Rebecca Hogan NP [address] [place] [address] Social History Tobacco Use Types Packs/Day Years [...] Description 07/15/2024 10:15 AM EDT Office Visit [facility] MEDICINE [address] [place] [address] Rebecca Hogan NP [address] [place] [address] documented as of this encounter Visit Diagnoses Not on filedocumented in this encounter Additional Health Concerns Assessment Noted Time PHQ-9 Depression Total Score: 18 024 1:40 PM EST documented as of this encounter Care Teams Public Health Director Relationship Specialty Start Date End Date Rebecca Hogan NP [address] [place] [address] PCP - General Family Medicine 01/20/23 documented as of this encounter
--- OUTSIDE RECORDS SUMMARY | 2024-05-31 19:04 | XMS_ITS | Encounter Summary ---
Author Organization [email or web address] Address [address] [facility] 7t [place] [address] Care Team Providers Care Erp Developer Name Role Phone Rebecca Hogan NP Primary Care Provider [phone] Reason for Visit * Reason Onset Date Comments Medication Question 05/17/2023 Encounter Details Date Type Department Care Team ([facility] Contact Info) Description 05/17/2023 Telephone [facility] MEDICINE [address] [place], [place] [phone] Rebecca Hogan NP [address] [place] [address] Medication Question Social History Tobacco Use Types Packs/Day Years [...] encounter Miscellaneous Notes * Telephone Encounter - Yana Reina RN - 06/30/2023 9:32 AM EDT T/C to pt. On [phone] [place] [id number] for below message, person states this is wrong number, person hang up the call. Also T/C to [phone] for below message, No answer. Not able to LVM. * Telephone Encounter - Yana Reina RN - 05/17/2023 3:14 PM EST Please review and advise for below message. * Telephone Encounter - Leydi Banegas - 05/17/2023 9:06 AM EST Tc from pt spouse requesting a call back in regards to medication hydrochlorothiazide 12.5 mg , states would like to know if pt should could continue with amlodipine 5 mg and if new script is water pill medication. Please contact at [phone] documented in this encounter Plan of Treatment Upcoming Encounters Date Type Department Care Team (Late st Contact Info) Description 07/15/2024 10:15 AM EDT Office Visit [facility] MEDICINE [address] [place] [address] Rebecca Hogan NP [address] [place] [address] documented as of this encounter Visit Diagnoses Not on filedocumented in this encounter Additional Health Concerns Assessment Noted Time PHQ-9 Depression Total Score: 18 024 1:40 PM EST documented as of this encounter Care Teams Erp Developer Relationship Specialty Start Date End Date Rebecca Hogan NP [address] [place] [address] PCP - General Family Medicine 01/20/23 documented as of this encounter
--- OUTSIDE RECORDS SUMMARY | 2024-05-31 19:04 | XMS_ITS | Encounter Summary ---
Author Organization [employer] Address [address] [place] [address] [place] [address] Care Team Providers Care Healthcare Advisory Services Manager Name Role Phone Kimmie Henao Primary Care Provider [phone] Rebecca Hogan NP Primary Care Provider [phone] Reason for Visit * Reason Comments Med Refill Encounter Details Date Type Department Care Team (Late st Contact Info) Description 10/24/2022 Refill [facility] MEDICINE [address] [place] [address] Kimmie Henao FNP [address] [place] [address] [place] [address] Primary hypertension Social History Tobacco Use Types Packs/Day Years Used Date Smoking Tobacco: Never Assessed Sex and Gender Information Value Date Recorded Sex Assigned at Male 02/14/2022 10:30 AM EDT Legal Sex Male 10:30 AM EDT Gender Identity Male 02/14/2022 10:30 AM EDT Sexual Orientation Straight 02/14/2022 10 :30 AM EDT COVID-19 Exposure Response Date Recorded In the last 10 days, have yo u been in contact with someone who was confirmed or suspected to have Coronavirus/COVID-19? No / Unsure 09/29/2022 2:19 PM EDT documented as of this encounter Plan of Treatment Upcoming Encounters Date Type Department Care Team (Late st Contact Info) Description 07/15/2024 10:15 AM EDT Office Visit [facility] MEDICINE [address] [place], [place] [phone] Rebecca Hogan NP [address] [place], [place] [phone] documented as of this encounter Visit Diagnoses Diagnosis Primary hypertension Unspecified essential hypertension documented in this encounter Care Teams Healthcare Advisory Services Manager Relationship Specialty Start Date End Date Kimmie Henao FNP PCP - General Family Medicine 10/06/21 01/19/23 Rebecca Hogan NP [address] [place] [address] PCP - General Family Medicine 01/20/23 documented as of this encounter
--- OUTSIDE RECORDS SUMMARY | 2024-05-31 19:04 | XMS_ITS | Encounter Summary ---
Author Organization [employer] Address [address] [facility] 7t [place] [address] Care Team Providers Care Paint Coating Machine Operator Name Role Phone Rebecca Hogan NP Primary Care Provider [phone] Reason for Visit * Reason Onset Date Comments Referral 02/28/2023 Encounter Details Date Type Department Care Team ([facility] st Contact Info) Description 02/28/2023 Telephone [facility] MEDICINE [address] [place], [place] [phone] Rebecca Hogan NP [address] [place] [address] Referral Social History Tobacco Use Types Packs/Day Years Used Date Smoking Tobacco: Never Assessed Depression Answer Date Recorded Patient Health Questionnaire-9 [...] encounter Miscellaneous Notes * Telephone Encounter - Leydi Banegas - 02/28/2023 10:18 AM EST Tc from pt requesting a referral for pulmonology per ER ( COPD ) . Pt is scheduled for HDF on 03/13/23 with [employer]OL PROGRAMMER Donna Please contact at [phone] documented in this encounter Plan of Treatment Upcoming Encounters Date Type Department Care Team (Late st Contact Info) Description 07/15/2024 10:15 AM EDT Office Visit [facility] MEDICINE [address] [place] [address] Rebecca Hogan NP [address] [place] [address] documented as of this encounter Visit Diagnoses Not on filedocumented in this encounter Care Teams Paint Coating Machine Operator Relationship Specialty Start Date End Date Rebecca Hogan NP [address] [place] [address] PCP - General Family Medicine 01/20/23 documented as of this encounter
--- OUTSIDE RECORDS SUMMARY | 2024-05-31 19:04 | XMS_ITS | Encounter Summary ---
Author Organization [employer] Address [address] [facility] 7t [place] [address] Care Team Providers Care Php Wordpress Developer Name Role Phone Rebecca Hogan NP Primary Care Provider [phone] Reason for Visit * Reason Onset Date Comments Medication Question 05/15/2023 Encounter Details Date Type Department Care Team ([facility] Contact Info) Description 05/15/2023 Telephone [facility] MEDICINE [address] [place], [place] [phone] Rebecca Hogan NP [address] [place] [address] Medication Question Social History Tobacco Use Types [...] Telephone Encounter - Yana Reina RN - 05/15/2023 2:41 PM EST T/C to [facility]'s pharmacy for below message, Pharmacist states insurance will pay for Brand AdvairDiskus 500-50 MCG/ACT just needs to check box for dispense as written . So pharmacy is requesting a new script. Please review and advise. * Telephone Encounter - Leydi Banegas - 05/15/2023 12:09 PM EST Tc tom moreno from [facility]'s pharmacy requesting a new script for Advair Diskus 500-50 MCG/ACT aerosol powder due to script says dispense as written states per insurance needs to be removed. documented in this encounter Plan of Treatment Upcoming Encounters Date Type Department Care Team (Late st Contact Info) Description 07/15/2024 10:15 AM EDT Office Visit [facility] MEDICINE [address] [place] [address] Rebecca Hogan NP [address] [place] [address] documented as of this encounter Visit Diagnoses Not on filedocumented in this encounter Additional Health Concerns Assessment Noted Time PHQ-9 Depression Total Score: 18 024 1:40 PM EST documented as of this encounter Care Teams Php Wordpress Developer Relationship Specialty Start Date End Date Rebecca Hogan NP [address] [place] [address] PCP - General Family Medicine 01/20/23 documented as of this encounter
[2024-05-31 19:09] LABS: SLIDE REVIEW MANUAL DIFF
[2024-05-31 19:10] LABS: VBG Base Excess 8.4 mmol/L; VBG HCO3 34 mmol/L (22-26); VBG pCO2 50 mmHg; VBG pH 7.44 (7.32-7.43); VBG pO2 35 mmHg
[2024-05-31 19:10] LABS: Troponin-I High Sensitivity 8.9 ng/L (<3.5-35.0)
[2024-05-31 19:10] LABS: Venous Blood Gas Refer to POC result
[2024-05-31 19:16] LABS: Neutrophils Percent Manual 71 % (45-73)
[2024-05-31 19:18] LABS: Band Neutrophils Percent 22 % (3-5); Lymphocytes Absolute Manual 1.4 X10*3/uL (1.2-4.9); Lymphocytes Percent Manual 6 % (20-40); Monocytes Absolute Manual 0.2 X10*3/uL (0.1-1.2); Monocytes Percent Manual 1 % (2-11); Neutrophils Absolute Manual 22.3 X10*3/uL (2.0-8.3)
[2024-05-31 19:19] LABS: Dohle Bodies PRESENT; Large Platelet PRESENT; Platelet Morphology Comment NOTED; Toxic Vacuolation PRESENT
[2024-05-31 19:19] LABS: INTERNATIONAL NORM RATIO 1.4 (0.9-1.1); Prothrombin Time 15.8 SEC (10.9-12.4)
[2024-05-31 19:20] LABS: Platelet Estimate NORMAL (NORMAL); RBC Morphology NORMAL
[2024-05-31 19:23] LABS: B Type Natriuretic Peptide 148 pg/mL (<100)
[2024-05-31 19:43] LABS: Influenza A PCR POSITIVE (Negative); Influenza B PCR NEGATIVE (Negative); Resp Syncy Virus RNA Qual PCR NEGATIVE (Negative); SARS COV2 PCR INHOUSE NEGATIVE (Negative)
--- NOTE | 2024-05-31 19:57 | PM.IMHP ---
History of Present Illness Date of Service: 05/31/24 Chief Complaint: Dyspnea This is a 59-year-old male with pertinent history of COPD not on home oxygen, tobacco use disorder, hypertension, RIANA not on CPAP, opioid use disorder on methadone who presents to the emergency department for evaluation of dyspnea. Patient states his symptoms started 2 days prior to presentation. He is having productive cough with yellowish sputum production. Also has dyspnea which is worse with exertion. Has associated wheezing not relieve with home inhaler. In the emergency department, patient was found to be septic, febrile with leukocytosis. Patient was given IV steroid, DuoNebs, empiric IV antibiotics and IV crystalloids. Also found to have wheezing despite multiple DuoNeb treatments. Review of Systems Constitutional: Constitutional: Reports fatigue, Reports lethargy and Reports malaise Cardiovascular: Cardiovascular: Reports dyspnea on exertion Respiratory: Respiratory: Reports cough, Reports dyspnea on exertion and Reports wheezing Gastrointestinal: Gastrointestinal: Reports no additional gastrointestinal complaints Genitourinary: Genitourinary: Reports no additional male genitourinary complaints Endocrine: Endocrine: Reports fatigue Allergic/Immunologic: Allergic/Immunologic: Reports wheezing [facility] Medical History Nocturnal hypoxemia Snoring Asthma-COPD overlap syndrome Asthma Allergic rhinitis Somnolence, daytime Morbid obesity Obstructive sleep apnea HTN (hypertension) Chronic respiratory failure due to obstructive sleep apnea Bursitis of right shoulder Osteoarthritis of left knee Opioid use disorder (~08/27/18) Social History Household Members: Significant Other Housing: House Do you presently have visiting nurse or other home services: No Alcohol intake: current Alcohol intake frequency: holidays/special occasions only Patient Tobacco Use Status: Current everyday Tobacco user Tobacco use type: Cigarette Cigarettes Per Day: 1 Years Smoked: 5 Smoked in Last 30 Days: Yes e-Cigarette/Vaping Use: Never Used Use of substances other than those prescribed or required for medical reasons: Yes Substance Use Type: Heroin Advance Directives: Yes Advance Directives on File: Yes Advance Directives Date on File: 02/28/23 service: No Current occupational status: unemployed Current occupation: right handed Meds Allergies Allergy/AdvReac Type Severity Reaction Status Date / Time No Known Allergies Allergy Verified 05/31/24 18:16 Active Medications: Current Medications Acetaminophen (Acetaminophen 325 Mg Tablet) 975 mg PO ONCE ONE Stop: 05/31/24 19:53 Ceftriaxone Sodium (Ceftriaxone Sodium 1 Gm Vial) 1 gm IVPUSH Q24H IVONE Magnesium Sulfate (Magnesium Sulfate/H2o) 2 gm in 50 mls @ 25 mls/hr IV ONCE ONE Stop: 05/31/24 20:17 Last Admin: 05/31/24 18:44 Dose: 25 mls/hr Lactated Ringer's (Lr) 2,328 mls @ 2,328 mls/hr IV .Q1H ONE Stop: 05/31/24 20:08 Last Admin: 05/31/24 19:16 Dose: 2,328 mls/hr Azithromycin 500 mg/ Sodium (Chloride) 250 mls @ 125 mls/hr IV Q24H IVONE Levalbuterol HCl (Levalbuterol Hcl 1.25 Mg/3 Ml Vial.Neb) 1.25 mg INHALE Q3H PRN PRN Reason: Wheezing Levalbuterol HCl (Levalbuterol Hcl 1.25 Mg/3 Ml Vial.Neb) 1.25 mg INHALE RQ4H IVONE Oseltamivir Phosphate (Oseltamivir Phosphate 75 Mg Capsule) 75 mg PO Q12H IVONE Stop: 06/05/24 08:01 Prednisone (Prednisone 20 Mg Tablet) 40 mg PO DAILY [facility] Home Medications ?Medication ?Instructions ?Recorded ?Confirmed ?Last Taken ?Type albuterol sulfate 90 mcg/actuation 2 puff inhalation Q4-6H PRN 09/10/22 09/28/23 02/25/23 History aerosol inhaler (Ventolin HFA) Shortness Of Breath Or Wheezing amlodipine 5 mg tablet 5 mg PO DAILY 09/10/22 09/28/23 02/25/23 History cetirizine 10 mg tablet 10 mg PO DAILY 09/10/22 09/28/23 02/25/23 History fluticasone 500 mcg-salmeterol 50 1 inh inhalation Q12H 09/10/22 09/28/23 02/25/23 History mcg/dose blistr powdr for inhalation (Advair Diskus) fluticasone propionate 50 2 spray intranasal DAILY 09/10/22 09/28/23 02/25/23 History mcg/actuation nasal spray,suspension methadone 10 mg/mL oral concentrate 55 mg PO DAILY 02/27/23 09/28/23 02/25/23 History montelukast 10 mg tablet 10 mg PO QPM 03/29/23 09/28/23 Unknown History tiotropium bromide 1.25 2 puff inhalation QAM 03/29/23 09/28/23 Unknown History mcg/actuation mist for inhalation (Spiriva Respimat) Physical Exam Vital Signs and Narrative: Vital Signs: Last Vital Signs Temp 101.9 F H 05/31/24 18:28 Pulse 116 H 05/31/24 18:28 Resp 26 H 05/31/24 18:28 BP 135/73 05/31/24 18:28 Pulse Ox 90 L 05/31/24 18:28 O2 Del Method Nasal Cannula 05/31/24 18: O2 Flow Rate 5 05/31/24 18:28 BMI result Body Mass Index 38.5 Middle-aged male lying in bed in mild distress on supplemental oxygen Neck supple, no JVD Tachycardic with regular rhythm, S1-S2 heard Bilateral wheezing with crackles Abdomen soft nontender, no guarding, no rigidity Patient is awake, alert and oriented to self, place, time and person ; no focal motor deficit Psych: Normal mood No pedal edema Results Labs 05/31/24 18:37 05/31/24 18:37 Labs: Laboratory Results - last 24 hr 05/31/24 05/31/24 05/31/24 18:37 18:38 18:59 MCV 82.7 MCH 29.1 MCHC 35.1 RDW 13.8 Plt Count 149 L D MPV 9.7 Immature Gran % (Auto) Cancelled Neut % (Auto) Cancelled Lymph % (Auto) Cancelled Cascade % (Auto) Cancelled Eos % (Auto) Cancelled Baso % (Auto) Cancelled Lymph # (Auto) Cancelled Cascade # (Auto) Cancelled Eos # (Auto) Cancelled Baso # (Auto) Cancelled Abs Immat Gran (auto) Cancelled Absolute Neuts (auto) Cancelled Absolute Nucleated RBC 0.000 Nucleated RBC % (auto) 0.0 Neutrophils % (Manual) 71 Band Neutrophils % 22 H Lymphocytes % (Manual) 6 L Monocytes % (Manual) 1 L Abs Neuts (Manual) 22.3 H Lymphocytes # (Manual) 1.4 Monocytes # (Manual) 0.2 Toxic Vacuolation PRESENT Dohle Bodies PRESENT Platelet Estimate NORMAL Large Platelets PRESENT Plt Morphology Comment NOTED RBC Morphology NORMAL Smear Tech's Comments MANUAL DIFF PT INR VBG pH VBG pCO2 VBG pO2 VBG HCO3 VBG O2 Saturation VBG Base Excess Anion Gap 12 Estim Creat Clear Calc 114.9 Estimated GFR > 60 Random Glucose 116 H Lactic Acid 1.8 Calcium 8.7 Magnesium 1.5 L Total Bilirubin 0.9 AST 38 H ALT 23 Alkaline Phosphatase 79 B-Natriuretic Peptide 148 H Total Protein 8.8 H Albumin 3.8 Lipase 4 L Influenza Type A (PCR) POSITIVE A Influenza Type B (PCR) NEGATIVE RSV RNA Qual (PCR) NEGATIVE SARS-CoV-2 RNA (RT-PCR) NEGATIVE 05/31/24 05/31/24 19:00 19:03 MCV MCH MCHC RDW Plt Count MPV Immature Gran % (Auto) Neut % (Auto) Lymph % (Auto) Cascade % (Auto) Eos % (Auto) Baso % (Auto) Lymph # (Auto) Cascade # (Auto) Eos # (Auto) Baso # (Auto) Abs Immat Gran (auto) Absolute Neuts (auto) Absolute Nucleated RBC Nucleated RBC % (auto) Neutrophils % (Manual) Band Neutrophils % Lymphocytes % (Manual) Monocytes % (Manual) Abs Neuts (Manual) Lymphocytes # (Manual) Monocytes # (Manual) Toxic Vacuolation Dohle Bodies Platelet Estimate Large Platelets Plt Morphology Comment RBC Morphology Smear Tech's Comments PT 15.8 H INR 1.4 H VBG pH 7.44 H VBG pCO2 50 VBG pO2 35 VBG HCO3 34 H VBG O2 Saturation 55.0 VBG Base Excess 8.4 Anion Gap Estim Creat Clear Calc Estimated GFR Random Glucose Lactic Acid Calcium Magnesium Total Bilirubin AST ALT Alkaline Phosphatase B-Natriuretic Peptide Total Protein Albumin Lipase Influenza Type A (PCR) Influenza Type B (PCR) RSV RNA Qual (PCR) SARS-CoV-2 RNA (RT-PCR) Assessment and Plan (1) Acute exacerbation of chronic obstructive airways disease: Status: Acute (2) Sepsis: Status: Acute Plan This is a 59-year-old male with pertinent history of COPD not on home oxygen, tobacco use disorder, hypertension, RIANA not on CPAP, opioid use disorder on methadone who presents to the emergency department for evaluation of dyspnea. #. Acute hypoxemic respiratory failure due to acute exacerbation of COPD in the setting of influenza A with bacterial superinfection: Will admit patient with supplemental oxygen. Initiating systemic steroids, scheduled and p.r.n. Xopenex. Also initiating IV ceftriaxone and IV azithromycin to treat for CAP. Continue home inhalers. Initiated Tamiflu #. Sepsis in the setting of above. Resuscitated with IV crystalloids. Lactic acid and blood culture obtained. On IV abx #. Hypertension: On amlodipine #. Obesity: Counseled regarding diet and exercise #. RIANA: CPAP while in the hospital #. Opioid use disorder: On methadone Med rec pending DVT prophylaxis: Lovenox Full code Admit as inpatient and will require two night minimum hospital stay for supplemental oxygen, IV antibiotics (as above), which is not possible in a lesser acute setting. Quality Stroke Does the patient have a stroke diagnosis?: No VTE Prior VTE?: No VTE Risk Level:: Medical - moderate - high VTE Device Contraindication: Treatment Not Indicated VTE Drug Contraindication: N/A - Med Ordered
[2024-05-31] MEDS: levalbuterol HCL 1.25 MG/3 ML VIAL.NEB INHALE ×2 (20:08→23:54)
[2024-05-31] MEDS: Acetaminophen 325 MG TABLET 975 MG PO (20:49)
[2024-05-31] MEDS: Oseltamivir Phosphate 75 MG CAPSULE PO (20:49)
[2024-05-31] MEDS: Enoxaparin Sodium 40 MG/0.4 ML SYRINGE SUBCUT (20:50)
[2024-05-31] MEDS: Azithromycin 500 MG in 0.9 % Sodium Chloride 250 ML 125 MG IV (20:50)
--- NOTE | 2024-05-31 21:46 | PHA.MEDREC ---
Pharmacy Consult ? Medication Reconciliation Pharmacy has completed the medication reconciliation, spoke to patient and at bedside who confirmed all medications. Stated he takes his blood pressure medications at bedtime and is not taking methadone.
[2024-06-01] VITALS (10 sets, daily range): BP systolic 107–125; BP diastolic 52–71; PULSE 85–96; RESP 17–24; TEMP 36.8; O2SAT 92–97
[2024-06-01 06:39] LABS: Hemoglobin 12.7 g/dl (14.0-18.0); Mean Corpuscular HGB Conc 33.4 g/dl (31.0-36.0); Mean Corpuscular Hemoglobin 28.7 pg (27.0-33.0); Mean Corpuscular Volume 85.8 fL (80.0-98.0); Mean Platelet Volume 10.2 fL (9.4-12.4); Platelet Count 151 X10*3/uL (160-400); Red Blood Count 4.43 X10*6/uL (4.60-5.80); Red Cell Distribution Width 13.9 % (11.0-16.0); White Blood Count 25.2 X10*3/uL (4.8-10.8)
[2024-06-01 06:53] LABS: Anion Gap 14 (12-20); Blood Urea Nitrogen 12 mg/dL (9-16); Calcium 8.8 mg/dL (8.4-10.2); Carbon Dioxide 27 mmol/L (22-29); Chloride 100 mmol/L (96-108); Creatinine Clr Calc Pharmacy 118.6; Estimated Glomerular Filt Rate > 60; Glucose Random 201 mg/dL (60-115); Potassium 3.9 mmol/L (3.3-5.1); Sodium 137 mmol/L (135-145)
[2024-06-01 07:30] LABS: Band Neutrophils Percent 17 % (3-5); Lymphocytes Absolute Manual 0.8 X10*3/uL (1.2-4.9); Lymphocytes Percent Manual 3 % (20-40); Monocytes Absolute Manual 0.3 X10*3/uL (0.1-1.2); Monocytes Percent Manual 1 % (2-11); Neutrophils Absolute Manual 24.2 X10*3/uL (2.0-8.3); Neutrophils Percent Manual 79 % (45-73)
[2024-06-01 07:32] LABS: RBC Morphology NORMAL
[2024-06-01 07:34] LABS: Dohle Bodies PRESENT; Large Platelet PRESENT; Platelet Estimate SLIGHTLY DECREASED (NORMAL); Platelet Morphology Comment NORMAL
[2024-06-01] MEDS: Oseltamivir Phosphate 75 MG CAPSULE PO ×2 (08:02→19:13)
[2024-06-01] MEDS: Fluticasone/Vilanterol 200/25 BLST.W.DEV 1 PUFF INHALE (08:02)
[2024-06-01] MEDS: Fluticasone Propionate Nasal 16 GM SPRAY 2 SPRAY NOSTRIL-B (08:02)
[2024-06-01] MEDS: levalbuterol HCL 1.25 MG/3 ML VIAL.NEB INHALE ×4 (08:15→19:28)
[2024-06-01] MEDS: predniSONE 20 MG TABLET 40 MG PO (10:37)
[2024-06-01] MEDS: Loratadine 10 MG TABLET PO (10:37)
[2024-06-01] MEDS: 0.9 % Sodium Chloride Flush 3 ML SYRINGE IVFLUSH ×2 (10:37→17:57)
--- NOTE | 2024-06-01 12:36 | HO.PM.IMPN ---
Subjective Subjective Date of Service: 06/01/24 Physical Exam Vital Signs: Vital Signs: Last Vital Signs Temp 98.3 F 06/01/24 04:19 Pulse 89 06/01/24 11:55 Resp 24 H 06/01/24 11:55 BP 107/69 06/01/24 04:19 Pulse Ox 92 06/01/24 04:19 O2 Del Method Nasal Cannula 06/01/24 04:19 O2 Flow Rate 3 06/01/24 04:19 BMI result Body Mass Index 38.5 Objective Data Active Medications Acetaminophen (Acetaminophen 325 Mg Tablet) 650 mg PO Q6H PRN PRN Reason: Pain, Mild 1-3,fever,headache Amlodipine Besylate (Amlodipine Besylate 5 Mg Tablet) 5 mg PO BEDTIME [facility]; Protocol Calcium Carbonate (Calcium Carbonate 750 Mg Tab.Chew) 750 mg PO Q4H PRN PRN Reason: Heartburn Ceftriaxone Sodium (Ceftriaxone Sodium 1 Gm Vial) 1 gm IVPUSH Q24H [facility] Enoxaparin Sodium (Enoxaparin Sodium 40 Mg/0.4 Ml Syringe) 40 mg SUBCUT Q24H [facility] Last Admin: 05/31/24 20:50 Dose: 40 mg Documented By: KALPANA Fluticasone Propionate (Fluticasone Propionate Nasal 16 Gm [place]) 2 spray NOSTRIL-B DAILY [facility] Last Admin: 06/01/24 08:02 Dose: 2 spray Documented By: KAYLI Fluticasone/Vilanterol (Fluticasone/Vilanterol 200/25 Blst.W.Dev) 1 puff INHALE RDAILY [facility] Last Admin: 06/01/24 08:02 Dose: 1 puff Documented By: KAYLI Hydrochlorothiazide (Hydrochlorothiazide 12.5 Mg Tablet) 12.5 mg PO BEDTIME [facility]; Protocol Azithromycin 500 mg/ Sodium (Chloride) 250 mls @ 125 mls/hr IV Q24H [facility] Last Infusion: 06/01/24 00:10 Dose: Infused Documented By: KALPANA Levalbuterol HCl (Levalbuterol Hcl 1.25 Mg/3 Ml Vial.Neb) 1.25 mg INHALE Q3H PRN PRN Reason: Wheezing Levalbuterol HCl (Levalbuterol Hcl 1.25 Mg/3 Ml Vial.Neb) 1.25 mg INHALE RQ4H [facility] Last Admin: 06/01/24 11:52 Dose: 1.25 mg Documented By: PATY Loratadine (Loratadine 10 Mg Tablet) 10 mg PO DAILY [facility] Last Admin: 06/01/24 10:37 Dose: 10 mg Documented By: KAYLI Magnesium Hydroxide (Milk Of Magnesia 30 Ml Oral.Susp) 30 ml PO DAILY PRN PRN Reason: Constipation Melatonin (Melatonin 3 Mg Tablet) 6 mg PO BEDTIME PRN PRN Reason: Insomnia Non-Formulary Medication (Tiotropium [place] [Spiriva Respimat]) 2 puff INHALE DAILY [facility] Ondansetron HCl (Ondansetron Hcl 4 Mg/2 Ml Vial) 4 mg IVPUSH Q8H PRN PRN Reason: Nausea and Vomiting Oseltamivir Phosphate (Oseltamivir Phosphate 75 Mg Capsule) 75 mg PO Q12H [facility] Stop: 06/05/24 08:01 Last Admin: 06/01/24 08:02 Dose: 75 mg Documented By: KAYLI Prednisone (Prednisone 20 Mg Tablet) 40 mg PO DAILY [facility] Last Admin: 06/01/24 10:37 Dose: 40 mg Documented By: KAYLI Sodium Chloride (0.9 % Sodium Chloride Flush 3 Ml Syringe) 3 ml IVFLUSH QSHIFT [facility] Last Admin: 06/01/24 10:37 Dose: 3 ml Documented By: KAYLI Labs 06/01/24 05:54 06/01/24 05:54 Labs: Laboratory Results - last 24 hr 05/31/24 05/31/24 05/31/24 18:37 18:38 18:59 MCV 82.7 MCH 29.1 MCHC 35.1 RDW 13.8 Plt Count 149 L D MPV 9.7 Immature Gran % (Auto) Cancelled Neut % (Auto) Cancelled Lymph % (Auto) Cancelled [place] % (Auto) Cancelled Eos % (Auto) Cancelled Baso % (Auto) Cancelled Lymph # (Auto) Cancelled [place] # (Auto) Cancelled Eos # (Auto) Cancelled Baso # (Auto) Cancelled Abs Immat Gran (auto) Cancelled Absolute Neuts (auto) Cancelled Absolute Nucleated RBC 0.000 Nucleated RBC % (auto) 0.0 Neutrophils % (Manual) 71 Band Neutrophils % 22 H Lymphocytes % (Manual) 6 L Monocytes % (Manual) 1 L Abs Neuts (Manual) 22.3 H Lymphocytes # (Manual) 1.4 Monocytes # (Manual) 0.2 Toxic Vacuolation PRESENT Dohle Bodies PRESENT Platelet Estimate NORMAL Large Platelets PRESENT Plt Morphology Comment NOTED RBC Morphology NORMAL Smear Tech's Comments MANUAL DIFF PT INR VBG pH VBG pCO2 VBG pO2 VBG HCO3 VBG O2 Saturation VBG Base Excess Anion Gap 12 Estim Creat Clear Calc 114.9 Estimated GFR > 60 Random Glucose 116 H Lactic Acid 1.8 Calcium 8.7 Magnesium 1.5 L Total Bilirubin 0.9 AST 38 H ALT 23 Alkaline Phosphatase 79 B-Natriuretic Peptide 148 H Total Protein 8.8 H Albumin 3.8 Lipase 4 L Influenza Type A (PCR) POSITIVE A Influenza Type B (PCR) NEGATIVE RSV RNA Qual (PCR) NEGATIVE SARS-CoV-2 RNA (RT-PCR) NEGATIVE 05/31/24 05/31/24 06/01/24 19:00 19:03 05:54 MCV 85.8 MCH 28.7 MCHC 33.4 RDW 13.9 Plt Count 151 L MPV 10.2 Immature Gran % (Auto) Cancelled Neut % (Auto) Cancelled Lymph % (Auto) Cancelled [place] % (Auto) Cancelled Eos % (Auto) Cancelled Baso % (Auto) Cancelled Lymph # (Auto) Cancelled [place] # (Auto) Cancelled Eos # (Auto) Cancelled Baso # (Auto) Cancelled Abs Immat Gran (auto) Cancelled Absolute Neuts (auto) Cancelled Absolute Nucleated RBC 0.000 Nucleated RBC % (auto) 0.0 Neutrophils % (Manual) 79 H Band Neutrophils % 17 H Lymphocytes % (Manual) 3 L Monocytes % (Manual) 1 L Abs Neuts (Manual) 24.2 H Lymphocytes # (Manual) 0.8 L Monocytes # (Manual) 0.3 Toxic Vacuolation Dohle Bodies PRESENT Platelet Estimate SLIGHTLY DECREASED Large Platelets PRESENT Plt Morphology Comment NORMAL RBC Morphology NORMAL Smear Tech's Comments PT 15.8 H INR 1.4 H VBG pH 7.44 H VBG pCO2 50 VBG pO2 35 VBG HCO3 34 H VBG O2 Saturation 55.0 VBG Base Excess 8.4 Anion Gap 14 Estim Creat Clear Calc 118.6 Estimated GFR > 60 Random Glucose 201 H Lactic Acid Calcium 8.8 Magnesium Total Bilirubin AST ALT Alkaline Phosphatase B-Natriuretic Peptide Total Protein Albumin Lipase Influenza Type A (PCR) Influenza Type B (PCR) RSV RNA Qual (PCR) SARS-CoV-2 RNA (RT-PCR) Assessment and Plan (1) Influenza A: Status: Acute Plan 59-year-old male with pertinent history of COPD not on home oxygen, tobacco use disorder, hypertension, RIANA not on CPAP, opioid use disorder on methadone who presents to the emergency department for evaluation of dyspnea. Acute hypoxemic respiratory failure due to acute exacerbation of COPD in the setting of influenza A with bacterial superinfection CAP supplemental oxygen to keep oxygen saturation >90%. systemic steroids, scheduled and p.r.n. Xopenex. IV ceftriaxone and IV azithromycin to treat for CAP. Continue home inhalers. Tamiflu Sepsis in the setting of above. Resuscitated with IV crystalloids. Lactic acid and blood culture obtained. On IV abx Hypertension On amlodipine Obesity class II Counseled regarding diet and exercise RIANA CPAP while in the hospital Opioid use disorder On methadone DVT prophylaxis: Lovenox Full code Quality Stroke Does the patient have a stroke diagnosis?: No VTE Prior VTE?: No VTE Risk Level:: Medical - moderate - high VTE Device Contraindication: Treatment Not Indicated VTE Drug Contraindication: N/A - Med Ordered
--- NOTE | 2024-06-01 14:16 | MHC.CM.PN ---
PT LIVES W/GIRLFRIEND HAS OWN RIDE HOME HAD NOMPREVIOUS SERVICES DC PLAN HOME N/S
[2024-06-01] MEDS: Azithromycin 500 MG in 0.9 % Sodium Chloride 250 ML 125 MG IV (19:12)
[2024-06-01] MEDS: hydroCHLOROthiazide 12.5 MG TABLET PO (19:12)
[2024-06-01] MEDS: cefTRIAXone sodium 1 GM VIAL IVPUSH (19:12)
[2024-06-01] MEDS: Enoxaparin Sodium 40 MG/0.4 ML SYRINGE SUBCUT (19:12)
[2024-06-01] MEDS: amLODIPine Besylate 5 MG TABLET PO (19:13)
[2024-06-02] VITALS (13 sets, daily range): BP systolic 116–164; BP diastolic 57–79; PULSE 73–92; RESP 18–20; TEMP 36–36.7; O2SAT 91–97; BMI 37.7
--- NOTE | 2024-06-02 | ECG_ITS ---
Test Reason : QTC check Blood Pressure : */* mmHG Vent. Rate : 81 BPM Atrial Rate : 81 BPM P-R Int : 146 ms QRS Dur : 94 ms QT Int : 382 ms P-R-T Axes : 74 24 40 degrees QTcB Int : 443 ms Sinus rhythm with Premature atrial complexes Otherwise normal ECG When compared with ECG of 31-May-2024 18:42, Premature atrial complexes are now Present Vent. rate has decreased by 50 bpm Minimal criteria for Inferior infarct are no longer Present Nonspecific T wave abnormality no longer evident in Anterior leads Referred By: Ignacia Staley Electronically Signed By: THONY COREY MD
[2024-06-02] MEDS: 0.9 % Sodium Chloride Flush 3 ML SYRINGE IVFLUSH ×2 (01:37→20:28)
[2024-06-02] MEDS: Fluticasone/Vilanterol 200/25 BLST.W.DEV 1 PUFF INHALE (08:18)
[2024-06-02] MEDS: levalbuterol HCL 1.25 MG/3 ML VIAL.NEB INHALE ×5 (08:18→23:29)
[2024-06-02] MEDS: oxyCODONE HCl Immed Release 5 MG TABLET 10 MG PO (09:10)
[2024-06-02] MEDS: Loratadine 10 MG TABLET PO (09:10)
[2024-06-02] MEDS: predniSONE 20 MG TABLET 40 MG PO (09:10)
[2024-06-02] MEDS: Oseltamivir Phosphate 75 MG CAPSULE PO ×2 (09:10→20:25)
[2024-06-02] MEDS: cloNIDine HCL 0.1 MG TABLET PO ×2 (09:12→20:27)
[2024-06-02] MEDS: Fluticasone Propionate Nasal 16 GM SPRAY 2 SPRAY NOSTRIL-B (10:40)
--- NOTE | 2024-06-02 11:05 | P.PNIM_ITS ---
Subjective Subjective Date of Service: 06/02/24 Review of Systems Follow up for CAP, dyspnea feeling better having withdrawal symptoms Physical Exam 2 Vital Signs: Vital Signs: Last Vital Signs Temp 96.8 F 06/02/24 07:37 Pulse 73 06/02/24 08:20 Resp 18 06/02/24 08:20 BP 141/68 H 06/02/24 09:12 Pulse Ox 97 06/02/24 07:37 O2 Del Method Nasal Cannula 06/02/24 07:37 O2 Flow Rate 2 06/02/24 07:37 BMI result Body Mass Index 37.7 Appearing in no acute distress lung sounds mild rhonchi heart regular rate rhythm, clear S1, S2 positive bowel sounds, abdomen is soft, nontender neuro patient is alert x3, no focal deficits Objective Data Active Medications Acetaminophen (Acetaminophen 325 Mg Tablet) 650 mg PO Q6H PRN PRN Reason: Pain, Mild 1-3,fever,headache Amlodipine Besylate (Amlodipine Besylate 5 Mg Tablet) 5 mg PO BEDTIME [facility]; Protocol Last Admin: 06/01/24 19:13 Dose: 5 mg Documented By: SUMAYA Calcium Carbonate (Calcium Carbonate 750 Mg Tab.Chew) 750 mg PO Q4H PRN PRN Reason: Heartburn Ceftriaxone Sodium (Ceftriaxone Sodium 1 Gm Vial) 1 gm IVPUSH Q24H [facility] Last Admin: 06/01/24 19:12 Dose: 1 gm Documented By: SUMAYA Clonidine HCl (Clonidine Hcl 0.1 Mg Tablet) 0.1 mg PO BID [facility]; Protocol Last Admin: 06/02/24 09:12 Dose: 0.1 mg Documented By: ZULEMA Enoxaparin Sodium (Enoxaparin Sodium 40 Mg/0.4 Ml Syringe) 40 mg SUBCUT Q24H [facility] Last Admin: 06/01/24 19:12 Dose: 40 mg Documented By: SUMAYA Fluticasone Propionate (Fluticasone Propionate Nasal 16 Gm [place]) 2 spray NOSTRIL-B DAILY [facility] Last Admin: 06/02/24 10:40 Dose: 2 spray Documented By: ZULEMA Fluticasone/Vilanterol (Fluticasone/Vilanterol 200/25 Blst.W.Dev) 1 puff INHALE RDAILY [facility] Last Admin: 06/02/24 08:18 Dose: 1 puff Documented By: PATY Hydrochlorothiazide (Hydrochlorothiazide 12.5 Mg Tablet) 12.5 mg PO BEDTIME [facility]; Protocol Last Admin: 06/01/24 19:12 Dose: 12.5 mg Documented By: SUMAYA Azithromycin 500 mg/ Sodium (Chloride) 250 mls @ 125 mls/hr IV Q24H [facility] Last Infusion: 06/01/24 21:29 Dose: Infused Documented By: SUMAYA Levalbuterol HCl (Levalbuterol Hcl 1.25 Mg/3 Ml Vial.Neb) 1.25 mg INHALE Q3H PRN PRN Reason: Wheezing Levalbuterol HCl (Levalbuterol Hcl 1.25 Mg/3 Ml Vial.Neb) 1.25 mg INHALE RQ4H [facility] Last Admin: 06/02/24 08:18 Dose: 1.25 mg Documented By: PATY Loratadine (Loratadine 10 Mg Tablet) 10 mg PO DAILY [facility] Last Admin: 06/02/24 09:10 Dose: 10 mg Documented By: ZULEMA Magnesium Hydroxide (Milk Of Magnesia 30 Ml Oral.Susp) 30 ml PO DAILY PRN PRN Reason: Constipation Melatonin (Melatonin 3 Mg Tablet) 6 mg PO BEDTIME PRN PRN Reason: Insomnia Non-Formulary Medication (Tiotropium [place] [Spiriva Respimat]) 2 puff INHALE DAILY [facility] Ondansetron HCl (Ondansetron Hcl 4 Mg/2 Ml Vial) 4 mg IVPUSH Q8H PRN PRN Reason: Nausea and Vomiting Oseltamivir Phosphate (Oseltamivir Phosphate 75 Mg Capsule) 75 mg PO Q12H [facility] Stop: 06/05/24 08:01 Last Admin: 06/02/24 09:10 Dose: 75 mg Documented By: ZULEMA Oxycodone HCl (Oxycodone Hcl Immed Release 5 Mg Tablet) 10 mg PO Q6H PRN PRN Reason: withdrawal Last Admin: 06/02/24 09:10 Dose: 10 mg Documented By: ZULEMA Prednisone (Prednisone 20 Mg Tablet) 40 mg PO DAILY [facility] Last Admin: 06/02/24 09:10 Dose: 40 mg Documented By: ZULEMA Sodium Chloride (0.9 % Sodium Chloride Flush 3 Ml Syringe) 3 ml IVFLUSH QSHIFT [facility] Last Admin: 06/02/24 09:12 Dose: Not Given Documented By: ZULEMA Non-Admin Reason: Previously Administered Labs 06/01/24 05:54 06/01/24 05:54 Microbiology Microbiology Results: Microbiology 05/31/24 18:58 Blood Culture - Preliminary Blood - Venous No growth after 24 hours. 05/31/24 18:37 Blood Culture - Preliminary Blood - Venous No growth after 24 hours. Assessment and Plan (1) Influenza A: Status: Acute Plan 59-year-old male with pertinent history of COPD not on home oxygen, tobacco use disorder, hypertension, RIANA not on CPAP, opioid use disorder on methadone who presents to the emergency department for evaluation of dyspnea. Withdrawal start Methadone 10 mg addiction team consult pending Acute hypoxemic respiratory failure due to acute exacerbation of COPD in the setting of influenza A with bacterial superinfection CAP supplemental oxygen to keep oxygen saturation >90%. systemic steroids, scheduled and p.r.n. Xopenex. IV ceftriaxone and IV azithromycin to treat for CAP. Continue home inhalers. Tamiflu Sepsis in the setting of above. Resuscitated with IV crystalloids. Lactic acid and blood culture obtained. On IV abx Hypertension On amlodipine Obesity class II Counseled regarding diet and exercise RIANA CPAP while in the hospital Opioid use disorder On methadone DVT prophylaxis: Cris Attending Dr. Cutler Full code Quality Stroke Does the patient have a stroke diagnosis?: No VTE Prior VTE?: No VTE Risk Level:: Medical - moderate - high VTE Device Contraindication: Treatment Not Indicated VTE Drug Contraindication: N/A - Med Ordered
[2024-06-02] MEDS: methADONE HCl 20 MG/2 ML ORAL.CONC 10 MG PO ×2 (11:42→14:26)
--- NOTE | 2024-06-02 14:52 | HO.ADDICTCON ---
History of Present Illness Date of Service: 06/02/2024 Chief Complaint: dyspnea Reason for Consult: OUD-withdrawal management Sources of Information: patient interviewed and chart reviewed HPI Narrative: Patient is a 59 year old Micronesian speaking male with history of OUD, medically admitted with COPD exacerbation Consult requested as patient was reporting opiate withdrawal sx. Patient seen in room 362. He is awake, alert, pleasant and engaged in interview. Methadone 10mg was administered prior to being seen by t/w--he reports 10mg was helpful in addressing some of his withdrawal sx He states he has been using 2 bundles of fentanyl [place] daily, along with cocaine. Had previously been engaged in treatment for OUD via [facility]. He believes his dose was 55mg (methadone) prior to discontinuing treatment. He is unsure when he last went to the [facility], but feels it has been a few months. Denies any overdose Denies any alcohol use He reports that he would like to resume treatment for OUD, and is requesting that dose be titrated during this admission In terms of withdrawal sx; he is reporting body aches, upset stomach, and rhinorrhea. He was somewhat restless and observed yawning x2 during evaluation. Review of Systems Constitutional: Reports as per HPI Diagnostics Vital Signs (24Hr): Vital Signs - 24 hr 06/01/24 15:02 06/01/24 19:10 06/01/24 19:12 Temperature Pulse Rate 85 92 Respiratory Rate 17 20 Blood Pressure 115/61 115/61 Pulse Oximetry 95 Oxygen Delivery Method Nasal Cannula Oxygen Flow Rate 2 06/01/24 19:13 06/01/24 19:28 06/02/24 01:37 Temperature 96.8 F Pulse Rate 88 78 Respiratory Rate 20 19 Blood Pressure 115/61 116/57 L Pulse Oximetry 96 Oxygen Delivery Method Nasal Cannula Oxygen Flow Rate 2 06/02/24 07:37 06/02/24 08:20 06/02/24 09:12 Temperature 96.8 F Pulse Rate 76 73 Respiratory Rate 18 18 Blood Pressure 131/63 141/68 H Pulse Oximetry 97 Oxygen Delivery Method Nasal Cannula Oxygen Flow Rate 2 06/02/24 11:15 Temperature Pulse Rate 92 Respiratory Rate 18 Blood Pressure Pulse Oximetry Oxygen Delivery Method Oxygen Flow Rate BMI result Body Mass Index 37.7 Labs 06/01/24 05:54 06/01/24 05:54 Labs: Laboratory Results - last 48 hr 05/31/24 05/31/24 05/31/24 18:37 18:38 18:59 WBC 24.0 H RBC 4.75 Hgb 13.8 L Hct 39.3 L MCV 82.7 MCH 29.1 MCHC 35.1 RDW 13.8 Plt Count 149 L D MPV 9.7 Immature Gran % (Auto) Cancelled Neut % (Auto) Cancelled Lymph % (Auto) Cancelled [place] % (Auto) Cancelled Eos % (Auto) Cancelled Baso % (Auto) Cancelled Lymph # (Auto) Cancelled [place] # (Auto) Cancelled Eos # (Auto) Cancelled Baso # (Auto) Cancelled Abs Immat Gran (auto) Cancelled Absolute Neuts (auto) Cancelled Absolute Nucleated RBC 0.000 Nucleated RBC % (auto) 0.0 Neutrophils % (Manual) 71 Band Neutrophils % 22 H Lymphocytes % (Manual) 6 L Monocytes % (Manual) 1 L Abs Neuts (Manual) 22.3 H Lymphocytes # (Manual) 1.4 Monocytes # (Manual) 0.2 Toxic Vacuolation PRESENT Dohle Bodies PRESENT Platelet Estimate NORMAL Large Platelets PRESENT Plt Morphology Comment NOTED RBC Morphology NORMAL Smear Tech's Comments MANUAL DIFF PT INR VBG pH VBG pCO2 VBG pO2 VBG HCO3 VBG O2 Saturation VBG Base Excess Sodium 132 L Potassium 3.3 D Chloride 96 Carbon Dioxide 27 Anion Gap 12 BUN 12 Creatinine 0.96 Estim Creat Clear Calc 114.9 Estimated GFR > 60 Random Glucose 116 H Lactic Acid 1.8 Calcium 8.7 Magnesium 1.5 L Total Bilirubin 0.9 AST 38 H ALT 23 Alkaline Phosphatase 79 Troponin I High Sens 8.9 D B-Natriuretic Peptide 148 H Total Protein 8.8 H Albumin 3.8 Lipase 4 L Influenza Type A (PCR) POSITIVE A Influenza Type B (PCR) NEGATIVE RSV RNA Qual (PCR) NEGATIVE SARS-CoV-2 RNA (RT-PCR) NEGATIVE 05/31/24 05/31/24 06/01/24 19:00 19:03 05:54 WBC 25.2 H RBC 4.43 L Hgb 12.7 L Hct 38.0 L MCV 85.8 MCH 28.7 MCHC 33.4 RDW 13.9 Plt Count 151 L MPV 10.2 Immature Gran % (Auto) Cancelled Neut % (Auto) Cancelled Lymph % (Auto) Cancelled [place] % (Auto) Cancelled Eos % (Auto) Cancelled Baso % (Auto) Cancelled Lymph # (Auto) Cancelled [place] # (Auto) Cancelled Eos # (Auto) Cancelled Baso # (Auto) Cancelled Abs Immat Gran (auto) Cancelled Absolute Neuts (auto) Cancelled Absolute Nucleated RBC 0.000 Nucleated RBC % (auto) 0.0 Neutrophils % (Manual) 79 H Band Neutrophils % 17 H Lymphocytes % (Manual) 3 L Monocytes % (Manual) 1 L Abs Neuts (Manual) 24.2 H Lymphocytes # (Manual) 0.8 L Monocytes # (Manual) 0.3 Toxic Vacuolation Dohle Bodies PRESENT Platelet Estimate SLIGHTLY DECREASED Large Platelets PRESENT Plt Morphology Comment NORMAL RBC Morphology NORMAL Smear Tech's Comments PT 15.8 H INR 1.4 H VBG pH 7.44 H VBG pCO2 50 VBG pO2 35 VBG HCO3 34 H VBG O2 Saturation 55.0 VBG Base Excess 8.4 Sodium 137 Potassium 3.9 Chloride 100 Carbon Dioxide 27 Anion Gap 14 BUN 12 Creatinine 0.93 Estim Creat Clear Calc 118.6 Estimated GFR > 60 Random Glucose 201 H Lactic Acid Calcium 8.8 Magnesium Total Bilirubin AST ALT Alkaline Phosphatase Troponin I High Sens B-Natriuretic Peptide Total Protein Albumin Lipase Influenza Type A (PCR) Influenza Type B (PCR) RSV RNA Qual (PCR) SARS-CoV-2 RNA (RT-PCR) Mental Status Exam Mental Status Exam Patient Appearance: Appropriate Level of Consciousness: Awake, Appropriate and Alert Patient Behavior: Appropriate and Talkative Mood Description: Calm Affect Description: Calm Speech Pattern: Clear Thought Process: Intact Thought Content: positive for Intact Medications Medications Current Medications Acetaminophen (Acetaminophen 325 Mg Tablet) 650 mg PO Q6H PRN PRN Reason: Pain, Mild 1-3,fever,headache Amlodipine Besylate (Amlodipine Besylate 5 Mg Tablet) 5 mg PO BEDTIME [facility]; Protocol Last Admin: 06/01/24 19:13 Dose: 5 mg Calcium Carbonate (Calcium Carbonate 750 Mg Tab.Chew) 750 mg PO Q4H PRN PRN Reason: Heartburn Ceftriaxone Sodium (Ceftriaxone Sodium 1 Gm Vial) 1 gm IVPUSH Q24H [facility] Last Admin: 06/01/24 19:12 Dose: 1 gm Clonidine HCl (Clonidine Hcl 0.1 Mg Tablet) 0.1 mg PO BID [facility]; Protocol Last Admin: 06/02/24 09:12 Dose: 0.1 mg Enoxaparin Sodium (Enoxaparin Sodium 40 Mg/0.4 Ml Syringe) 40 mg SUBCUT Q24H [facility] Last Admin: 06/01/24 19:12 Dose: 40 mg Fluticasone Propionate (Fluticasone Propionate Nasal 16 Gm [place]) 2 spray NOSTRIL-B DAILY [facility] Last Admin: 06/02/24 10:40 Dose: 2 spray Fluticasone/Vilanterol (Fluticasone/Vilanterol 200/25 Blst.W.Dev) 1 puff INHALE RDAILY [facility] Last Admin: 06/02/24 08:18 Dose: 1 puff Hydrochlorothiazide (Hydrochlorothiazide 12.5 Mg Tablet) 12.5 mg PO BEDTIME [facility]; Protocol Last Admin: 06/01/24 19:12 Dose: 12.5 mg Azithromycin 500 mg/ Sodium (Chloride) 250 mls @ 125 mls/hr IV Q24H [facility] Last Infusion: 06/01/24 21:29 Dose: Infused Levalbuterol HCl (Levalbuterol Hcl 1.25 Mg/3 Ml Vial.Neb) 1.25 mg INHALE Q3H PRN PRN Reason: Wheezing Levalbuterol HCl (Levalbuterol Hcl 1.25 Mg/3 Ml Vial.Neb) 1.25 mg INHALE RQ4H [facility] Last Admin: 06/02/24 11:13 Dose: 1.25 mg Loratadine (Loratadine 10 Mg Tablet) 10 mg PO DAILY [facility] Last Admin: 06/02/24 09:10 Dose: 10 mg Magnesium Hydroxide (Milk Of Magnesia 30 Ml Oral.Susp) 30 ml PO DAILY PRN PRN Reason: Constipation Melatonin (Melatonin 3 Mg Tablet) 6 mg PO BEDTIME PRN PRN Reason: Insomnia Methadone HCl (Methadone Hcl 20 Mg/2 Ml Oral.Conc) 30 mg PO DAILY@0800 [facility] Non-Formulary Medication (Tiotropium [place] [Spiriva Respimat]) 2 puff INHALE DAILY [facility] Ondansetron HCl (Ondansetron Hcl 4 Mg/2 Ml Vial) 4 mg IVPUSH Q8H PRN PRN Reason: Nausea and Vomiting Oseltamivir Phosphate (Oseltamivir Phosphate 75 Mg Capsule) 75 mg PO Q12H [facility] Stop: 06/05/24 08:01 Last Admin: 06/02/24 09:10 Dose: 75 mg Oxycodone HCl (Oxycodone Hcl Immed Release 5 Mg Tablet) 10 mg PO Q6H PRN PRN Reason: withdrawal Last Admin: 06/02/24 09:10 Dose: 10 mg Prednisone (Prednisone 20 Mg Tablet) 40 mg PO DAILY [facility] Last Admin: 06/02/24 09:10 Dose: 40 mg Sodium Chloride (0.9 % Sodium Chloride Flush 3 Ml Syringe) 3 ml IVFLUSH QSHIFT [facility] Last Admin: 06/02/24 09:12 Dose: Not Given Allergies Allergies Allergy/AdvReac Type Severity Reaction Status Date / Time No Known Allergies Allergy Verified 05/31/24 18:16 Assessment & Plan Assessment & Plan (1) Opioid use disorder: Status: Acute Code(s): F11.99 - Opioid use, unspecified with unspecified opioid-induced disorder Assessment and Plan: additional dose of methadone 10mg, ordered --total of 20mg today methadone 30mg in AM take home narcan addictions recovery specialist to send referral to [facility] Total time managing care of this patient today ____ minutes. PMFSH Past Medical History Medical History (Updated 06/02/24 @ 15:11 by Tanvi Amin CNP) Opioid use disorder (~08/27/18) Nocturnal hypoxemia Snoring Asthma-COPD overlap syndrome Asthma Allergic rhinitis Somnolence, daytime Morbid obesity Obstructive sleep apnea HTN (hypertension) Chronic respiratory failure due to obstructive sleep apnea Bursitis of right shoulder Osteoarthritis of left knee Social History Social History Household Members: Significant Other Housing: House Do you presently have visiting nurse or other home services: No Alcohol intake: current Alcohol intake frequency: holidays/special occasions only Patient Tobacco Use Status: Current everyday Tobacco user Tobacco use type: Cigarette Cigarettes Per Day: 3 Years Smoked: 6 e-Cigarette/Vaping Use: Never Used Substance Use Type: Heroin Advance Directives Date on File: 02/28/23 service: No Current occupational status: unemployed Current occupation: right handed
[2024-06-02] MEDS: cefTRIAXone sodium 1 GM VIAL IVPUSH (18:12)
[2024-06-02] MEDS: Enoxaparin Sodium 40 MG/0.4 ML SYRINGE SUBCUT (20:26)
[2024-06-02] MEDS: hydroCHLOROthiazide 12.5 MG TABLET PO (20:26)
[2024-06-02] MEDS: amLODIPine Besylate 5 MG TABLET PO (20:27)
[2024-06-02] MEDS: Azithromycin 500 MG in 0.9 % Sodium Chloride 250 ML 125 MG IV (20:37)
--- NOTE | 2024-06-03 07:33 | PM.DS ---
DS: Providers Provider Date of Service: 06/03/24 Date of admission: 05/31/24 19:56 Date of discharge: 06/03/24 Primary care physician: Daksha Physician Consults: 06/02/24 08:59 Addiction Medicine Routine Consulting Provider: Addiction Covering Reason for consultation: withdrawal DS: Diagnosis Discharge Diagnosis (1) Opioid use disorder: Status: Acute DS: Summary Hospital Course Hospital Course: History and physical as per admitting provider. This is a 59-year-old male with pertinent history of COPD not on home oxygen, tobacco use disorder, hypertension, RIANA not on CPAP, opioid use disorder on methadone who presents to the emergency department for evaluation of dyspnea. Patient states his symptoms started 2 days prior to presentation. He is having productive cough with yellowish sputum production. Also has dyspnea which is worse with exertion. Has associated wheezing not relieve with home inhaler. In the emergency department, patient was found to be septic, febrile with leukocytosis. Patient was given IV steroid, DuoNebs, empiric IV antibiotics and IV crystalloids. Also found to have wheezing despite multiple DuoNeb treatments. Withdrawal. started Methadone 10 mg increased to 30 mg. Follow up at [facility] Acute hypoxemic respiratory failure due to acute exacerbation of COPD in the setting of influenza A with bacterial superinfection CAP, supplemental oxygen to keep oxygen saturation >90%. , systemic steroids, scheduled and p.r.n. Xopenex. , IV ceftriaxone and IV azithromycin for CAP. , Continue home inhalers. , Tamiflu. home with a few more days of ceftin and azithromycin Sepsis in the setting of above. Resuscitated with IV crystalloids. Negative blood cultures Hypertension. On amlodipine Obesity class II . Counseled regarding diet and exercise RIANA CPAP while in the hospital Opioid use disorder. Treated with Methadone while inpatient Time Attestation Discharge Coordination Time (in mins): 42 Quality: Safe Use of Opioids Does Pt have an Active Cancer Diagnosis on the Problem List?: No Quality: Stroke Does the patient have a stroke diagnosis?: No Physical Exam Vital Signs: Vital Signs: Last Vital Signs Temp 98.0 F 06/02/24 22:50 Pulse 80 06/02/24 23:29 Resp 18 06/02/24 23:29 BP 164/79 H 06/02/24 22:50 Pulse Ox 96 06/02/24 22:50 O2 Del Method Room Air 06/02/24 22:50 O2 Flow Rate 2 06/02/24 07:37 BMI result Body Mass Index 37.7 Appearing in no acute distress head is normocephalic atraumatic eyes pupils are PERRLA sclera is anicteric mouth throat mucous membranes are intact and moist neck is supple no lymphadenopathy, no JVD noted lung sounds are clear to auscultation heart regular rate rhythm, clear S1, S2 positive bowel sounds, abdomen is soft, nontender neuro patient is alert x3, no focal deficits DS: Data Data Completed and Pending Labs on day of discharge: Preliminary micro results at discharge 05/31/24 18:58 Blood Culture - Preliminary Blood - Venous No growth after 48 hours. 05/31/24 18:37 Blood Culture - Preliminary Blood - Venous No growth after 48 hours. Discharge Plan Discharge Anticipated Discharge Date/Time: 06/03/24 07:24 Patient Disposition: Home, Self-Care Discharge Diagnosis: Flu A CAP Discharge Medications: New cefuroxime axetil 500 mg tablet 500 mg PO BID Qty: 6 0RF azithromycin 500 mg tablet 500 mg PO DAILY 3 Days Qty: 3 0RF prednisone 10 mg tablet 40 mg PO DIRECTED Qty: 16 0RF Rx Instructions: see taper instructions oseltamivir [Tamiflu] 75 mg Capsule 75 mg PO Q12H Qty: 4 0RF guaifenesin [Mucus Relief ER] 600 mg tablet extended release 12hr 600 mg PO Q12H PRN (Reason: cough) Qty: 5 0RF Continued albuterol sulfate 2.5 mg /3 mL (0.083 %) solution for nebulization 2.5 mg inhalation QID Qty: 90 0RF ascorbic acid (vitamin C) 250 mg tablet 250 mg PO DAILY ferrous gluconate 324 mg (38 mg iron) tablet 324 mg PO Q48H hydrochlorothiazide 12.5 mg tablet 12.5 mg PO BEDTIME cetirizine 10 mg tablet 10 mg PO DAILY amlodipine 5 mg tablet 5 mg PO BEDTIME fluticasone propion-salmeterol [Advair Diskus] 500-50 mcg/dose blister with device 1 inh INHALATION BID albuterol sulfate [Ventolin HFA] 90 mcg/actuation HFA aerosol inhaler 2 puff INHALATION Q4H PRN (Reason: Shortness Of Breath Or Wheezing) fluticasone propionate 50 mcg/actuation spray,suspension 2 spray intranasal DAILY Spiriva Respimat 1.25 mcg/actuation mist 2 puff inhalation DAILY montelukast 10 mg tablet 10 mg PO BEDTIME Discharge Orders: Discharge Order (Routine); Ordered 06/03/24 Ordered By: Ignacia Staley Diet: Advance to usual diet Activity on Discharge: As tolerated Stand Alone Forms: Patient Portal Discharge page Print Language: Persian Care Plan Goals: Last methadone dose 30 mg 06/03/24 Health Concerns: Flu A Cap Plan of Treatment: Follow up with primary care provider as needed Take all medications as prescribed Assessment: See discharge summary
[2024-06-03] MEDS: oxyCODONE HCl Immed Release 5 MG TABLET 10 MG PO (07:34)
[2024-06-03] MEDS: Oseltamivir Phosphate 75 MG CAPSULE PO (07:35)
[2024-06-03] MEDS: methADONE HCl 20 MG/2 ML ORAL.CONC 30 MG PO (07:35)
[2024-06-03] MEDS: Loratadine 10 MG TABLET PO (07:35)
[2024-06-03] MEDS: predniSONE 20 MG TABLET 40 MG PO (07:35)
[2024-06-03] MEDS: cloNIDine HCL 0.1 MG TABLET PO (07:35)
[2024-06-03 07:49] VITALS: BP 141/83; PULSE 80; RESP 18; TEMP 36.3; O2SAT 96
[2024-06-03] MEDS: Fluticasone/Vilanterol 200/25 BLST.W.DEV 1 PUFF INHALE (07:57)
[2024-06-03] MEDS: levalbuterol HCL 1.25 MG/3 ML VIAL.NEB INHALE (07:57)
[2024-06-03 07:58] VITALS: PULSE 68; RESP 18; O2SAT 91
[2024-06-03] MEDS: Fluticasone Propionate Nasal 16 GM SPRAY 2 SPRAY NOSTRIL-B (08:08)
--- NOTE | 2024-06-03 08:53 | MHC.CM.PN ---
pt dcd home self care
[2024-06-03] MEDS: guaiFENesin LA 600 MG TAB.ER.12H PO (09:14)
--- NOTE | 2024-06-03 09:20 | MHC.RECOVRN ---
Pts referral sent to [facility].
== END 2024-06-03 10:14 | disposition home or self-care (01) | DRG 871 ==
LOC: HO.ED 20:15 → HO.EDOVER 20:20 → HO.S3 06-02 00:06
PROVIDERS: Physician Assistant; Registered Nurse Emergency; Admitting Provider Student in an Organized Health Care Education/Training Program; Emergency Provider Emergency Medicine; Visit Provider Nurse Practitioner Acute Care
DX: A41.9 Sepsis, unspecified organism (principal); J10.08 Influenza due to other identified influenza virus with other specified pneumonia; J96.01 Acute respiratory failure with hypoxia; J15.9 Unspecified bacterial pneumonia; J44.1 Chronic obstructive pulmonary disease with (acute) exacerbation; F11.20 Opioid dependence, uncomplicated; J44.0 Chronic obstructive pulmonary disease with (acute) lower respiratory infection; F17.210 Nicotine dependence, cigarettes, uncomplicated; I10 Essential (primary) hypertension; G47.33 Obstructive sleep apnea (adult) (pediatric); E66.812 Obesity, class 2; Z68.37 Body mass index [BMI] 37.0-37.9, adult; Z71.3 Dietary counseling and surveillance; Z79.51 Long term (current) use of inhaled steroids; Z79.899 Other long term (current) drug therapy
CPT/HCPCS: 0241U; 36415; 71045; 80048; 80053; 82803; 83605; 83690; 83735; 83880; 84484; 85007; 85025; 85027; 85610; 87040; 93005; 94640; 99285; J0456; J0696; J1650; J2919; J3475; J7120

== ENCOUNTER → 2024-05-31 18:18 | Outpatient (BNV) | payer MEDICAID, SELFPAY | PROVIDERS: Admitting Provider Student in an Organized Health Care Education/Training Program; Emergency Provider Emergency Medicine; Visit Provider Internal Medicine Cardiovascular Disease | DX: R00.0 Tachycardia, unspecified (principal) | CPT/HCPCS: 93010 ==

== ENCOUNTER → 2024-05-31 18:18 | Outpatient (BNV) | payer MEDICAID, SELFPAY | PROVIDERS: Admitting Provider Student in an Organized Health Care Education/Training Program; Emergency Provider Emergency Medicine; Visit Provider Student in an Organized Health Care Education/Training Program | DX: J18.0 Bronchopneumonia, unspecified organism (principal) | CPT/HCPCS: 71045 ==

== ENCOUNTER 2024-05-31 19:56 | Outpatient (BNV) | payer MEDICAID, SELFPAY | END 2024-06-02 09:16 | PROVIDERS: Admitting Provider Student in an Organized Health Care Education/Training Program; Emergency Provider Emergency Medicine; Visit Provider Internal Medicine Cardiovascular Disease | DX: I49.1 Atrial premature depolarization (principal) | CPT/HCPCS: 93010 ==

== ENCOUNTER → 2024-05-31 19:56 | Outpatient (BNV) | payer MEDICAID, SELFPAY | PROVIDERS: Admitting Provider Student in an Organized Health Care Education/Training Program; Emergency Provider Emergency Medicine; Visit Provider Student in an Organized Health Care Education/Training Program | DX: F11.99 Opioid use, unspecified with unspecified opioid-induced disorder (principal) | CPT/HCPCS: 99223; 99232; 99239 ==

== ENCOUNTER → 2024-05-31 19:56 | Outpatient (BNV) | payer MEDICAID, SELFPAY | PROVIDERS: Admitting Provider Student in an Organized Health Care Education/Training Program; Emergency Provider Emergency Medicine; Visit Provider Nurse Practitioner Psychiatric/Mental Health | DX: F11.99 Opioid use, unspecified with unspecified opioid-induced disorder (principal) | CPT/HCPCS: 99221 ==

== ENCOUNTER 2024-07-21 12:17 | Inpatient (IN) | payer MEDICAID, SELFPAY ==
[2024-07-21] VITALS (25 sets, daily range): BP systolic 85–166; BP diastolic 45–101; PULSE 6–126; RESP 20–36; TEMP 34.9–37.4; O2SAT 95–100; BMI 49.8
--- NOTE | ~2024-07-21 | XR_ITS ---
CLINICAL HISTORY: cardiac arrest 1 view chest x-ray Comparison: CR - XR CHEST 1V - 05/31/24 19:25 EST CR/SR - XR CHEST 1V - 02/25/23 20:52 EST Findings: ETT is in expected location. Mild diffuse reticulonodular pulmonary opacity. Normal size heart. No acute fracture. IMPRESSION: Mild edema versus atypical pneumonia. This document has been electronically signed by: Sudarshan Vidal MD on 07/21/2024 14:00:34
--- NOTE | ~2024-07-21 | CT_ITS ---
CLINICAL HISTORY: Mental status change CT head without contrast Comparison: None Findings: No intra-axial mass, midline shift, hydrocephalus, or acute hemorrhage. No significant atrophy-like change or white matter disease. Moderate bilateral ethmoid and maxillary sinus mucosal thickening. Mastoids are clear. The orbits are unremarkable. There is no acute fracture. IMPRESSION: 1. No acute intracranial findings. 2. Sinus disease. This document has been electronically signed by: Sudarshan Vidal MD on 07/21/2024 14:35:04
--- NOTE | ~2024-07-21 | CT_ITS ---
CLINICAL HISTORY: Acute respiratory distress CT chest without contrast Comparison: None Findings: The heart size is enlarged. The visualized thyroid and mediastinum are unremarkable. ETT extends into the right mainstem bronchus. Mild dependent bibasilar airspace opacity. Visualized portions of the upper abdomen demonstrate a small amount of high density material within the gallbladder lumen. No acute fractures. IMPRESSION: 1. ETT is within the right mainstem bronchus. 2. Bibasilar atelectasis versus pneumonia. 3. Cholelithiasis. 4. Cardiomegaly. This document has been electronically signed by: Sudarshan Vidal MD on 07/21/2024 14:41:20
[2024-07-21] MEDS: methylPREDNISolone Sod Succ 125 MG/2 ML VIAL IVPUSH (12:24)
[2024-07-21] MEDS: Magnesium Sulfate/H2O 2 GM/50 ML PIGGYBACK IV (12:26)
[2024-07-21] MEDS: Naloxone HCl 2 MG/2 ML SYRINGE IVPUSH (12:35)
[2024-07-21] MEDS: LORazepam 2 MG/ML VIAL IVPUSH (12:36)
[2024-07-21] MEDS: Succinylcholine Chloride 200 MG/10 ML VIAL 100 MG IVPUSH (12:46)
[2024-07-21] MEDS: Ketamine HCl/NS 50 MG/5 ML SYRINGE 100 MG IVPUSH (12:46)
--- NOTE | 2024-07-21 12:50 | ECG_ITS ---
Test Reason : OD Blood Pressure : */* mmHG Vent. Rate : 108 BPM Atrial Rate : 108 BPM P-R Int : 144 ms QRS Dur : 88 ms QT Int : 358 ms P-R-T Axes : 81 9 75 degrees QTcB Int : 479 ms Sinus tachycardia Nonspecific T wave abnormality Abnormal ECG When compared with ECG of 21-Jul-2024 12:31, ST no longer depressed in Inferior leads ST no longer depressed in Lateral leads Referred By: Sanjana Valentine Electronically Signed By: Romain Gooden
[2024-07-21] MEDS: Midazolam HCl 2 MG/2 ML VIAL IVPUSH ×4 (12:52→21:50)
[2024-07-21 13:00] LABS: Glucose, Whole Blood 117 mg/dL (60-115)
--- NOTE | 2024-07-21 13:10 | ED_ITS ---
HPI - CPR General Chief Complaint: Respiratory Arrest Stated Complaint: cardiac arrest Time Seen by Provider: 07/21/24 12:24 Source: family (), EMS, old records reviewed and municipal clerk Mode of arrival: wheelchair Limitations: physical limitation History of Present Illness ED Provider: DR. Valentine HPI narrative: 59-year-old male was dropped off to the emergency room for change mental status and unable to breathe, initially found to be unresponsive in asystole at triage CPR was started and patient was bagged and was moved to room 17, patient is morbid obese, bleeding from the right nostril and urinary incontinent was noted as well, pulse was present CPR was discontinued, started to response, patient was giving vague history but admitted to heroin use today, primary survey exam revealed patient is wheezing, and patient was complaining of chest pain EKG revealed no ST-elevation. Patient was given Narcan, bronchodilator, magnesium, Solu-Medrol, patient's consciousness was intermittent, patient became lethargic and unresponsive, then was intubated and moved to room 5 for further management. After intubation vital signs were stable patient needed sedation at this point came to the ED provide me with history of COPD and heroin use. After reviewing old records patient with history of COPD, tobacco use, HTN, RIANA, opiate use disorder on methadone. Related Data Home Medications ?Medication ?Instructions ?Recorded ?Confirmed albuterol sulfate 90 mcg/actuation 2 puff inhalation Q4H PRN 09/10/22 05/31/24 aerosol inhaler (Ventolin HFA) Shortness Of Breath Or Wheezing amlodipine 5 mg tablet 5 mg PO BEDTIME 09/10/22 05/31/24 cetirizine 10 mg tablet 10 mg PO DAILY 09/10/22 05/31/24 fluticasone 500 mcg-salmeterol 50 1 inh inhalation BID 09/10/22 05/31/24 mcg/dose blistr powdr for inhalation (Advair Diskus) fluticasone propionate 50 2 spray intranasal DAILY 09/10/22 05/31/24 mcg/actuation nasal spray,suspension montelukast 10 mg tablet 10 mg PO BEDTIME 03/29/23 05/31/24 tiotropium bromide 1.25 2 puff inhalation DAILY 03/29/23 05/31/24 mcg/actuation mist for inhalation (Spiriva Respimat) ascorbic acid (vitamin C) 250 mg 250 mg PO DAILY 05/31/24 05/31/24 tablet ferrous gluconate 324 mg (38 mg 324 mg PO Q48H 05/31/24 05/31/24 iron) tablet hydrochlorothiazide 12.5 mg tablet 12.5 mg PO BEDTIME 05/31/24 05/31/24 Previous Rx's ?Medication ?Instructions ?Recorded albuterol sulfate 2.5 mg/3 mL 2.5 mg (3 mL) inhalation QID #90 mL 02/27/23 (0.083 %) solution for nebulization guaifenesin 600 mg tablet, 600 mg PO Q12H PRN cough #5 tabs 06/03/24 extended release 12 hr (Mucus Relief ER) Allergies Allergy/AdvReac Type Severity Reaction Status Date / Time No Known Allergies Allergy Verified 05/31/24 18:16 Review of Systems 2 Review of Systems: All other systems are reviewed and are negative Constitutional: Reports as per HPI and Reports no additional constitutional complaints Eyes: Reports as per HPI and Reports no additional eye complaints Reports system reviewed and no additional complaints, except as documented Cardiovascular: Reports as per HPI and Reports no additional cardiovascular complaints Respiratory: Reports as per HPI and Reports no additional respiratory complaints Gastrointestinal: Reports as per HPI and Reports no additional gastrointestinal complaints Genitourinary: Reports no additional female genitourinary complaints Musculoskeletal: Reports no additional musculoskeletal complaints Skin/Breast: Reports system reviewed and no additional complaints, except as docu Psychiatric: Reports no additional psychiatric complaints Endocrine: Reports no additional endocrine complaints Hematologic/Lymphatic: Reports no additional hematologic/lymphatic complaints Allergic/Immunologic: Reports no additional allergic/immunologic complaints Reports system reviewed and no additional complaints, except as documented and Reports Abnormal speech present ON LICENSE OF [facility] Past Medical History Medical History Opioid use disorder (~08/27/18) Nocturnal hypoxemia Snoring Asthma-COPD overlap syndrome Asthma Allergic rhinitis Somnolence, daytime Morbid obesity Obstructive sleep apnea HTN (hypertension) Chronic respiratory failure due to obstructive sleep apnea Bursitis of right shoulder Osteoarthritis of left knee Social History Social History Household Members: Significant Other Housing: House Do you presently have visiting nurse or other home services: No Alcohol intake: current Alcohol intake frequency: holidays/special occasions only Patient Tobacco Use Status: Current everyday Tobacco user Tobacco use type: Cigarette Cigarettes Per Day: 3 Years Smoked: 6 e-Cigarette/Vaping Use: Never Used Substance Use Type: Heroin Advance Directives: Yes Advance Directives on File: Yes Advance Directives Date on File: 02/28/23 service: No Current occupational status: unemployed Current occupation: right handed Physical Exam 2 Vital Signs: Vital Signs: Last Vital Signs Pulse 117 H 07/21/24 14:24 Resp 26 H 07/21/24 14:24 BP 160/85 H 07/21/24 14:24 Pulse Ox 95 07/21/24 14:24 O2 Del Method Mechanical Ventil ation 07/21/24 14:24 FiO2 100 07/21/24 13:32 Vital signs have been reviewed and appear to be correct. Blood pressure elevated. Heart rate normal. Respiratory rate normal. Temperature normal. Oxygen saturation normal. Appearance: In acute respiratory distress, incoherent, somnolent. Head: Normal external exam. Normocephalic. Atraumatic. No Romano signs noted. No raccoon eyes noted Eyes: PERRLA. EOMI. Conjunctiva and sclera normal. Eyelids normal. ENT: TM's Normal. Pharynx normal. Uvula midline. Moist mucous membranes. No trismus noted. No drooling noted. No muffled voice noted. Neck: Normal inspection. Neck supple. FROM. No adenopathy. Thyroid Normal. No meningeal signs. No neck mass noted. CVS: Normal heart rate and rhythm. Heart sound normal. No murmurs noted. Pulses normal throughout. Respiratory: + respiratory distress. Painless inspiration. Breath sounds normal. Diffuse expiratory wheezing, + accessory muscle usage noted, decreased air movement noted. Abdomen: Soft and nontender. Bowel sounds normal in all 4 quadrants. No distention noted. No organomegaly noted. No visible injury noted. Back: No CVA tenderness. Full range of motion noted. Skin: Skin warm and dry. Normal skin color. Normal skin turgor. No rashes/lesions/lacerations noted. Extremities: No lower extremity edema. Extremities exhibit normal range of motion. Extremities nontender. Neuro: Somnolent Cranial nerve exam: II-XII are grossly intact No motor deficit. No sensory deficit. Reflexes normal. Course Reevaluation(s) Reevaluation #1: Acute respiratory distress. 1. Heroin overdose did not respond to Narcan. 2. COPD exacerbation with acute hypercarbic respiratory failure patient needed to be intubated will hyperventilate for elevated pCO2. 3. Pneumonia is suspected, with severe sepsis patient is covered with ceftriaxone and Zithromax. 100 cc of normal saline will be given in ICU (patient moved to ICU) 4. Neuro: Head CT is unremarkable. 5. Needs paralytic agent for obtaining radiographical study. 5. Case discussed with Dr. Peng. Time: 13:45 Medical Decision Making Differential Diagnosis Differential Diagnoses: The differential diagnosis associated with the presentation includes (Pneumonia, pneumothorax, pleural effusion, ACS, opiate overdose, COPD exacerbation, acute respiratory failure, electrolyte derangement, severe anemia, CHF.) Admission/Observation Consideration of admission/observation: Escalation of care including admission/observation considered Consult Healthcare Provider Management of the patient was discussed with: Machinery Dismantler (Dr. Peng) Lab Data MDM Lab Attestation statement: I reviewed the patient's lab results. 07/21/24 13:02 07/21/24 13:02 Labs: Lab Results 07/21/24 07/21/24 07/21/24 Range/Units 12:20 13:02 13:05 WBC 17.5 H (4.8-10.8) X10*3/uL RBC 4.74 (4.60-5.80) X10*6/uL Hgb 13.4 L (14.0-18.0) g/dl Hct 41.6 L (42.0-52.0) % MCV 87.8 (80.0-98.0) fL MCH 28.3 (27.0-33.0) pg MCHC 32.2 (31.0-36.0) g/dl RDW 14.2 (11.0-16.0) % Plt Count 234 D (160-400) X10*3/uL MPV 10.0 (9.4-12.4) fL Immature Gran % (Auto) 0.3 (0.0-0.4) % Neut % (Auto) 51.5 (45-73) % Lymph % (Auto) 32.3 (20-40) % Lamb % (Auto) 8.5 (2-11) % Eos % (Auto) 7.1 H (0-4) % Baso % (Auto) 0.3 (0-2) % Lymph # (Auto) 5.7 H (1.2-4.9) X10*3/uL Lamb # (Auto) 1.5 H (0.1-1.2) X10*3/uL Eos # (Auto) 1.3 H (0.0-0.4) X10*3/uL Baso # (Auto) 0.1 (0.0-0.2) X10*3/uL Abs Immat Gran (auto) 0.05 H (0.00-0.03) X10*3/uL Absolute Neuts (auto) 9.0 H (2.0-8.3) x10*3/uL Absolute Nucleated RBC 0.000 (0.0-0.012) X10*3/uL Nucleated RBC % (auto) 0.0 (0.0-0.2) /100WBC Smear Tech's Comments VERIFIED PT 11.1 D (10.9-12.4) SEC INR 1.0 (0.9-1.1) APTT 36.1 (26.0-36.8) SEC O2 Saturation % ABG pH at Pt Temp (7.35-7.45) ABG pCO2 at Pt Temp (32-45) mmHg ABG pO2 at Pt Temp (83-108) mmHg ABG HCO3 (22-26) mmol/L ABG Base Excess (Actual) mmol/L Sodium 143 (135-145) mmol/L Potassium 3.7 (3.3-5.1) mmol/L Chloride 105 (96-108) mmol/L Carbon Dioxide 21 L (22-29) mmol/L Anion Gap 21 H (12-20) BUN 8 L (9-16) mg/dL Creatinine 0.90 (0.5-1.4) mg/dL Estim Creat Clear Calc TNP Estimated GFR > 60 POC Glucose 117 H (60-115) mg/dL Random Glucose 167 H (60-115) mg/dL Lactic Acid (0.5-2.0) mmol/L Calcium 9.4 D (8.4-10.2) mg/dL Total Bilirubin 0.4 (0.0-1.0) mg/dL Direct Bilirubin 0.1 (0.0-0.5) mg/dL AST 34 (5-37) U/L ALT 26 (0-40) U/L Alkaline Phosphatase 98 (39-117) U/L Troponin I High Sens 5.0 (<3.5-35.0) ng/L B-Natriuretic Peptide 226 H (<100) pg/mL Total Protein 7.9 (6.5-8.0) g/dL Albumin 4.2 (3.5-5.0) g/dL Lipase 13 (8-78) U/L Urine Color Urine Appearance Urine pH (5.0-9.0) Ur Specific Treadwell (1.005-1.025) Urine Protein (Neg-Trace) mg/dL Urine Glucose (UA) (Negative) mg/dL Urine Ketones (Negative) mg/dL Urine Blood (Negative) Urine Nitrite (Negative) Ur Leukocyte Esterase (Negative) Urine RBC (0-2) /HPF Urine WBC (0-5) /HPF Ur Squamous Epith Cells (0-2) /HPF Urine Bacteria (None Seen) Hyaline Casts (0-2) /LPF Urine Opiates Screen (Not Detect) Ur Buprenorphine Scrn (Not Detect) ng/mL Ur Oxycodone Screen (Not Detect) ng/mL Urine Methadone Screen (Not Detect) ng/mL Urine Fentanyl Screen (Not Detect) Ur Barbiturates Screen (Not Detect) Ur Phencyclidine Scrn (Not Detect) Ur Amphetamines Screen (Not Detect) U Benzodiazepines Scrn (Not Detect) Urine Cocaine Screen (Not Detect) U Marijuana (THC) Screen (Not Detect) Ethyl Alcohol < 10 mg/dL Influenza Type A (PCR) NEGATIVE (Negative) Influenza Type B (PCR) NEGATIVE (Negative) RSV RNA Qual (PCR) NEGATIVE (Negative) SARS-CoV-2 RNA (RT-PCR) NEGATIVE (Negative) 07/21/24 07/21/24 Range/Units 13:23 14:11 WBC (4.8-10.8) X10*3/uL RBC (4.60-5.80) X10*6/uL Hgb (14.0-18.0) g/dl Hct (42.0-52.0) % MCV (80.0-98.0) fL MCH (27.0-33.0) pg MCHC (31.0-36.0) g/dl RDW (11.0-16.0) % Plt Count (160-400) X10*3/uL MPV (9.4-12.4) fL Immature Gran % (Auto) (0.0-0.4) % Neut % (Auto) (45-73) % Lymph % (Auto) (20-40) % Lamb % (Auto) (2-11) % Eos % (Auto) (0-4) % Baso % (Auto) (0-2) % Lymph # (Auto) (1.2-4.9) X10*3/uL Lamb # (Auto) (0.1-1.2) X10*3/uL Eos # (Auto) (0.0-0.4) X10*3/uL Baso # (Auto) (0.0-0.2) X10*3/uL Abs Immat Gran (auto) (0.00-0.03) X10*3/uL Absolute Neuts (auto) (2.0-8.3) x10*3/uL Absolute Nucleated RBC (0.0-0.012) X10*3/uL Nucleated RBC % (auto) (0.0-0.2) /100WBC Smear Tech's Comments PT (10.9-12.4) SEC INR (0.9-1.1) APTT (26.0-36.8) SEC O2 Saturation 100.0 % ABG pH at Pt Temp 7.25 L (7.35-7.45) ABG pCO2 at Pt Temp 61 H* (32-45) mmHg ABG pO2 at Pt Temp 344 H (83-108) mmHg ABG HCO3 27 H (22-26) mmol/L ABG Base Excess (Actual) -1.2 mmol/L Sodium (135-145) mmol/L Potassium (3.3-5.1) mmol/L Chloride (96-108) mmol/L Carbon Dioxide (22-29) mmol/L Anion Gap (12-20) BUN (9-16) mg/dL Creatinine (0.5-1.4) mg/dL Estim Creat Clear Calc Estimated GFR POC Glucose (60-115) mg/dL Random Glucose (60-115) mg/dL Lactic Acid 1.2 (0.5-2.0) mmol/L Calcium (8.4-10.2) mg/dL Total Bilirubin (0.0-1.0) mg/dL Direct Bilirubin (0.0-0.5) mg/dL AST (5-37) U/L ALT (0-40) U/L Alkaline Phosphatase (39-117) U/L Troponin I High Sens (<3.5-35.0) ng/L B-Natriuretic Peptide (<100) pg/mL Total Protein (6.5-8.0) g/dL Albumin (3.5-5.0) g/dL Lipase (8-78) U/L Urine Color Yellow Urine Appearance Clear Urine pH 6.0 (5.0-9.0) Ur Specific Treadwell 1.015 (1.005-1.025) Urine Protein 100 (2+) H (Neg-Trace) mg/dL Urine Glucose (UA) 100 H (Negative) mg/dL Urine Ketones Negative (Negative) mg/dL Urine Blood Trace H (Negative) Urine Nitrite Negative (Negative) Ur Leukocyte Esterase Negative (Negative) Urine RBC 0-2 (0-2) /HPF Urine WBC 0-5 (0-5) /HPF Ur Squamous Epith Cells 0-2 (0-2) /HPF Urine Bacteria None Seen (None Seen) Hyaline Casts 0-2 (0-2) /LPF Urine Opiates Screen POSITIVE H (Not Detect) Ur Buprenorphine Scrn Not Detected (Not Detect) ng/mL Ur Oxycodone Screen Not Detected (Not Detect) ng/mL Urine Methadone Screen Not Detected (Not Detect) ng/mL Urine Fentanyl Screen POSITIVE H (Not Detect) Ur Barbiturates Screen Not Detected (Not Detect) Ur Phencyclidine Scrn Not Detected (Not Detect) Ur Amphetamines Screen Not Detected (Not Detect) U Benzodiazepines Scrn POSITIVE H (Not Detect) Urine Cocaine Screen POSITIVE H (Not Detect) U Marijuana (THC) Screen Not Detected (Not Detect) Ethyl Alcohol mg/dL Influenza Type A (PCR) (Negative) Influenza Type B (PCR) (Negative) RSV RNA Qual (PCR) (Negative) SARS-CoV-2 RNA (RT-PCR) (Negative) Independent Interpretation I performed an independent interpretation of an: CT Scan (Head/chest: No intracranial pathology/1. ETT is within the right mainstem bronchus. 2. Bibasilar atelectasis versus pneumonia. 3. Cholelithiasis. 4. Cardiomegaly.) Radiology Impression Discussion of test interpretation with radiology: I have reviewed the radiologist's reading. Chronic Conditions Patient?s care impacted by: Other (Active smoking, COPD.) Procedures Intubation Intubation Type:: Emergency Endotracheal Intubation Intubation Date:: 07/21/24 Time out performed: Yes sedative: Ketamine Mg Given: 100 paralytic: Succinylcholine Mg Given: 100 Laryngoscope: Her ET Tube Size: 7.5 ET Tube Uncuffed: Yes Tube Secured Depth (cm): 24 Tube Secured Location: lips Tube Placement Confirmation: visualized tube passing through cords, equal breath sounds bilaterally, no breath sounds over epigastrium and confirmation by capnometry Patient Tolerated Procedure: no complications Intubation Complications: none Critical Care Time Critical Care Time Critical Care Time: Yes Total Critical Care Time: 60 Attestation: The patient was critically ill with a high probability of imminent or life- threatening deterioration. I spent greater than 30 minutes of discontinuous time evaluating the patient, delivering critical care at the bedside, discussing evaluating data with consultants. Critical care time does not include time spent performing separately billable procedures or teaching. Time spent performing critical care was 60 minutes. Discharge Plan Discharge Clinical Impression: Acute hypercapnic respiratory failure, COPD exacerbation Patient Disposition: Admitted As Inpatient
[2024-07-21 13:13] LABS: Hematocrit 41.6 % (42.0-52.0); Imm Gran Abs Auto 0.05 X10*3/uL (0.00-0.03); Imm Gran Pct Auto 0.3 % (0.0-0.4); Red Cell Distribution Width 14.2 % (11.0-16.0); SCAN SMEAR FLAG 1
[2024-07-21 13:14] LABS: Prothrombin Time 11.1 SEC (10.9-12.4)
[2024-07-21 13:16] LABS: Partial Thromboplastin Time 36.1 SEC (26.0-36.8)
[2024-07-21 13:22] LABS: Basophils Absolute Auto 0.1 X10*3/uL (0.0-0.2); Basophils Percent Auto 0.3 % (0-2); Eosinophils Absolute Auto 1.3 X10*3/uL (0.0-0.4); Eosinophils Percent Auto 7.1 % (0-4); Hemoglobin 13.4 g/dl (14.0-18.0); Lymphocytes Absolute Auto 5.7 X10*3/uL (1.2-4.9); Lymphocytes Percent Auto 32.3 % (20-40); Mean Corpuscular HGB Conc 32.2 g/dl (31.0-36.0); Mean Corpuscular Hemoglobin 28.3 pg (27.0-33.0); Mean Corpuscular Volume 87.8 fL (80.0-98.0); Monocytes Absolute Auto 1.5 X10*3/uL (0.1-1.2); Monocytes Percent Auto 8.5 % (2-11); Neutrophils Percent Auto 51.5 % (45-73); Platelet Count 234 X10*3/uL (160-400); Red Blood Count 4.74 X10*6/uL (4.60-5.80); White Blood Count 17.5 X10*3/uL (4.8-10.8)
[2024-07-21 13:24] LABS: Alanine Aminotransferase 26 U/L (0-40); Albumin Level 4.2 g/dL (3.5-5.0); Alkaline Phosphatase 98 U/L (39-117); Anion Gap 21 (12-20); Aspartate Amino Transferase 34 U/L (5-37); Bilirubin Direct 0.1 mg/dL (0.0-0.5); Bilirubin Total 0.4 mg/dL (0.0-1.0); Blood Urea Nitrogen 8 mg/dL (9-16); Calcium 9.4 mg/dL (8.4-10.2); Carbon Dioxide 21 mmol/L (22-29); Chloride 105 mmol/L (96-108); Estimated Glomerular Filt Rate > 60; Ethanol < 10 mg/dL; Glucose Random 167 mg/dL (60-115); Lipase 13 U/L (8-78); Potassium 3.7 mmol/L (3.3-5.1); Sodium 143 mmol/L (135-145); Total Protein 7.9 g/dL (6.5-8.0)
[2024-07-21 13:26] LABS: B Type Natriuretic Peptide 226 pg/mL (<100)
[2024-07-21 13:28] LABS: MANUAL DIFF FLAG SCAN; SLIDE REVIEW VERIFIED
[2024-07-21 13:28] LABS: ABG Base Excess -1.2 mmol/L; ABG HCO3 27 mmol/L (22-26); ABG pCO2 61 mmHg (32-45); ABG pH 7.25 (7.35-7.45); ABG pO2 344 mmHg (83-108)
[2024-07-21 13:48] LABS: Influenza A PCR NEGATIVE (Negative); Influenza B PCR NEGATIVE (Negative); Resp Syncy Virus RNA Qual PCR NEGATIVE (Negative); SARS COV2 PCR INHOUSE NEGATIVE (Negative)
--- OUTSIDE RECORDS SUMMARY | 2024-07-21 13:50 | XMS_ITS | Encounter Summary ---
Author Organization [employer] Address [address] [place] [address] [address] [place] [address] Care Team Providers Care Stencil Cutter Name Role Phone Rebecca Hogan NP Primary Care Provider [phone] Reason for Visit * Reason Comments [facility] call outreach Encounter Details Date Type Department Care Team (Latest Contact Info) Description 07/18/2024 Patient Outreach [facility] MEDICINE [address] [place] [address] Rebecca Hogan NP [address] [place] [address] Care Coordination (C3 NADEGE Almeida telephone call outreach) Social History Tobacco Use Types Packs/Day Years Used Date Smoking Tobacco: Every Day Cigarettes Smokeless Tobacco: Never Comments:Smokes once in a bl ue espinoza. Started smoking 2011 about 1 ppd Alcohol Use Standard Drinks/Week Comments Yes 0 (1 standard drink = 0.6 oz pure alcohol) maybe 1 beer in a 6 month period; stopped more frequent drinking couple years ago Depression Answer Date Recorded Patient Health Questionnaire-9 Score 10 07/01/2024 Patient Health Questionnaire-9 Score 10 07/01/2024 Last PHQ-9: Questionnaire Data Not on file 0 07/01/2024 Housing Stability Answer Date Recorded What is your housing situation today? I have johanna najera 06/04/[address] you li ve. Do you have problems with any of the following? None of the above 06/04/2024 Food Insecurity Answer Date Recorded Within the past 12 months, y ou worried that your food would run out before you got money to buy more: Sometimes True 2024 Within the past 12 months,th e food you bought just didn't last and you didn't have enough money to get more: Sometimes True 06/05/2024 Transportation Answer Date Recorded In the past 12 months, has l ack of transportation kept you from medical appts, meetings, work or from getting things needed for daily living? No 06/04/2024 Utilities Answer Date Recorded In the past 12 months, has t he electric, gas, oil or water company threatened to shut off services in your home? No 06/04/2024 Depression Answer Date Recorded Patient Health Questionnaire-2 Score 2 07/01/2024 Internet Access Answer Date Recorded Internet Access Q1 Yes 06/04/2024 Internet Access Q2 Not on file 06/04/2024 Sex and Gender Information Value Date Recorded Sex Assigned at Male 02/14/2022 10:30 AM EDT Legal Sex Male 10:30 AM EDT Gender Identity Male 02/14/2022 10:30 AM EDT Sexual Orientation Straight 02/14/2022 10 :30 AM EDT documented as of this encounter Progress Notes * Bianca Almeida - 07/18/2024 10:41 AM EDT CHW Bianca Almeida placed additional outbound call to the patient to graduate from the program. No answer at this time. LVM introducing herself from [facility] CM Department. CHW notified patient of their graduation from the Care Management Program. Education provided on how to receive services in the future. CHW reinforced direct contact information or CHW for any additional questions or concerns. Education provided on Walk-In Urgent Care located in [facility]. Patient provided with after-hours line for [facility], , which offer night time triage service and option to transfer to car inspection and repair manager provider if needed. documented in this encounter Plan of Treatment Not on file documented as of this encounter Visit Diagnoses Not on filedocumented in this encounter Additional Health Concerns Assessment Noted Time PHQ-9 Depression Total Score: 10 025 2:53 PM EDT documented as of this encounter Care Teams Stencil Cutter Relationship Specialty Start Date End Date Rebecca Hogan NP [address] [place] [address] PCP - General Family Medicine 01/20/23 documented as of this encounter
--- OUTSIDE RECORDS SUMMARY | 2024-07-21 13:50 | XMS_ITS | Encounter Summary ---
Author Organization [employer] Address [address] [facility] 7t [place] [address] Care Team Providers Care Front Office Representative Name Role Phone Rebecca Hogan NP Primary Care Provider [phone] Reason for Visit * Reason Onset Date Comments Med Refill 02/14/2024 Encounter Details Date Type Department Care Team ([facility] st Contact Info) Description 02/14/2024 Refill [facility] MEDICINE [address] [place] [address] Rebecca Hogan NP [address] [place] [address] Social History Tobacco Use Types Packs/Day Years [...] as of this encounter Plan of Treatment Not on file documented as of this encounter Visit Diagnoses Not on filedocumented in this encounter Additional Health Concerns Assessment Noted Time PHQ-9 Depression Total Score: 18 024 1:40 PM EST documented as of this encounter Care Teams Front Office Representative Relationship Specialty Start Date End Date Rebecca Hogan NP [address] [place] [address] PCP - General Family Medicine 01/20/23 documented as of this encounter
--- OUTSIDE RECORDS SUMMARY | 2024-07-21 13:50 | XMS_ITS | Encounter Summary ---
Author Organization [employer] Address [address] [place] [address] 7t [place] [address] Care Team Providers Care Modeler Name Role Phone Juliano, Kimmie Mary SUAZOP Primary Care Provider [phone] Rebecca Hogan NP Primary Care Provider [phone] Encounter Details Date Type Department Care Team (Late st Contact Info) Description 06/13/2022 Orders Only [facility] MEDICINE [address] [place] [address] Tess Perez LPN Social History Tobacco Use [...] on file documented as of this encounter Procedures Procedure [...] EST) VBG pH 7.43 7.32 - 7.43 [facility] Comment:METER #: [id number] additional_comment: Lester mauro VBG PCO2 55 mmHg [facility] Comment:METER #: [id number] additional_comment: Lester mauro VBG PO2 142 mmHg [facility] Comment:METER #: [id number] additional_comment: Lester mauro VBG Base Excess 11.0 mmol/L [facility] Comment:METER #: [id number] additional_comment: Lester mauro VBG HCO3 37(H) 22 - 26 mmol/L [facility] Comment:METER #: [id number] additional_comment: Lester mauro O2 Sat, Domenic 99.0 % [facility] Comment:METER #: [id number] additional_comment: Lester mauro 02/25/2023 8:33 PM EST 02/25/2023 8:37 PM EST Generic External Data Provider LAB BLOOD ORDERAB LES Final Result Performing Organization Address [facility] Co de Phone Number [facility] [address] [place] [phone] * SARS-CoV-2 RNA, Influenza A/B, and RSV RNA, Ql NAAT (02/25/2023 8:27 PM EST) Pathologist [facility] [place] Influenza A PCR NEGATIVE Negative [facility] Influenza B PCR NEGATIVE Negative [facility] Resp Syncy Virus RNA Qual PCR NEGATIVE Negative [facility] SARS COV2 PCR NEGATIVE Negative [facility] Comment:All test results mus t be [...] use by authorized laboratories.Testing performed on the [employer] GeneXpert utilizingreal-time RT-PCR.All SARS CoV2 and positive influenza A/B results arereported to [facility]. 02/25/2023 8:27 PM EST 02/25/2023 8:31 PM EST Generic External Data Provider LAB MICROBIOLOGY - GENERAL ORDERABLES Final Result Performing Organization Address [facility] Co de Phone Number [facility] [address] [place] [phone] * High Sensitivity Troponin I (02/25/2023 8:27 PM EST) Pathologist [facility] [place] TROPONIN I HIGH SENSITIVITY 5.3 <3.5 - 35.0 ng/L [facility] Comment:The Bonds high sens itivity Troponin-I results should beused in conjunction with other diagnostic information suchas ECG, clinical observations and information, and patientsymptoms to aid in the diagnosis of [place]. 02/25/2023 8:27 PM EST 02/25/2023 8:31 PM EST Generic External Data Provider LAB BLOOD ORDERAB LES Final Result Performing Organization Address [facility] Co de Phone Number [facility] [address] [place] [phone] * Magnesium (02/25/2023 8:27 PM EST) Pathologist [facility] [place] Magnesium 2.1 1.6 - 2.6 mg/dL [facility] 02/25/2023 8:27 PM EST 02/25/2023 8:31 PM EST Generic External Data Provider LAB BLOOD ORDERAB LES Final Result Performing Organization Address [facility] de Phone Number [facility] [address] [place] [phone] * (ABNORMAL) Basic Metabolic Panel (02/25/2023 8:27 PM EST) Pathologist [facility] [place] Sodium 144 135 - 145 mmol/L [facility] Potassium 3.8 3.3 - 5.1 mmol/L [facility] Chloride 102 96 - 108 mmol/L [facility] Carbon Dioxide 34(H) 22 - 29 mmol/L [facility] Anion Gap 12 12 - 20 [facility] Urea Nitrogen (BUN) 8(L) 9 - 16 mg/dL [facility] Creatinine, Serum 0.92 0.5 - 1.4 mg/dL [facility] Creatinine Clr Calc Pharmacy 129.5 [facility] Comment:eGFR (calculated fro m the MDRD study equation) and eCrCl(calculated from the Cockcroft-Gault equation) are based ondifferent parameters and may not yield comparable results.If eCrCl result is absurd, please check patient'sheight/weight. Estimated Glomerular Filt Rate >60 [facility] Comment:NOTE: For -Am erican individuals, multiply the result by 1.210.Chronic Kidney Disease: Estimated GFR < 60 mL/min/[id number] Kidney Disease: Estimated GFR < 15 mL/min/1.73m2 Glucose 140(H) 60 - 115 mg/dL [facility] Calcium 8.8 8.4 - 10.2 mg/dL [facility] 02/25/2023 8:27 PM EST 02/25/2023 8:31 PM EST Generic External Data Provider LAB BLOOD ORDERAB LES Final Result Performing Organization Address [facility] de Phone Number [facility] [address] [place] [phone] * (ABNORMAL) Hepatic Function Panel (02/25/2023 8:27 PM EST) Bilirubin, Total 0.2 0.0 - 1.0 mg/dL [facility] Bilirubin, Direct 0.2 0.0 - 0.5 mg/dL [facility] Aspartate Amino Transferase 23 5 - 37 U/L [facility] Alanine Aminotransferase 19 0 - 40 U/L [facility] Total Protein 8.1(H) 6.5 - 8.0 g/dL [facility] Albumin Level 3.9 3.5 - 5.0 g/dL [facility] Alkaline Phosphatase 79 39 - 117 U/L [facility] 02/25/2023 8:27 PM EST 02/25/2023 8:31 PM EST Generic External Data Provider LAB BLOOD ORDERAB LES Final Result Performing Organization Address [facility] de Phone Number [facility] [address] [place] [phone] * Lactic Acid (02/25/2023 8:27 PM EST) Pathologist [facility] [place] Lactic Acid 1.0 0.5 - 2.0 mmol/L [facility] 02/25/2023 8:27 PM EST 02/25/2023 8:31 PM EST Generic External Data Provider LAB BLOOD ORDERAB LES Final Result Performing Organization Address [facility] de Phone Number [facility] [address] [place] [phone] * Prothrombin Time-INR (02/25/2023 8:27 PM EST) Pathologist [facility] [place] Prothrombin Time 11.6 11.1 - 13.3 SEC [facility] INTERNATIONAL NORM RATIO 1.0 0.9 - 1.1 [facility] Comment:INTERNATIONAL NORMAL IZED RATIO (INR) REFERENCE [...] ORDERAB LES Final Result Performing Organization Address [facility] de Phone Number [facility] [address] [place] [phone] * (ABNORMAL) CBC auto differential (02/25/2023 8:27 PM EST) Pathologist [facility] [place] White Blood Count 8.9 4.8 - 10.8 X10*3/uL [facility] Red Blood Count 4.48(L) 4.60 - 5.80 X10*6/uL [facility] Hemoglobin 12.6(L) 14.0 - 18.0 g/dl [facility] Hematocrit 39.5(L) 42.0 - 52.0 % [facility] Mean Corpuscular Volume 88.2 80.0 - 98.0 fL [facility] Mean Corpuscular Hemoglobin 28.1 27.0 - 33.0 pg [facility] Mean Corpuscular HGB Conc 31.9 31.0 - 36.0 g/dl [facility] Red Cell Distribution Width 13.3 11.0 - 16.0 % [facility] Platelet Count 219 160 - 400 X10*3/uL [facility] Mean Platelet Volume 9.6 9.4 - 12.4 fL [facility] Neutrophils Percent Auto 66.7 45 - 73 % [facility] Imm Gran Pct Auto 0.1 0.0 - 0.4 % [facility] Lymphocytes Percent Auto 18.4(L) 20 - 40 % [facility] Monocytes Percent Auto 7.2 2 - 11 % [facility] Eosinophils Percent Auto 7.1(H) 0 - 4 % [facility] Basophils Percent Auto 0.5 0 - 2 % [facility] NRBC Pct Auto 0.0 0.0 - 0.2 /100WBC [facility] Neutrophils Absolute Auto 5.9 2.0 - 8.3 x10*3/uL [facility] Imm Gran Abs Auto 0.01 0.00 - 0.03 X10*3/uL [facility] Lymphocytes Absolute Auto 1.6 1.2 - 4.9 X10*3/uL [facility] Monocytes Absolute Auto 0.6 0.1 - 1.2 X10*3/uL [facility] Eosinophils Absolute Auto 0.6(H) 0.0 - 0.4 X10*3/uL [facility] Basophils Absolute Auto 0.0 0.0 - 0.2 X10*3/uL [facility] NRBC Abs Auto 0.000 0.0 - 0.012 X10*3/uL [facility] 02/25/2023 8:27 PM EST 02/25/2023 8:31 PM EST Generic External Data Provider LAB BLOOD ORDERAB LES Final Result Performing Organization Address [facility] Co de Phone Number [facility] [address] [place] [phone] * (ABNORMAL) VENOUS BLOOD GAS (09/10/2022 2:06 PM EDT) VBG pH 7.36 7.32 - 7.43 [facility] Comment:METER #: [id number] additional_comment: Cbfurrkat VBG PCO2 63 mmHg [facility] Comment:METER #: [id number] additional_comment: Cbfurrkat VBG PO2 75 mmHg [facility] Comment:METER #: [id number] additional_comment: Cbfurrkat VBG Base Excess 8.3 mmol/L [facility] Comment:METER #: [id number] additional_comment: Cbfurrkat VBG HCO3 36(H) 22 - 26 mmol/L [facility] Comment:METER #: [id number] additional_comment: Cbfurrkat O2 Sat, Domenic 93.0 % [facility] Comment:METER #: [id number] additional_comment: Cbfurrkat 09/10/2022 2:06 PM EDT 09/10/2022 2:13 PM EDT [facility] External Provider LAB BLO OD ORDERABLES Final Result Performing Organization Address [facility] Co de Phone Number [facility] [address] [place] [phone] * High Sensitivity Troponin I (09/10/2022 2:01 PM EDT) TROPONIN I HIGH SENSITIVITY 16.1 <3.5 - 35.0 ng/L [facility] Comment:The Bonds high sens itivity Troponin-I results should beused in conjunction with other diagnostic information suchas ECG, clinical observations and information, and patientsymptoms to aid in the diagnosis of [place]. 09/10/2022 2:01 PM EDT 09/10/2022 2:06 PM EDT [facility] External Provider LAB BLO OD ORDERABLES Final Result Performing Organization Address [facility] de Phone Number [facility] [address] [place] [address] [phone] * B Type Natriuretic Peptide (BNP) (09/10/2022 2:01 PM EDT) Pathologist [facility] [place] B Type Natriuretic Peptide 97 <100 pg/mL [facility] Comment:For those patients w ho are being treated with Natrecor(nesiritide, recombinant BNP), BNP testing should beperformed at least two hours post treatment in order toensure that only endogenous levels of BNP are detected. 09/10/2022 2:01 PM EDT 09/10/2022 2:06 PM EDT [facility] External Provider LAB BLO OD ORDERABLES Final Result Performing Organization Address [facility] de Phone Number [facility] [address] [place] [phone] [phone] * (ABNORMAL) Comprehensive Metabolic Panel (09/10/2022 2:01 PM EDT) [facility] Sodium 143 135 - 145 mmol/L [facility] Potassium 4.0 3.3 - 5.1 mmol/L [facility] Chloride 104 96 - 108 mmol/L [facility] Carbon Dioxide 32(H) 22 - 29 mmol/L [facility] Anion Gap 11(L) 12 - 20 [facility] Urea Nitrogen (BUN) 10 9 - 16 mg/dL [facility] Creatinine, Serum 0.81 0.5 - 1.4 mg/dL [facility] Creatinine Clr Calc Pharmacy 143.3 [facility] Comment:eGFR (calculated fro m the MDRD study equation) and eCrCl(calculated from the Cockcroft-Gault equation) are based ondifferent parameters and may not yield comparable results.If eCrCl result is absurd, please check patient'sheight/weight. Estimated Glomerular Filt Rate >60 [facility] Comment:NOTE: For -Am erican individuals, multiply the result by 1.210.Chronic Kidney Disease: Estimated GFR < 60 mL/min/1.28f7Pbbwuq Kidney Disease: Estimated GFR < 15 mL/min/1.73m2 Glucose 110 60 - 115 mg/dL [facility] Calcium 8.9 8.4 - 10.2 mg/dL [facility] Bilirubin, Total 0.3 0.0 - 1.0 mg/dL [facility] Aspartate Amino Transferase 194(H) 5 - 37 U/L [facility] Alanine Aminotransferase 177(H) 0 - 40 U/L [facility] Total Protein 7.4 6.5 - 8.0 g/dL [facility] Albumin Level 3.7 3.5 - 5.0 g/dL [facility] Alkaline Phosphatase 87 39 - 117 U/L [facility] 09/10/2022 2:01 PM EDT 09/10/2022 2:06 PM EDT us [facility] External Provider LAB BLO OD ORDERABLES Final Result [facility] [address] [place] [phone] * COVID-19 ID NOW (BONDS) (09/10/2022 2:01 PM EDT) IDNOW SERIAL# [id number] [facility] COVID-19 TEST Negative Negative [facility] COVID-19 NOTE See Note [facility] Comment: Results are for the identification of SARS-CoV2 RNA. TheSARS-CoV2 RNA is generally detectable in respiratory samplesduring the acute phase of infection. Positive results areindicative of the presence of SARS-CoV-2 RNA; clinicalcorrelation with patient history and other diagnosticinformation is necessary to determine patient infectionstatus. Positive results do not rule out bacterial infectionor co- infection with other viruses.Testing facilities within the [place] and itsterritories are required to report all [...] use by authorized laboratories.Testing performed on the [employer] NOW utilizing NAAT. 09/10/2022 2:01 PM EDT 09/10/2022 2:06 PM EDT [facility] Exter nal Provider LAB MOLECULAR DIAGNOSTICS ORDERABLES Final Result [facility] [address] [place] [phone] * (ABNORMAL) CBC auto differential (09/10/2022 2:01 PM EDT) White Blood Count 8.7 4.8 - 10.8 X10*3/uL [facility] Red Blood Count 4.58(L) 4.60 - 5.80 X10*6/uL [facility] Hemoglobin 12.6(L) 14.0 - 18.0 g/dl [facility] Hematocrit 40.2(L) 42.0 - 52.0 % [facility] Mean Corpuscular Volume 87.8 80.0 - 98.0 fL [facility] Mean Corpuscular Hemoglobin 27.5 27.0 - 33.0 pg [facility] Mean Corpuscular HGB Conc 31.3 31.0 - 36.0 g/dl [facility] Red Cell Distribution Width 13.8 11.0 - 16.0 % [facility] Platelet Count 202 160 - 400 X10*3/uL [facility] Mean Platelet Volume 9.7 9.4 - 12.4 fL [facility] Neutrophils Percent Auto 72.5 45 - 73 % [facility] Imm Gran Pct Auto 0.3 0.0 - 0.4 % [facility] Lymphocytes Percent Auto 11.4(L) 20 - 40 % [facility] Monocytes Percent Auto 6.2 2 - 11 % [facility] Eosinophils Percent Auto 9.0(H) 0 - 4 % [facility] Basophils Percent Auto 0.6 0 - 2 % [facility] NRBC Pct Auto 0.0 0.0 - 0.2 /100WBC [facility] Neutrophils Absolute Auto 6.3 2.0 - 8.3 x10*3/uL [facility] Imm Gran Abs Auto 0.03 0.00 - 0.03 X10*3/uL [facility] Lymphocytes Absolute Auto 1.0(L) 1.2 - 4.9 X10*3/uL [facility] Monocytes Absolute Auto 0.5 0.1 - 1.2 X10*3/uL [facility] Eosinophils Absolute Auto 0.8(H) 0.0 - 0.4 X10*3/uL [facility] Basophils Absolute Auto 0.1 0.0 - 0.2 X10*3/uL [facility] NRBC Abs Auto 0.000 0.0 - 0.012 X10*3/uL [facility] 09/10/2022 2:01 PM EDT 09/10/2022 2:06 PM EDT us [facility] External Provider LAB BLO OD ORDERABLES Final Result [facility] [address] [place] [phone] [phone] documented in this encounter Visit Diagnoses Not on filedocumented in this encounter Care Teams Modeler Relationship Specialty Start Date End Date Kimmie Henao FNP PCP - General Family Medicine 10/06/21 01/19/23 Rebecca Hogan NP [address] [place] [address] PCP - General Family Medicine 01/20/23 documented as of this encounter
--- OUTSIDE RECORDS SUMMARY | 2024-07-21 13:50 | XMS_ITS | Encounter Summary ---
Author Organization [employer] Address [address] [place] [address] [address] [place] [address] Care Team Providers Care Highballer Name Role Phone Rebecca Hogan NP Primary Care Provider [phone] Reason for Visit * Reason Comments [facility] call outreach Encounter Details Date Type Department Care Team (Latest Contact Info) Description 07/18/2024 Patient Outreach [facility] MEDICINE [address] [place] [address] Rebecca Hogan NP [address] [place] [address] Care Coordination (C3 NADEGE Almeida telephone call [...] Progress Notes * Bianca Almeida - 07/18/2024 10:35 AM EDT CHW Bianca Almeida placed outbound call to patient for follow up call on SDOH needs. No answer at thistime. LVM introducing herself from [facility] CM Department. Requested call back. CHW reinforced direct contact information or for any additional questionsor concerns and extended clinic hours on Mondays and Wednesdays, and Walk-In Urgent Care Located inLobby of [facility]. Patient provided with after-hours line for [facility], , which offer night time triage service and option to transfer to collection systems modeler provider if needed. CHW will attempt another followup call within 10 days. documented in this encounter Plan of Treatment Not on file documented as of this encounter Visit Diagnoses Not on filedocumented in this encounter Additional Health Concerns Assessment Noted Time PHQ-9 Depression Total Score: 10 025 2:53 PM EDT documented as of this encounter Care Teams Highballer Relationship Specialty Start Date End Date Appram, Rebecca, DAIRY HAND [address] [place] [address] PCP - General Family Medicine 01/20/23 documented as of this encounter
--- OUTSIDE RECORDS SUMMARY | 2024-07-21 13:50 | XMS_ITS | Encounter Summary ---
Author Organization [email or web address] Address 75 [facility] 7t [place] [address] Care Team Providers Care Museum Assistant Name Role Phone Nikagabriel Rebecca SITA Primary Care Provider [phone] Reason for Visit * Reason Comments Med Refill Encounter Details Date Type Department Care Team ([facility] st Contact Info) Description 05/05/2023 Refill [facility] MEDICINE [address] [place], [place] [phone] Name, MD Bg [address] [place] [address] Seasonal allergic rhinitis, unspecified trigger; Primary hypertension [...] hypertension documented in this encounter Care Teams Museum Assistant Relationship Specialty Start Date End Date Rebecca Hogan NP [address] [place] [phone] PCP - General Family Medicine 01/20/23 documented as of this encounter
--- OUTSIDE RECORDS SUMMARY | 2024-07-21 13:50 | XMS_ITS | Encounter Summary ---
Author Organization [employer] Address [address] [facility] 7t [place] [address] Care Team Providers Care Vice President Of News Name Role Phone Rebecca Hogan NP Primary Care Provider [phone] Reason for Visit * Reason Onset Date Comments Hospital Follow-up 06/04/2024 Encounter Details Date Type Department Care Team ([facility] st Contact Info) Description 06/04/2024 Telephone [facility] MEDICINE [address] [place], [place] [phone] Rebecca Hogan NP [address] [place] [address] Hospital Follow-up Social History Tobacco Use Types Packs/Day Years [...] Recorded Patient Health Questionnaire-2 Score 5 05/12/2023 Internet Access Answer Date Recorded Internet Access [...] encounter Miscellaneous Notes * Telephone Encounter - Naa Freeman - 06/04/2024 9:29 AM EST Tc from pt requesting a HDF appt. [place] [facility] [place]: 05/31 Discharge date: 06/03 Diagnosed: flu, pneumonia *Send message to [place] Clinical Care Coordinators [phone] documented in this encounter Plan of Treatment Not on file documented as of this encounter Visit Diagnoses Not on filedocumented in this encounter Additional Health Concerns Assessment Noted Time PHQ-9 Depression Total Score: 18 024 1:40 PM EST documented as of this encounter Care Teams Vice President Of News Relationship Specialty Start Date End Date Rebecca Hogan NP [address] [place] [address] PCP - General Family Medicine 01/20/23 documented as of this encounter
--- OUTSIDE RECORDS SUMMARY | 2024-07-21 13:50 | XMS_ITS | Clinical Summary ---
Author Organization [employer] Address 75 [facility] 7t [place] [address] Care Team Providers Care Lpn Rn Name Role Phone Nikagabriel Rebecca BUCKNER Primary Care Provider [phone] Allergies No known active allergies Medications methadone (Dolophine) 10 MG/5ML solution 30mg daily at methadone clinic Active cetirizine (ZyrTEC) 10 MG tabletIndicatio ns:Seasonal allergies Take 1 tablet by mouth every day 90 tablet 1 05/12/19 24 Active tiotropium (Spiriva Respimat) 1.25 MCG/ACT inhalerIndicati ons:Asthma with COPD ([facility]/HCC) Inhale 2 puffs Once per day. 1 each 2 04/15/20 24 025 Active Fluticasone-Jacek meterol (Advair Diskus) 500-50 MCG/ACT aerosol powderIndicatio ns:Asthma with COPD (CMS/HCC) Inhale 1 puff 2 times daily. 60 each 2 04/15/20 24 Active albuterol 108 (90 Base) MCG/ACT inhalerIndicati ons:Asthma with COPD (CMS/HCC) INHALE 2 PUFFS BY MOUTH EVERY 4 TO 6 HOURS NEEDED 18 g 04/15/20 24 Active fluticasone (Flonase) 50 MCG/ACT nasal sprayIndication s:Seasonal allergic rhinitis, unspecified trigger SHAKE LIQUID AND USE 2 SPRAYS IN EACH NOSTRIL EVERY DAY 48 g 04/15/20 24 Active hydroCHLOROthia zide 12.5 MG tabletIndicatio ns:Primary hypertension Take 1 tablet (12.5 mg) by mouth Once per day. 90 tablet 04/15/20 24 Active amLODIPine (Norvasc) 5 MG tabletIndicatio ns:Primary hypertension TAKE 1 TABLET(5 MG) BY MOUTH IN THE MORNING 90 tablet 04/15/20 24 Active montelukast (Singulair) 10 MG tabletIndicatio ns:Asthma with COPD (CMS/HCC) Take 1 tablet (10 mg) by mouth at bedtime. 90 tablet 04/15/20 24 Active ferrous gluconate (Fergon) 324 (38 Fe) MG tablet Take 1 tablet (324 mg) by mouth every other day. With vitamin C 30 tablet 2 05/03/19 25 026 Active Ascorbic Acid (vitamin C) 250 MG tablet Take 1 tablet (250 mg) by mouth every other day. With iron 30 tablet 2 05/03/19 25 026 Active albuterol (2.5 MG/3ML) 0.083% nebulizer solutionIndicat ions:Mild intermittent asthma with acute exacerbation USE 3 ML VIA NEBULIZER FOUR TIMES DAILY 90 mL 3 07/02/19 25 Active albuterol (2.5 MG/3ML) 0.083% nebulizer solutionIndicat ions:Mild intermittent asthma without complication USE 3 ML VIA NEBULIZER FOUR TIMES DAILY 90 mL 3 04/15/20 24 025 Discontinued(Re order (will not trigger notification to Pharmacy)) predniSONE (Deltasone) 20 MG tabletIndicatio ns:Mild intermittent asthma with acute exacerbation Take 2 tablets (40 mg) by mouth Once per day for 5 days. 10 tablet 07/02/19 25 025 Hospital, Clinic, or Other Facility Administered Medication Ordered Dose Route Frequency Start Date End Date Status albuterol (2.5 MG/3ML) 0.083% nebulizer solution 5 mgIndications:Mild intermittent asthma with acute exacerbation 5 mg NEBULIZATION Once 07/01/2024 07/01/2024 Ended Active Problems Problem Noted Date Diagnosed Date Anemia 08/22/2023 Assessment & Plan (08/22/2023 9:47 PM EDT): -decreased H&H from 02/2023 -lab ordered to evaluate anemia type Routine screening for STI (sexually transmitted infection) 08/22/2023 Assessment & Plan (08/22/2023 9:41 PM EDT): -patient agreeable to testing. labs ordered Colon cancer screening 08/22/2023 Assessment & Plan (08/22/2023 9:42 PM EDT): -due for routine screening at this time. Patient denies every undergoing screening -GI referral placed Asthma with COPD 08/22/2023 Assessment & Plan (04/15/2024 12:17 PM EST): -patient reports stable at this time -medication refills provided Assessment & Plan (08/22/2023 9:43 PM EDT): -patient reports stable at this time -medication refills provided -will assess further at next visit Substance use disorder 03/20/2023 Assessment & Plan (04/15/2024 12:16 PM EST): -verbalizes desire to engage with [facility] for suboxone treatment -will have human resources team member reach out to the patient for an appointment -call placed to clinician to call patient and assist with establishing with therapist Chronic right shoulder pain 09/20/2022 Knee pain 09/20/2022 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 -Very strongly urged to quit smoking to reduce cardiovascular risk. -advised daily BP monitoring with record keeping. Will have team nurses call for televisit in 1 week with plan to increase hydrochlorothiazide dose to 25 mg if BP persistently elevated over 130/80 mmHg -he is encouraged to have previously ordered blood work completed to assess kidney function Assessment & Plan (02/26/2024 11:58 AM EST): -BP not controlled per patients reported home readings -advised continued med compliance, low salt diet, routine daily exercise -follow-up 1 month in person Assessment & Plan (08/22/2023 9:46 PM EDT): -BP not at goal of 130/80 mmHg today -patient stable, denies headache, chest pain, vision changes -amlodipine 5 mg and hydrochlorothiazide 12.5 mg refilled, microalbumin ordered -continued home BP monitoring advised -advised to elevate legs daily to assist with edema -low salt diet and daily exercise advised as outlined below -follow-up 1 month Severe obesity 06/23/2017 Assessment & Plan (02/26/2024 12:03 PM EST): -healthy diet and physical activity recommendations reviewed -encouraged to complete labs as ordered Assessment & Plan (08/22/2023 9:38 PM EDT): -Healthy diet and exercise teaching completed: Eat a variety of fruit and vegetables, whole grains such as whole-wheat flour, bulgur (cracked wheat), oatmeal, and brown rice. Intake protein from beans, nuts, fish, and lean meats. Eat low-fat or fat- free dairy products. Limit highly processed foods such as hot dogs, sandwich meat, etc. Engage in minimum of 150 min of moderate intensity exercise weekly -labs ordered -follow-up 1 month to discuss labs Severe persistent asthma 06/23/2017 Encounters Date Type Department Care Team Description 07/18/2024 Patient Outreach [address] [address] Rebecca Hogan NP Care Coordination ([facility] Bianca Almeida telephone call outreach) 07/18/2024 Patient Outreach [address] [address] Rebecca Hogan NP Care Coordination ([facility] Bianca Almeida telephone call outreach) 07/08/[address] [address] Alison Barraza MA chartprep 07/01/2024 2:00 PM EDT Office Visit [address] [address] Rebecca Hogan NP Elevated blood pressure reading in office with diagnosis of hypertension (Primary Dx); Mild intermittent asthma with acute exacerbation; Asthma with COPD ([facility]) 06/28/2024 Population Health Risk Score [facility] () [address] [address] Provider, Population Health Generic 06/26/[address] [address] Alison Barraza MA chartprep 06/19/2024 Patient Outreach [address] [address] Rebecca Hogan NP Care Coordination ([facility] telephone call outreach) 06/17/[address] [address] Rebecca Hogan NP 06/11/2024 Telephone [facility] [address] [place] [address] Rebecca Hogan NP chartprep 06/05/2024 Patient Outreach [address] [address] Rebecca Hogan NP Care Coordination ([facility] telephone call outreach) 06/05/2024 Patient Outreach [address] [address] Rebecca Hogan NP Care Coordination ([facility] telephone call outreach) 06/04/2024 Patient Outreach [address] [address] Rebecca Hogan NP Transition Of Care (Tcm) (HDF- scheduled and SDOH screening positive and Tobacco screening positive) 06/04/[address] [address] Rebecca Hogan NP Hospital Follow-up 05/08/[address] [address] Xiomara Laura MA 05/03/2024 Orders Only [address] [address] Rebecca Hogan NP 05/03/2024 Telephone [facility] MEDICINE [address] [place] [address] Paola Gagnon RN from Last 3 Months Immunizations Name Administration Dates Next Due Pneumococcal Conjugate PCV 20 09/29/2022 Tdap 12/01/2022 Zoster, Recombinant 12/01/2022,09/29/2022 Family History Medical History Relation Name Comments Heart disease Father Prostate cancer Father Breast cancer Mother Colon cancer Mother Relation Name Status Comments Father Mother Social History Tobacco Use Types Packs/Day Years Used Date Smoking Tobacco: Every Day Cigarettes Smokeless Tobacco: Never Tobacco Cessation:Ready to Q uit: Not Asked; Counseling Given: Not Answered Comments:Smokes once in a blue espinoza. Started smoking 2010 about 1 ppd [...] is your housing situation today? I have johannahakeem najera 06/04/[address] you [...] Orientation Straight 02/14/2022 10 :30 AM EDT Last Filed Vital Signs Vital Sign Reading Time Taken Comments Blood Pressure 140/76 07/01/2024 2:41 PM EDT Pulse 104 07/01/2024 2:14 PM EDT Temperature 36.8 ??C (98.2 ??F) 07/01/2024 2:14 PM ED T Respiratory Rate 26 07/01/2024 2:14 PM EDT Oxygen Saturation 95% 07/01/2024 2:14 PM EDT Inhaled Oxygen Concentration - - Weight 139 kg (305 lb 6.4 oz) 07/01/2024 2:14 PM EDT Height 182.9 cm (6') 07/01/2024 2:14 PM EDT Body Mass Index 41.42 07/01/2024 2:14 PM EDT Plan of Treatment Health Maintenance Due Date Last Done Comments CT Colonography 1965 Colonoscopy 1965 Colorectal Cancer Screening 1965 FIT DNA/Cologuard 1965 FIT 1965 FOBT 1965 Sigmoidoscopy 1965 Hepatitis B Vaccines (1 of 3 - 19+ 3-dose series) 02/11/1984 COVID-19 Vaccine (2023-2 5 season) 2023 09/17/2020, 08/19/2020 Influenza Vaccine (#1) 2023 Depression Monitoring (PHQ-9) 01/01/2025, 07/01/2024 Alcohol/Substance Use Screening 04/15/2025 04/15/2024 SDOH Screening 06/05/2025 06/05/2024 Depression Screening 07/01/2025 07/01/2024, 07/01/2024 Tobacco Screening 07/01/2025 07/01/2024 Lipid Panel 04/15/2029 04/15/2024 DTaP/Tdap/Td Vaccines (2 - T d or Tdap) 12/01/2032 12/01/2022 RSV Patients and Patients Aged 60 years or older (1 - 1-dose 75+ series) 02/11/2040 Pneumococcal Vaccine: 50+ Years Completed 09/29/2022 Zoster Vaccines Completed 12/01/2022, 09/29/2022 HIV Screening Completed 04/15/2024 Hepatitis C Screening Completed 04/15/2024 HIB Vaccines Aged Out No longer eligi ble based on patient's age to complete this topic HPV Vaccines Aged Out No longer eligi ble based on patient's age to complete this topic Hepatitis A Vaccines Aged Out No long er eligible based on patient's age to complete this topic IPV Vaccines Aged Out No longer eligi ble based on patient's age to complete this topic Meningococcal Vaccine Aged Out No aniya zeny eligible based on patient's age to complete this topic RSV under 20 months Aged Out No longe r eligible based on patient's age to complete this topic Rotavirus Vaccines Aged Out No longer eligible based on patient's age to complete this topic Procedures Procedure Name Priority Date/Time Associated Diagnosis Comments SARS COV2/INFLUENZA A/B AND RSV RNA QL NAAT Routine 07/21/2024 1:05 PM EDT HEPATITIS C AB W/REFL TO HCV RNA, QN, PCR Routine 04/15/2024 10:49 AM EST Encounter for health-related screening HIV 1/2 ANTIGEN/ANTIBODY, FOURTH GENERATION W/RFL Routine 04/15/2024 10:49 AM EST Encounter for health-related screening LIPID PANEL, STANDARD Routine 04/15/2024 10:49 AM EST Severe obesity (CMS/HCC) from Last 3 Months or Most Recently Relevant to Health Maintenance Results * SARS-CoV-2 RNA, Influenza A/B, and RSV RNA, Ql NAAT (07/21/2024 1:05 PM EDT) Influenza A PCR NEGATIVE Negative [facility] Influenza B PCR NEGATIVE Negative [facility] Resp Syncy Virus RNA Qual PCR NEGATIVE Negative [facility] SARS COV2 PCR NEGATIVE Negative [facility] Comment:All test results mus t [...] use by authorized laboratories.Testing performed on the [employer] GeneXpert utilizingreal-time RT-PCR.All SARS CoV2 and positive influenza A/B results arereported to [facility]. 07/21/2024 1:05 PM EDT 07/21/2024 1:07 PM EDT Generic External Data Provider LAB MICROBIOLOGY - GENERAL ORDERABLES Final Result Performing Organization Address [facility] Co de Phone Number [facility] [address] [place] [phone] * Hepatitis C Antibody with Reflex to HCV, RNA, Quantitative, Real-Time PCR (04/15/2024 10:49 AM EST) Hepatitis C Antibody Nonreactive Nonreactive [facility] Comment:Antibodies to HCV no t detected; does not exclude early acuteHCV infection. Blood Venous blood specimen / Unknown 04/15/2024 10:49 AM EST 04/15/2024 1:18 PM EST Rebecca Maher APPLICATIONS SYSTEMS ENGINEER LAB BLOOD ORDERABLES Final Resu lt Performing Organization Address [facility] Co de Phone Number [facility] [address] [place] [address] [phone] * HIV-1/2 Antigen and Antibodies, Fourth Generation, with Reflexes (04/15/2024 10:49 AM EST) HIV AB/AG Nonreactive Nonreactive [facility] Comment:HIV-1 p24 Ag and/or HIV-1/HIV-2 Ab not detected.A test result that is nonreactive does not exclude thepossibility of exposure to or infection with HIV-1 and/orHIV-2. Nonreactive results in this assay for individualswith prior exposure to HIV-1 and/or HIV-2 may be due toantigen and antibody levels that are below the limit ofdetection of this assay.The [employer] HIV Ag/Ab Combo assay result andsupplemental assay results should be interpreted inconjunction with the patient's clinical presentation,history and other laboratory results. If the results areinconsistent with clinical evidence, additional testing issuggested to confirm the result. Blood Venous blood specimen / Unknown 04/15/2024 10:49 AM EST 04/15/2024 1:18 PM EST us Rebecca Hogan APPLICATIONS SYSTEMS ENGINEER LAB BLOOD ORDERABLES Final Resu lt [facility] [address], [place] [phone] * Lipid Panel, Standard (04/15/2024 10:49 AM EST) Triglycerides 60 <150 mg/dL [facility] Comment:Desirable Triglyceri de: less than 150 mg/dLBorderline High Triglyceride 150-199 mg/dLHigh Triglyceride: 200-499 mg/dLVery High Triglyceride: greater than or equal to 5OO mg/dL Cholesterol 140 <200 mg/dL [facility] Comment:Desirable Cholestero l: less than 200 mg/dLBorderline High Cholesterol: 200-239 mg/dLHigh Cholesterol: greater than 239 mg/dL LDL Cholesterol Calculated 81 <100 mg/dL [facility] Comment:Desirable LDL: less than 100 mg/dLNear Optimal/Above Optimal LDL: 110- 129 mg/dLBorderline High LDL: 130-159 mg/dLHigh LDL: 160-189 mg/dLVery High LDL: greater than or equal to 190 mg/dL HDL Cholesterol 47 >40 mg/dL [facility] Comment:Desirable HDL: great er than 40 mg/dL Note: This HDL assay may give artificially low results in patients with liver disease. Blood Venous blood specimen / Unknown 04/15/2024 10:49 AM EST 04/15/2024 1:18 PM EST us Rebecca Hogan NP LAB BLOOD ORDERABLES Final Resu lt [facility] [address] [place] [address] [phone] from Last 3 Months or Most Recently Relevant to Health Maintenance Insurance [facility] C3 HSN FULL Care Teams Lpn Rn Relationship Specialty Start Date End Date Rebecca Hogan NP [address] [place] [phone] PCP - General Family Medicine 01/20/23
--- OUTSIDE RECORDS SUMMARY | 2024-07-21 13:50 | XMS_ITS | Encounter Summary ---
Author Organization [employer] Address [address] [place] [address] [place] [address] Care Team Providers Care Cap Sizer Name Role Phone Kimmie Henao Primary Care Provider [phone] Rebecca Hogan NP Primary Care Provider [phone] Reason for Visit * Reason Comments Med Refill Encounter Details Date Type Department Care Team (Late st Contact Info) Description 07/21/2022 Refill [facility] MEDICINE [address] [place] [address] Kimmie Henao FNP [address] [place] [address] Dept [place] [address] Seasonal allergic rhinitis, unspecified trigger Social History [...] trigger documented in this encounter Care Teams Cap Sizer Relationship Specialty Start Date End Date Kimmie Henao FNP PCP - General Family Medicine 10/06/21 01/19/23 Rebecca Hogan NP [address] [place] [address] PCP - General Family Medicine 01/20/23 documented as of this encounter
--- OUTSIDE RECORDS SUMMARY | 2024-07-21 13:50 | XMS_ITS | Encounter Summary ---
Author Organization [employer] [facility] Address [address] [place] [address] [place] [address] Care Team Providers Care Clinical Business Manager Name Role Phone Kimmie Henao Primary Care Provider [phone] Rebecca Hogan NP Primary Care Provider [phone] Reason for Visit * Reason Comments Med Refill Encounter Details Date Type Department Care Team (Late st Contact Info) Description 10/24/2022 Refill [facility] MEDICINE [address] [place] [address] Kimmie Henao FNP [address] [place] [address] Dept [place] [address] Primary hypertension Social History Tobacco Use Types [...] hypertension documented in this encounter Care Teams Clinical Business Manager Relationship Specialty Start Date End Date Kimmie Henao FNP PCP - General Family Medicine 10/06/21 01/19/23 Rebecca Hogan NP [address] [place] [address] PCP - General Family Medicine 01/20/23 documented as of this encounter
--- NOTE | 2024-07-21 13:53 | ECG_ITS ---
Test Reason : repeat Blood Pressure : */* mmHG Vent. Rate : 111 BPM Atrial Rate : 111 BPM P-R Int : 150 ms QRS Dur : 84 ms QT Int : 360 ms P-R-T Axes : 78 4 68 degrees QTcB Int : 489 ms Sinus tachycardia Nonspecific ST and T wave abnormality Abnormal ECG When compared with ECG of 02-Jun-2024 09:16, Premature atrial complexes are no longer Present ST now depressed in Inferior leads ST now depressed in Lateral leads Nonspecific T wave abnormality now evident in Lateral leads Referred By: Sanjana Valentine Electronically Signed By: Romain Gooden
[2024-07-21 14:21] LABS: ABG Refer to POC result
[2024-07-21 14:23] LABS: Appearance Urine Clear; Color Urine Yellow; Glucose Urine UA 100 mg/dL (Negative); Leukocyte Esterase Urine Negative (Negative); Nitrite Urine Negative (Negative); Specific Gravity - Urine 1.015 (1.005-1.025); UMIC TRIGGER UACC YES; Urine Blood Trace (Negative); Urine Ketones Negative (Negative); Urine Protein 100 (2+) mg/dL (Neg-Trace)
[2024-07-21] MEDS: Rocuronium Bromide 50 MG/5 ML VIAL 10 MG IVPUSH (14:24)
[2024-07-21 14:27] LABS: Bacteria Urine None Seen (None Seen); Hyaline Casts Urine 0-2 /LPF (0-2); RBC Urine 0-2 /HPF (0-2); Squamous Epithelial Cell Urine 0-2 /HPF (0-2); WBC Urine 0-5 /HPF (0-5)
--- NOTE | 2024-07-21 14:27 | MHC.EDTECH ---
ABG was drawn and sent by RT Cage. ABG has result. Spoke with MD Valentine who directed that VBG was no longer needed.
[2024-07-21 14:36] LABS: Amphetamine Screen Urine Not Detected (Not Detect); Barbiturates, Urine Not Detected (Not Detect); Benzodiazepines Screen Urine POSITIVE (Not Detect); Buprenorphine Scr Not Detected (Not Detect); Cannabinoid Screen Urine Not Detected (Not Detect); Cocaine Screen Urine POSITIVE (Not Detect); Fentanyl, urine POSITIVE (Not Detect); Lactic Acid 1.2 mmol/L (0.5-2.0); Methadone Screen, Urine Not Detected (Not Detect); Opiate Screen Urine POSITIVE (Not Detect); Oxycodone Screen Urine Not Detected (Not Detect); Phencyclidine Screen Urine Not Detected (Not Detect)
[2024-07-21] MEDS: fentaNYL citrate/NS 1,000 MCG/100 ML PLAST..BAG 17.5 MCG IVCONT (14:45)
[2024-07-21] MEDS: propofoL 1,000 MG/100 ML VIAL 42.03 MG IVCONT ×5 (14:45→23:12)
[2024-07-21] MEDS: 0.9 % Sodium Chloride 1,000 ML 999 ML IV (15:05)
--- NOTE | 2024-07-21 15:29 | PHA.MEDREC ---
Addendum entered by Amanda Cabral RPh 07/21/24 17:38: [facility] reviewed Original Note: Pharmacy Consult ? Medication Reconciliation Pharmacy has completed the medication reconciliation. Spoke to pt's family to confirm meds.
[2024-07-21 15:31] LABS: ABG Base Excess 4.6 mmol/L; ABG HCO3 27 mmol/L (22-26); ABG pCO2 36 mmHg (32-45); ABG pH 7.48 (7.35-7.45); ABG pO2 83 mmHg (83-108)
--- NOTE | 2024-07-21 15:35 | PC.NURSE ---
Pt arrived unresponsive at main ED door, ED staff/ security removed pt from car. Pt was unresponsive on arrival. Pt rushed back to ED via stretcher for immediate evaluation/care, CPR and bagging airway in process. Pt in ED at 1219. Dr. Valentine at bedside, pt placed on monitor, pads placed on patient, RSI medications prepared. Bilat IVs placed. Resp at bedside. please see hand written charting in physical chart for events involving Pt emergent care. Pt placed on Propofol and Fentanyl drips for sedations given intubation see charting below for times and titration. Unable to chart titrations of Propofol and Fentanyl due to computer glitch--no start time on the order. This RN reached out to pharmacy and spoke with Pharmacist Zaki for assistance. Zaki reports unable to resolve the issue. Zaki attempts to reenter the medications to remedy the situation but unsuccessful. Below is an outline of the titration for both drips. RESIN MIXER made aware that titration could not be entered. Propofol Drip: 1252 drip started at 50mg/kg. Order received from provider to start drip at a higher rate at this time. Fentanyl 1259 drip started at 25mg/kg 1310 dose increased to 50mg/kg due 1325 dose increase to 75 mg/kg 1355 dose increased to 100 mg/kg 1400 verbal order given to increase dose to 150 mg/kg 1414 dose increased to 175 mg/kg Report called to ICU. Spoke with NAYANA Enciso for RN to RN. Zaria given opportunity for questions and all questions answered to satisfaction. Pt transported to ICU by this RN, RT, and tree surgeon helper at approx 1430. Care of Pt relinquished to NAYANA Enciso
[2024-07-21] MEDS: Azithromycin 500 MG in 0.9 % Sodium Chloride 250 ML 125 MG IV (15:41)
[2024-07-21] MEDS: Heparin Sodium,Porcine 5,000 UNIT/ML VIAL 5000 UNIT SUBCUT ×2 (15:42→21:28)
[2024-07-21] MEDS: cefTRIAXone sodium 1 GM VIAL IVPUSH (15:42)
[2024-07-21] MEDS: Ampicillin Sodium/Sulbactam Na 3 GM in 0.9 % Sodium Chloride 100 ML IV ×2 (15:42→20:18)
[2024-07-21] MEDS: Chlorhexidine Gluc Oral Rinse 15 ML MOUTHWASH BUCCAL ×2 (15:43→21:28)
[2024-07-21] MEDS: Lactated Ringers 1,000 ML 999 ML IV ×3 (17:50→20:11)
[2024-07-21] MEDS: fentaNYL citrate/NS 1,000 MCG/100 ML PLAST..BAG 20 MCG IVCONT ×2 (17:55→22:26)
--- NOTE | 2024-07-21 19:15 | PC.NURSE ---
07/21/24 Patient arrived at the ICU approx. at? 1445? from ED.? Neurosedated/intubated,? rhonchurous throughout, on fentanyl and propofol gtt? per MAR. Does not open eyes , does not track, does not follow commands, SINGH occasionally? (passive ROM performed/reposition maintained). Cardiac: Sinus rhythm, Systolic BP in the 80?s, MAP 59. Dr. Peng made aware of the above vitals. 3L of LR ordered. GI:? LBM 07/21 , +bowel sounds, NPO, OG tube in place/clamp.? : Rivero in place,patent/ draining.? Infectious: IV antibiotic given, cultures pending. Lines: peripheral IVs .
[2024-07-21] MEDS: Albuterol Sulfate (0.083%) 2.5 MG/3 ML VIAL.NEB INHALE (20:33)
--- NOTE | 2024-07-21 20:36 | PM.CCHP ---
History of Present Illness Date of Service: 07/21/24 Attending physician on admission: Clarence Peng Chief Complaint: Altered Mental Status Mr Zarate is a 59-year-old male with history of COPD not on home oxygen, tobacco use disorder, hypertension, RIANA not on CPAP, opioid use disorder on methadone who was dropped off at the ER and initially found to be unresponsive in asystole. CPR was started and he regained a pulse. The pt was intermittently conscious and gave a vague history admitting to heroin use and c/o chest pain. EKG revealed no ST-elevation. After becoming more lethargic and unresponsive, he was intubated for airway protection. On arrival to the emergency room, the pt was asystolic. Once intubated, BP was 140/94, HR 117, O2 sat 100% on 40% FiO2.? Laboratory data significant for WBC 17.5, hemoglobin 13.4, hematocrit 41.6, BNP 226. VBG 7.48 36 83 27.? UDS positive for opiates, fentanyl, benzos, cocaine. Imaging: Head CT unremarkable. Chest CT indicative of pneumonia ED COURSE: The patient was given? LR 1 L, narcan, bronchodilator, magnesium, Solu-Medrol. RSI meds included lorazepam, midazolam, rocuronium, ketamine, succinylcholine.?He was sedated with a fentanyl and propofol drip.? He was treated empirically with azithromycin, ceftriaxone. Review of Systems Review of Systems: Yes unobtainable due to endotracheal tube and Unobtainable due to mental status PMFSH Past Medical History Medical History (Updated 07/21/24 @ 22:28 by Ifrah Vega NP) Opioid use disorder (~08/27/18) Nocturnal hypoxemia Snoring Asthma-COPD overlap syndrome Asthma Allergic rhinitis Somnolence, daytime Morbid obesity Obstructive sleep apnea HTN (hypertension) Chronic respiratory failure due to obstructive sleep apnea Bursitis of right shoulder Osteoarthritis of left knee Social History Social History Household Members: Spouse Housing: House Do you presently have visiting nurse or other home services: No Alcohol intake: current Alcohol intake frequency: holidays/special occasions only Patient Tobacco Use Status: Current everyday Tobacco user Tobacco use type: Cigarette Cigarettes Per Day: 3 Years Smoked: 6 e-Cigarette/Vaping Use: Never Used Use of substances other than those prescribed or required for medical reasons: Yes Substance Use Type: Heroin Substance Use Frequency: Daily Last Used Substance: Just Prior to Admission Currently Displaying Signs/Symptoms of Drug Intoxication Withdrawal: No Advance Directives: Yes Advance Directives on File: Yes Advance Directives Date on File: 02/28/23 Do you have a plan to hurt others: No Plan Nutrition Risks: On aspiration precautions service: No Current occupational status: unemployed Current occupation: right handed Meds Allergies Allergy/AdvReac Type Severity Reaction Status Date / Time No Known Allergies Allergy Verified 05/31/24 18:16 Active Medications: Current Medications Albuterol Sulfate (Albuterol Sulfate (0.083%) 2.5 Mg/3 Ml Vial.Neb) 2.5 mg INHALE Q3H PRN PRN Reason: Wheezing Last Admin: 07/21/24 20:33 Dose: 2.5 mg Chlorhexidine Gluconate (Chlorhexidine Gluc Oral Rinse 15 Ml Mouthwash) 15 ml BUCCAL Q8H [facility] Last Admin: 07/21/24 15:43 Dose: 15 ml Famotidine (Famotidine/Pf 20 Mg/2 Ml Vial) 20 mg IVPUSH DAILY [facility] Heparin Sodium (Porcine) (Heparin Sodium,Porcine 5,000 Unit/Ml Vial) 5,000 unit SUBCUT Q8H [facility] Last Admin: 07/21/24 15:42 Dose: 5,000 unit Ampicillin Sodium/Sulbactam (Sodium 3 gm/ Sodium Chloride) 100 mls @ 200 mls/hr IV Q6H [facility] Last Admin: 07/21/24 20:18 Dose: 200 mls/hr Fentanyl (Sublimaze/Ns) 1,000 mcg in 100 mls @ 0 mls/hr IVCONT .Q0M [facility]; Protocol Last Admin: 07/21/24 17:55 Dose: 200 mcg/hr, 20 mls/hr Propofol (Diprivan) 1,000 mg in 100 mls @ 0 mls/hr IVCONT .Q0M [facility]; Protocol Last Admin: 07/21/24 19:07 Dose: 50 mcg/kg/min, 42.03 mls/hr Midazolam HCl (Midazolam Hcl 2 Mg/2 Ml Vial) 2 mg IVPUSH ONCE PRN PRN Reason: Anxiety Naloxone HCl (Naloxone Hcl 0.4 Mg/Ml Vial) 0.2 mg IVPUSH Q2M PRN PRN Reason: Excessive sedation or RR < 8 Home Medications ?Medication ?Instructions ?Recorded ?Confirmed ?Last Taken ?Type albuterol sulfate 90 mcg/actuation 2 puff inhalation Q4H PRN 09/10/22 07/21/24 02/25/23 History aerosol inhaler (Ventolin HFA) Shortness Of Breath Or Wheezing amlodipine 5 mg tablet 5 mg PO BEDTIME 09/10/22 07/21/24 07/20/24 History fluticasone 500 mcg-salmeterol 50 1 inh inhalation BID 09/10/22 07/21/24 07/20/24 History mcg/dose blistr powdr for inhalation (Advair Diskus) fluticasone propionate 50 2 spray intranasal DAILY 09/10/22 07/21/24 07/20/24 History mcg/actuation nasal spray,suspension montelukast 10 mg tablet 10 mg PO BEDTIME 03/29/23 07/21/24 07/20/24 History tiotropium bromide 1.25 2 puff inhalation DAILY 03/29/23 07/21/24 07/20/24 History mcg/actuation mist for inhalation (Spiriva Respimat) ascorbic acid (vitamin C) 250 mg 250 mg PO DAILY 05/31/24 07/21/24 07/20/24 History tablet ferrous gluconate 324 mg (38 mg 324 mg PO Q48H 05/31/24 07/21/24 07/20/24 History iron) tablet hydrochlorothiazide 12.5 mg tablet 12.5 mg PO BEDTIME 05/31/24 07/21/24 07/20/24 History loratadine 10 mg tablet (Claritin) 10 mg PO DAILY 07/21/24 07/21/24 07/20/24 History Physical Exam Vital Signs: Vital Signs: Last Vital Signs Temp 97.7 F 07/21/24 20:00 Pulse 73 07/21/24 20:33 Resp 20 07/21/24 20:33 BP 107/64 07/21/24 20:00 Pulse Ox 96 07/21/24 20:00 O2 Del Method Mechanical Ventil ation 07/21/24 20:00 O2 Flow Rate 50 07/21/24 12:59 FiO2 40 07/21/24 20:00 BMI result Body Mass Index 49.8 Const: General: no acute distress Nutritional Appearance: obese HEENT: Head: Yes normocephalic and Yes atraumatic General nose exam: Normal external nose present (Nares patent, septum midline, sinuses nontender bilaterally.) Mouth: Normal oral and palatal mucosa present (No thrush, tongue in midline, mucosa moist.) Neck: Neck: Yes supple (no thyromegaly, trachea midline.) Carotids: normal carotid upstroke Resp: Effort & Inspection: normal respiratory effort Auscultation: wheezes expiratory wheezes Cardio: Jugular venous distension: no JVD Rate: regular rate Rhythm: regular rhythm Heart sounds: no gallops, no murmurs and no rubs Peripheral pulses: Peripheral pulses 2+ throughout GI: Palpation (GI): Soft to palpation (nondistended.) and nontender Extrem: General: Yes full ROM, Yes capillary refill normal and Yes no clubbing, cyanosis or edema Results Labs 07/22/24 05:18 07/22/24 05:18 Labs: Laboratory Results - last 24 hr 07/21/24 07/21/24 07/21/24 12:20 13:02 13:05 MCV 87.8 MCH 28.3 MCHC 32.2 RDW 14.2 Plt Count 234 D MPV 10.0 Immature Gran % (Auto) 0.3 Neut % (Auto) 51.5 Lymph % (Auto) 32.3 [place] % (Auto) 8.5 Eos % (Auto) 7.1 H Baso % (Auto) 0.3 Lymph # (Auto) 5.7 H [place] # (Auto) 1.5 H Eos # (Auto) 1.3 H Baso # (Auto) 0.1 Abs Immat Gran (auto) 0.05 H Absolute Neuts (auto) 9.0 H Absolute Nucleated RBC 0.000 Nucleated RBC % (auto) 0.0 Smear Tech's Comments VERIFIED PT 11.1 D INR 1.0 APTT 36.1 O2 Saturation ABG pH at Pt Temp ABG pCO2 at Pt Temp ABG pO2 at Pt Temp ABG HCO3 ABG Base Excess (Actual) Anion Gap 21 H Estim Creat Clear Calc TNP Estimated GFR > 60 POC Glucose 117 H Random Glucose 167 H Lactic Acid Calcium 9.4 D Total Bilirubin 0.4 Direct Bilirubin 0.1 AST 34 ALT 26 Alkaline Phosphatase 98 B-Natriuretic Peptide 226 H Total Protein 7.9 Albumin 4.2 Lipase 13 Urine Color Urine Appearance Urine pH Ur Specific [place] Urine Protein Urine Glucose (UA) Urine Ketones Urine Blood Urine Nitrite Ur Leukocyte Esterase Urine RBC Urine WBC Ur Squamous Epith Cells Urine Bacteria Hyaline Casts Urine Opiates Screen Ur Buprenorphine Scrn Ur Oxycodone Screen Urine Methadone Screen Urine Fentanyl Screen Ur Barbiturates Screen Ur Phencyclidine Scrn Ur Amphetamines Screen U Benzodiazepines Scrn Urine Cocaine Screen U Marijuana (THC) Screen Ethyl Alcohol < 10 Influenza Type A (PCR) NEGATIVE Influenza Type B (PCR) NEGATIVE RSV RNA Qual (PCR) NEGATIVE SARS-CoV-2 RNA (RT-PCR) NEGATIVE 07/21/24 07/21/24 07/21/24 13:23 14:11 15:27 MCV MCH MCHC RDW Plt Count MPV Immature Gran % (Auto) Neut % (Auto) Lymph % (Auto) [place] % (Auto) Eos % (Auto) Baso % (Auto) Lymph # (Auto) [place] # (Auto) Eos # (Auto) Baso # (Auto) Abs Immat Gran (auto) Absolute Neuts (auto) Absolute Nucleated RBC Nucleated RBC % (auto) Smear Tech's Comments PT INR APTT O2 Saturation 100.0 97.0 ABG pH at Pt Temp 7.25 L 7.48 H ABG pCO2 at Pt Temp 61 H* 36 ABG pO2 at Pt Temp 344 H 83 ABG HCO3 27 H 27 H ABG Base Excess (Actual) -1.2 4.6 Anion Gap Estim Creat Clear Calc Estimated GFR POC Glucose Random Glucose Lactic Acid 1.2 Calcium Total Bilirubin Direct Bilirubin AST ALT Alkaline Phosphatase B-Natriuretic Peptide Total Protein Albumin Lipase Urine Color Yellow Urine Appearance Clear Urine pH 6.0 Ur Specific [place] 1.015 Urine Protein 100 (2+) H Urine Glucose (UA) 100 H Urine Ketones Negative Urine Blood Trace H Urine Nitrite Negative Ur Leukocyte Esterase Negative Urine RBC 0-2 Urine WBC 0-5 Ur Squamous Epith Cells 0-2 Urine Bacteria None Seen Hyaline Casts 0-2 Urine Opiates Screen POSITIVE H Ur Buprenorphine Scrn Not Detected Ur Oxycodone Screen Not Detected Urine Methadone Screen Not Detected Urine Fentanyl Screen POSITIVE H Ur Barbiturates Screen Not Detected Ur Phencyclidine Scrn Not Detected Ur Amphetamines Screen Not Detected U Benzodiazepines Scrn POSITIVE H Urine Cocaine Screen POSITIVE H U Marijuana (THC) Screen Not Detected Ethyl Alcohol Influenza Type A (PCR) Influenza Type B (PCR) RSV RNA Qual (PCR) SARS-CoV-2 RNA (RT-PCR) Assessment and Plan (1) Overdose: Qualifiers: Encounter type: initial encounter Injury intent: undetermined intent Qualified Code(s): T50.904A - Poisoning by unspecified drugs, medicaments and biological substances, undetermined, initial encounter Status: Acute (2) Acute hypercapnic respiratory failure: Status: Acute (3) Opioid use disorder: Status: Acute (4) Pneumonia: Qualifiers: Laterality: bilateral Lung location: unspecified part of lung Pneumonia type: due to unspecified organism Qualified Code(s): J18.9 - Pneumonia, unspecified organism Status: Acute (5) Morbid obesity: Status: Acute Plan 59-year-old male with history of COPD not on home oxygen, tobacco use disorder, hypertension, RIANA not on CPAP, opioid use disorder on methadone admitted to ICU with acute altered mental status secondary to overdose requiring intubation for airway protection. Neuro: ? Acute alteration of mental status secondary to substance overdose.? Currently sedated. Titrate off sedative drips as tolerated Cardiac:? No acute issues. Pulmonary: Bibasilar atelectasis/pneumonia noted on CT. Empiric antibiotics given in ED. Unasyn. Titrate off ventilatory support as tolerated. Renal: No acute issues. Endo:? No acute issues.? GI:? No acute issues. ID:? Leukocytosis. Pneumonia likely. Unasyn. Cultures pending.? Heme/Onc:? No acute issues. Psych: Substance abuse disorder. Urine drug screen positive for opiates, fentanyl, benzos, cocaine. Addiction medicine consult placed. Prophylaxis: Pneumatic hoses/heparin, famotidine Diet: NPO Patient's care was discussed in detail with Dr. Peng.? He is aware of all the above as well as the plan of care for this patient. Total time managing care of this patient today: 60 minutes.
[2024-07-22] VITALS (38 sets, daily range): BP systolic 96–162; BP diastolic 49–96; PULSE 73–100; RESP 15–27; TEMP 34.8–37.6; O2SAT 90–100; BMI 40.2
[2024-07-22] MEDS: Albuterol Sulfate (0.083%) 2.5 MG/3 ML VIAL.NEB INHALE ×5 (00:37→17:10)
[2024-07-22] MEDS: propofoL 1,000 MG/100 ML VIAL 42.03 MG IVCONT ×3 (01:23→05:52)
[2024-07-22] MEDS: Ampicillin Sodium/Sulbactam Na 3 GM in 0.9 % Sodium Chloride 100 ML IV ×2 (01:23→07:50)
[2024-07-22] MEDS: Midazolam HCl 2 MG/2 ML VIAL IVPUSH (02:10)
[2024-07-22] MEDS: fentaNYL citrate/NS 1,000 MCG/100 ML PLAST..BAG 20 MCG IVCONT (03:18)
[2024-07-22] MEDS: Furosemide 20 MG/2 ML VIAL IVPUSH (04:39)
[2024-07-22 05:28] LABS: VBG Base Excess 4.7 mmol/L; VBG HCO3 25 mmol/L (22-26); VBG pCO2 28 mmHg; VBG pH 7.57 (7.32-7.43); VBG pO2 54 mmHg
[2024-07-22 05:36] LABS: Venous Blood Gas Refer to POC result
[2024-07-22 05:41] LABS: MANUAL DIFF FLAG NO
[2024-07-22 05:43] LABS: Basophils Percent Auto 0.1 % (0-2); Hematocrit 33.8 % (42.0-52.0); Imm Gran Abs Auto 0.01 X10*3/uL (0.00-0.03); Imm Gran Pct Auto 0.1 % (0.0-0.4); Lymphocytes Absolute Auto 1.4 X10*3/uL (1.2-4.9); Lymphocytes Percent Auto 17.7 % (20-40); Mean Corpuscular HGB Conc 32.5 g/dl (31.0-36.0); Mean Platelet Volume 9.8 fL (9.4-12.4); Monocytes Absolute Auto 0.5 X10*3/uL (0.1-1.2); Monocytes Percent Auto 6.9 % (2-11); Neutrophils Absolute Auto 5.7 x10*3/uL (2.0-8.3); Neutrophils Percent Auto 75.2 % (45-73); Platelet Count 175 X10*3/uL (160-400); Red Blood Count 3.93 X10*6/uL (4.60-5.80); Red Cell Distribution Width 14.4 % (11.0-16.0); White Blood Count 7.6 X10*3/uL (4.8-10.8)
[2024-07-22] MEDS: Heparin Sodium,Porcine 5,000 UNIT/ML VIAL 5000 UNIT SUBCUT (05:54)
[2024-07-22] MEDS: Chlorhexidine Gluc Oral Rinse 15 ML MOUTHWASH BUCCAL (05:54)
[2024-07-22 05:59] LABS: Alanine Aminotransferase 65 U/L (0-40); Albumin Level 3.2 g/dL (3.5-5.0); Alkaline Phosphatase 76 U/L (39-117); Anion Gap 12 (12-20); Aspartate Amino Transferase 46 U/L (5-37); Bilirubin Total 0.3 mg/dL (0.0-1.0); Blood Urea Nitrogen 10 mg/dL (9-16); Calcium 8.6 mg/dL (8.4-10.2); Carbon Dioxide 24 mmol/L (22-29); Chloride 110 mmol/L (96-108); Creatinine Clr Calc Pharmacy 138.3; Estimated Glomerular Filt Rate > 60; Glucose Random 107 mg/dL (60-115); Magnesium 2.1 mg/dL (1.6-2.6); Phosphorus 3.2 mg/dL (2.7-4.5); Potassium 3.9 mmol/L (3.3-5.1); Sodium 142 mmol/L (135-145); Total Protein 6.2 g/dL (6.5-8.0)
--- NOTE | 2024-07-22 06:15 | PC.NURSE ---
Assumed care 1900 - pt intubated and sedated. RASS-3 on propofol and fentanyl - see MAR for titations. Requiring additional sedation at times, PRN versed ordered and administered per MAR. Remains on ACPC settings - see vent assessment. PRN albuterol ordered and administered for wheezing.? Around 0400 pt spO2 88-90%, lung davis with rhonchi?throughout. [employer] Gary notified. Lasix 20 mg ordered and administered - see MAR.
--- NOTE | 2024-07-22 07:30 | PC.NURSE ---
Addendum entered by Zaria Cohen RN 07/22/24 12:29: Extubated approx. @?915 Alert and oriented, On 2L NC, 02 sat in the 90s Passed nursing bedside swallowing, now tolerating regular diet Rivero removed @ 9:30am due t o void at 1530. Original Note: Assumed care @ 0700? Neuro: Sedated/intubated,? on fentanyl and Propofol gtt per JUN.? opens eyes to name , follows simple commands, SINGH spontaneously (passive ROM performed/reposition maintained). Resp: On ventilator support, Rhonchurous & wheezing Bilateral lungs.? Cardiac: Sinus rhythm on tele. GI:? LBM 4/6 , +bowel sounds, NPO, OG tube in place/clamp.? : Rivero in place, patent/ draining.? Infectious: IV antibiotic given, cultures pending. Lines: peripheral IVs .
--- NOTE | 2024-07-22 07:30 | PC.NURSE ---
Addendum entered by Zaria Cohen RN 07/22/24 09:53: Extubated approx.@? 915 [place] and oriented On 2L NC, 02 sat in the 90s Original Note: Neuro: Sedated/intubated,? on fentanyl and Propofol gtt per MAR.? opens eyes to name , follows simple commands, SINGH spontaneously (passive ROM performed/reposition maintained). Resp: On ventilator support, Rhonchurous & wheezing Bilateral lungs.? Cardiac: Sinus rhythm on tele. GI:? LBM 4/6 , +bowel sounds, NPO, OG tube in place/clamp.? : Rivero in place, patent/ draining.? Infectious: IV antibiotic given, cultures pending. Lines: peripheral IVs .
[2024-07-22] MEDS: Famotidine/PF 20 MG/2 ML VIAL IVPUSH (07:51)
[2024-07-22 08:51] LABS: ABG Refer to POC result
--- NOTE | 2024-07-22 10:17 | PM.CCPN ---
Subjective Subjective Date of Service: 07/22/24 Interval History: 59-year-old gentleman with underlying history of COPD, hypertension, RIANA, polysubstance abuse admitted on 07/21/2024 after patient was dropped off essentially unconscious on ER dose step, initially deemed to have no pulse with CPR started and return of spontaneous circulation achieved right away. In ER patient's with oscillating level of consciousness likely secondary to polysubstance abuse with aspirating event requiring intubation. Initial CT head with no acute findings. Admitted to the intensive care unit. No events overnight. Extubated uneventfully this a.m.. Critical Care Time (minutes): 45 Physical Exam Vital Signs: Vital Signs: Last Vital Signs Temp 99.7 F 07/22/24 09:00 Pulse 100 07/22/24 09:00 Resp 18 07/22/24 09:00 BP 141/80 H 07/22/24 09:00 Pulse Ox 92 07/22/24 09:00 O2 Del Method Nasal Cannula 07/22/24 09:00 O2 Flow Rate 2 07/22/24 09:00 FiO2 30 07/22/24 08:19 BMI result Body Mass Index 40.2 Const: General: no acute distress, alert and awake Eyes: Sclerae: sclerae normal EOM: EOMs intact bilaterally Neck: Neck: Yes no lymphadenopathy, Yes trachea midline and Yes supple Resp: Effort & Inspection: normal respiratory effort and no respiratory distress Auscultation: clear to auscultation bilaterally Cardio: Rate: regular rate Rhythm: regular rhythm Heart sounds: no gallops, no murmurs and no rubs GI: Palpation (GI): Soft to palpation and Other GI palpation findings present ( Nontender) Auscultation: normal bowel sounds Extrem: General: Yes no pedal edema, No clubbing and No cyanosis Objective Data Labs 07/22/24 05:18 07/22/24 05:18 Labs: Laboratory Results - last 24 hr 07/21/24 07/21/24 07/21/24 12:20 13:02 13:05 WBC 17.5 H RBC 4.74 Hgb 13.4 L Hct 41.6 L MCV 87.8 MCH 28.3 MCHC 32.2 RDW 14.2 Plt Count 234 D MPV 10.0 Immature Gran % (Auto) 0.3 Neut % (Auto) 51.5 Lymph % (Auto) 32.3 [place] % (Auto) 8.5 Eos % (Auto) 7.1 H Baso % (Auto) 0.3 Lymph # (Auto) 5.7 H [place] # (Auto) 1.5 H Eos # (Auto) 1.3 H Baso # (Auto) 0.1 Abs Immat Gran (auto) 0.05 H Absolute Neuts (auto) 9.0 H Absolute Nucleated RBC 0.000 Nucleated RBC % (auto) 0.0 Smear Tech's Comments VERIFIED PT 11.1 D INR 1.0 APTT 36.1 O2 Saturation ABG pH at Pt Temp ABG pCO2 at Pt Temp ABG pO2 at Pt Temp ABG HCO3 ABG Base Excess (Actual) VBG pH VBG pCO2 VBG pO2 VBG HCO3 VBG O2 Saturation VBG Base Excess Sodium 143 Potassium 3.7 Chloride 105 Carbon Dioxide 21 L Anion Gap 21 H BUN 8 L Creatinine 0.90 Estim Creat Clear Calc TNP Estimated GFR > 60 POC Glucose 117 H Random Glucose 167 H Lactic Acid Calcium 9.4 D Phosphorus Magnesium Total Bilirubin 0.4 Direct Bilirubin 0.1 AST 34 ALT 26 Alkaline Phosphatase 98 Troponin I High Sens 5.0 B-Natriuretic Peptide 226 H Total Protein 7.9 Albumin 4.2 Lipase 13 Urine Color Urine Appearance Urine pH Ur Specific [place] Urine Protein Urine Glucose (UA) Urine Ketones Urine Blood Urine Nitrite Ur Leukocyte Esterase Urine RBC Urine WBC Ur Squamous Epith Cells Urine Bacteria Hyaline Casts Urine Opiates Screen Ur Buprenorphine Scrn Ur Oxycodone Screen Urine Methadone Screen Urine Fentanyl Screen Ur Barbiturates Screen Ur Phencyclidine Scrn Ur Amphetamines Screen U Benzodiazepines Scrn Urine Cocaine Screen U Marijuana (THC) Screen Ethyl Alcohol < 10 Influenza Type A (PCR) NEGATIVE Influenza Type B (PCR) NEGATIVE RSV RNA Qual (PCR) NEGATIVE SARS-CoV-2 RNA (RT-PCR) NEGATIVE 07/21/24 07/21/24 07/21/24 13:23 14:11 15:27 WBC RBC Hgb Hct MCV MCH MCHC RDW Plt Count MPV Immature Gran % (Auto) Neut % (Auto) Lymph % (Auto) [place] % (Auto) Eos % (Auto) Baso % (Auto) Lymph # (Auto) [place] # (Auto) Eos # (Auto) Baso # (Auto) Abs Immat Gran (auto) Absolute Neuts (auto) Absolute Nucleated RBC Nucleated RBC % (auto) Smear Tech's Comments PT INR APTT O2 Saturation 100.0 97.0 ABG pH at Pt Temp 7.25 L 7.48 H ABG pCO2 at Pt Temp 61 H* 36 ABG pO2 at Pt Temp 344 H 83 ABG HCO3 27 H 27 H ABG Base Excess (Actual) -1.2 4.6 VBG pH VBG pCO2 VBG pO2 VBG HCO3 VBG O2 Saturation VBG Base Excess Sodium Potassium Chloride Carbon Dioxide Anion Gap BUN Creatinine Estim Creat Clear Calc Estimated GFR POC Glucose Random Glucose Lactic Acid 1.2 Calcium Phosphorus Magnesium Total Bilirubin Direct Bilirubin AST ALT Alkaline Phosphatase Troponin I High Sens B-Natriuretic Peptide Total Protein Albumin Lipase Urine Color Yellow Urine Appearance Clear Urine pH 6.0 Ur Specific [place] 1.015 Urine Protein 100 (2+) H Urine Glucose (UA) 100 H Urine Ketones Negative Urine Blood Trace H Urine Nitrite Negative Ur Leukocyte Esterase Negative Urine RBC 0-2 Urine WBC 0-5 Ur Squamous Epith Cells 0-2 Urine Bacteria None Seen Hyaline Casts 0-2 Urine Opiates Screen POSITIVE H Ur Buprenorphine Scrn Not Detected Ur Oxycodone Screen Not Detected Urine Methadone Screen Not Detected Urine Fentanyl Screen POSITIVE H Ur Barbiturates Screen Not Detected Ur Phencyclidine Scrn Not Detected Ur Amphetamines Screen Not Detected U Benzodiazepines Scrn POSITIVE H Urine Cocaine Screen POSITIVE H U Marijuana (THC) Screen Not Detected Ethyl Alcohol Influenza Type A (PCR) Influenza Type B (PCR) RSV RNA Qual (PCR) SARS-CoV-2 RNA (RT-PCR) 07/22/24 07/22/24 05:18 05:24 WBC 7.6 RBC 3.93 L Hgb 11.0 L Hct 33.8 L MCV 86.0 MCH 28.0 MCHC 32.5 RDW 14.4 Plt Count 175 D MPV 9.8 Immature Gran % (Auto) 0.1 Neut % (Auto) 75.2 H Lymph % (Auto) 17.7 L [place] % (Auto) 6.9 Eos % (Auto) 0.0 Baso % (Auto) 0.1 Lymph # (Auto) 1.4 [place] # (Auto) 0.5 Eos # (Auto) 0.0 Baso # (Auto) 0.0 Abs Immat Gran (auto) 0.01 Absolute Neuts (auto) 5.7 Absolute Nucleated RBC 0.000 Nucleated RBC % (auto) 0.0 Smear Tech's Comments PT INR APTT O2 Saturation ABG pH at Pt Temp ABG pCO2 at Pt Temp ABG pO2 at Pt Temp ABG HCO3 ABG Base Excess (Actual) VBG pH 7.57 H VBG pCO2 28 VBG pO2 54 VBG HCO3 25 VBG O2 Saturation 90.0 VBG Base Excess 4.7 Sodium 142 Potassium 3.9 Chloride 110 H Carbon Dioxide 24 Anion Gap 12 BUN 10 Creatinine 0.77 Estim Creat Clear Calc 138.3 Estimated GFR > 60 POC Glucose Random Glucose 107 Lactic Acid Calcium 8.6 D Phosphorus 3.2 Magnesium 2.1 Total Bilirubin 0.3 Direct Bilirubin AST 46 H ALT 65 H Alkaline Phosphatase 76 Troponin I High Sens B-Natriuretic Peptide Total Protein 6.2 L Albumin 3.2 L Lipase Urine Color Urine Appearance Urine pH Ur Specific [place] Urine Protein Urine Glucose (UA) Urine Ketones Urine Blood Urine Nitrite Ur Leukocyte Esterase Urine RBC Urine WBC Ur Squamous Epith Cells Urine Bacteria Hyaline Casts Urine Opiates Screen Ur Buprenorphine Scrn Ur Oxycodone Screen Urine Methadone Screen Urine Fentanyl Screen Ur Barbiturates Screen Ur Phencyclidine Scrn Ur Amphetamines Screen U Benzodiazepines Scrn Urine Cocaine Screen U Marijuana (THC) Screen Ethyl Alcohol Influenza Type A (PCR) Influenza Type B (PCR) RSV RNA Qual (PCR) SARS-CoV-2 RNA (RT-PCR) Progress Note: A&P Assessment and plan (1) Polysubstance abuse: Status: Acute (2) Pulmonary aspiration: Status: Acute (3) Acute respiratory failure with hypoxia: Status: Acute (4) Asthma-COPD overlap syndrome: Status: Acute Plan Assessment: 59-year-old gentleman with underlying polysubstance abuse and COPD admitted with encephalopathy and hypoxia secondary to polysubstance abuse with likely aspiration event initially requiring ventilatory support Plan: Neuro: Acute toxic encephalopathy secondary to polysubstance abuse, improved significantly. Cardiac: No acute issues. Pulmonary: Acute hypoxic respiratory failure likely secondary to pulmonary aspiration of background of polysubstance abuse, initially requiring ventilatory support, extubated uneventfully this a.m.. Renal: No acute issues. Endo: No acute issues. GI: No acute issues. ID: Likely aspiration pneumonitis, resolved. Will monitor off antibiotics. Heme/Onc: No acute issues. Psych: No acute issues. Miscellaneous: No acute issues. Prophylaxis: Heparin Diet: Pending swallow evaluation Critical care time spent: 45 minutes Quality Stroke Does the patient have a stroke diagnosis?: No VTE Prior VTE?: No VTE Risk Level:: Medical - moderate - high VTE Device Contraindication: Treatment Not Indicated VTE Drug Contraindication: N/A - Med Ordered
[2024-07-22] MEDS: methADONE HCl 20 MG/2 ML ORAL.CONC PO (12:00)
--- NOTE | 2024-07-22 12:06 | HO.ADDICT_ITS ---
History of Present Illness Date of Service: 07/22/2024 Chief Complaint: AMS Reason for Consult: opioid overdose Sources of Information: patient interviewed and chart reviewed HPI Narrative: Patient is a 59 year old Central African speaking male with OUD, who presented to [facility] ED unresponsive secondary to opioid overdose In ED he required CPR briefly and emergent intubation. Today seen in ICU room 253--extubated earlier this morning without incident. He is awake, alert, engaged in interview. Tearful at several points stating he does not want to make his family hurt or worry about him Reports he has been using at least 2 bundles IN daily along with cocaine, for several years now. Denies any previous overdose Denies any other substance use, including alcohol--however states history of unhealthy alcohol use years ago Denies any history of treatment--last admission at [facility] 05/2024, methadone initiated, however patient did not follow up with OTP for continuation of treatment. In terms of family history--he reports some of his cousins with AUD and KRYSTYNA Denies leobardo history of IVDU Most recent hepatitis and HIV screen, 03/2025 Reporting withdrawal sx--diaphoretic, feeling hot and cold, anxious and restless He is observed to be diaphoretic and restless. Denies nausea, loose stools. Medical Evaluation Reviewed: Yes Personal & Social History: has 7 adult children lives with his Review of Systems Constitutional: Reports as per HPI and Reports malaise Gastrointestinal: Denies loose stools and Denies nausea Musculoskeletal: Reports myalgias Psychiatric: Reports anxiety Diagnostics Vital Signs (24Hr): Vital Signs - 24 hr 07/21/24 12:19 07/21/24 12:25 07/21/24 12:29 Temperature Pulse Rate 126 H 117 H Respiratory Rate 33 H 36 H Blood Pressure 140/94 H Pulse Oximetry 100 Oxygen Delivery Method Non-Rebreather Mask Oxygen Flow Rate Fraction of Inspired Oxygen 07/21/24 12:47 07/21/24 12:49 07/21/24 12:59 Temperature Pulse Rate 6 L 111 H 117 H Respiratory Rate Blood Pressure 166/101 H Pulse Oximetry 100 100 100 Oxygen Delivery Method Mechanical Ventilation Mechanical Ventilation Mechanical Ventilation Oxygen Flow Rate 70 50 Fraction of Inspired Oxygen 07/21/24 13:15 07/21/24 13:32 07/21/24 14:00 Temperature 97.9 F Pulse Rate 120 H Respiratory Rate 23 H Blood Pressure 138/75 Pulse Oximetry 99 Oxygen Delivery Method Mechanical Ventilation Oxygen Flow Rate Fraction of Inspired Oxygen 100 40 07/21/24 14:24 07/21/24 15:00 07/21/24 15:05 Temperature Pulse Rate 117 H 107 H Respiratory Rate 26 H 26 H Blood Pressure 160/85 H 136/73 Pulse Oximetry 95 99 Oxygen Delivery Method Mechanical Ventilation Mechanical Ventilation Oxygen Flow Rate Fraction of Inspired Oxygen 40 30 07/21/24 16:00 07/21/24 16:00 07/21/24 16:32 Temperature 96.3 F L 99.3 F Pulse Rate 96 106 H Respiratory Rate 20 25 H Blood Pressure 112/70 152/85 H Pulse Oximetry 98 96 97 Oxygen Delivery Method Mechanical Ventilation Mechanical Ventilation Oxygen Flow Rate Fraction of Inspired Oxygen 40 30 07/21/24 17:00 07/21/24 18:00 07/21/24 19:00 Temperature 98.1 F 97.9 F 97.7 F Pulse Rate 81 76 68 Respiratory Rate 20 20 20 Blood Pressure 85/45 L 88/50 L 102/56 L Pulse Oximetry 97 97 97 Oxygen Delivery Method Mechanical Ventilation Mechanical Ventilation Mechanical Ventilation Oxygen Flow Rate Fraction of Inspired Oxygen 40 40 40 07/21/24 19:23 07/21/24 19:58 07/21/24 20:00 Temperature 97.7 F Pulse Rate 71 Respiratory Rate 20 Blood Pressure 107/64 Pulse Oximetry 98 96 Oxygen Delivery Method Mechanical Ventilation Oxygen Flow Rate Fraction of Inspired Oxygen 30 30 30 07/21/24 20:33 07/21/24 21:00 07/21/24 22:00 Temperature 97.7 F 98.1 F Pulse Rate 73 80 81 Respiratory Rate 20 20 20 Blood Pressure 103/60 112/59 L Pulse Oximetry 96 95 Oxygen Delivery Method Mechanical Ventilation Mechanical Ventilation Oxygen Flow Rate Fraction of Inspired Oxygen 30 30 07/21/24 23:00 07/22/24 00:00 07/22/24 00:00 Temperature 98.1 F 98.2 F Pulse Rate 75 73 Respiratory Rate 20 20 Blood Pressure 103/53 L 103/53 L Pulse Oximetry 95 97 94 Oxygen Delivery Method Mechanical Ventilation Mechanical Ventilation Oxygen Flow Rate Fraction of Inspired Oxygen 30 30 30 07/22/24 00:37 07/22/24 00:37 07/22/24 01:00 Temperature 98.2 F Pulse Rate 86 86 Respiratory Rate 21 H 20 Blood Pressure 96/50 L Pulse Oximetry 91 L Oxygen Delivery Method Mechanical Ventilation Oxygen Flow Rate Fraction of Inspired Oxygen 30 30 07/22/24 02:00 07/22/24 03:00 07/22/24 03:54 Temperature 98.1 F 98.2 F Pulse Rate 90 82 Respiratory Rate 21 H 20 Blood Pressure 122/68 97/50 L Pulse Oximetry 92 93 94 Oxygen Delivery Method Mechanical Ventilation Mechanical Ventilation Oxygen Flow Rate Fraction of Inspired Oxygen 30 30 30 07/22/24 04:00 07/22/24 04:18 07/22/24 04:45 Temperature 98.2 F Pulse Rate 76 76 Respiratory Rate 20 20 Blood Pressure 98/52 L Pulse Oximetry 94 Oxygen Delivery Method Mechanical Ventilation Oxygen Flow Rate Fraction of Inspired Oxygen 30 30 07/22/24 05:00 07/22/24 05:51 07/22/24 06:00 Temperature 98.2 F 98.2 F Pulse Rate 84 80 Respiratory Rate 20 20 Blood Pressure 104/61 106/68 Pulse Oximetry 95 92 Oxygen Delivery Method Mechanical Ventilation Mechanical Ventilation Oxygen Flow Rate Fraction of Inspired Oxygen 30 30 30 07/22/24 07:00 07/22/24 07:37 07/22/24 08:00 Temperature 98.2 F 98.4 F Pulse Rate 85 85 Respiratory Rate 20 20 Blood Pressure 101/59 L 109/63 Pulse Oximetry 92 94 Oxygen Delivery Method Mechanical Ventilation Mechanical Ventilation Oxygen Flow Rate Fraction of Inspired Oxygen 30 30 30 07/22/24 08:00 07/22/24 08:19 07/22/24 09:00 Temperature 99.7 F Pulse Rate 100 Respiratory Rate 18 Blood Pressure 141/80 H Pulse Oximetry 93 92 Oxygen Delivery Method Nasal Cannula Oxygen Flow Rate 2 Fraction of Inspired Oxygen 30 30 07/22/24 10:00 07/22/24 11:00 07/22/24 11:07 Temperature Pulse Rate 82 82 84 Respiratory Rate 18 20 20 Blood Pressure 153/82 H 157/89 H Pulse Oximetry 95 96 Oxygen Delivery Method Nasal Cannula Nasal Cannula Oxygen Flow Rate 2 2 Fraction of Inspired Oxygen BMI result Body Mass Index 40.2 Labs 07/22/24 05:18 07/22/24 05:18 Labs: Laboratory Results - last 48 hr 07/21/24 07/21/24 07/21/24 12:20 13:02 13:05 WBC 17.5 H RBC 4.74 Hgb 13.4 L Hct 41.6 L MCV 87.8 MCH 28.3 MCHC 32.2 RDW 14.2 Plt Count 234 D MPV 10.0 Immature Gran % (Auto) 0.3 Neut % (Auto) 51.5 Lymph % (Auto) 32.3 [place] % (Auto) 8.5 Eos % (Auto) 7.1 H Baso % (Auto) 0.3 Lymph # (Auto) 5.7 H [place] # (Auto) 1.5 H Eos # (Auto) 1.3 H Baso # (Auto) 0.1 Abs Immat Gran (auto) 0.05 H Absolute Neuts (auto) 9.0 H Absolute Nucleated RBC 0.000 Nucleated RBC % (auto) 0.0 Smear Tech's Comments VERIFIED PT 11.1 D INR 1.0 APTT 36.1 O2 Saturation ABG pH at Pt Temp ABG pCO2 at Pt Temp ABG pO2 at Pt Temp ABG HCO3 ABG Base Excess (Actual) VBG pH VBG pCO2 VBG pO2 VBG HCO3 VBG O2 Saturation VBG Base Excess Sodium 143 Potassium 3.7 Chloride 105 Carbon Dioxide 21 L Anion Gap 21 H BUN 8 L Creatinine 0.90 Estim Creat Clear Calc TNP Estimated GFR > 60 POC Glucose 117 H Random Glucose 167 H Lactic Acid Calcium 9.4 D Phosphorus Magnesium Total Bilirubin 0.4 Direct Bilirubin 0.1 AST 34 ALT 26 Alkaline Phosphatase 98 Troponin I High Sens 5.0 B-Natriuretic Peptide 226 H Total Protein 7.9 Albumin 4.2 Lipase 13 Urine Color Urine Appearance Urine pH Ur Specific [place] Urine Protein Urine Glucose (UA) Urine Ketones Urine Blood Urine Nitrite Ur Leukocyte Esterase Urine RBC Urine WBC Ur Squamous Epith Cells Urine Bacteria Hyaline Casts Urine Opiates Screen Ur Buprenorphine Scrn Ur Oxycodone Screen Urine Methadone Screen Urine Fentanyl Screen Ur Barbiturates Screen Ur Phencyclidine Scrn Ur Amphetamines Screen U Benzodiazepines Scrn Urine Cocaine Screen U Marijuana (THC) Screen Ethyl Alcohol < 10 Influenza Type A (PCR) NEGATIVE Influenza Type B (PCR) NEGATIVE RSV RNA Qual (PCR) NEGATIVE SARS-CoV-2 RNA (RT-PCR) NEGATIVE 07/21/24 07/21/24 07/21/24 13:23 14:11 15:27 WBC RBC Hgb Hct MCV MCH MCHC RDW Plt Count MPV Immature Gran % (Auto) Neut % (Auto) Lymph % (Auto) [place] % (Auto) Eos % (Auto) Baso % (Auto) Lymph # (Auto) [place] # (Auto) Eos # (Auto) Baso # (Auto) Abs Immat Gran (auto) Absolute Neuts (auto) Absolute Nucleated RBC Nucleated RBC % (auto) Smear Tech's Comments PT INR APTT O2 Saturation 100.0 97.0 ABG pH at Pt Temp 7.25 L 7.48 H ABG pCO2 at Pt Temp 61 H* 36 ABG pO2 at Pt Temp 344 H 83 ABG HCO3 27 H 27 H ABG Base Excess (Actual) -1.2 4.6 VBG pH VBG pCO2 VBG pO2 VBG HCO3 VBG O2 Saturation VBG Base Excess Sodium Potassium Chloride Carbon Dioxide Anion Gap BUN Creatinine Estim Creat Clear Calc Estimated GFR POC Glucose Random Glucose Lactic Acid 1.2 Calcium Phosphorus Magnesium Total Bilirubin Direct Bilirubin AST ALT Alkaline Phosphatase Troponin I High Sens B-Natriuretic Peptide Total Protein Albumin Lipase Urine Color Yellow Urine Appearance Clear Urine pH 6.0 Ur Specific [place] 1.015 Urine Protein 100 (2+) H Urine Glucose (UA) 100 H Urine Ketones Negative Urine Blood Trace H Urine Nitrite Negative Ur Leukocyte Esterase Negative Urine RBC 0-2 Urine WBC 0-5 Ur Squamous Epith Cells 0-2 Urine Bacteria None Seen Hyaline Casts 0-2 Urine Opiates Screen POSITIVE H Ur Buprenorphine Scrn Not Detected Ur Oxycodone Screen Not Detected Urine Methadone Screen Not Detected Urine Fentanyl Screen POSITIVE H Ur Barbiturates Screen Not Detected Ur Phencyclidine Scrn Not Detected Ur Amphetamines Screen Not Detected U Benzodiazepines Scrn POSITIVE H Urine Cocaine Screen POSITIVE H U Marijuana (THC) Screen Not Detected Ethyl Alcohol Influenza Type A (PCR) Influenza Type B (PCR) RSV RNA Qual (PCR) SARS-CoV-2 RNA (RT-PCR) 07/22/24 07/22/24 05:18 05:24 WBC 7.6 RBC 3.93 L Hgb 11.0 L Hct 33.8 L MCV 86.0 MCH 28.0 MCHC 32.5 RDW 14.4 Plt Count 175 D MPV 9.8 Immature Gran % (Auto) 0.1 Neut % (Auto) 75.2 H Lymph % (Auto) 17.7 L [place] % (Auto) 6.9 Eos % (Auto) 0.0 Baso % (Auto) 0.1 Lymph # (Auto) 1.4 [place] # (Auto) 0.5 Eos # (Auto) 0.0 Baso # (Auto) 0.0 Abs Immat Gran (auto) 0.01 Absolute Neuts (auto) 5.7 Absolute Nucleated RBC 0.000 Nucleated RBC % (auto) 0.0 Smear Tech's Comments PT INR APTT O2 Saturation ABG pH at Pt Temp ABG pCO2 at Pt Temp ABG pO2 at Pt Temp ABG HCO3 ABG Base Excess (Actual) VBG pH 7.57 H VBG pCO2 28 VBG pO2 54 VBG HCO3 25 VBG O2 Saturation 90.0 VBG Base Excess 4.7 Sodium 142 Potassium 3.9 Chloride 110 H Carbon Dioxide 24 Anion Gap 12 BUN 10 Creatinine 0.77 Estim Creat Clear Calc 138.3 Estimated GFR > 60 POC Glucose Random Glucose 107 Lactic Acid Calcium 8.6 D Phosphorus 3.2 Magnesium 2.1 Total Bilirubin 0.3 Direct Bilirubin AST 46 H ALT 65 H Alkaline Phosphatase 76 Troponin I High Sens B-Natriuretic Peptide Total Protein 6.2 L Albumin 3.2 L Lipase Urine Color Urine Appearance Urine pH Ur Specific [place] Urine Protein Urine Glucose (UA) Urine Ketones Urine Blood Urine Nitrite Ur Leukocyte Esterase Urine RBC Urine WBC Ur Squamous Epith Cells Urine Bacteria Hyaline Casts Urine Opiates Screen Ur Buprenorphine Scrn Ur Oxycodone Screen Urine Methadone Screen Urine Fentanyl Screen Ur Barbiturates Screen Ur Phencyclidine Scrn Ur Amphetamines Screen U Benzodiazepines Scrn Urine Cocaine Screen U Marijuana (THC) Screen Ethyl Alcohol Influenza Type A (PCR) Influenza Type B (PCR) RSV RNA Qual (PCR) SARS-CoV-2 RNA (RT-PCR) Mental Status Exam Mental Status Exam Patient Appearance: Appropriate Level of Consciousness: Awake, Appropriate and Alert Patient Behavior: Appropriate and Talkative Mood Description: Anxious and Sad Affect Description: Sad Speech Pattern: Clear Hallucinations: None Thought Process: Intact Thought Content: positive for Intact Judgement: Good Medications Medications Current Medications Albuterol Sulfate (Albuterol Sulfate (0.083%) 2.5 Mg/3 Ml Vial.Neb) 2.5 mg INHALE Q3H PRN PRN Reason: Wheezing Last Admin: 07/22/24 10:54 Dose: 2.5 mg Heparin Sodium (Porcine) (Heparin Sodium,Porcine 5,000 Unit/Ml Vial) 5,000 unit SUBCUT Q8H IVONE Last Admin: 07/22/24 05:54 Dose: 5,000 unit Midazolam HCl (Midazolam Hcl 2 Mg/2 Ml Vial) 2 mg IVPUSH Q4H PRN PRN Reason: anxiety/restlessness Last Admin: 07/22/24 02:10 Dose: 2 mg Allergies Allergies Allergy/AdvReac Type Severity Reaction Status Date / Time No Known Allergies Allergy Verified 05/31/24 18:16 Assessment & Plan Assessment & Plan (1) Opioid use disorder: Status: Acute Code(s): F11.99 - Opioid use, unspecified with unspecified opioid-induced disorder Assessment and Plan: * requesting methadone for MOUD--methadone 20mg x1 administered with positive effect * PRN 10mg dose for withdrawal * AM dose 40mg, with plan to titrate dose as tolerated by patient * senior reliability engineer to follow up with patient and submit referral to [facility] per patient request * take home narcan at discharge Total time managing care of this patient today ___40_ minutes. [facility] Past Medical History Medical History (Updated 07/22/24 @ 10:22 by Clarence Peng MD) Opioid use disorder (~08/27/18) Nocturnal hypoxemia Snoring Asthma-COPD overlap syndrome Asthma Allergic rhinitis Somnolence, daytime Morbid obesity Obstructive sleep apnea HTN (hypertension) Chronic respiratory failure due to obstructive sleep apnea Bursitis of right shoulder Osteoarthritis of left knee Social History Social History Household Members: Spouse Housing: House Do you presently have visiting nurse or other home services: No Alcohol intake: current Alcohol intake frequency: holidays/special occasions only Patient Tobacco Use Status: Current everyday Tobacco user Tobacco use type: Cigarette Cigarettes Per Day: 3 Years Smoked: 6 e-Cigarette/Vaping Use: Never Used Use of substances other than those prescribed or required for medical reasons: Yes Substance Use Type: Heroin Substance Use Frequency: Daily Last Used Substance: Just Prior to Admission Currently Displaying Signs/Symptoms of Drug Intoxication Withdrawal: No Advance Directives: Yes Advance Directives on File: Yes Advance Directives Date on File: 02/28/23 Do you have a plan to hurt others: No Plan Nutrition Risks: On aspiration precautions service: No Current occupational status: unemployed Current occupation: right handed
--- NOTE | 2024-07-22 14:16 | MHC.CM.PN ---
Met w/pt and son to discuss d/c planning needs: pt is independent w/all care needs, states he has no services or DME. Resides w/partner: Family assists w/transportation and will bring pt home when d/c'd. HCP on file and verified: pt may benefit from CARE team consult for substance misuse. CM to follow
[2024-07-22] MEDS: methADONE HCl 20 MG/2 ML ORAL.CONC 10 MG PO (15:50)
[2024-07-22] MEDS: cloNIDine HCL 0.1 MG TABLET PO (20:24)
[2024-07-22] MEDS: Albuterol/Iprat 2.5/0.5MG 3 ML AMPUL.NEB INHALE (20:43)
[2024-07-23] VITALS (11 sets, daily range): BP systolic 125–157; BP diastolic 64–96; PULSE 69–80; RESP 17–25; TEMP 36.4–36.7; O2SAT 94–99; BMI 42.4
[2024-07-23] MEDS: Melatonin 3 MG TABLET 6 MG PO (03:35)
--- NOTE | 2024-07-23 03:38 | PM.EVENT ---
Documented by User: Rolf Lee NP 07/23/24 03:38 Event Note Date of Service: 07/23/24 Event Note: 59-year-old male with a history of COPD, hypertension, RIANA, polysubstance abuse admitted on 07/21/2024 after patient was dropped off essentially unconscious on ED dose step, initially deemed to have no pulse with CPR started and return of spontaneous circulation achieved right away.? In ER patient's with oscillating level of consciousness likely secondary to polysubstance abuse with aspirating event requiring intubation.? Initial CT head with no acute findings. Patient was extubated uneventfully on? the morning of 07/22/24.? Since extubation, the patient on room air,? alert and oriented.? Patient is a longer requiring ICU level care.? Plan:? ?Downgrade to medical floor ?Addiction consult advised to continue methadone Resume home meds? Time Spent With Patient Time: Total time managing care of this patient today ____ minutes. Documented by User: Clarence Peng MD 07/23/24 10:28 Event Note Date of Service: 07/23/24
[2024-07-23] MEDS: Albuterol Sulfate (0.083%) 2.5 MG/3 ML VIAL.NEB INHALE (03:46)
[2024-07-23 06:12] LABS: Venous Blood Gas Refer to POC result
[2024-07-23 06:14] LABS: MANUAL DIFF FLAG NO
[2024-07-23 06:19] LABS: VBG Base Excess 5.6 mmol/L; VBG HCO3 29 mmol/L (22-26); VBG pCO2 42 mmHg; VBG pH 7.45 (7.32-7.43); VBG pO2 66 mmHg
[2024-07-23 06:32] LABS: Basophils Percent Auto 0.5 % (0-2); Eosinophils Absolute Auto 0.2 X10*3/uL (0.0-0.4); Eosinophils Percent Auto 2.9 % (0-4); Hematocrit 34.3 % (42.0-52.0); Hemoglobin 11.5 g/dl (14.0-18.0); Imm Gran Abs Auto 0.01 X10*3/uL (0.00-0.03); Imm Gran Pct Auto 0.2 % (0.0-0.4); Lymphocytes Absolute Auto 1.7 X10*3/uL (1.2-4.9); Lymphocytes Percent Auto 26.3 % (20-40); Mean Corpuscular HGB Conc 33.5 g/dl (31.0-36.0); Mean Corpuscular Hemoglobin 28.7 pg (27.0-33.0); Mean Corpuscular Volume 85.5 fL (80.0-98.0); Mean Platelet Volume 9.9 fL (9.4-12.4); Monocytes Absolute Auto 0.7 X10*3/uL (0.1-1.2); Monocytes Percent Auto 10.1 % (2-11); Platelet Count 162 X10*3/uL (160-400); Red Blood Count 4.01 X10*6/uL (4.60-5.80); Red Cell Distribution Width 14.6 % (11.0-16.0); White Blood Count 6.6 X10*3/uL (4.8-10.8)
[2024-07-23 06:37] LABS: Albumin Level 3.5 g/dL (3.5-5.0); Anion Gap 10 (12-20); Blood Urea Nitrogen 10 mg/dL (9-16); Calcium 8.6 mg/dL (8.4-10.2); Carbon Dioxide 28 mmol/L (22-29); Chloride 110 mmol/L (96-108); Creatinine Clr Calc Pharmacy 140.4; Estimated Glomerular Filt Rate > 60; Glucose Random 100 mg/dL (60-115); Phosphorus 3.1 mg/dL (2.7-4.5); Potassium 3.4 mmol/L (3.3-5.1); Sodium 145 mmol/L (135-145)
[2024-07-23] MEDS: methADONE HCl 20 MG/2 ML ORAL.CONC 40 MG PO (07:39)
[2024-07-23] MEDS: Albuterol/Iprat 2.5/0.5MG 3 ML AMPUL.NEB INHALE ×2 (07:55→14:28)
[2024-07-23] MEDS: Fluticasone Propionate Nasal 16 GM SPRAY 2 SPRAY NOSTRIL-B (10:41)
[2024-07-23] MEDS: guaiFENesin DM 200/20/10 ML 10 ML SYRUP PO (11:22)
--- NOTE | 2024-07-23 13:16 | P.DS_ITS ---
DS: Providers Provider Date of Service: 07/23/24 Date of admission: 07/21/24 14:15 Date of discharge: 07/23/24 Primary care physician: [facility] Consults: 07/21/24 22:16 Addiction Medicine Provider Stat Consulting Provider: Addiction Covering Reason for consultation: Overdose Has provider been notified: No 07/23/24 08:31 Inpt - Recovery Team Routine Comment: Reason for consultation: KRYSTYNA eval and OTP referral DS: Diagnosis Discharge Diagnosis (1) Opioid use disorder: Status: Acute DS: Summary Hospital Course Hospital Course: History of presenting illness: Date of Service: 07/21/24 Attending physician on admission: Clarence Peng Chief Complaint: Altered Mental Status Mr Zarate is a 59-year-old male with history of COPD not on home oxygen, tobacco use disorder, hypertension, RIANA not on CPAP, opioid use disorder on methadone who was dropped off at the ER and initially found to be unresponsive in asystole. CPR was started and he regained a pulse. The pt was intermittently conscious and gave a vague history admitting to heroin use and c/o chest pain. EKG revealed no ST-elevation. After becoming more lethargic and unresponsive, he was intubated for airway protection. On arrival to the emergency room, the pt was asystolic. Once intubated, BP was 140/94, HR 117, O2 sat 100% on 40% FiO2.? Laboratory data significant for WBC 17.5, hemoglobin 13.4, hematocrit 41.6, BNP 226. VBG 7.48 36 83 27.? UDS positive for opiates, fentanyl, benzos, cocaine. Imaging: Head CT unremarkable. Chest CT indicative of pneumonia ED COURSE: The patient was given? LR 1 L, narcan, bronchodilator, magnesium, Solu-Medrol. RSI meds included lorazepam, midazolam, rocuronium, ketamine, succinylcholine.?He was sedated with a fentanyl and propofol drip.? He was tr eated empirically with azithromycin, ceftriaxone. Hospital course: 59-year-old gentleman with underlying polysubstance abuse and COPD admitted with acute toxic metabolic encephalopathy and acute hypercarbic respiratory failure secondary to polysubstance abuse with likely aspiration event initially requiring ventilatory support and admitted to intensive care unit, patient extubated successfully and remained stable in last 24 hours, confusion resolved, patient initially treated with IV antibiotic for possible aspiration event subsequently discontinued since had no fevers and WBC normalized at present patient is hemodynamically stable for discharge , strongly recommend to abstain from illicit drug use at continue methadone. Complaining of anterior chest wall pain with coughing recommend to take cough medication and Tylenol as needed. Acute toxic encephalopathy secondary to polysubstance abuse, resolved continue methadone as per Addiction Team recommendation. Likely aspiration pneumonitis, resolved. Tobacco use disorder strongly recommend to abstain from smoking patient declined nicotine patch. Class 3 obesity recommend low-calorie diet. Time Attestation Discharge Coordination Time (in mins): 40 Quality: Safe Use of Opioids Does Pt have an Active Cancer Diagnosis on the Problem List?: No Quality: Stroke Does the patient have a stroke diagnosis?: No Physical Exam Vital Signs: Vital Signs: Last Vital Signs Temp 98.1 F 07/23/24 11:19 Pulse 74 07/23/24 11:19 Resp 20 07/23/24 11:19 BP 150/89 H 07/23/24 11:19 Pulse Ox 96 07/23/24 11:19 O2 Del Method Room Air 07/23/24 11:19 O2 Flow Rate 1 07/23/24 02:00 FiO2 30 07/22/24 08:19 BMI result Body Mass Index 42.4 Const: Other: General awake alert x3, in no acute distress. Neck no JVD. CVS regular rate rhythm, Respiratory lungs coarse breath sounds, no respiratory distress, no wheeze, no rhonchi. Gastrointestinal abdomen soft, non tender, bowel sounds audible, no guarding , no rigidity. Extremities no edema. Neuro non focal Skin no rash Psych appropriate affect DS: Data Data Completed and Pending Labs on day of discharge: Laboratory Results - last 24 hr 07/23/24 07/23/24 06:06 06:11 WBC 6.6 RBC 4.01 L Hgb 11.5 L Hct 34.3 L MCV 85.5 MCH 28.7 MCHC 33.5 RDW 14.6 Plt Count 162 MPV 9.9 Immature Gran % (Auto) 0.2 Neut % (Auto) 60.0 Lymph % (Auto) 26.3 [place] % (Auto) 10.1 Eos % (Auto) 2.9 Baso % (Auto) 0.5 Lymph # (Auto) 1.7 [place] # (Auto) 0.7 Eos # (Auto) 0.2 Baso # (Auto) 0.0 Abs Immat Gran (auto) 0.01 Absolute Neuts (auto) 4.0 Absolute Nucleated RBC 0.000 Nucleated RBC % (auto) 0.0 VBG pH 7.45 H VBG pCO2 42 VBG pO2 66 VBG HCO3 29 H VBG O2 Saturation 91.0 VBG Base Excess 5.6 Sodium 145 Potassium 3.4 Chloride 110 H Carbon Dioxide 28 Anion Gap 10 L BUN 10 Creatinine 0.78 Estim Creat Clear Calc 140.4 Estimated GFR > 60 Random Glucose 100 Calcium 8.6 Phosphorus 3.1 Magnesium 2.0 Albumin 3.5 Preliminary micro results at discharge 07/21/24 14:11 Blood Culture - Preliminary Blood - Venous No growth after 24 hours. 07/21/24 14:11 Blood Culture - Preliminary Blood - Venous No growth after 24 hours. Discharge Plan Discharge Anticipated Discharge Date/Time: 07/23/24 11:09 Patient Disposition: Home, Self-Care Discharge Diagnosis: Acute hypercarbic respiratory failure Acute toxic metabolic encephalopathy Acute drug overdose Substance use disorder Referrals: [place] [Primary Care Provider] - 1 Week Discharge Medications: Continued albuterol sulfate 2.5 mg /3 mL (0.083 %) solution for nebulization 2.5 mg inhalation QID Qty: 90 0RF ascorbic acid (vitamin C) 250 mg tablet 250 mg PO DAILY ferrous gluconate 324 mg (38 mg iron) tablet 324 mg PO Q48H hydrochlorothiazide 12.5 mg tablet 12.5 mg PO BEDTIME guaifenesin [Mucus Relief ER] 600 mg tablet extended release 12hr 600 mg PO Q12H PRN (Reason: cough) Qty: 5 0RF loratadine [Claritin] 10 mg Tablet 10 mg PO DAILY fluticasone propion-salmeterol [Advair Diskus] 500-50 mcg/dose blister with device 1 inh INHALATION BID Qty: 1 0RF albuterol sulfate [Ventolin HFA] 90 mcg/actuation HFA aerosol inhaler 2 puff INHALATION Q4H PRN (Reason: Shortness Of Breath Or Wheezing) Qty: 1 0RF Spiriva Respimat 1.25 mcg/actuation mist 2 puff inhalation DAILY Qty: 1 0RF amlodipine 5 mg tablet 5 mg PO BEDTIME fluticasone propionate 50 mcg/actuation spray,suspension 2 spray intranasal DAILY montelukast 10 mg tablet 10 mg PO BEDTIME Discharge Orders: Discharge Order (Routine); Ordered 07/23/24 Ordered By: Khalif Polo Diet: Advance to usual diet Activity on Discharge: As tolerated Stand Alone Forms: Patient Portal Discharge page, Work/School Release Print Language: Kiswahili Care Plan Goals: Acute hypercarbic respiratory failure/acute toxic metabolic encephalopathy/acute drug overdose Obstructive sleep apnea recommend to continue CPAP at bedtime Script for Spiriva, ProAir and Advair sent to pharmacy Substance use disorder continue methadone as ordered Health Concerns: Continue all home inhalers as before Strongly recommend to abstain from smoking Take all home medications as before Plan of Treatment: Outpatient follow-up with primary care physician Assessment: As above
[2024-07-23] MEDS: Naloxone HCl Nasal TAKE HOME 4 MG SPRAY 8 MG NOSTRILALT (14:09)
--- NOTE | 2024-07-23 14:48 | MHC.CM.PN ---
Pt is medically cleared for discharge home self-care, pts family to transport him home.
== END 2024-07-23 14:37 | disposition home or self-care (01) | DRG 812 ==
LOC: HO.ED 13:57 → HO.EDOVER 14:16 → HO.ICU 14:16 → HO.IMC 07-23 04:05
PROVIDERS: Hospitalist; Admitting Provider Internal Medicine Pulmonary Disease; Emergency Provider Emergency Medicine; PCP Registered Nurse; Visit Provider Hospitalist
DX: T40.2X1A Poisoning by other opioids, accidental (unintentional), initial encounter (principal); J96.02 Acute respiratory failure with hypercapnia; J69.0 Pneumonitis due to inhalation of food and vomit; G92.8 Other toxic encephalopathy; F17.210 Nicotine dependence, cigarettes, uncomplicated; F11.20 Opioid dependence, uncomplicated; J44.9 Chronic obstructive pulmonary disease, unspecified; Z68.41 Body mass index [BMI] 40.0-44.9, adult; E66.813 Obesity, class 3; Z71.3 Dietary counseling and surveillance; G47.33 Obstructive sleep apnea (adult) (pediatric); F19.10 Other psychoactive substance abuse, uncomplicated; Z20.822 Contact with and (suspected) exposure to COVID-19; Z71.6 Tobacco abuse counseling; Z79.51 Long term (current) use of inhaled steroids; Z79.899 Other long term (current) drug therapy
CPT/HCPCS: 0241U; 36415; 36600; 70450; 71045; 71250; 80048; 80053; 80076; 80307; 81001; 82040; 82803; 82947; 83605; 83690; 83735; 83880; 84100; 84484; 85025; 85610; 85730; 87040; 93005; 94002; 94003; 94640; 94660; 94799; 99284; J0295; J0330; J0456; J0696; J1644; J1940; J2060; J2250; J2310; J2704; J2919; J3010; J3475; J7120; S9485

== ENCOUNTER → 2024-07-21 12:50 | Outpatient (BNV) | payer MEDICAID, SELFPAY | PROVIDERS: Admitting Provider Internal Medicine Pulmonary Disease; Emergency Provider Emergency Medicine; Visit Provider Internal Medicine Cardiovascular Disease | DX: R00.0 Tachycardia, unspecified (principal) | CPT/HCPCS: 93010 ==

== ENCOUNTER → 2024-07-21 12:50 | Outpatient (BNV) | payer MEDICAID, SELFPAY | PROVIDERS: Admitting Provider Internal Medicine Pulmonary Disease; Emergency Provider Emergency Medicine; Visit Provider Radiology Diagnostic Radiology | DX: I51.7 Cardiomegaly (principal); K80.20 Calculus of gallbladder without cholecystitis without obstruction; J34.89 Other specified disorders of nose and nasal sinuses; I46.9 Cardiac arrest, cause unspecified | CPT/HCPCS: 70450; 71045; 71250 ==

== ENCOUNTER → 2024-07-21 14:15 | Outpatient (BNV) | payer MEDICAID, SELFPAY | PROVIDERS: Admitting Provider Internal Medicine Pulmonary Disease; Emergency Provider Emergency Medicine; Visit Provider Nurse Practitioner Family | DX: J96.02 Acute respiratory failure with hypercapnia (principal); F11.959 Opioid use, unspecified with opioid-induced psychotic disorder, unspecified; T50.904A Poisoning by unspecified drugs, medicaments and biological substances, undetermined, initial encounter; J18.9 Pneumonia, unspecified organism | CPT/HCPCS: 99223; 99499 ==

== ENCOUNTER → 2024-07-21 14:15 | Outpatient (BNV) | payer MEDICAID, SELFPAY | PROVIDERS: Admitting Provider Internal Medicine Pulmonary Disease; Emergency Provider Emergency Medicine; Visit Provider Hospitalist | DX: F11.99 Opioid use, unspecified with unspecified opioid-induced disorder (principal) | CPT/HCPCS: 99239 ==

== ENCOUNTER → 2024-07-21 14:15 | Outpatient (BNV) | payer OTHER, SELFPAY | PROVIDERS: Admitting Provider Internal Medicine Pulmonary Disease; Emergency Provider Emergency Medicine; Visit Provider Nurse Practitioner Psychiatric/Mental Health | DX: F11.959 Opioid use, unspecified with opioid-induced psychotic disorder, unspecified (principal) | CPT/HCPCS: 99232 ==

== ENCOUNTER → 2024-07-21 14:15 | Outpatient (BNV) | payer MEDICAID, SELFPAY | PROVIDERS: Admitting Provider Internal Medicine Pulmonary Disease; Emergency Provider Emergency Medicine; Visit Provider Internal Medicine Pulmonary Disease | DX: F19.10 Other psychoactive substance abuse, uncomplicated (principal); T17.900A Unspecified foreign body in respiratory tract, part unspecified causing asphyxiation, initial encounter; J96.01 Acute respiratory failure with hypoxia; J44.89 Other specified chronic obstructive pulmonary disease | CPT/HCPCS: 99291 ==

== ENCOUNTER 2024-10-02 14:58 | Outpatient (REF) | payer MEDICAID, SELFPAY ==
--- NOTE | ~2024-10-02 | XR_ITS ---
EXAMINATION: XR KNEE, RIGHT CLINICAL INFORMATION: Right knee pain COMPARISON: None available. TECHNIQUE: AP, lateral, sunrise view lower extremity joint, x-rays of the right knee. FINDINGS: There is severe narrowing of the medial joint space with flattening of the subarticular bone. There is subchondral cystic change. There are tricompartmental osteophytes, largest in the patellofemoral joint. There is a large enthesophyte in the patellar tendon extending down from patella. There are osteophytes involving the proximal tibiofibular joint. There is a joint effusion. XR/XR knee RT 3V IMPRESSION: Severe osteoarthritis and joint effusion. Electronically signed by: Bob Costa MD 10/02/2024 05:24 PM EDT
--- NOTE | ~2024-10-02 | XR_ITS ---
EXAMINATION: XR SHOULDER, RIGHT CLINICAL INFORMATION: Right shoulder pain COMPARISON: October 02, 2018 TECHNIQUE: AP external rotation, Grashey, scapular Y, and axillary views of the right shoulder. FINDINGS: Large medial osteophyte extends down from the humeral head. There is subchondral degenerative cystic and sclerotic changes. Glenoid demonstrates marginal osteophyte formation as well. There is deformity with flattening of glenoid and humeral head articular surfaces. There is posterior subluxation of humeral head from glenoid. Moderate degenerative changes are present in the AC joint with osteophytes. XR/XR shoulder RT min 2V IMPRESSION: Severe degenerative changes of the right shoulder joint of progressed since the prior study. Electronically signed by: Bob Costa MD 10/02/2024 05:27 PM EDT
[2024-10-02 16:13] LABS: Venous Blood Gas Refer to POC result
[2024-10-02 16:15] LABS: VBG Base Excess 4.2 mmol/L; VBG HCO3 30 mmol/L (22-26); VBG pCO2 54 mmHg; VBG pH 7.35 (7.32-7.43); VBG pO2 57 mmHg
[2024-10-02 16:26] LABS: Alanine Aminotransferase 20 U/L (0-40); Albumin Level 4.1 g/dL (3.5-5.0); Alkaline Phosphatase 81 U/L (39-117); Anion Gap 10 (12-20); Aspartate Amino Transferase 21 U/L (5-37); Bilirubin Total 0.3 mg/dL (0.0-1.0); Blood Urea Nitrogen 9 mg/dL (9-16); Calcium 8.9 mg/dL (8.4-10.2); Carbon Dioxide 29 mmol/L (22-29); Chloride 107 mmol/L (96-108); Estimated Glomerular Filt Rate > 60; Glucose Random 107 mg/dL (60-115); Potassium 3.8 mmol/L (3.3-5.1); Sodium 142 mmol/L (135-145); Total Protein 7.4 g/dL (6.5-8.0)
== END 2024-10-02 14:59 | disposition home or self-care (01) ==
LOC: HO.XRAY 14:58
PROVIDERS: Absent Provider Nurse Practitioner; PCP Registered Nurse; Visit Provider Internal Medicine
DX: G89.29 Other chronic pain (principal); M25.511 Pain in right shoulder; M25.561 Pain in right knee; J96.92 Respiratory failure, unspecified with hypercapnia; G47.33 Obstructive sleep apnea (adult) (pediatric); G47.34 Idiopathic sleep related nonobstructive alveolar hypoventilation; J44.89 Other specified chronic obstructive pulmonary disease
CPT/HCPCS: 36415; 73030; 73562; 80053; 82803; 99212

== ENCOUNTER 2024-10-02 14:58 | Outpatient (AMB) | payer MEDICAID, SELFPAY ==
--- NOTE | 2024-10-02 15:23 | MHC.OFFVIS ---
Vital Signs 10/02/24 15:24 Height 5 ft 10 in Weight 297 lb 9.985 oz BMI 42.7 BP 140/70 H Blood Pressure Location Lt brachial Position Sitting Pulse 88 Pulse Source Pulse Oximeter Pulse Oximetry (%) 93 Oxygen Delivery Method Room Air Intake Visit Reasons: RIANA, COPD Intake Note: pt is here for follow up and he is having shortness of breath and some coughing. has to return the cpap, waiting network pricing consultant for new sleep study, ordered by pcp. Distributor Sales Consultant Required: No Allergies No Known Allergies Allergy (Verified 10/02/24 15:54) Medication List - Last Reconciled 10/02/24 by Annie Stewart MD albuterol sulfate 90 mcg/actuation (Ventolin HFA) 2 puffs inhalation Q4H PRN albuterol sulfate 2.5 mg (3 mL) inhalation QID amlodipine 5 mg PO BEDTIME ascorbic acid (vitamin C) 250 mg PO DAILY budesonide-formoterol 160-4.5 mcg/actuation (Symbicort) 2 puffs inhalation BID ferrous gluconate 324 mg PO Q48H fluticasone propion-salmeterol 500-50 mcg/dose (Advair Diskus) 1 inh inhalation BID fluticasone propionate 50 mcg/actuation 2 sprays intranasal DAILY guaifenesin ER (Mucus Relief ER) 600 mg PO Q12H PRN hydrochlorothiazide 12.5 mg PO BEDTIME loratadine (Claritin) 10 mg PO DAILY montelukast 10 mg PO BEDTIME tiotropium bromide 1.25 mcg/actuation (Spiriva Respimat) 2 puffs inhalation DAILY Do you need a note to return to daycare/school/sports/work: No HPI HPI RIANA, COPD: Details: This 59 years old gentleman comes here for her follow-up after his recent hospitalization. He was admitted with CO2 narcosis and change in mental status. Initially intubated and on vent support overnight then he was extubated. CO2 level did improve. He was sent home and advised to start using his CPAP, but actually he does not have CPAP at home because it was taken away due to noncompliance. He was diagnosed to have obstructive sleep apnea and started on CPAP 1 year ago but he did not continue with use of CPAP and has not seen me for more than a year. In the meantime he remains morbidly obese, he continue to have substance abuse and buying narcotics on n the [address] and using. Since his discharge from the hospital in July, he still not using CPAP because he does not have it at home. He states that he is not using the Illicit drugs He is on methadone, being followed at the methadone clinic. For his chronic obstructive pulmonary disease he continues to use Advair Diskus 500-51 inhalation b.i.d. and albuterol 2 puffs Q 6 hours p.r.n.. [facility] Medical History Respiratory failure with hypercapnia Opioid use disorder (~08/27/18) Nocturnal hypoxemia Snoring Asthma-COPD overlap syndrome Asthma Allergic rhinitis Somnolence, daytime Morbid obesity Obstructive sleep apnea HTN (hypertension) Chronic respiratory failure due to obstructive sleep apnea Bursitis of right shoulder Osteoarthritis of left knee Social History Household Members: Spouse Housing: House Do you presently have visiting nurse or other home services: No Alcohol intake: current Alcohol intake frequency: holidays/special occasions only Patient Tobacco Use Status: Current everyday Tobacco user Tobacco use type: Cigarette Cigarettes Per Day: 3 Years Smoked: 6 e-Cigarette/Vaping Use: Never Used Substance Use Type: Heroin Advance Directives Date on File: 02/28/23 service: No Current occupational status: unemployed Current occupation: right handed Review of Systems Const All systems reviewed & are unremarkable except as noted in HPI and below Eyes Reports no additional complaints ENT Reports nasal congestion and Reports nasal discharge Card Denies chest pain, Denies irregular heart rhythm and Reports leg edema (1 + STASIS EDEMA OF THE LEGS) Resp Reports as per HPI GI Reports no additional complaints Reports no additional complaints Musc Reports no additional complaints Skin/Breast Reports system reviewed and no additional complaints, except as documented Neuro Reports no additional complaints Psych Reports no additional complaints Abel/Lymph Reports no additional complaints Physical Exam Vital Signs: Last Vital Signs Pulse 88 10/02/24 15:24 BP 140/70 H 10/02/24 15:24 Pulse Ox 93 10/02/24 15:24 Oxygen Delivery Method Room Air 10/02/24 15:24 BMI result Body Mass Index 42.7 GROSSLY OBESE WITH A ROUND FACE, CROWDED OROPHARYNX, AND NECK SIZE OF 18-1/2 INCH. Const General: comfortable, no acute distress, alert and awake Orientation/consciousness: patient oriented x3 HEENT Head: Yes normal to inspection General nose exam: No nasal polyps present, No nasal discharge present and Other nasal findings present (MILD NASAL CONGESTION) Face and sinus: Yes sinuses nontender Mouth: oropharynx abnormals (CROWDED OROPHARYNX MALLAMPATI CLASS 3) Throat: Yes posterior oropharynx normal Eyes General: appearance normal, both eyes and all related structures Neck Neck: Yes normal visual inspection, Yes no lymphadenopathy, Yes trachea midline, Yes no JVD and Yes other (NECK CIRCUMFERENCE 18-1/2 INCH) Thyroid: Thyroid normal Chest Chest palpation & inspection: normal inspection of the chest, normal palpation of entire chest wall and no tenderness Resp Other: PERCUSSION NOTE IS DECREASED BECAUSE OF THE THICK CHEST WALL. BREATH SOUNDS SOUNDS ARE DISTANT ON BOTH SIDES, HE DOES HAVE A FEW SCATTERED EXPIRATORY WHEEZES OVER THE LOWER PARTS OF THE CHEST ON BOTH SIDES. Cardio Palpation: PMI not normal (NOT PALPABLE) Rate: regular rate Rhythm: regular rhythm Heart sounds: no gallops and no murmurs Peripheral pulses: Peripheral pulses 2+ throughout GI Palpation (GI): Soft to palpation, Tenderness to palpation present (GI), No hepatosplenomegaly present, Palpable mass present and Other GI palpation findings present (ABDOMEN IS OBESE AND PROTUBERANT) Auscultation: normal bowel sounds Back/Spine/Pelvis Thoracic/Lumbar Spine: thoracic and lumbar spine normal to inspection and thoraco-lumbar ROM limited Skin General skin exam: no rashes or lesions noted Neuro General: patient oriented x3 and no focal motor deficits Cranial nerves: Yes CN's II-XII intact bilaterally Extrem General: Yes normal to inspection, Yes no calf tenderness and Yes edema (1 + PITTING EDEMA OF BOTH LEGS, HAS ELASTIC STOCKINGS ON.) Psych Appearance: grossly normal and well kempt Speech and movement: Normal speech and movement present Results Reviewed Results Reviewed: Notes from the hospitalization reviewed Assessment & Plan Assessment & Plan (1) Obstructive sleep apnea: Comment: He is morbidly obese with BMI 42.7, and has typical features of obstructive sleep apnea. Was diagnosed to have RIANA, 1 year ago. was started on CPAP therapy, but he did not use it for too long and CPAP device was taken away for noncompliance. Code(s): G47.33 - Obstructive sleep apnea (adult) (pediatric) Category: Medical Plan: Patient has absolute need for using the CPAP. Sleep study in the sleep lab has been ordered, to qualify him for getting a new CPAP device. (2) Nocturnal hypoxemia: Comment: DURING HIS PREVIOUS SLEEP STUDY HE HAD , PERSISTENT NOCTURNAL HYPOXEMIA WITH O2 SAT 89%, AND O2 SAT BELOW 88% FOR 79 MINUTES Code(s): G47.34 - Idiopathic sleep related nonobstructive alveolar hypoventilation Category: Medical Plan: IT WAS HOPED THAT WITH THE USE OF CPAP HIS NOCTURNAL HYPOXEMIA COULD BE CORRECTED. BUT HE HAS BEEN NONCOMPLIANT AND NOT USING THE CPAP WE WILL SEE IF THE REPEAT SLEEP STUDY AGAIN SHOWS NOCTURNAL HYPOXEMIA THEN HE WILL PROBABLY NEED O2 SUPPLEMENTATION AT NIGHT. (3) Respiratory failure with hypercapnia: Comment: TREATED IN MAY AND JULY OF THIS YEAR WITH RESPIRATORY FAILURE AND HYPERCAPNIA. HE HAS MORBID OBESITY, HISTORY OF SUBSTANCE ABUSE, AND RIANA , AND IS PRONE TO HAVE HYPOXEMIA/HYPERCAPNIA. Code(s): J96.92 - Respiratory failure, unspecified with hypercapnia Category: Medical Plan: I ORDERED VENOUS BLOOD GAS STUDY TODAY. HE WILL BE GETTING LAB BASED POLYSOMNOGRAM STUDY ONCE AGAIN. HE DEFINITELY WOULD HAVE SLEEP APNEA AND WE WILL HAVE TO PLAN TO PUT HIM BACK ON CPAP THERAPY. (4) Asthma-COPD overlap syndrome: Comment: HE IS KNOWN TO HAVE ASTHMA/COPD OVERLAP SYNDROME. HE IS SUPPOSED TO USE BUDESONIDE-FORMOTEROL 160-4.52 PUFFS B.I.D. AND IS INSTRUCTED TO START USING IT AGAIN. HE IS SUPPOSED USE ALBUTEROL P.R.N. Code(s): J44.89 - Other specified chronic obstructive pulmonary disease Category: Medical Plan: DISCUSSED ABOUT USING THE ABOVE AGENTS WRITTEN. WILL RECHECK HIM IN 1 MONTH Orders: Orders Venous Blood Gas Today J96.92 - Respiratory failure, unspecified with hypercapnia Coding Level of Care Code Est Pt Level 4 (02836) Diagnoses Obstructive sleep apnea G47.33 Nocturnal hypoxemia G47.34 Respiratory failure with hypercapnia J96.92 Asthma-COPD overlap syndrome J44.89
[2024-10-02 15:24] VITALS: BP 140/70; PULSE 88; O2SAT 93; BMI 42.7
--- OUTSIDE RECORDS SUMMARY | 2024-10-02 17:16 | XMS_ITS | Clinical Summary ---
Author Organization [employer] Address [address] [facility] [address] [place] [address] Care Team Providers Care Metal Drawer Name Role Phone Rebecca Hogan NP Primary Care Provider [phone] Allergies No known active allergies Medications methadone (Dolophine) 10 MG/5ML solution 60mg daily at methadone clinic Active tiotropium (Spiriva Respimat) 1.25 MCG/ACT inhalerIndicatio ns:Asthma with COPD (CMS/HCC) Inhale 2 puffs Once per day. 1 each 2 04/15/20 24 025 Active Fluticasone-Salm eterol (Advair Diskus) 500-50 MCG/ACT aerosol powderIndication s:Asthma with COPD (CMS/HCC) Inhale 1 puff 2 times daily. 60 each 2 04/15/20 24 Active albuterol 108 (90 Base) MCG/ACT inhalerIndicatio ns:Asthma with COPD (CMS/HCC) INHALE 2 PUFFS BY MOUTH EVERY 4 TO 6 HOURS NEEDED 18 g 04/15/20 24 Active hydroCHLOROthiaz carine 12.5 MG tabletIndication s:Primary hypertension Take 1 tablet (12.5 mg) by mouth Once per day. 90 tablet 04/15/20 24 Active amLODIPine (Norvasc) 5 MG tabletIndication s:Primary hypertension TAKE 1 TABLET(5 MG) BY MOUTH IN THE MORNING 90 tablet 04/15/20 24 Active ferrous gluconate (Fergon) 324 (38 Fe) MG tablet Take 1 tablet (324 mg) by mouth every other day. With vitamin C 30 tablet 2 05/03/19 25 026 Active Ascorbic Acid (vitamin C) 250 MG tablet Take 1 tablet (250 mg) by mouth every other day. With iron 30 tablet 2 05/03/19 25 026 Active montelukast (Singulair) 10 MG tabletIndication s:Asthma with COPD (CMS/HCC) Take 1 tablet (10 mg) by mouth at bedtime. 90 tablet 08/01/19 25 025 Active cloNIDine (Catapres) 0.1 MG tablet Take 1 tablet by mouth if needed in the morning and at bedtime (anxiety or withdrawals). 08/01/19 25 Active traZODone (Desyrel) 50 MG tablet Take 1 tablet by mouth if needed at bedtime for sleep. 08/01/19 25 Active loratadine (Claritin) 10 MG tablet Take 1 tablet by mouth Once per day. Active albuterol (2.5 MG/3ML) 0.083% nebulizer solutionIndicati ons:Mild persistent asthma with acute exacerbation USE 3 ML VIA NEBULIZER FOUR TIMES DAILY 90 mL 3 08/10/19 25 Active fluticasone (Flonase) 50 MCG/ACT nasal sprayIndications :Seasonal allergic rhinitis, unspecified trigger SHAKE LIQUID AND USE 2 SPRAYS IN EACH NOSTRIL EVERY DAY 48 g 09/26/19 25 Active fluticasone (Flonase) 50 MCG/ACT nasal sprayIndications :Seasonal allergic rhinitis, unspecified trigger SHAKE LIQUID AND USE 2 SPRAYS IN EACH NOSTRIL EVERY DAY 48 g 04/15/20 24 025 Discontinued Active Problems Problem Noted Date Diagnosed Date Anemia 08/22/2023 Assessment & Plan (08/22/2023 9:47 PM EDT): -decreased H&H from 02/2023 -lab ordered to evaluate anemia type Colon cancer screening 08/22/2023 Assessment & Plan (09/17/2024 9:39 AM EDT): -patient agreeable to screening with cologuard -counseled on 13% false positive and 8% false negative rate and is aware that if the test is positive a diagnostic colonoscopy should be pursued within 3-6 months. -patient informed of need to repeat test in 3 years if negative result -cologuard order placed Assessment & Plan (08/22/2023 9:42 PM EDT): -due for routine screening at this time. Patient denies every undergoing screening -GI referral placed Asthma with COPD 08/22/2023 Assessment & Plan (09/17/2024 9:47 AM EDT): - Previously referred to pulmonology Assessment & Plan (04/15/2024 12:17 PM EST): -patient reports stable at this time -medication refills provided Assessment & Plan (08/22/2023 9:43 PM EDT): -patient reports stable at this time -medication refills provided -will assess further at next visit Substance use disorder 03/20/2023 Assessment & Plan (09/16/2024 9:15 AM EDT): -recent overdose -complicated by underlying behavioral health concerns -action state of change. will reach out to CRS provider for assistance with other resources -provided fentanyl test strips for safe use. pipe has narcan at home -encouraged to keep appointment to establish with therapist Assessment & Plan (04/15/2024 12:16 PM EST): -verbalizes desire to engage with [facility] for suboxone treatment -will have steam roller operator reach out to the patient for an appointment -call placed to clinician to call patient and assist with establishing with therapist Chronic right shoulder pain 09/20/2022 Assessment & Plan (09/17/2024 9:47 AM EDT): -Plan as noted for chronic knee pain Knee pain 09/20/2022 Assessment & Plan (09/17/2024 9:46 AM EDT): - Suspect arthritis as probable cause given patient's description - X-ray ordered - Discussed safety concern associated with his use of tramadol given history of substance abuse - Moderate risk for opioid aberrant behaviors based on risk calculation - Discussed short-term trial of diclofenac however no recent kidney function on file he is encouraged to complete labs to ensure safe prescribing -May take Tylenol in the interim for pain management. 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 Dyspnea on exertion 11/08/2017 Primary hypertension 06/23/2017 Assessment & Plan (09/17/2024 9:37 AM EDT): - BP within acceptable range <140/90 mmHg - Continue current regimen -Advised low-salt/low-fat diet and routine physical activity as tolerable Assessment & Plan (04/15/2024 12:24 PM EST): [...] advised as outlined below -follow-up 1 month Class 3 severe obesity due t o excess calories without serious comorbidity with body mass index (BMI) of 40.0 to 44.9 in adult 06/23/2017 Assessment & Plan (09/17/2024 9:39 AM EDT): Dietary Recommendations: Fruits, vegetables, whole grains, protein foods, and fat-free or low-fat dairy products are healthy choices. Eat different types of protein foods in your diet. This can include seafood, lean meats, poultry, beans, peas, lentils, nuts, seeds, soy products, and eggs. Limit foods and beverages higher in added sugars, saturated fat, and sodium. Exercise Recommendations: At least 150 minutes of moderate-intensity physical activity per week, or an equivalent combination of moderate- and vigorous-intensity activity - Encouraged to consider ways in which he might want to engage in weight loss to be discussed at next appointment Assessment & Plan (02/26/2024 12:03 PM EST): [...] to discuss labs Severe persistent asthma 06/23/2017 Resolved Problems Problem Noted Date Diagnosed Date Resolved Date Opioid dependence, uncomplicated 09/16/2024 09/16/2024 Routine screening for STI (s exually transmitted infection) 08/22/2023 09/17/2024 Assessment & Plan (08/22/2023 9:41 PM EDT): -patient agreeable to testing. labs ordered Epididymitis 10/22/2021 09/17/2024 Encounters Date Type Department Care Team Description 10/02/2024 Orders Only GENERIC EXTERNAL DATA DEPARTMENT Provider, Generic External Data 09/24/2024 Refill [facility] [address] [place] [phone] Rebecca Hogan NP Seasonal allergic rhinitis, unspecified trigger 09/16/2024 11:00 AM EDT Office Visit [facility] [address] [place] [phone] Rebecca Hogan NP Chronic pain of right knee (Primary Dx); Chronic right shoulder pain; Hypersomnolence; Asthma with COPD ([facility]); Primary hypertension; Dietary counseling; Exercise counseling; Class 3 severe obesity due to excess calories without serious comorbidity with body mass index (BMI) of 40.0 to 44.9 in adult; Colon cancer screening 09/16/2024 Travel 09/13/[address] [address] Toma Baca MA Chart Prep 09/11/[address] [phone] Rebecca Hogan NP Referral 08/13/2024 9:30 AM EDT Office Visit [address] [address] Kenia Barnes RN Opioid dependence, uncomplicated ([facility]) 08/13/2024 Patient Outreach [address] [address] Tom Altamirano Recovery Supports 08/13/2024 Travel 08/09/2024 2:00 PM EDT Office Visit [address] [address] Rebecca Hogan NP Hospital discharge follow-up (Primary Dx); Mild persistent asthma with acute exacerbation; Substance use disorder; Soft tissue mass; Elevated blood pressure reading in office with diagnosis of hypertension 08/09/2024 Travel 08/01/[address] [address] Alison Barraza MA chartprep 07/31/2024 10:40 AM EDT Office Visit [facility] [address] [place] [phone] Ken Mckeon MD Asthma with COPD ([facility]) (Primary Dx); Primary hypertension; Opioid dependence, uncomplicated ([facility]) 07/31/2024 Orders Only [facility] [address] [place] [phone] Ken Mckeon MD Asthma with COPD ([facility]) 07/25/2024 Patient Outreach [facility] [address] [place] [address] Rebecca Hogan NP Transition Of Care (Tcm) (HDF scheduled.) 07/25/[address] [phone] Rebecca Hogan NP Hospital Follow-up 07/21/2024 Orders Only [facility] External Provider, [facility] 07/18/2024 Patient Outreach [address] [address] Rebecca Hogan NP Care Coordination ([facility] telephone call outreach) 07/18/2024 Patient Outreach [address] [address] Rebecca Hogan NP Care Coordination ([facility] telephone call outreach) 07/08/[address] [address] Alison Barraza MA chartprep from Last 3 Months Immunizations Immunization Administration Dates Next Due Pneumococcal Conjugate PCV 20 09/29/2022 Tdap 12/01/2022 Zoster, Recombinant 12/01/2022,09/29/2022 Family History Medical History Relation Name Comments Heart disease Father Prostate cancer Father Breast cancer Mother Colon cancer Mother Relation Name Status Comments Father Mother Social History Tobacco Use Types Packs/Day Years Used Date Smoking Tobacco: Every Day Cigarettes Passive Smoke Exposure: Current Smokeless Tobacco: Never Tobacco Cessation:Ready to Q [...] Sign Reading Time Taken Comments Blood Pressure 138/76 09/16/2024 11:14 AM EDT Pulse 74 09/16/2024 11:14 AM EDT Temperature 36.7 C (98.1 F) 09/16/2024 11:14 AM EDT Respiratory Rate 22 09/16/2024 11:14 AM EDT Oxygen Saturation 95% 08/09/2024 2:28 PM EDT Inhaled Oxygen Concentration - - Weight 136 kg (300 lb 6 oz) 09/16/2024 11:14 AM EDT Height 182.9 cm (6') 09/16/2024 11:14 AM EDT Body Mass Index 40.74 09/16/2024 11:14 AM EDT Plan of Treatment Health Maintenance Due Date Last Done Comments CT Colonography 1965 Colonoscopy 1965 Colorectal Cancer Screening 1965 FIT DNA/Cologuard 1965 FIT 1965 FOBT 1965 Sigmoidoscopy 1965 Hepatitis B Vaccines (1 of 3 - 19+ 3-dose series) 02/11/1984 COVID-19 Vaccine (3 - 2023-2 5 season) 2023 09/17/2020, 08/19/2020 Influenza Vaccine (Season Ended) 2024 Depression Monitoring 01/01/2025 07/01/2024 , 07/01/2024 Alcohol/Substance Use Screening 04/15/2025 04/15/2024 SDOH Screening 06/05/2025 06/05/2024 Disability Screening 08/09/2025 08/09/2024 Tobacco Screening 09/16/2025 09/16/2024 Lipid Panel 04/15/2029 04/15/2024 DTaP/Tdap/Td Vaccines (2 [...] patient's age to complete this topic Meningococcal B Vaccine Aged Out No l onger eligible based on patient's age to complete [...] Associated Diagnosis Comments VENOUS BLOOD GAS Routine 10/02/2024 4:11 PM EDT COMPREHENSIVE METABOLIC PANEL Routine 10/02/2024 4:08 PM EDT Chronic pain of right knee CT CHEST WO CONTRAST Routine 07/21/2024 2:[address] HEAD WO CONTRAST Routine 07/21/2024 2 :35 PM EDT XR CHEST 1 VIEW Routine 07/21/2024 2:00 PM EDT SARS COV2/INFLUENZA A/B AND RSV RNA QL [...] Recently Relevant to Health Maintenance Results * (ABNORMAL) VENOUS BLOOD GAS (10/02/2024 4:11 PM EDT) VBG pH 7.35 7.32 - 7.43 [facility] Comment:METER #: [id number] additional_comment: CbGuillea VBG PCO2 54 mmHg [facility] Comment:METER #: [id number] additional_comment: CbGu[place]a VBG PO2 57 mmHg [facility] Comment:METER #: [id number] additional_comment: CbGuillea VBG Base Excess 4.2 mmol/L [facility] Comment:METER #: [id number] additional_comment: CbGuillea VBG HCO3 30(H) 22 - 26 mmol/L [facility] Comment:METER #: [id number] additional_comment: CbGuillea O2 Sat, Domenic 83.0 % [facility] Comment:METER #: [id number] additional_comment: CbGuillea 10/02/2024 4:11 PM EDT 10/02/2024 4:14 PM EDT us Generic External Data Provider LAB BLOOD ORDERAB LES Final Result Performing Organization Address City/[facility]/ZIP Co de Phone Number [facility] [address] [place] [address] [phone] * (ABNORMAL) Comprehensive Metabolic Panel (10/02/2024 4:08 PM EDT) Sodium 142 135 - 145 mmol/L [facility] Potassium 3.8 3.3 - 5.1 mmol/L [facility] Chloride 107 96 - 108 mmol/L [facility] Carbon Dioxide 29 22 - 29 mmol/L [facility] Anion Gap 10(L) 12 - 20 [facility] Urea Nitrogen (BUN) 9 9 - 16 mg/dL [facility] Creatinine, Serum 0.86 0.5 - 1.4 mg/dL [facility] Estimated Glomerular Filt Rate >60 [facility] Comment:Chronic Kidney Disea se: Estimated GFR < 60 mL/min/1.27i8Rwmdic Kidney Disease: Estimated GFR < 15 mL/min/1.73m2 Glucose 107 60 - 115 mg/dL [facility] Calcium 8.9 8.4 - 10.2 mg/dL [facility] Bilirubin, Total 0.3 0.0 - 1.0 mg/dL [facility] Aspartate Amino Transferase 21 5 - 37 U/L [facility] Alanine Aminotransferase 20 0 - 40 U/L [facility] Total Protein 7.4 6.5 - 8.0 g/dL [facility] Albumin Level 4.1 3.5 - 5.0 g/dL [facility] Alkaline Phosphatase 81 39 - 117 U/L [facility] Blood Venous blood specimen / Unknown 10/02/2024 4:08 PM EDT 10/02/2024 4:08 PM EDT us Rebecca Hogan DIE REPAIR MACHINIST LAB BLOOD ORDERABLES Final Resu lt [facility] [address] [place] [phone] * CT Chest w/o Contrast (07/21/2024 2:41 PM EDT) Anatomical Region Laterality Modality Body, Chest Computed Tomogra phy 07/21/2024 2:41 PM EDT Narrative 07/21/2024 2:43 PM EDT [address] [address] [address] Scan Report Signed with Addenda Patient: Elmer Zarate MR#: [id number] : 1965 Acct:[id number] Age/Sex: 59 / M ADM Date: 07/21/24 [facility]: Clarence Peng MD Ordering Physician: Sanjana Valentine MD Date of Service: 07/21/24 Procedure(s): CT chest wo IV con Accession Number(s): [id number] cc: Sanjana Valentine MD; [facility] Report Number: [id number]: Total DLP = 684.00 mGy-cm ADDENDUM This document has been electronically signed by: Sudarshan Vidal MD on 07/21/2024 14:41:20 ADDENDUM: This report was discussed with Thom Resendez RN on Jul 21, 2024 14:47:00 EDT. This document has been electronically signed by: Anastasiia Yuan on 07/21/2024 14:48:10 Addendum Dictated By: Sudarshan Vidal MD Addendum Signed By: <Electronically signed by Sudarshan Vidal MD in OV> 07/21/241448 Addendum Cosigned By: DD/ /09/1440 TD/TT: 07/21/2410/10/1447 CLINICAL HISTORY: Acute respiratory distress CT chest without contrast Comparison: None Findings: The heart size is enlarged. The visualized thyroid and mediastinum are unremarkable. ETT extends into the right mainstem bronchus. Mild dependent bibasilar airspace opacity. Visualized portions of the upper abdomen demonstrate a small amount of high density material within the gallbladder lumen. No acute fractures. IMPRESSION: 1. ETT is within the right mainstem bronchus. 2. Bibasilar atelectasis versus pneumonia. 3. Cholelithiasis. 4. Cardiomegaly. This document has been electronically signed by: Sudarshan Vidal MD on 07/21/2024 14:41:20 Dictated By: Sudarshan Vidal MD Signed By: <Electronically signed by Sudarshan Vidal MD in OV> 07/21/241441 DD/ 40 TD/TT: 07/21/241440 Piping Engineer: Procedure Note Donotuseinterpreter, Image - 07/21/[address] [place] [address] [address] Scan Report Signed with Addenda Patient: Elmer Zarate AMR#: [id number] : 1965Acct:[id number] Age/Sex: 59 / MADM Date: 07/21/24 Loc: [facility] 253[facility]: Clarence Peng MD Ordering Physician: Sanjana Valentine MD Date of Service: 07/21/24 Procedure(s): CT chest wo IV con Accession Number(s): [id number] cc: Sanjana Valentine MD; [facility] Report Number: [id number]: Total DLP = 684.00 mGy-cm ADDENDUM This document has been electronically signed by: Sudarshan Vidal MD on 07/21/2024 14:41:20 ADDENDUM: This report was discussed with Thom Resendez RN on Jul 21, 2024 14:47:00 EDT. This document has been electronically signed by: Anastasiia Yuan on 07/21/2024 14:48:10 Addendum Dictated By: Sudarshan Vidal MD Addendum Signed By: <Electronically signed by Sudarshan Vidal MD in OV> 07/21/241448 Addendum Cosigned By: DD/ /09/1440 TD/TT: 07/21/2410/10/1447 CLINICAL HISTORY: Acute respiratory distress CT chest without contrast Comparison: None Findings: The heart size is enlarged. The visualized thyroid and mediastinum are unremarkable. ETT extends into the right mainstem bronchus. Mild dependent bibasilar airspace opacity. Visualized portions of the upper abdomen demonstrate a small amount of high density material within the gallbladder lumen. No acute fractures. IMPRESSION: 1. ETT is within the right mainstem bronchus. 2. Bibasilar atelectasis versus pneumonia. 3. Cholelithiasis. 4. Cardiomegaly. This document has been electronically signed by: Sudarshan Vidal MD on 07/21/2024 14:41:20 Dictated By: Sudarshan Vidal MD Signed By: <Electronically signed by Sudrashan Vidal MD in OV> 07/21/24 1442 DD/ 1441 TD/TT: 07/21/24 144 Piping Engineer: [facility] External Provider IMG CT PROCEDURES Edited Result - Final * CT Head w/o Contrast (07/21/2024 2:35 PM EDT) Anatomical Region Laterality Modality Head, Neck Computed Tomogra phy 07/21/2024 2:35 PM EDT Narrative 07/21/2024 2:36 PM EDT [place] [address] [address] Scan Report Signed Patient: Elmer Zarate MR#: [id number] : 1965 Acct:[id number] Age/Sex: 59 / M ADM Date: 07/21/24 Loc: [facility] 253-[address]: Clarence Peng MD Ordering Physician: Sanjana Valentine MD Date of Service: 07/21/24 Procedure(s): CT head/brain wo IV con Accession Number(s): [id number] cc: Sanjana Valentine MD; [facility] Report Number: [id number]: Total DLP = 1201.45 mGy-cm CLINICAL HISTORY: Mental status change CT head without contrast Comparison: None Findings: No intra-axial mass, midline shift, hydrocephalus, or acute hemorrhage. No significant atrophy-like change or white matter disease. Moderate bilateral ethmoid and maxillary sinus mucosal thickening. Mastoids are clear. The orbits are unremarkable. There is no acute fracture. IMPRESSION: 1. No acute intracranial findings. 2. Sinus disease. This document has been electronically signed by: Sudarshan Vidal MD on 07/21/2024 14:35:04 Dictated By: Sudarshan Vidal MD Signed By: <Electronically signed by Sudarshan Vidal MD in OV> 07/21/241434 DD/ 34 TD/TT: 07/21/241434 Piping Engineer: Procedure Note Donotuseinterpreter, Image - 07/21/[address] [place] [address] [address] Scan Report Signed Patient: Elmer Zarate AMR#: [id number] : 1965Acct:[id number] Age/Sex: 59 / MADM Date: 07/21/24 Loc: [facility] 253-[address]: Clarence Peng MD Ordering Physician: Sanjana Valentine MD Date of Service: 07/21/24 Procedure(s): CT head/brain wo IV con Accession Number(s): [id number] cc: Sanjana Valentine MD; [facility] Report Number: [id number]: Total DLP = 1201.45 mGy-cm CLINICAL HISTORY: Mental status change CT head without contrast Comparison: None Findings: No intra-axial mass, midline shift, hydrocephalus, or acute hemorrhage. No significant atrophy-like change or white matter disease. Moderate bilateral ethmoid and maxillary sinus mucosal thickening. Mastoids are clear. The orbits are unremarkable. There is no acute fracture. IMPRESSION: 1. No acute intracranial findings. 2. Sinus disease. This document has been electronically signed by: Sudarshan Vidal MD on 07/21/2024 14:35:04 Dictated By: Sudarshan Vidal MD Signed By: <Electronically signed by Sudarshan Vidal MD in OV> 07/21/24 1435 DD/ TD/TT: 07/21/241434 Piping Engineer: us [facility] External Provider IMG CT PROCEDURES Edited Result - Final * XR Chest 1 View (07/21/2024 2:00 PM EDT) Anatomical Region Laterality Modality Chest Radiographic Brigid ging 07/21/2024 2:00 PM EDT Narrative 07/21/2024 2:02 PM EDT [address] [address] XRay Report Signed Patient: Elmer Zarate MR#: [id number] : 1965 Acct:[id number] Age/Sex: 59 / M ADM Date: 07/21/24 Loc: HO.ED Attending Dr: Ordering Physician: Sanjana Valentine MD Date of Service: 07/21/24 Procedure(s): XR chest 1V Accession Number(s): [id number] cc: Sanjana Valentine MD; [facility] CLINICAL HISTORY: cardiac arrest 1 view chest x-ray Comparison: CR - XR CHEST 1V - 05/31/24 19:25 EST CR/SR - XR CHEST 1V - 02/25/23 20:52 EST Findings: ETT is in expected location. Mild diffuse reticulonodular pulmonary opacity. Normal size heart. No acute fracture. IMPRESSION: Mild edema versus atypical pneumonia. This document has been electronically signed by: Sudarshan Vidal MD on 07/21/2024 14:00:34 Dictated By: Sudarshan Vidal MD Signed By: <Electronically signed by Sudarshan Vidal MD in OV> 07/21/24 1401 DD/ 1400 TD/TT: 07/21/24 1400 Piping Engineer: Procedure Note Donotuseinterpreter, Image - 07/21/[address] [address] XRay Report Signed Patient: Elmer Zarate AMR#: [id number] : 1965Acct:[id number] Age/Sex: 59 / MADM Date: 07/21/24 Loc: HO.ED Attending Dr: Ordering Physician: Sanjana Valentine MD Date of Service: 07/21/24 Procedure(s): XR chest 1V Accession Number(s): [id number] cc: Sanjana Valentine MD; [facility] CLINICAL HISTORY: cardiac arrest 1 view chest x-ray Comparison: CR - XR CHEST 1V - 05/31/24 19:25 EST CR/SR - XR CHEST 1V - 02/25/23 20:52 EST Findings: ETT is in expected location. Mild diffuse reticulonodular pulmonary opacity. Normal size heart. No acute fracture. IMPRESSION: Mild edema versus atypical pneumonia. This document has been electronically signed by: Sudarshan Vidal MD on 07/21/2024 14:00:34 Dictated By: Sudarshan Vidal MD Signed By: <Electronically signed by Sudarshan Vidal MD in OV> 07/21/24 1401 DD/ 1400 TD/TT: 07/21/24 1400 Piping Engineer: [facility] External Provider IMG XR PROCEDURES Edited Result - Final * SARS-CoV-2 RNA, Influenza A/B, and RSV RNA, Ql NAAT (07/21/2024 1:05 PM EDT) Influenza A PCR NEGATIVE Negative [facility] Influenza B PCR NEGATIVE Negative [facility] Resp Syncy Virus RNA Qual PCR NEGATIVE Negative [facility] SARS COV2 PCR NEGATIVE Negative [facility] Comment:All test results mus t be [...] use by authorized laboratories.Testing performed on the [employer] GeneXpert utilizingreal-time RT-PCR.All SARS CoV2 and positive influenza A/B results arereported to [facility]. 07/21/2024 1:05 PM EDT 07/21/2024 1:07 PM EDT Generic External Data Provider LAB MICROBIOLOGY - GENERAL ORDERABLES Final Result Performing Organization Address [facility] Co de Phone Number [facility] [address] [place] [phone] * Hepatitis C Antibody with Reflex to HCV, RNA, Quantitative, Real-Time PCR (04/15/2024 10:49 AM EST) Hepatitis C Antibody Nonreactive Nonreactive [facility] Comment:Antibodies to HCV no t detected; does not exclude early acuteHCV infection. Blood Venous blood specimen / Unknown 04/15/2024 10:49 AM EST 04/15/2024 1:18 PM EST Rebecca Hogan DIE REPAIR MACHINIST LAB BLOOD ORDERABLES Final Resu lt Performing Organization Address [facility] [facility] Co de Phone Number [facility] [address] [place] [phone] HIV-1/2 Antigen and Antibodies, Fourth Generation, with Reflexes (04/15/2024 10:49 AM EST) HIV AB/AG Nonreactive Nonreactive [facility] Comment:HIV-1 p24 Ag and/or HIV-1/HIV-2 Ab not detected.A test result that is nonreactive does not exclude thepossibility of exposure to or infection with HIV-1 and/orHIV-2. Nonreactive results in this assay for individualswith prior exposure to HIV-1 and/or HIV-2 may be due toantigen and antibody levels that are below the limit ofdetection of this assay.The [employer] HIV Ag/Ab Combo assay result andsupplemental assay results should be interpreted inconjunction with the patient's clinical presentation,history and other laboratory results. If the results areinconsistent with clinical evidence, additional testing issuggested to confirm the result. Blood Venous blood specimen / Unknown 04/15/2024 10:49 AM EST 04/15/2024 1:18 PM EST Rebecca Nika DIE REPAIR MACHINIST LAB BLOOD ORDERABLES Final Resu lt Performing Organization Address [facility] Co de Phone Number [facility] [address] [place] [address] [phone] * Lipid Panel, Standard (04/15/2024 10:49 AM EST) Triglycerides 60 <150 mg/dL [facility] Comment:Desirable Triglyceri de: less than 150 mg/dLBorderline High Triglyceride 150-199 mg/dLHigh Triglyceride: 200-499 mg/dLVery High Triglyceride: greater than or equal to 5OO mg/dL Cholesterol 140 <200 mg/dL [facility] Comment:Desirable Cholestero l: less than 200 mg/dLBorderline High Cholesterol: 200-239 mg/dLHigh Cholesterol: greater than 239 mg/dL LDL Cholesterol Calculated 81 <100 mg/dL [facility] Comment:Desirable LDL: less than 100 mg/dLNear Optimal/Above Optimal LDL: 110- 129 mg/dLBorderline High LDL: 130-159 mg/dLHigh LDL: 160-189 mg/dLVery High LDL: greater than or equal to 190 mg/dL HDL Cholesterol 47 >40 mg/dL [facility] Comment:Desirable HDL: great er than 40 mg/dL Note: This HDL assay may give artificially low results in patients with liver disease. Blood Venous blood specimen / Unknown 04/15/2024 10:49 AM EST 04/15/2024 1:18 PM EST Rebecca Maher DIE REPAIR MACHINIST LAB BLOOD ORDERABLES Final Resu lt Performing Organization Address [facility]/ZIP Co de Phone Number [facility] [address] [place] [phone] from Last 3 Months or Most Recently Relevant to Health Maintenance Insurance [facility] C3 HSN FULL Care Teams Metal Drawer Relationship Specialty Start Date End Date Rebecca Hogan NP [address] [place] [phone] PCP - General Family Medicine 01/20/23
== END 2024-10-02 15:50 | disposition home or self-care (01) ==
PROVIDERS: PCP Registered Nurse; Visit Provider Internal Medicine
DX: G47.33 Obstructive sleep apnea (adult) (pediatric) (principal); G47.34 Idiopathic sleep related nonobstructive alveolar hypoventilation; J96.92 Respiratory failure, unspecified with hypercapnia; J44.89 Other specified chronic obstructive pulmonary disease
CPT/HCPCS: 99214

== ENCOUNTER → 2024-10-02 16:10 | Outpatient (BNV) | payer MEDICAID, SELFPAY | PROVIDERS: Absent Provider Nurse Practitioner; PCP Registered Nurse; Visit Provider Radiology Diagnostic Radiology | DX: M17.11 Unilateral primary osteoarthritis, right knee (principal); M25.461 Effusion, right knee; M19.011 Primary osteoarthritis, right shoulder | CPT/HCPCS: 73030; 73562 ==

== ENCOUNTER 2024-10-30 14:59 | Outpatient (AMB) | payer MEDICAID, SELFPAY ==
[2024-10-30 15:03] VITALS: BP 140/70; PULSE 81; O2SAT 96; BMI 43.3
--- NOTE | 2024-10-30 15:03 | MHC.OFFVIS ---
Vital Signs 10/30/24 15:03 Height 5 ft 10 in Weight 302 lb 0.533 oz BMI 43.3 BP 140/70 H Blood Pressure Location Lt brachial Position Sitting Pulse 81 Pulse Source Pulse Oximeter Pulse Oximetry (%) 96 Oxygen Delivery Method Room Air Intake Visit Reasons: RIANA/COPD Intake Note: pt is here for follow up and does only have short of breath with carrying things, syairs, walking fast. Allergies No Known Allergies Allergy (Verified 10/30/24 15:22) Medication List - Last Reconciled 10/30/24 by Annie Stewart MD albuterol sulfate 90 mcg/actuation (Ventolin HFA) 2 puffs inhalation Q4H PRN albuterol sulfate 2.5 mg (3 mL) inhalation QID amlodipine 5 mg PO BEDTIME ascorbic acid (vitamin C) 250 mg PO DAILY ferrous gluconate 324 mg PO Q48H fluticasone propion-salmeterol 500-50 mcg/dose (Advair Diskus) 1 inh inhalation BID fluticasone propionate 50 mcg/actuation 2 sprays intranasal DAILY guaifenesin ER (Mucus Relief ER) 600 mg PO Q12H PRN hydrochlorothiazide 12.5 mg PO BEDTIME loratadine (Claritin) 10 mg PO DAILY montelukast 10 mg PO BEDTIME tiotropium bromide 1.25 mcg/actuation (Spiriva Respimat) 2 puffs inhalation DAILY Do you need a note to return to daycare/school/sports/work: No HPI HPI RIANA/COPD: Details: 59 YEARS OLD GENTLEMAN WITH MORBID OBESITY AND DIAGNOSIS OF OBSTRUCTIVE SLEEP APNEA, ALSO RECENTLY TREATED FOR ACUTE RESPIRATORY FAILURE DUE TO HIS COPD. COMES FOR FOLLOW-UP AFTER 1 MONTH, HE HAS BEEN USING ADVAIR 500-51 INHALATION B.I.D., SPIRIVA HANDIHALER 1 INHALATION DAILY, ALBUTEROL HFA OR ALTERNATIVELY ALBUTEROL SOLUTION IN THE NEBULIZER Q 4-6 HOURS P.R.N., AND ALSO USES GUAIFENESIN ER 600 MG B.I.D. P.R.N.. VENOUS BLOOD GASES CONSISTENT WITH ACUTE ON CHRONIC RESPIRATORY FAILURE WITH HIS LOST PCO2 LEVEL 54. 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 HE IS USING HIS INHALERS REGULARLY. HE ALSO HAS INTERMITTENT NASAL CONGESTION WHICH IS CONTROLLED WITH USE OF MONTELUKAST AND CLARITIN. HE HAS HISTORY OF OBSTRUCTIVE SLEEP APNEA WAS PROVIDED CPAP BUT IT WAS TAKEN AWAY BECAUSE OF HIS NONCOMPLIANCE. [facility] Medical History Respiratory failure with hypercapnia Opioid use disorder (~08/27/18) Nocturnal hypoxemia Snoring Asthma-COPD overlap syndrome Asthma Allergic rhinitis Somnolence, daytime Morbid obesity Obstructive sleep apnea HTN (hypertension) Chronic respiratory failure due to obstructive sleep apnea Bursitis of right shoulder Osteoarthritis of left knee Social History Household Members: Spouse Housing: House Do you presently have visiting nurse or other home services: No Alcohol intake: current Alcohol intake frequency: holidays/special occasions only Patient Tobacco Use Status: Current everyday Tobacco user Tobacco use type: Cigarette Cigarettes Per Day: 3 Years Smoked: 6 e-Cigarette/Vaping Use: Never Used Substance Use Type: Heroin Advance Directives Date on File: 02/28/23 service: No Current occupational status: unemployed Current occupation: right handed Review of Systems Const All systems reviewed & are unremarkable except as noted in HPI and below Eyes Reports no additional complaints ENT Reports nasal congestion and Reports nasal discharge Card Denies chest pain, Denies irregular heart rhythm and Reports leg edema (1 + STASIS EDEMA OF THE LEGS) Resp Reports as per HPI GI Reports no additional complaints Reports no additional complaints Musc Reports no additional complaints Skin/Breast Reports system reviewed and no additional complaints, except as documented Neuro Reports no additional complaints Psych Reports no additional complaints Abel/Lymph Reports no additional complaints Physical Exam Vital Signs: Last Vital Signs Pulse 81 10/30/24 15:03 BP 140/70 H 10/30/24 15:03 Pulse Ox 96 10/30/24 15:03 Oxygen Delivery Method Room Air 10/30/24 15:03 BMI result Body Mass Index 43.3 GROSSLY OBESE WITH A ROUND FACE, CROWDED OROPHARYNX, AND NECK SIZE OF 18-1/2 INCH. Const General: comfortable, no acute distress, alert and awake Orientation/consciousness: patient oriented x3 HEENT Head: Yes normal to inspection General nose exam: No nasal polyps present, No nasal discharge present and Other nasal findings present (MILD NASAL CONGESTION) Face and sinus: Yes sinuses nontender Mouth: oropharynx abnormals (CROWDED OROPHARYNX MALLAMPATI CLASS 3) Throat: Yes posterior oropharynx normal Eyes General: appearance normal, both eyes and all related structures Neck Neck: Yes normal visual inspection, Yes no lymphadenopathy, Yes trachea midline, Yes no JVD and Yes other (NECK CIRCUMFERENCE 18-1/2 INCH) Thyroid: Thyroid normal Chest Chest palpation & inspection: normal inspection of the chest, normal palpation of entire chest wall and no tenderness Resp Other: PERCUSSION NOTE IS DECREASED BECAUSE OF THE THICK CHEST WALL. BREATH SOUNDS SOUNDS ARE DISTANT ON BOTH SIDES, HE DOES HAVE A FEW SCATTERED EXPIRATORY WHEEZES OVER THE LOWER PARTS OF THE CHEST ON BOTH SIDES. Cardio Palpation: PMI not normal (NOT PALPABLE) Rate: regular rate Rhythm: regular rhythm Heart sounds: no gallops and no murmurs Peripheral pulses: Peripheral pulses 2+ throughout GI Palpation (GI): Soft to palpation, Tenderness to palpation present (GI), No hepatosplenomegaly present, Palpable mass present and Other GI palpation findings present (ABDOMEN IS OBESE AND PROTUBERANT) Auscultation: normal bowel sounds Back/Spine/Pelvis Thoracic/Lumbar Spine: thoracic and lumbar spine normal to inspection and thoraco-lumbar ROM limited Skin General skin exam: no rashes or lesions noted Neuro General: patient oriented x3 and no focal motor deficits Cranial nerves: Yes CN's II-XII intact bilaterally Extrem General: Yes normal to inspection, Yes no calf tenderness and Yes edema (1 + PITTING EDEMA OF BOTH LEGS, HAS ELASTIC STOCKINGS ON.) Psych Appearance: grossly normal and well kempt Speech and movement: Normal speech and movement present Results Reviewed Results Reviewed: VENOUS BGs PH 7.35 PCO2 54 PO2 57 Assessment & Plan Assessment & Plan (1) Asthma-COPD overlap syndrome: Comment: HE IS KNOWN TO HAVE ASTHMA/COPD OVERLAP SYNDROME. HE IS SUPPOSED TO USE ADVAIR 500-50 ONE INH BID AND IS INSTRUCTED TO USE REGULARLY. HE IS SUPPOSED USE ALBUTEROL P.R.N. Code(s): J44.89 - Other specified chronic obstructive pulmonary disease Category: Medical Plan: ADVAIR DISKUS 500-51 INHALATION B.I.D. SPIRIVA RESPIMAT 1.251 INHALATION B.I.D. ALBUTEROL HFA 2 PUFFS Q 4-6 HOURS P.R.N. (2) Respiratory failure with hypercapnia: Comment: TREATED IN MAY AND JULY OF THIS YEAR WITH RESPIRATORY FAILURE AND HYPERCAPNIA. HE HAS MORBID OBESITY, HISTORY OF SUBSTANCE ABUSE, AND RIANA , AND IS PRONE TO HAVE HYPOXEMIA/HYPERCAPNIA.. BLOOD GAS STUDY ON HIS LAST VISIT SHOWED THAT PCO 2 WAS 54, PH 7.35, C/W CHRONIC COMPENSATED RESPIRATORY FAILURE. Code(s): J96.92 - Respiratory failure, unspecified with hypercapnia Category: Medical Plan: AGAIN STRESSED THAT HE SHOULD DO DEEP BREATHING EXERCISES WITH PURSED LIP TECHNIQUE EVERY HOUR WHILE AWAKE. HE WOULD NEED TO BE STARTED ON NONINVASIVE RESPIRATORY SUPPORT AT NIGHTTIME SOON THE SLEEP STUDY IS COMPLETED. (3) Obstructive sleep apnea: Comment: He is morbidly obese with BMI 42.7, and has typical features of obstructive sleep apnea. Was diagnosed to have RIANA, 1 year ago. was started on CPAP therapy, but he did not use it for too long and CPAP device was taken away for noncompliance. Code(s): G47.33 - Obstructive sleep apnea (adult) (pediatric) Category: Medical Plan: PATIENT NEEDS TO RESTART USING THE CPAP OR BIPAP, AT NIGHT FOR TREATMENT OF RIANA WELL RESPIRATORY FAILURE. BECAUSE HE HAD LOST HIS CPAP DEVICE NOW HE NEEDS TO HAVE ANOTHER SLEEP STUDY BEFORE HE CAN GET THE EQUIPMENT. HIS APPOINTMENT FOR A SLEEP STUDY INITIAL CONSULTATION IS SOME TIME IN MID AT [facility]. , THAT BEING TOO LATE I AM GOING TO TRY TO GET AN APPOINTMENT AT [facility] FOR THE [facility] SLEEP LAB, AT AN EARLIEST DATE . (4) Morbid obesity: Comment: HAS BEEN MORBIDLY OBESE THROUGHOUT HIS ADULT LIFE. TRYING, TO RESTRICT HIS DIET CURRENTLY WEIGHT DOWN BY 9 LB Code(s): E66.01 - Morbid (severe) obesity due to excess calories Category: Medical Plan: ONCE HE GETS SLEEP STUDY DONE AND IS STARTED ON CPAP OR BIPAP MODE HE IS EXPECTED TO BECOME MORE ENERGETIC AND WILL BE ABLE TO LOSE SOME WEIGHT Orders: Orders RT PSG in-lab sleep study Today G47.33 - Obstructive sleep apnea (adult) (pediatric), J44.89 - Other specified chronic obstructive pulmonary disease, J96.92 - Respiratory failure, unspecified with hypercapnia Coding Level of Care Code Est Pt Level 4 (53101) Diagnoses Asthma-COPD overlap syndrome J44.89 Respiratory failure with hypercapnia J96.92 Obstructive sleep apnea G47.33 Morbid obesity E66.01
--- OUTSIDE RECORDS SUMMARY | 2024-10-30 15:28 | XMS_ITS | Clinical Summary ---
Author Organization [employer] Address [address] [facility] [address] [place] [address] Care Team Providers Care U.[place]. Senator Name Role Phone Rebecca Hogan NP Primary Care Provider [phone] Allergies No known active allergies Medications methadone [...] daily. 60 each 2 04/15/20 24 Active ferrous gluconate (Fergon) 324 [...] mouth at bedtime. 90 tablet 08/01/19 25 Active cloNIDine (Catapres) 0.1 MG tablet Take [...] EVERY DAY 48 g 09/26/19 25 Active albuterol 108 (90 Base) MCG/ACT inhalerIndicatio ns:Asthma with COPD (CMS/HCC) INHALE 2 PUFFS BY MOUTH EVERY 4 TO 6 HOURS NEEDED 18 g 10/31/19 25 Active hydroCHLOROthiaz carine 12.5 MG tabletIndication s:Primary hypertension TAKE 1 TABLET(12.5 MG) BY MOUTH DAILY 90 tablet 10/31/19 25 Active amLODIPine (Norvasc) 5 MG tabletIndication s:Primary hypertension TAKE 1 TABLET(5 MG) BY MOUTH IN THE MORNING 90 tablet 10/31/19 25 Active albuterol 108 (90 Base) MCG/ACT inhalerIndicatio ns:Asthma with COPD (CMS/HCC) INHALE 2 PUFFS BY MOUTH EVERY 4 TO 6 HOURS NEEDED 18 g 04/15/20 24 025 Discontinued hydroCHLOROthiaz carine 12.5 MG tabletIndication s:Primary hypertension Take 1 tablet (12.5 mg) by mouth Once per day. 90 tablet 04/15/20 24 025 Discontinued amLODIPine (Norvasc) 5 MG tabletIndication s:Primary hypertension TAKE 1 TABLET(5 MG) BY MOUTH IN THE MORNING 90 tablet 04/15/20 24 025 Discontinued Active Problems Problem [...] -provided fentanyl test strips for safe use. patinent has narcan at home -encouraged to keep appointment to establish with therapist Assessment & Plan (04/15/2024 12:16 PM EST): -verbalizes desire to engage with [facility] for suboxone treatment -will have pipe or steam fitter furnace installer reach out to the patient for an [...] Encounters Date Type Department Care Team Description 10/27/2024 Refill [facility] [address] [place] [phone] Rebecca Hogan NP Asthma with COPD ([facility]); Primary hypertension 10/15/2024 Telephone [facility] [address] [place], [place] [phone] [facility] [place] [phone] Rebecca Hogan NP Results 10/02/2024 Results Follow-Up [facility] [address] [place] [phone] Rebecca Hogan NP Comprehensive Metabolic Panel, XR Shoulder 2+ Views Right 10/02/2024 Orders Only GENERIC EXTERNAL DATA DEPARTMENT Provider, Generic External Data 09/24/2024 Refill [facility] [address] [place] [phone] Rebecca Hogan NP Seasonal allergic rhinitis, unspecified trigger 09/16/2024 11:00 AM EDT Office Visit [facility] [address] [place] [phone] Rebecca Hogan NP Chronic pain of right knee (Primary Dx); Chronic right shoulder pain; Hypersomnolence; Asthma with COPD ([facility]); Primary hypertension; Dietary counseling; Exercise counseling; Class 3 severe obesity due to excess calories without serious comorbidity with body mass index (BMI) of 40.0 to 44.9 in adult; Colon cancer screening 09/16/2024 Travel 09/13/2024 Telephone [facility] [address] [place] [phone] Toma Baca MA Chart Prep 09/11/[address] [phone] Rebecca Hogan NP Referral 08/13/2024 9:30 AM EDT Office Visit [facility] [address] [place] [phone] Kenia Barnes RN Opioid dependence, uncomplicated ([facility]) 08/13/2024 Patient Outreach [facility] [address] [place] [phone] Tom Altamirano Recovery Supports 08/13/2024 Travel 08/09/2024 2:00 PM EDT Office Visit [facility] [address] [place] [phone] Rebecca Hogan NP Hospital discharge follow-up (Primary Dx); Mild persistent asthma with acute exacerbation; Substance use disorder; Soft tissue mass; Elevated blood pressure reading in office with diagnosis of hypertension 08/09/2024 Travel 08/01/2024 Telephone [facility] [address] [place] [phone] Alison Barraza MA chartprep 07/31/2024 10:40 AM EDT Office Visit [facility] [address] [phone] Ken Mckeon MD Asthma with COPD (CMS/HCC) (Primary Dx); Primary hypertension; Opioid dependence, uncomplicated (CMS/HCC) 07/31/2024 Orders Only [facility] [address] [phone] Ken Mckeon MD Asthma with COPD ([facility]/HCC) from Last 3 Months Immunizations Immunization Administration [...] season) 2023 09/17/2020, 08/19/2020 Influenza Vaccine (#1) 2024 Depression Monitoring 01/01/2025 07/01/2024 , 07/01/2024 [...] Procedure Name Priority Date/Time Associated Diagnosis Comments XR KNEE 3 VIEWS RIGHT Routine 10/02/2024 4:12 PM EDT Chronic pain of right knee Chronic right shoulder pain XR SHOULDER 2+ VIEWS RIGHT Routine 10/02/2024 4:12 PM EDT Chronic pain of right knee Chronic right shoulder pain VENOUS BLOOD GAS Routine 10/02/2024 4:11 PM EDT COMPREHENSIVE METABOLIC PANEL Routine 10/02/2024 4:08 PM EDT Chronic pain of right knee HEPATITIS C AB W/REFL TO HCV RNA, QN, PCR Routine 04/15/2024 10:49 AM EST Encounter for health-related screening HIV 1/2 ANTIGEN/ANTIBODY, FOURTH GENERATION W/RFL Routine 04/15/2024 10:49 AM EST Encounter for health-related screening LIPID PANEL, STANDARD Routine 04/15/2024 10:49 AM EST Severe obesity (CMS/HCC) from Last 3 Months or Most Recently Relevant to Health Maintenance Results * XR Knee 3 Views Right (10/02/2024 4:12 PM EDT) Anatomical Region Laterality Modality Lower Extremities, Knee Right Radiogra phic Imaging 10/02/2024 4:12 PM EDT Narrative 10/02/2024 5:28 PM EDT [place] [address] XRay Report Signed Patient: Elmer Zarate MR#: [id number] : 1965 Acct:[id number] Age/Sex: 59 / M ADM Date: 10/02/24 Loc: KORY Attending Dr: Annie Stewart MD Ordering Physician: Rebecca Hogan Date of Service: 10/02/24 Procedure(s): XR knee RT 3V Accession Number(s): [id number] cc: Rebecca Hogan; [facility] EXAMINATION: XR KNEE, RIGHT CLINICAL INFORMATION: Right knee pain COMPARISON: None available. TECHNIQUE: AP, lateral, sunrise view lower extremity joint, x-rays of the right knee. FINDINGS: There is severe narrowing of the medial joint space with flattening of the subarticular bone. There is subchondral cystic change. There are tricompartmental osteophytes, largest in the patellofemoral joint. There is a large enthesophyte in the patellar tendon extending down from patella. There are osteophytes involving the proximal tibiofibular joint. There is a joint effusion. XR/XR knee RT 3V IMPRESSION: Severe osteoarthritis and joint effusion. Electronically signed by: Bob Costa MD 10/02/2024 05:24 PM EDT RP Dictated By: Bob Costa MD Signed By: <Electronically signed by Bob Costa MD in OV> 10/02/24 1724 DD/ 1612 TD/TT: 10/02/[address] Associate Justice: Procedure Note Donotuseinterpreter, Image - 10/02/[address] [address] XRay Report Signed Patient: Elmer Zarate AMR#: [id number] : 1965Acct:[id number] Age/Sex: 59 / MADM Date: 10/02/24 Loc: HO.ANNDINIAY Attending Dr: Annie Stewart MD Ordering Physician: Rebecca Hogan Date of Service: 10/02/24 Procedure(s): XR knee RT 3V Accession Number(s): [id number] cc: Rebecca Hogan; [facility] EXAMINATION: XR KNEE, RIGHT CLINICAL INFORMATION: Right knee pain COMPARISON: None available. TECHNIQUE: AP, lateral, sunrise view lower extremity joint, x-rays of the right knee. FINDINGS: There is severe narrowing of the medial joint space with flattening of the subarticular bone. There is subchondral cystic change. There are tricompartmental osteophytes, largest in the patellofemoral joint. There is a large enthesophyte in the patellar tendon extending down from patella. There are osteophytes involving the proximal tibiofibular joint. There is a joint effusion. XR/XR knee RT 3V IMPRESSION: Severe osteoarthritis and joint effusion. Electronically signed by: Bob Costa MD 10/02/2024 05:24 PM EDT RP Dictated By: Bob Costa MD Signed By: <Electronically signed by Bob Costa MD in OV> 10/02/24 1724 DD/ 1612 TD/TT: 10/02/[address] Associate Justice: Rebecca Hogan TEAMSITE DEVELOPER IMG XR PROCEDURES Final Result * XR Shoulder 2+ Views Right (10/02/2024 4:12 PM EDT) Anatomical Region Laterality Modality Upper Extremities, Shoulder Right Radi ographic Imaging 10/02/2024 4:12 PM EDT Narrative 10/02/2024 5:30 PM EDT [address] [address] XRay Report Signed Patient: Elmer Zarate MR#: [id number] : 1965 Acct:[id number] Age/Sex: 59 / M ADM Date: 10/02/24 Loc: HO.XRAY Attending Dr: Annie Stewart MD Ordering Physician: Rebecca Hogan Date of Service: 10/02/24 Procedure(s): XR shoulder RT min 2V Accession Number(s): [id number] cc: Rebecca Hogan; [facility] BEATER WORKER HELPER EXAMINATION: XR SHOULDER, RIGHT CLINICAL INFORMATION: Right shoulder pain COMPARISON: October 02, 2018 TECHNIQUE: AP external rotation, Grashey, scapular Y, and axillary views of the right shoulder. FINDINGS: Large medial osteophyte extends down from the humeral head. There is subchondral degenerative cystic and sclerotic changes. Glenoid demonstrates marginal osteophyte formation as well. There is deformity with flattening of glenoid and humeral head articular surfaces. There is posterior subluxation of humeral head from glenoid. Moderate degenerative changes are present in the AC joint with osteophytes. XR/XR shoulder RT min 2V IMPRESSION: Severe degenerative changes of the right shoulder joint of progressed since the prior study. Electronically signed by: Bob Costa MD 10/02/2024 05:27 PM EDT Dictated By: Bob Costa MD Signed By: <Electronically signed by Bob Costa MD in OV> 10/02/24 1727 DD/ 1612 TD/TT: 10/02/[address] Associate Justice: Procedure Note Donotuseinterpreter, Image - 10/02/[address] [address] XRay Report Signed Patient: Elmer Zarate AMR#: [id number] : 1965Acct:[id number] Age/Sex: 59 / MADM Date: 10/02/24 Loc: HO.XRAY Attending Dr: Annie Stewart MD Ordering Physician: Rebecca Hogan Date of Service: 10/02/24 Procedure(s): XR shoulder RT min 2V Accession Number(s): [id number] cc: Rebecca Hogan; [employer] BEATER WORKER HELPER EXAMINATION: XR SHOULDER, RIGHT CLINICAL INFORMATION: Right shoulder pain COMPARISON: October 02, 2018 TECHNIQUE: AP external rotation, Grashey, scapular Y, and axillary views of the right shoulder. FINDINGS: Large medial osteophyte extends down from the humeral head. There is subchondral degenerative cystic and sclerotic changes. Glenoid demonstrates marginal osteophyte formation as well. There is deformity with flattening of glenoid and humeral head articular surfaces. There is posterior subluxation of humeral head from glenoid. Moderate degenerative changes are present in the AC joint with osteophytes. XR/XR shoulder RT min 2V IMPRESSION: Severe degenerative changes of the right shoulder joint of progressed since the prior study. Electronically signed by: Bob Costa MD 10/02/2024 05:27 PM EDT Dictated By: Bob Costa MD Signed By: <Electronically signed by Bob Costa MD in OV> 10/02/24 1727 DD/ 1612 TD/TT: 10/02/[address] Associate Justice: Rebecca Hogan TEAMSITE DEVELOPER IMG XR PROCEDURES Final Result * (ABNORMAL) VENOUS BLOOD GAS (10/02/2024 4:11 PM EDT) VBG pH 7.35 7.32 - 7.43 [facility] Comment:METER #: [id number] additional_comment: CbGuillea VBG PCO2 54 mmHg [facility] Comment:METER #: [id number] additional_comment: CbGujuana VBG PO2 57 mmHg [facility] Comment:METER #: [id number] additional_comment: CbZacharya VBG Base Excess 4.2 mmol/L [facility] Comment:METER #: [id number] additional_comment: CbGeovany VBG HCO3 30(H) 22 - 26 mmol/L [facility] Comment:METER #: [id number] additional_comment: CbZacharya O2 Sat, Domenic 83.0 % [facility] Comment:METER #: [id number] additional_comment: Cliff 10/02/2024 4:11 PM EDT 10/02/2024 4:14 PM EDT us Generic External Data Provider LAB BLOOD ORDERAB LES Final Result [facility] [address] [place] [phone] * (ABNORMAL) Comprehensive Metabolic Panel (10/02/2024 4:08 PM EDT) Sodium 142 135 - 145 mmol/L [facility] Potassium 3.8 3.3 - 5.1 mmol/L [facility] Chloride 107 96 - 108 mmol/L [facility] Carbon Dioxide 29 22 - 29 mmol/L [facility] Anion Gap 10(L) 12 - 20 [facility] Urea Nitrogen (BUN) 9 9 - 16 mg/dL [facility] Creatinine, Serum 0.86 0.5 - 1.4 mg/dL [facility] Estimated Glomerular Filt Rate >60 [facility] Comment:Chronic Kidney Disea se: Estimated GFR < 60 mL/min/1.46u6Titjks Kidney Disease: Estimated GFR < 15 mL/min/1.73m2 Glucose 107 60 - 115 mg/dL [facility] Calcium 8.9 8.4 - 10.2 mg/dL [facility] Bilirubin, Total 0.3 0.0 - 1.0 mg/dL [facility] Aspartate Amino Transferase 21 5 - 37 U/L [facility] Alanine Aminotransferase 20 0 - 40 U/L [facility] Total Protein 7.4 6.5 - 8.0 g/dL [facility] Albumin Level 4.1 3.5 - 5.0 g/dL [facility] Alkaline Phosphatase 81 39 - 117 U/L [facility] Blood Venous blood specimen / Unknown 10/02/2024 4:08 PM EDT 10/02/2024 4:08 PM EDT [facility] LAB BLOOD ORDERABLES Final Resu lt Performing Organization Address [facility] Co de Phone Number [facility] [address] [place] [phone] * Hepatitis C Antibody with Reflex to HCV, RNA, Quantitative, Real-Time PCR (04/15/2024 10:49 AM EST) Hepatitis C Antibody Nonreactive Nonreactive [facility] Comment:Antibodies to HCV no t detected; does not exclude early acuteHCV infection. Blood Venous blood specimen / Unknown 04/15/2024 10:49 AM EST 04/15/2024 1:18 PM EST [facility] LAB BLOOD ORDERABLES Final Resu lt Performing Organization Address City/[facility] Co de Phone Number [facility] [address] [place] [phone] * HIV-1/2 Antigen and Antibodies, Fourth Generation, with Reflexes (04/15/2024 10:49 AM EST) HIV AB/AG Nonreactive Nonreactive [facility] Comment:HIV-1 p24 Ag and/or HIV-1/HIV-2 Ab not detected.A test result that is nonreactive does not exclude thepossibility of exposure to or infection with HIV-1 and/orHIV-2. Nonreactive results in this assay for individualswith prior exposure to HIV-1 and/or HIV-2 may be due toantigen and antibody levels that are below the limit ofdetection of this assay.The [employer] HIV Ag/Ab Combo assay result andsupplemental assay results should be interpreted inconjunction with the patient's clinical presentation,history and other laboratory results. If the results areinconsistent with clinical evidence, additional testing issuggested to confirm the result. Blood Venous blood specimen / Unknown 04/15/2024 10:49 AM EST 04/15/2024 1:18 PM EST us Rebecca Hogan TEAMSITE DEVELOPER LAB BLOOD ORDERABLES Final Resu lt [facility] [address] [place] [phone] * Lipid Panel, Standard (04/15/2024 10:49 AM EST) Triglycerides 60 <150 mg/dL [facility] Comment:Desirable Triglyceri de: less than 150 mg/dLBorderline High Triglyceride 150-199 mg/dLHigh Triglyceride: 200-499 mg/dLVery High Triglyceride: greater than or equal to 5OO mg/dL Cholesterol 140 <200 mg/dL [facility] Comment:Desirable Cholestero l: less than 200 mg/dLBorderline High Cholesterol: 200-239 mg/dLHigh Cholesterol: greater than 239 mg/dL LDL Cholesterol Calculated 81 <100 mg/dL [facility] Comment:Desirable LDL: less than 100 mg/dLNear Optimal/Above Optimal LDL: 110- 129 mg/dLBorderline High LDL: 130-159 mg/dLHigh LDL: 160-189 mg/dLVery High LDL: greater than or equal to 190 mg/dL HDL Cholesterol 47 >40 mg/dL [facility] Comment:Desirable HDL: great er than 40 mg/dL Note: This HDL assay may give artificially low results in patients with liver disease. Blood Venous blood specimen / Unknown 04/15/2024 10:49 AM EST 04/15/2024 1:18 PM EST us Rebecca Hogan TEAMSITE DEVELOPER LAB BLOOD ORDERABLES Final Resu lt Performing Organization Address City/State/[facility] Co de Phone Number [facility] [address] [place] [phone] from Last 3 Months or Most Recently Relevant to Health Maintenance Insurance [facility] C3 HSN FULL Care Teams [place]. Senator Relationship Specialty Start Date End Date Rebecca Hogna NP [address] [place] [phone] PCP - General Family Medicine 01/20/23
== END 2024-10-30 15:21 | disposition home or self-care (01) ==
LOC: HO.HPS 15:00
PROVIDERS: PCP Registered Nurse; Visit Provider Internal Medicine
DX: J44.89 Other specified chronic obstructive pulmonary disease (principal); J96.92 Respiratory failure, unspecified with hypercapnia; G47.33 Obstructive sleep apnea (adult) (pediatric); E66.01 Morbid (severe) obesity due to excess calories
CPT/HCPCS: 99214

== ENCOUNTER → 2024-10-30 14:59 | Outpatient (BNVA) | payer MEDICAID, SELFPAY | PROVIDERS: PCP Registered Nurse; Visit Provider Internal Medicine | DX: J44.89 Other specified chronic obstructive pulmonary disease (principal); J96.92 Respiratory failure, unspecified with hypercapnia; G47.33 Obstructive sleep apnea (adult) (pediatric); E66.01 Morbid (severe) obesity due to excess calories; Z68.41 Body mass index [BMI] 40.0-44.9, adult | CPT/HCPCS: 99212 ==

== ENCOUNTER → 2024-11-12 20:30 | Outpatient (REF) | payer MEDICAID, SELFPAY | LOC: HO.SL 20:30 | PROVIDERS: PCP Registered Nurse; Visit Provider Internal Medicine | DX: G47.33 Obstructive sleep apnea (adult) (pediatric) (principal); J44.89 Other specified chronic obstructive pulmonary disease; J96.92 Respiratory failure, unspecified with hypercapnia | CPT/HCPCS: 95810 ==

== ENCOUNTER → 2024-11-12 20:48 | Outpatient (BNV) | payer MEDICAID, SELFPAY | PROVIDERS: PCP Registered Nurse; Visit Provider Internal Medicine | DX: G47.33 Obstructive sleep apnea (adult) (pediatric) (principal); R06.83 Snoring | CPT/HCPCS: 95810 ==

== ENCOUNTER 2025-01-06 11:00 | Outpatient (AMB) | payer MEDICAID, SELFPAY ==
[2025-01-06 11:07] VITALS: BP 140/80; PULSE 72; O2SAT 98; BMI 43.6
--- NOTE | 2025-01-06 11:07 | A.OFFVIS_ITS ---
Vital Signs 01/06/25 11:07 Height 5 ft 10 in Weight 304 lb 3.806 oz BMI 43.6 BP 140/80 H Blood Pressure Location Lt brachial Position Sitting Pulse 72 Pulse Source Pulse Oximeter Pulse Oximetry (%) 98 Oxygen Delivery Method Room Air Intake Visit Reasons: RIANA/COPD Intake Note: pt is here for follow up and states he feels good, talk about sleep study results. Insole Taper Required: No Allergies No Known Allergies Allergy (Verified 01/06/25 11:34) Medication List - Last Reconciled 01/06/25 by Annie Stewart MD albuterol sulfate 90 mcg/actuation (Ventolin HFA) 2 puffs inhalation Q4H PRN albuterol sulfate 2.5 mg (3 mL) inhalation QID amlodipine 5 mg PO BEDTIME ascorbic acid (vitamin C) 250 mg PO DAILY ferrous gluconate 324 mg PO Q48H fluticasone propion-salmeterol 500-50 mcg/dose (Advair Diskus) 1 inh inhalation BID fluticasone propionate 50 mcg/actuation 2 sprays intranasal DAILY guaifenesin ER (Mucus Relief ER) 600 mg PO Q12H PRN hydrochlorothiazide 12.5 mg PO BEDTIME loratadine (Claritin) 10 mg PO DAILY montelukast 10 mg PO BEDTIME tiotropium bromide 1.25 mcg/actuation (Spiriva Respimat) 2 puffs inhalation DAILY Do you need a note to return to daycare/school/sports/work: No HPI HPI RIANA/COPD: Details: 59 YEARS OLD GENTLEMAN, MORBIDLY OBESE, BMI 43.7. HAS SHORT AND OBESE NECK. MALLAMPATI SCALE 3. SUSPECTED TO HAVE SLEEP APNEA . BUT SURPRISINGLY THE POLYSOMNOGRAM STUDY WAS NEGATIVE FOR SLEEP APNEA. HOWEVER HE HAS LOW O2 SAT AT NIGHT AND DURING THE STUDY HE WAS STARTED ON O2 1 L/MINUTE. THIS REPRESENTS SLEEP-RELATED HYPOVENTILATION. . HE ALSO HAS MILD COUGH, AND OCCASIONAL WHEEZING IS BEING TREATED FOR OBSTRUCTIVE AIRWAY DISORDER, BUT HIS PULMONARY FUNCTION TEST SHOWED ONLY MINIMAL OBSTRUCTIVE DISORDER. HIS CURRENT TREATMENT REGIMEN IS SOMEWHAT EXCESSIVE, INCLUDING ADVAIR 500-50 B.I.D., TIOTROPIUM BROMIDE RESPIMAT 1.25 2 INHALATIONS DAILY AND ALBUTEROL P.R.N.. [facility] Medical History Respiratory failure with hypercapnia Opioid use disorder (~08/27/18) Nocturnal hypoxemia Snoring Asthma-COPD overlap syndrome Asthma Allergic rhinitis Somnolence, daytime Morbid obesity Obstructive sleep apnea HTN (hypertension) Chronic respiratory failure due to obstructive sleep apnea Bursitis of right shoulder Osteoarthritis of left knee Social History Household Members: Spouse Housing: House Do you presently have visiting nurse or other home services: No Alcohol intake: current Alcohol intake frequency: holidays/special occasions only Patient Tobacco Use Status: Current everyday Tobacco user Tobacco use type: Cigarette Cigarettes Per Day: 2 Years Smoked: 6 e-Cigarette/Vaping Use: Never Used Substance Use Type: Heroin Advance Directives Date on File: 02/28/23 service: No Current occupational status: unemployed Current occupation: right handed Review of Systems Const All systems reviewed & are unremarkable except as noted in HPI and below Eyes Reports no additional complaints ENT Reports nasal congestion and Reports nasal discharge Card Denies chest pain, Denies irregular heart rhythm and Reports leg edema (1 + STASIS EDEMA OF THE LEGS) Resp Reports as per HPI GI Reports no additional complaints Reports no additional complaints Musc Reports no additional complaints Skin/Breast Reports system reviewed and no additional complaints, except as documented Neuro Reports no additional complaints Psych Reports no additional complaints Abel/Lymph Reports no additional complaints Physical Exam Vital Signs: Last Vital Signs Pulse 72 01/06/25 11:07 BP 140/80 H 01/06/25 11:07 Pulse Ox 98 01/06/25 11:07 Oxygen Delivery Method Room Air 01/06/25 11:07 BMI result Body Mass Index 43.6 GROSSLY OBESE WITH A ROUND FACE, CROWDED OROPHARYNX, AND NECK SIZE OF 18-1/2 INCH. Const General: comfortable, no acute distress, alert and awake Orientation/consciousness: patient oriented x3 HEENT Head: Yes normal to inspection General nose exam: No nasal polyps present, No nasal discharge present and Other nasal findings present (MILD NASAL CONGESTION) Face and sinus: Yes sinuses nontender Mouth: oropharynx abnormals (CROWDED OROPHARYNX MALLAMPATI CLASS 3) Throat: Yes posterior oropharynx normal Eyes General: appearance normal, both eyes and all related structures Neck Neck: Yes normal visual inspection, Yes no lymphadenopathy, Yes trachea midline, Yes no JVD and Yes other (NECK CIRCUMFERENCE 18-1/2 INCH) Thyroid: Thyroid normal Chest Chest palpation & inspection: normal inspection of the chest, normal palpation of entire chest wall and no tenderness Resp Other: PERCUSSION NOTE IS DECREASED BECAUSE OF THE THICK CHEST WALL. BREATH SOUNDS SOUNDS ARE DISTANT ON BOTH SIDES, HE DOES HAVE A FEW SCATTERED EXPIRATORY WHEEZES OVER THE LOWER PARTS OF THE CHEST ON BOTH SIDES. Cardio Palpation: PMI not normal (NOT PALPABLE) Rate: regular rate Rhythm: regular rhythm Heart sounds: no gallops and no murmurs Peripheral pulses: Peripheral pulses 2+ throughout GI Palpation (GI): Soft to palpation, Tenderness to palpation present (GI), No hepatosplenomegaly present, Palpable mass present and Other GI palpation findings present (ABDOMEN IS OBESE AND PROTUBERANT) Auscultation: normal bowel sounds Back/Spine/Pelvis Thoracic/Lumbar Spine: thoracic and lumbar spine normal to inspection and thoraco-lumbar ROM limited Skin General skin exam: no rashes or lesions noted Neuro General: patient oriented x3 and no focal motor deficits Cranial nerves: Yes CN's II-XII intact bilaterally Extrem General: Yes normal to inspection, Yes no calf tenderness and Yes edema (1 + PITTING EDEMA OF BOTH LEGS, HAS ELASTIC STOCKINGS ON.) Psych Appearance: grossly normal and well kempt Speech and movement: Normal speech and movement present Results Reviewed Results Reviewed: POLYSOMNOGRAM STUDY IN THE SLEEP LAB ON 11/12/2024, WAS SURPRISINGLY NEGATIVE FOR SLEEP APNEA HOWEVER HE DID HAVE SLEEP-RELATED HYPOXEMIA REQUIRING O2 SUPPLEMENTATION AT 1 L/MINUTE Assessment & Plan Assessment & Plan (1) Morbid obesity: Comment: HAS BEEN MORBIDLY OBESE THROUGHOUT HIS ADULT LIFE. Code(s): E66.01 - Morbid (severe) obesity due to excess calories Category: Medical Plan: TODAY I HAD A GOOD TALK WITH THE PATIENT HIS AND HIS DAUGHTER. IT IS ABSOLUTELY NECESSARY FOR HIM TO LOSE WEIGHT. JUST IF HE WOULD LIKE TO GO TO A DIETITIAN OR JOIN WEIGHT MANAGEMENT PROGRAM. HE WOULD LIKE. TO DO IT AT HOME HIS IS INSTRUCTED TO CUT DOWN THE PORTIONS OF CARBOHYDRATES. HE IS INSTRUCTED TO DO WALKING 2-3 MILES EVERY DAY. (2) Polysubstance abuse: Comment: HE HAS PAST HISTORY OF SUBSTANCE ABUSE BUT NOT AT PRESENT Code(s): F19.10 - Other psychoactive substance abuse, uncomplicated Category: Medical Plan: ADVISE THAT IN NO WAY HE SHOULD USE ANY OPIOID OR ANY SEDATIVES AT ALL. (3) Respiratory failure with hypercapnia: Comment: TREATED IN MAY AND JULY OF THIS YEAR WITH RESPIRATORY FAILURE AND HYPERCAPNIA. HE HAS MORBID OBESITY, HISTORY OF SUBSTANCE ABUSE, AND RIANA , AND IS PRONE TO HAVE HYPOXEMIA/HYPERCAPNIA.. BLOOD GAS STUDY ON HIS LAST VISIT SHOWED THAT PCO 2 WAS 54, PH 7.35, C/W CHRONIC COMPENSATED RESPIRATORY FAILURE. Code(s): J96.92 - Respiratory failure, unspecified with hypercapnia Category: Medical Plan: ADVISE THAT HE SHOULD DO DEEP BREATHING EXERCISES WITH PURSED LIP TECHNIQUE AT LEASE 3 TIMES A DAY REGULARLY. (4) Asthma-COPD overlap syndrome: Comment: HE IS KNOWN TO HAVE ASTHMA/COPD OVERLAP SYNDROME. HE IS ON ADVAIR 500-50 ONE INH BID AND ALBUTEROL 2 PUFFS Q 6 HOURS P.R.N. HE IS ALSO ON SPIRIVA RESPIMAT 1.25 2 PUFFS DAILY Code(s): J44.89 - Other specified chronic obstructive pulmonary disease Category: Medical Plan: HIS ADVAIR DOSE NEEDS TO BE DECREASED TO 250-50 , AND I HAVE SENT A NEW MT ESCRIPTION. (5) Nocturnal hypoxemia: Comment: DURING HIS PREVIOUS SLEEP STUDY HE HAD , PERSISTENT NOCTURNAL HYPOXEMIA WITH O2 SAT 89%, AND O2 SAT BELOW 88% FOR 79 MINUTES CURRENT POLYSOMNOGRAM STUDY SHOWED THAT HIS O2 SAT WAS FREQUENTLY BELOW 88%, HE WAS STARTED ON O2 1 L/MINUTE. Code(s): G47.34 - Idiopathic sleep related nonobstructive alveolar hypoventilation Category: Medical Plan: THE DME, PROVIDER SAY IS THAT THEY CAN NOT PRESCRIBE OXYGEN ON BASIS OF SLEEP STUDY. HE WILL HAVE TO HAVE OVERNIGHT OXIMETRY RECORDING SEPARATE TEST. I HAVE INSTRUCTED HIM TO LOSE WEIGHT, SLEEP IN LATERAL POSITION, AND ON HIS NEXT VISIT WE WILL ARRANGE TO HAVE OVERNIGHT OXIMETRY RECORDING (6) Allergic rhinitis: Comment: MILD TO MODERATE NASAL CONGESTION OFF AND ON AROUND THE WHOLE YEAR Code(s): J30.9 - Allergic rhinitis, unspecified Category: Medical Plan: USE FLONASE-52 SPRAYS IN EACH NOSTRIL DAILY Coding Level of Care Code Est Pt Level 3 (17547) Diagnoses Morbid obesity E66.01 Polysubstance abuse F19.10 Respiratory failure with hypercapnia J96.92 Asthma-COPD overlap syndrome J44.89 Nocturnal hypoxemia G47.34 Allergic rhinitis J30.9
--- OUTSIDE RECORDS SUMMARY | 2025-01-06 13:39 | XMS_ITS | Encounter Summary ---
Author Organization [employer] Address [address] [facility] [address] [place] [address] Care Team Providers Care Resource Conservation Specialist Name Role Phone Rebecca Hogan NP Primary Care Provider [phone] Reason for Visit * Reason Comments Pre-visit Planning SDOH unable to reach LVM Encounter Details Date Type Department Care Team ([facility] st Contact Info) Description 01/03/2025 Patient Outreach [facility] [address] [place] [address] Rebecca Hogan NP [address] [place] [address] Pre-visit Planning (SDOH unable to reach LV ) Social History Tobacco Use Types Packs/Day Years Used Date Smoking Tobacco: Every Day Cigarettes Passive Smoke Exposure: Current Smokeless Tobacco: Never Comments:Smokes once in a [...] as of this encounter Progress Notes * Kaylene Hester - 01/03/2025 3:58 PM EDT CC Kaylene Freeman placed outbound call to patient to complete pre-visit planning. No answer at this time. Patient name and were not confirmed. CC left voicemail requesting return call. Direct contactinformation provided. documented in this encounter Plan of Treatment Upcoming Encounters Date Type Department Care Team (Late st Contact Info) Description 01/13/2025 11:00 AM EDT Office Visit [facility] [address] [place] [address] Rebecca Hogan NP [address] [place] [address] documented as of this encounter Visit Diagnoses Not on filedocumented in this encounter Additional Health Concerns Assessment Noted Time PHQ-9 Depression Total Score: 10 025 2:53 PM EDT documented as of this encounter Care Teams Resource Conservation Specialist Relationship Specialty Start Date End Date Rebecca Hogan NP [address] [place] [address] PCP - General Family Medicine 01/20/23 documented as of this encounter
--- OUTSIDE RECORDS SUMMARY | 2025-01-06 13:39 | XMS_ITS | Clinical Summary ---
Author Organization [employer] Address [address] [facility] [address] [place] [address] Care Team Providers Care Screen Machine Operator Name Role Phone Rebecca Hogan NP Primary Care Provider [phone] Allergies No known active allergies Medications methadone (Dolophine) 10 MG/5ML solution 60mg daily at methadone clinic Active Fluticasone-Salme terol (Advair Diskus) 500-50 MCG/ACT aerosol powderIndications :Asthma with COPD (CMS/HCC) Inhale 1 puff 2 times daily. 60 each 2 4 Active ferrous gluconate (Fergon) 324 (38 Fe) MG tablet Take 1 tablet (324 mg) by mouth every other day. With vitamin C 30 tablet 2 5 05/03/19 26 Active Ascorbic Acid (vitamin C) 250 MG tablet Take 1 tablet (250 mg) by mouth every other day. With iron 30 tablet 2 5 05/03/19 26 Active montelukast (Singulair) 10 MG tabletIndications :Asthma with COPD (CMS/HCC) Take 1 tablet (10 mg) by mouth at bedtime. 90 tablet 5 Active cloNIDine (Catapres) 0.1 MG tablet Take 1 tablet by mouth if needed in the morning and at bedtime (anxiety or withdrawals). 5 Active traZODone (Desyrel) 50 MG tablet Take 1 tablet by mouth if needed at bedtime for sleep. 5 Active loratadine (Claritin) 10 MG tablet Take 1 tablet by mouth Once per day. Active albuterol (2.5 MG/3ML) 0.083% nebulizer solutionIndicatio ns:Mild persistent asthma with acute exacerbation USE 3 ML VIA NEBULIZER FOUR TIMES DAILY 90 mL 3 5 Active fluticasone (Flonase) 50 MCG/ACT nasal sprayIndications: Seasonal allergic rhinitis, unspecified trigger SHAKE LIQUID AND USE 2 SPRAYS IN EACH NOSTRIL EVERY DAY 48 g 5 Active albuterol 108 (90 Base) MCG/ACT inhalerIndication s:Asthma with COPD (CMS/HCC) INHALE 2 PUFFS BY MOUTH EVERY 4 TO 6 HOURS NEEDED 18 g 5 Active hydroCHLOROthiazi de 12.5 MG tabletIndications :Primary hypertension TAKE 1 TABLET(12.5 MG) BY MOUTH DAILY 90 tablet 5 Active amLODIPine (Norvasc) 5 MG tabletIndications :Primary hypertension TAKE 1 TABLET(5 MG) BY MOUTH IN THE MORNING 90 tablet 5 Active Spiriva Respimat 1.25 MCG/ACT inhalerIndication s:Asthma with COPD (CMS/HCC) INHALE 2 PUFFS BY MOUTH DAILY 4 g 2 5 Active Active Problems Problem Noted Date Diagnosed Date [...] state of change. will reach out to [facility] provider for assistance with other resources -provided fentanyl test strips for safe use. pipe has narcan at home -encouraged to keep appointment to establish with therapist Assessment & Plan (04/15/2024 12:16 PM EST): -verbalizes desire to engage with [facility] for suboxone treatment -will have development team lead reach out to the patient for an [...] Encounters Date Type Department Care Team Description 01/03/2025 Patient Outreach [facility] [address] [place] [address] Rebecca Hogan NP Pre-visit Planning ([facility] unable to reach [facility] ) 11/24/2024 Refill [facility] [address] [place] [address] Rebecca Hogan NP Asthma with COPD ([facility]) 11/19/2024 Telephone [facility] [address] [place] [address] Rebecca Hogan NP recall 10/27/2024 Refill [facility] [address] [place] [address] Rebecca Hogan NP Asthma with COPD ([facility]); Primary hypertension 10/15/2024 Telephone [facility] [address] [place], [place] [phone] Rebecca Hogan NP Results from Last 3 Months Immunizations Immunization Administration [...] 09/16/2024 11:14 AM EDT Plan of Treatment Upcoming Encounters Date Type Department Care Team (Late st Contact Info) Description 01/13/2025 11:00 AM EDT Office Visit [facility] [address] [place] [address] Rebecca Hogan NP [address] [place] [address] Health Maintenance Due Date Last Done Comments CT Colonography 1965 Colonoscopy 1965 Colorectal Cancer Screening 1965 FIT DNA/Cologuard 1965 FIT 1965 FOBT 1965 Sigmoidoscopy 1965 Hepatitis B Vaccines (1 of 3 - 19+ 3-dose series) 02/11/1984 COVID-19 Vaccine (2024-2 6 season) 2024 09/17/2020, 08/19/2020 Influenza Vaccine (#1) 2024 Depression [...] Procedure Name Priority Date/Time Associated Diagnosis Comments HEPATITIS C AB W/REFL TO HCV RNA, QN, PCR Routine 04/15/2024 10:49 AM EST Encounter for health-related screening HIV 1/2 ANTIGEN/ANTIBODY, FOURTH GENERATION W/RFL Routine 04/15/2024 10:49 AM EST Encounter for health-related screening LIPID PANEL, STANDARD Routine 04/15/2024 10:49 AM EST Severe obesity (CMS/HCC) from Last 3 Months or Most Recently Relevant to Health Maintenance Results * Hepatitis C Antibody with Reflex to HCV, RNA, Quantitative, Real-Time PCR (04/15/2024 10:49 AM EST) Hepatitis C Antibody Nonreactive Nonreactive [facility] Comment:Antibodies to HCV no t detected; does not exclude early acuteHCV infection. Blood Venous blood specimen / Unknown 04/15/2024 10:49 AM EST 04/15/2024 1:18 PM EST [facility] LAB BLOOD ORDERABLES Final Resu lt Performing Organization Address City/[facility]/ZIP Co de Phone Number [facility] [address] [place] [address] [phone] * HIV-1/2 Antigen and Antibodies, Fourth Generation, with Reflexes (04/15/2024 10:49 AM EST) HIV AB/AG Nonreactive Nonreactive [facility] Comment:HIV-1 p24 Ag and/or HIV-1/HIV-2 Ab not detected.A test result that is nonreactive does not exclude thepossibility of exposure to or infection with HIV-1 and/orHIV-2. Nonreactive results in this assay for individualswith prior exposure to HIV-1 and/or HIV-2 may be due toantigen and antibody levels that are below the limit ofdetection of this assay.The wizboo HIV Ag/Ab Combo assay result andsupplemental assay results should be interpreted inconjunction with the patient's clinical presentation,history and other laboratory results. If the results areinconsistent with clinical evidence, additional testing issuggested to confirm the result. Blood Venous blood specimen / Unknown 04/15/2024 10:49 AM EST 04/15/2024 1:18 PM EST [facility] CLICKING MACHINE OPERATOR LAB BLOOD ORDERABLES Final Resu lt Performing Organization Address City/[facility]/ZIP Co de Phone Number [facility] [address] [place] [address] [phone] * Lipid Panel, Standard (04/15/2024 10:49 AM EST) Triglycerides 60 <150 mg/dL [facility] Comment:Desirable Triglyceri de: less than 150 mg/dLBorderline High Triglyceride 150-199 mg/dLHigh Triglyceride: 200-499 mg/dLVery High Triglyceride: greater than or equal to 5OO mg/dL Cholesterol 140 <200 mg/dL [facility] Comment:Desirable Cholestero l: less than 200 mg/dLBorderline High Cholesterol: 200-239 mg/dLHigh Cholesterol: greater than 239 mg/dL LDL Cholesterol Calculated 81 <100 mg/dL [facility] Comment:Desirable LDL: less than 100 mg/dLNear Optimal/Above Optimal LDL: 110- 129 mg/dLBorderline High LDL: 130-159 mg/dLHigh LDL: 160-189 mg/dLVery High LDL: greater than or equal to 190 mg/dL HDL Cholesterol 47 >40 mg/dL [facility] Comment:Desirable HDL: great er than 40 mg/dL Note: This HDL assay may give artificially low results in patients with liver disease. Blood Venous blood specimen / Unknown 04/15/2024 10:49 AM EST 04/15/2024 1:18 PM EST Rebecca Hogan NP LAB BLOOD ORDERABLES Final Resu lt [facility] [address] [place] [address] [phone] from Last 3 Months or Most Recently Relevant to Health Maintenance Insurance [place] [address] C3 HSN FULL Care Teams Screen Machine Operator Relationship Specialty Start Date End Date Rebecca Hogan NP [address] [place] [phone] PCP - General Family Medicine 01/20/23
--- OUTSIDE RECORDS SUMMARY | 2025-01-06 13:39 | XMS_ITS | Encounter Summary ---
Author Organization [employer] Address [address] [facility] [address] [place] [address] Care Team Providers Care Skate Hop Name Role Phone Rebecca Hogan NP Primary Care Provider [phone] Encounter Details Date Type Department Care Team ([facility] st Contact Info) Description 07/31/2024 Orders Only [facility] [address] [place] [address] [phone] Ken Mckeon MD [address] [place], [place] [phone] Asthma with COPD ([facility]) Social History Tobacco Use Types Packs/Day Years [...] Description 01/13/2025 11:00 AM EDT Office Visit [facility] [address] [place] [address] Rebecca Hogan NP [address] [place] [address] documented as of this encounter Visit Diagnoses Diagnosis Asthma with COPD ([facility]) documented in this encounter Additional Health Concerns Assessment Noted Time PHQ-9 Depression Total Score: 10 025 2:53 PM EDT documented as of this encounter Care Teams Skate Hop Relationship Specialty Start Date End Date Rebecca Hogan NP [address] [place] [address] PCP - General Family Medicine 01/20/23 documented as of this encounter
--- OUTSIDE RECORDS SUMMARY | 2025-01-06 13:39 | XMS_ITS | Encounter Summary ---
Author Organization [employer] Address [address] [facility] [address] [place] [address] Care Team Providers Care Realty Loan Specialist Name Role Phone Rebecca Hogan NP Primary Care Provider [phone] Reason for Visit * Reason Onset Date Comments Hospital Follow-up 07/25/2024 Encounter Details Date Type Department Care Team ([facility] st Contact Info) Description 07/25/2024 Telephone [facility] [address] [place], [place] [phone] Rebecca Hogan NP [address] [place] [address] Hospital Follow-up Social History Tobacco Use Types [...] * Telephone Encounter - Naa Freeman - 07/25/2024 11:36 AM EDT Tc from pt requesting a HDF appt. [place] [facility] [place] Date of admission: 07/21 Discharge date: 07/23 Diagnosed: Opioid use disorder *Send message to [facility] Clinical Care Coordinators [phone] documented in this encounter Plan of Treatment Upcoming Encounters Date Type Department Care Team (Late st Contact Info) Description 01/13/2025 11:00 AM EDT Office Visit [facility] [address] [place] [address] Rebecca Hogan NP [address] [place] [address] documented as of this encounter Visit Diagnoses Not on filedocumented in this encounter Additional Health Concerns Assessment Noted Time PHQ-9 Depression Total Score: 10 025 2:53 PM EDT documented as of this encounter Care Teams Realty Loan Specialist Relationship Specialty Start Date End Date Rebecca Hogan NP [address] [place] [address] PCP - General Family Medicine 01/20/23 documented as of this encounter
--- OUTSIDE RECORDS SUMMARY | 2025-01-06 13:39 | XMS_ITS | Encounter Summary ---
Author Organization [facility] Address [address] [place] [address] 7[address] [place] [address] Care Team Providers Care Carburizing Furnace Operator Name Role Phone Kimmie HenaoP Primary Care Provider Rebecca Bain NP Primary Care Provider [phone] Encounter Details Date Type Department Care Team (Late st Contact Info) Description 06/13/2022 Orders Only [facility] [address] [place] [address] Tess Perez LPN Social History Tobacco Use [...] Description 01/13/2025 11:00 AM EDT Office Visit [facility] [address] [place] [address] Rebecca Hogan NP [address] [place] [address] documented as of this encounter Procedures Procedure [...] EST) VBG pH 7.43 7.32 - 7.43 [facility] Comment:METER #: [id number] additional_comment: Lester mauro VBG PCO2 55 mmHg [facility] Comment:METER #: [id number] additional_comment: Lester mauro VBG PO2 142 mmHg [facility] Comment:METER #: [id number] additional_comment: Cb nj VBG Base Excess 11.0 mmol/L [facility] Comment:METER #: [id number] additional_comment: Lester mauro VBG HCO3 37(H) 22 - 26 mmol/L [facility] Comment:METER #: [id number] additional_comment: Lester mauro O2 Sat, Domenic 99.0 % [facility] Comment:METER #: [id number] additional_comment: Lester mauro 02/25/2023 8:33 PM EST 02/25/2023 8:37 PM EST us Generic External Data Provider LAB BLOOD ORDERAB LES Final Result Performing Organization Address City/[facility]/[place] Co de Phone Number [facility] [address] [place] [address] [phone] * SARS-CoV-2 RNA, Influenza A/B, and RSV RNA, Ql NAAT (02/25/2023 8:27 PM EST) Influenza A PCR NEGATIVE Negative [facility] Influenza B PCR NEGATIVE Negative [facility] Resp Syncy Virus RNA Qual PCR NEGATIVE Negative [facility] SARS COV2 PCR NEGATIVE Negative [facility] Comment:All test results mus t [...] use by authorized laboratories.Testing performed on the [employer] GeneXpert utilizingreal-time RT-PCR.All SARS CoV2 and positive influenza A/B results arereported to [facility]. 02/25/2023 8:27 PM EST 02/25/2023 8:31 PM EST us Generic External Data Provider LAB MICROBIOLOGY - GENERAL ORDERABLES Final Result Performing Organization Address City/[facility]/ZIP Co de Phone Number [facility] [address] [place] [address] [phone] * High Sensitivity Troponin I (02/25/2023 8:27 PM EST) [facility] TROPONIN I HIGH SENSITIVITY 5.3 <3.5 - 35.0 ng/L [facility] Comment:The Bonds high sens itivity Troponin-I results should beused in conjunction with other diagnostic information suchas ECG, clinical observations and information, and patientsymptoms to aid in the diagnosis of [place]. 02/25/2023 8:27 PM EST 02/25/2023 8:31 PM EST Generic External Data Provider LAB BLOOD ORDERAB LES Final Result Performing Organization Address [facility] Phone Number [facility] [address] [place] [address] [phone] * Magnesium (02/25/2023 8:27 PM EST) [facility] Magnesium 2.1 1.6 - 2.6 mg/dL [facility] 02/25/2023 8:27 PM EST 02/25/2023 8:31 PM EST Generic External Data Provider LAB BLOOD ORDERAB LES Final Result Performing Organization Address [facility] Phone Number [facility] [address] [place] [phone] * (ABNORMAL) Basic Metabolic Panel (02/25/2023 8:27 PM EST) [facility] Sodium 144 135 - 145 mmol/L [facility] Potassium 3.8 3.3 - 5.1 mmol/L [facility] Chloride 102 96 - 108 mmol/L [facility] Carbon Dioxide 34(H) 22 - 29 mmol/L [facility] Anion Gap 12 12 - 20 [facility] Urea Nitrogen (BUN) 8(L) 9 - 16 mg/dL [facility] Creatinine, Serum 0.92 0.5 - 1.4 mg/dL [facility] Creatinine Clr Calc Pharmacy 129.5 [facility] Comment:eGFR (calculated fro m the MDRD study equation) and eCrCl(calculated from the Cockcroft-Gault equation) are based ondifferent parameters and may not yield comparable results.If eCrCl result is absurd, please check patient'sheight/weight. Estimated Glomerular Filt Rate >60 [facility] Comment:NOTE: For -Am erican individuals, multiply the result by 1.210.Chronic Kidney Disease: Estimated GFR < 60 mL/min/1.45f4Wpsuok Kidney Disease: Estimated GFR < 15 mL/min/1.73m2 Glucose 140(H) 60 - 115 mg/dL [facility] Calcium 8.8 8.4 - 10.2 mg/dL [facility] 02/25/2023 8:27 PM EST 02/25/2023 8:31 PM EST us Generic External Data Provider LAB BLOOD ORDERAB LES Final Result [facility] [address] [place] [phone] * (ABNORMAL) Hepatic Function Panel (02/25/2023 8:27 PM EST) Bilirubin, Total 0.2 0.0 - 1.0 mg/dL [facility] Bilirubin, Direct 0.2 0.0 - 0.5 mg/dL [facility] Aspartate Amino Transferase 23 5 - 37 U/L [facility] Alanine Aminotransferase 19 0 - 40 U/L [facility] Total Protein 8.1(H) 6.5 - 8.0 g/dL [facility] Albumin Level 3.9 3.5 - 5.0 g/dL [facility] Alkaline Phosphatase 79 39 - 117 U/L [facility] 02/25/2023 8:27 PM EST 02/25/2023 8:31 PM EST Generic External Data Provider LAB BLOOD ORDERAB LES Final Result Performing Organization Address [facility]/[place] Co de Phone Number [facility] [address] [place] [phone] * Lactic Acid (02/25/2023 8:27 PM EST) Pathologist [facility] Lactic Acid 1.0 0.5 - 2.0 mmol/L [facility] 02/25/2023 8:27 PM EST 02/25/2023 8:31 PM EST Generic External Data Provider LAB BLOOD ORDERAB LES Final Result Performing Organization Address [facility] Phone Number [facility] [address] [place] [phone] * Prothrombin Time-INR (02/25/2023 8:27 PM EST) Pathologist [facility] Prothrombin Time 11.6 11.1 - 13.3 SEC [facility] INTERNATIONAL NORM RATIO 1.0 0.9 - 1.1 [facility] Comment:INTERNATIONAL NORMAL IZED RATIO (INR) [...] ORDERAB LES Final Result Performing Organization Address [facility] de Phone Number [facility] [address] [place] [phone] * (ABNORMAL) CBC auto differential (02/25/2023 8:27 PM EST) White Blood Count 8.9 4.8 - 10.8 X10*3/uL [facility] Red Blood Count 4.48(L) 4.60 - 5.80 X10*6/uL [facility] Hemoglobin 12.6(L) 14.0 - 18.0 g/dl [facility] Hematocrit 39.5(L) 42.0 - 52.0 % [facility] Mean Corpuscular Volume 88.2 80.0 - 98.0 fL [facility] Mean Corpuscular Hemoglobin 28.1 27.0 - 33.0 pg [facility] Mean Corpuscular HGB Conc 31.9 31.0 - 36.0 g/dl [facility] Red Cell Distribution Width 13.3 11.0 - 16.0 % [facility] Platelet Count 219 160 - 400 X10*3/uL [facility] Mean Platelet Volume 9.6 9.4 - 12.4 fL [facility] Neutrophils Percent Auto 66.7 45 - 73 % [facility] Imm Gran Pct Auto 0.1 0.0 - 0.4 % [facility] Lymphocytes Percent Auto 18.4(L) 20 - 40 % [facility] Monocytes Percent Auto 7.2 2 - 11 % [facility] Eosinophils Percent Auto 7.1(H) 0 - 4 % [facility] Basophils Percent Auto 0.5 0 - 2 % [facility] NRBC Pct Auto 0.0 0.0 - 0.2 /100WBC [facility] Neutrophils Absolute Auto 5.9 2.0 - 8.3 x10*3/uL [facility] Imm Gran Abs Auto 0.01 0.00 - 0.03 X10*3/uL [facility] Lymphocytes Absolute Auto 1.6 1.2 - 4.9 X10*3/uL [facility] Monocytes Absolute Auto 0.6 0.1 - 1.2 X10*3/uL [facility] Eosinophils Absolute Auto 0.6(H) 0.0 - 0.4 X10*3/uL [facility] Basophils Absolute Auto 0.0 0.0 - 0.2 X10*3/uL [facility] NRBC Abs Auto 0.000 0.0 - 0.012 X10*3/uL [facility] 02/25/2023 8:27 PM EST 02/25/2023 8:31 PM EST Generic External Data Provider LAB BLOOD ORDERAB LES Final Result Performing Organization Address City/[facility]/ZIP Co de Phone Number [facility] [address] [place] [address] [phone] * (ABNORMAL) VENOUS BLOOD GAS (09/10/2022 2:06 PM EDT) [facility] VBG pH 7.36 7.32 - 7.43 [facility] Comment:METER #: [id number] additional_comment: Cbfurrkat VBG PCO2 63 mmHg [facility] Comment:METER #: [id number] additional_comment: Cbfurrkat VBG PO2 75 mmHg [facility] Comment:METER #: [id number] additional_comment: Cbfurrkat VBG Base Excess 8.3 mmol/L [facility] Comment:METER #: [id number] additional_comment: Cbfurrkat VBG HCO3 36(H) 22 - 26 mmol/L [facility] Comment:METER #: [id number] additional_comment: Cbfurrkat O2 Sat, Domenic 93.0 % [facility] Comment:METER #: [id number] additional_comment: Cbfurrkat 09/10/2022 2:06 PM EDT 09/10/2022 2:13 PM EDT [facility] External Provider LAB BLO OD ORDERABLES Final Result Performing Organization Address [facility]/[place] Co de Phone Number [facility] [address] [place] [phone] * High Sensitivity Troponin I (09/10/2022 2:01 PM EDT) [facility] TROPONIN I HIGH SENSITIVITY 16.1 <3.5 - 35.0 ng/L [facility] Comment:The Bonds high sens itivity Troponin-I results should beused in conjunction with other diagnostic information suchas ECG, clinical observations and information, and patientsymptoms to aid in the diagnosis of [place]. 09/10/2022 2:01 PM EDT 09/10/2022 2:06 PM EDT [facility] External Provider LAB BLO OD ORDERABLES Final Result Performing Organization Address [facility]/[place] Co de Phone Number [facility] [address] [place] [phone] [phone] * B Type Natriuretic Peptide (BNP) (09/10/2022 2:01 PM EDT) [facility] B Type Natriuretic Peptide 97 <100 pg/mL [facility] Comment:For those patients w ho are being treated with Natrecor(nesiritide, recombinant BNP), BNP testing should beperformed at least two hours post treatment in order toensure that only endogenous levels of BNP are detected. 09/10/2022 2:01 PM EDT 09/10/2022 2:06 PM EDT [facility] External Provider LAB BLO OD ORDERABLES Final Result Performing Organization Address [facility]/[place] Co de Phone Number [facility] [address] [place] [address] [phone] * (ABNORMAL) Comprehensive Metabolic Panel (09/10/2022 2:01 PM EDT) [facility] Sodium 143 135 - 145 mmol/L [facility] Potassium 4.0 3.3 - 5.1 mmol/L [facility] Chloride 104 96 - 108 mmol/L [facility] Carbon Dioxide 32(H) 22 - 29 mmol/L [facility] Anion Gap 11(L) 12 - 20 [facility] Urea Nitrogen (BUN) 10 9 - 16 mg/dL [facility] Creatinine, Serum 0.81 0.5 - 1.4 mg/dL [facility] Creatinine Clr Calc Pharmacy 143.3 [facility] Comment:eGFR (calculated fro m the MDRD study equation) and eCrCl(calculated from the Cockcroft-Gault equation) are based ondifferent parameters and may not yield comparable results.If eCrCl result is absurd, please check patient'sheight/weight. Estimated Glomerular Filt Rate >60 [facility] Comment:NOTE: For -Am erican individuals, multiply the result by 1.210.Chronic Kidney Disease: Estimated GFR < 60 mL/min/1.72q3Lxmbnq Kidney Disease: Estimated GFR < 15 mL/min/1.73m2 Glucose 110 60 - 115 mg/dL [facility] Calcium 8.9 8.4 - 10.2 mg/dL [facility] Bilirubin, Total 0.3 0.0 - 1.0 mg/dL [facility] Aspartate Amino Transferase 194(H) 5 - 37 U/L [facility] Alanine Aminotransferase 177(H) 0 - 40 U/L [facility] Total Protein 7.4 6.5 - 8.0 g/dL [facility] Albumin Level 3.7 3.5 - 5.0 g/dL [facility] Alkaline Phosphatase 87 39 - 117 U/L [facility] 09/10/2022 2:01 PM EDT 09/10/2022 2:06 PM EDT us [employer] External Provider LAB BLO OD ORDERABLES Final Result [facility] [address] [place] [phone] * COVID-19 ID NOW (BONDS) (09/10/2022 2:01 PM EDT) IDNOW SERIAL# [id number] [facility] COVID-19 TEST Negative Negative [facility] COVID-19 NOTE See Note [facility] Comment: Results are for the identification of SARS-CoV2 RNA. TheSARS-CoV2 RNA is generally detectable in respiratory samplesduring the acute phase of infection. Positive results areindicative of the presence of SARS-CoV-2 RNA; clinicalcorrelation with patient history and other diagnosticinformation is necessary to determine patient infectionstatus. Positive results do not rule out bacterial infectionor co- infection with other viruses.Testing facilities within the [facility] and itsterritories are required to report all [...] use by authorized laboratories.Testing performed on the [employer] NOW utilizing NAAT. 09/10/2022 2:01 PM EDT 09/10/2022 2:06 PM EDT [facility] Exter nal Provider LAB MOLECULAR DIAGNOSTICS ORDERABLES Final Result [facility] [address] [place] [address] [phone] * (ABNORMAL) CBC auto differential (09/10/2022 2:01 PM EDT) White Blood Count 8.7 4.8 - 10.8 X10*3/uL [facility] Red Blood Count 4.58(L) 4.60 - 5.80 X10*6/uL [facility] Hemoglobin 12.6(L) 14.0 - 18.0 g/dl [facility] Hematocrit 40.2(L) 42.0 - 52.0 % [facility] Mean Corpuscular Volume 87.8 80.0 - 98.0 fL [facility] Mean Corpuscular Hemoglobin 27.5 27.0 - 33.0 pg [facility] Mean Corpuscular HGB Conc 31.3 31.0 - 36.0 g/dl [facility] Red Cell Distribution Width 13.8 11.0 - 16.0 % [facility] Platelet Count 202 160 - 400 X10*3/uL [facility] Mean Platelet Volume 9.7 9.4 - 12.4 fL [facility] Neutrophils Percent Auto 72.5 45 - 73 % [facility] Imm Gran Pct Auto 0.3 0.0 - 0.4 % [facility] Lymphocytes Percent Auto 11.4(L) 20 - 40 % [facility] Monocytes Percent Auto 6.2 2 - 11 % [facility] Eosinophils Percent Auto 9.0(H) 0 - 4 % [facility] Basophils Percent Auto 0.6 0 - 2 % [facility] NRBC Pct Auto 0.0 0.0 - 0.2 /100WBC [facility] Neutrophils Absolute Auto 6.3 2.0 - 8.3 x10*3/uL [facility] Imm Gran Abs Auto 0.03 0.00 - 0.03 X10*3/uL [facility] Lymphocytes Absolute Auto 1.0(L) 1.2 - 4.9 X10*3/uL [facility] Monocytes Absolute Auto 0.5 0.1 - 1.2 X10*3/uL [facility] Eosinophils Absolute Auto 0.8(H) 0.0 - 0.4 X10*3/uL [facility] Basophils Absolute Auto 0.1 0.0 - 0.2 X10*3/uL [facility] NRBC Abs Auto 0.000 0.0 - 0.012 X10*3/uL [facility] 09/10/2022 2:01 PM EDT 09/10/2022 2:06 PM EDT us [employer] External Provider LAB BLO OD ORDERABLES Final Result [facility] [address] [place] [phone] documented in this encounter Visit Diagnoses Not on filedocumented in this encounter Care Teams Carburizing Furnace Operator Relationship Specialty Start Date End Date Kimmie Henao FNP PCP - General Family Medicine 10/06/21 01/19/23 Rebecca Hogan NP [address] [place] [address] PCP - General Family Medicine 01/20/23 documented as of this encounter
--- OUTSIDE RECORDS SUMMARY | 2025-01-06 13:39 | XMS_ITS | Encounter Summary ---
Author Organization [employer] Address [address] [place] [address] Care Team Providers Care Covering And Lining Supervisor Name Role Phone Rebecca Hogan NP Primary Care Provider [phone] Reason for Visit * Reason Onset Date Comments Hospital Follow-up 06/04/2024 Encounter Details Date Type Department Care Team ([facility] st Contact Info) Description 06/04/2024 Telephone [facility] MED[facility] [address] [place], [place] [phone] Rebecca Hogan NP [address] [place] [address] Hospital Follow-up Social History Tobacco Use Types [...] from pt requesting a HDF appt. Hospital: [facility] Date of admission: 05/31 Discharge date: 06/03 Diagnosed: flu, pneumonia *Send message to [place] Clinical Care Coordinators [phone] documented in this encounter Plan of Treatment Upcoming Encounters Date Type Department Care Team (Late st Contact Info) Description 01/13/2025 11:00 AM EDT Office Visit [facility] [address] [place] [address] Rebecca Hogan NP [address] [place] [address] documented as of this encounter Visit Diagnoses Not on filedocumented in this encounter Additional Health Concerns Assessment Noted Time PHQ-9 Depression Total Score: 18 024 1:40 PM EST documented as of this encounter Care Teams Covering And Lining Supervisor Relationship Specialty Start Date End Date Rebecca Hogan NP [address] [place] [address] PCP - General Family Medicine 01/20/23 documented as of this encounter
--- OUTSIDE RECORDS SUMMARY | 2025-01-06 13:39 | XMS_ITS | Encounter Summary ---
Author Organization [employer] [facility] Address [address] [place] [address] [address] [place] [address] Care Team Providers Care Mill Recorder Name Role Phone Kimmie HenaoP Primary Care Provider Rebecca Bain NP Primary Care Provider [phone] Reason for Visit * Reason Comments Med Refill Encounter Details Date Type Department Care Team (Late st Contact Info) Description 07/21/2022 Refill [facility] MEDICINE [address] [place] [address] Kimmie Henao FNP Seasonal allergic rhinitis, unspecified trigger Social History [...] Description 01/13/2025 11:00 AM EDT Office Visit [facility] [address] [place] [address] Rebecca Hogan NP [address] [place] [address] documented as of this encounter Visit Diagnoses Diagnosis Seasonal allergic rhinitis, unspecified trigger documented in this encounter Care Teams Mill Recorder Relationship Specialty Start Date End Date Kimmie Henao FNP PCP - General Family Medicine 10/06/21 01/19/23 Rebecca Hogan NP [address] [place] [address] PCP - General Family Medicine 01/20/23 documented as of this encounter
--- OUTSIDE RECORDS SUMMARY | 2025-01-06 13:39 | XMS_ITS | Encounter Summary ---
Author Organization [email or web address] Address [address] [facility] [address] [place] [address] Care Team Providers Care Ore Grader Name Role Phone Rebecca Hogan NP Primary Care Provider [phone] Reason for Visit * Reason Onset Date Comments Med Refill 02/14/2024 Encounter Details Date Type Department Care Team ([facility] st Contact Info) Description 02/14/2024 Refill [facility] MEDICINE [address] [place] [address] Rebecca Hogan NP [address] [place] [address] Social History Tobacco Use Types Packs/Day Years [...] Description 01/13/2025 11:00 AM EDT Office Visit [facility] MEDICINE [address] [place] [address] Rebecca Hogan NP [address] [place] [address] documented as of this encounter Visit Diagnoses Not on filedocumented in this encounter Additional Health Concerns Assessment Noted Time PHQ-9 Depression Total Score: 18 024 1:40 PM EST documented as of this encounter Care Teams Ore Grader Relationship Specialty Start Date End Date Rebecca Hogan NP [address] [place] [address] PCP - General Family Medicine 01/20/23 documented as of this encounter
--- OUTSIDE RECORDS SUMMARY | 2025-01-06 13:39 | XMS_ITS | Encounter Summary ---
Author Organization [employer] Address [address] [facility] [address] [place] [address] Care Team Providers Care Wallpaper Inspector Name Role Phone Rebecca Hogan NP Primary Care Provider [phone] Reason for Visit * Reason Onset Date Comments Referral 09/11/2024 Encounter Details Date Type Department Care Team ([facility] st Contact Info) Description 09/11/2024 Telephone [facility] MEDICINE [address] [place], [place] [phone] Rebecca Hogan NP [address] [place] [address] Referral Social History Tobacco Use Types Packs/Day [...] * Telephone Encounter - Naa Freeman - 09/11/2024 8:16 AM EDT Tc from pt daughter requesting referrals: 1) Network Development Coordinator - COPD and fatigue. 2) Surgery- Cyst right ear 3) Right Shoulder, Right Knee Pain. Pt daughter states spoke with PCP regarding those referrals on 08/09. Any question contact: [phone] documented in this encounter Plan of Treatment Upcoming Encounters Date Type Department Care Team (Late st Contact Info) Description 01/13/2025 11:00 AM EDT Office Visit [facility] MEDICINE [address] [place] [address] Rebecca Hogan NP [address] [place] [address] documented as of this encounter Visit Diagnoses Not on filedocumented in this encounter Additional Health Concerns Assessment Noted Time PHQ-9 Depression Total Score: 10 025 2:53 PM EDT documented as of this encounter Care Teams Wallpaper Inspector Relationship Specialty Start Date End Date Rebecca Hogan NP [address] [place] [phone] PCP - General Family Medicine 01/20/23 documented as of this encounter
--- OUTSIDE RECORDS SUMMARY | 2025-01-06 13:39 | XMS_ITS | Encounter Summary ---
Author Organization [employer] Address [address] [facility] [address] [place] [address] Care Team Providers Care Lens Grinder Rough Name Role Phone Rebecca Hogan NP Primary Care Provider [phone] Reason for Visit * Reason Comments Med Refill Encounter Details Date Type Department Care Team ([facility] st Contact Info) Description 05/05/2023 Refill [facility] [address] [place], [place] [phone] Name, MD Bg [address] [place] [address] Seasonal allergic rhinitis, unspecified trigger; Primary hypertension Social History Tobacco Use Types Packs/Day Years Used Date Smoking Tobacco: Every Day Cigarettes Smokeless Tobacco: Never Housing Stability Answer Date Recorded What is your housing situation today? I have johannahakeem najera 02/03/[address] you [...] 01/13/2025 11:00 AM EDT Office Visit [facility] [address] [place] [address] Rebecca Hogan NP [address] [place] [address] documented as of this encounter Visit Diagnoses Diagnosis Seasonal allergic rhinitis, unspecified trigger Primary hypertension Unspecified essential hypertension documented in this encounter Care Teams Lens Grinder Rough Relationship Specialty Start Date End Date Rebecca Hogan NP [address] [place] [address] PCP - General Family Medicine 01/20/23 documented as of this encounter
--- OUTSIDE RECORDS SUMMARY | 2025-01-06 13:39 | XMS_ITS | Encounter Summary ---
Author Organization [employer] [facility] Address [address] [place] [address] 7t [place] [address] Care Team Providers Care Abstracter Name Role Phone Kimmie Henao Primary Care Provider Rebecca Bain NP Primary Care Provider [phone] Reason for Visit * Reason Comments Med Refill Encounter Details Date Type Department Care Team (Late st Contact Info) Description 10/24/2022 Refill [facility] [address] [place] [address] Kimmie Henao FNP Primary hypertension Social History Tobacco Use Types [...] Description 01/13/2025 11:00 AM EDT Office Visit [facility] [address] [place] [address] Rebecca Hogan NP [address] [place] [address] documented as of this encounter Visit Diagnoses Diagnosis Primary hypertension Unspecified essential hypertension documented in this encounter Care Teams Abstracter Relationship Specialty Start Date End Date Kimmie Henao FNP PCP - General Family Medicine 10/06/21 01/19/23 Rebecca Hogan NP [address] [place] [id number] PCP - General Family Medicine 01/20/23 documented as of this encounter
== END 2025-01-06 11:33 | disposition home or self-care (01) ==
LOC: HO.HPS 11:00
PROVIDERS: PCP Registered Nurse; Visit Provider Internal Medicine
DX: E66.01 Morbid (severe) obesity due to excess calories (principal); F19.10 Other psychoactive substance abuse, uncomplicated; J96.92 Respiratory failure, unspecified with hypercapnia; J44.89 Other specified chronic obstructive pulmonary disease; G47.34 Idiopathic sleep related nonobstructive alveolar hypoventilation; J30.9 Allergic rhinitis, unspecified
CPT/HCPCS: 99213

== ENCOUNTER → 2025-01-06 11:00 | Outpatient (BNVA) | payer MEDICAID, SELFPAY | PROVIDERS: PCP Registered Nurse; Visit Provider Internal Medicine | DX: E66.01 Morbid (severe) obesity due to excess calories (principal); F19.10 Other psychoactive substance abuse, uncomplicated; J96.92 Respiratory failure, unspecified with hypercapnia; J44.89 Other specified chronic obstructive pulmonary disease; G47.34 Idiopathic sleep related nonobstructive alveolar hypoventilation; J30.9 Allergic rhinitis, unspecified | CPT/HCPCS: 99212 ==

== ENCOUNTER 2025-02-17 15:16 | Outpatient (REF) | payer MEDICAID, SELFPAY ==
--- NOTE | ~2025-02-17 | MR_ITS ---
EXAMINATION: MR BRAIN WITHOUT AND WITH CONTRAST CLINICAL INFORMATION: New onset seizure-like activity. Rule out brain lesion. COMPARISON: No prior MRI. CT head 07/21/2024. TECHNIQUE: Multiplanar, multisequence MRI of the brain was obtained before and after the intravenous administration of 10 mL Gadavist. Examination performed on a 1.5 Joana Siemens high-field unit. FINDINGS: There is no diffusion restriction. There is no intracranial hemorrhage, acute infarction, mass effect, or edema. Ventricles, sulci, and cisterns are normal in size and configuration for patient age. No shift of midline. No abnormal hemosiderin deposition is identified. There are a few scattered punctate and minimally confluent foci of white matter T2 hyperintensity in the periventricular, subcortical, and hemispheric deep white matter. These foci are nonspecific but statistically relate to small vessel ischemic changes. There is no abnormal intra or extra-axial contrast enhancement. There is no evidence of hippocampal atrophy or abnormal signal. No evidence of heterotopic raines matter, or cortical dysplasia. Midline structures appear normally formed. The pituitary gland appears normal. Posterior fossa structures appear normal. Cerebellar tonsils are appropriately located. Major flow voids are preserved within the skull base. The globes and orbital contents demonstrate no abnormalities. Moderate mucosal thickening and scattered fluid is present within the bilateral maxillary sinuses, right sphenoid sinus, and bilateral ethmoid sinuses, extending into the frontal recesses and left frontal sinus. Trace fluid in the bilateral mastoid air cells. Tympanic cavities are aerated normally. Extracranial soft tissues demonstrate a lipoma measuring 3.1 x 1.2 x 2.6 cm abutting the right mastoid. No suspicious bone marrow changes are evident. Atlantoaxial joint is trace mild to moderate degenerative changes. MR/MR head/brain wo/w con IMPRESSION: 1. No evidence of intracranial hemorrhage, acute infarction, mass effect, or edema. No abnormal contrast enhancement. 2. Very mild changes of small vessel ischemia. 3. Moderate pansinus disease is present. Electronically signed by: Navi Johnson MD 02/17/2025 04:52 PM [facility] [place] [place]
--- OUTSIDE RECORDS SUMMARY | 2025-02-17 16:53 | XMS_ITS | Encounter Summary ---
Author Organization [employer] Address [address] [facility] 7 [place] [address] Care Team Providers Care Registration Rep Name Role Phone Rebecca Hogan NP Primary Care Provider [phone] Reason for Visit * Reason Onset Date Comments Hospital Follow-up 06/04/2024 Encounter Details Date Type Department Care Team ([facility] st Contact Info) Description 06/04/[address] [facility] MEDICINE [address] [place], [place] [phone] Rebecca Hogan NP [address] [place] [address] Hospital Follow-up Social History Tobacco Use Types [...] from pt requesting a HDF appt. Hospital: [facility] Date of admission: 05/31 Discharge date: 06/03 Diagnosed: flu, pneumonia *Send message to [place] [facility]ordin[facility] [phone] documented in this encounter Plan of Treatment Upcoming Encounters Date Type Department Care Team (Late st Contact Info) Description 02/24/2025 11:00 AM EST Office Visit [facility] MED[facility]INE [address] [place] [address] Rebecca Hogan NP [address] [place] [address] documented as of this encounter Visit Diagnoses Not on filedocumented in this encounter Additional Health Concerns Assessment Noted Time PHQ-9 Depression Total Score: 18 024 1:40 PM EST documented as of this encounter Care Teams Registration Rep Relationship Specialty Start Date End Date Rebecca Hogan NP [address] [place] [address] PCP - General Family Medicine 01/20/23 documented as of this encounter
--- OUTSIDE RECORDS SUMMARY | 2025-02-17 16:53 | XMS_ITS | Encounter Summary ---
Author Organization [employer] Address [address] [facility] 7t [place] [address] Care Team Providers Care Cableway Operator Name Role Phone Rebecca Hogan NP Primary Care Provider [phone] Reason for Visit * Reason Comments Med Refill Encounter Details Date Type Department Care Team ([facility] st Contact Info) Description 05/05/2023 Refill [facility] [address] [place], [place] [phone] Name, MD Bg [address] [place] [address] Seasonal allergic rhinitis, unspecified trigger; Primary hypertension [...] Description 02/24/2025 11:00 AM EST Office Visit [facility] [address] [place] [address] Rebecca Hogan NP [address] [place] [address] documented as of this encounter Visit Diagnoses Diagnosis Seasonal allergic rhinitis, unspecified trigger Primary hypertension Unspecified essential hypertension documented in this encounter Care Teams Cableway Operator Relationship Specialty Start Date End Date Rebecca Hogan NP [address] [place] [address] PCP - General Family Medicine 01/20/23 documented as of this encounter
--- OUTSIDE RECORDS SUMMARY | 2025-02-17 16:53 | XMS_ITS | Encounter Summary ---
Author Organization [email or web address] Address [address] [facility] [address] [place] [address] Care Team Providers Care Ultimate Hoops Scoreboard Operator Name Role Phone Rebecca Hogan NP Primary Care Provider [phone] Reason for Visit * Reason Onset Date Comments Hospital Follow-up 07/25/2024 Encounter Details Date Type Department Care Team ([facility] st Contact Info) Description 07/25/2024 Telephone [facility] MEDICINE [address] [place], [place] [phone] Rebecca Hogan NP [address] [place] [address] Hospital Follow-up Social History Tobacco Use Types [...] from pt requesting a HDF appt. Hospital: [facility] Date of admission: 07/21 Discharge date: 07/23 Diagnosed: Opioid use disorder *Send message to [place] [facility] Coordinators [phone] documented in this encounter Plan of Treatment Upcoming Encounters Date Type Department Care Team (Late st Contact Info) Description 02/24/2025 11:00 AM EST Office Visit [facility] MEDICINE [address] [place] [address] Rebecca Hogan NP [address] [place] [address] documented as of this encounter Visit Diagnoses Not on filedocumented in this encounter Additional Health Concerns Assessment Noted Time PHQ-9 Depression Total Score: 10 025 2:53 PM EDT documented as of this encounter Care Teams Ultimate Hoops Scoreboard Operator Relationship Specialty Start Date End Date Rebecca Hogan NP [address] [place] [address] PCP - General Family Medicine 01/20/23 documented as of this encounter
--- OUTSIDE RECORDS SUMMARY | 2025-02-17 16:53 | XMS_ITS | Encounter Summary ---
Author Organization [employer] Address [address] [place] [address] Care Team Providers Care Pluck Trimmer Name Role Phone Rebecca Hogan NP Primary Care Provider [phone] Encounter Details Date Type Department Care Team ([facility] st Contact Info) Description 07/31/2024 Orders Only [facility] [address] [place] [address] [phone] Ken Mckeon MD [address] [place], [place] [phone] Asthma with COPD ([facility]) Social History Tobacco Use Types Packs/Day Years [...] Description 02/24/2025 11:00 AM EST Office Visit [facility] [address] [place] [address] Rebecca Hogan NP [address] [place] [address] documented as of this encounter Visit Diagnoses Diagnosis Asthma with COPD (CMS/HCC) ([facility]) documented in this encounter Additional Health Concerns Assessment Noted Time PHQ-9 Depression Total Score: 10 025 2:53 PM EDT documented as of this encounter Care Teams Pluck Trimmer Relationship Specialty Start Date End Date Rebecca Hogan NP [address] [place] [address] PCP - General Family Medicine 01/20/23 documented as of this encounter
--- OUTSIDE RECORDS SUMMARY | 2025-02-17 16:53 | XMS_ITS | Encounter Summary ---
Author Organization [employer] [facility] Address [address] [place] [address] 7[address] [place] [address] Care Team Providers Care Jira Developer Name Role Phone Kimmie HenaoP Primary Care Provider Rebecca Bain NP Primary Care Provider [phone] Encounter Details Date Type Department Care Team (Late st Contact Info) Description 06/13/2022 Orders Only [facility] MEDICINE [address] [place] [address] Tess Perez LPN Social History Tobacco Use [...] Description 02/24/2025 11:00 AM EST Office Visit [facility] MEDICINE [address] [place] [address] Rebecca Hogan NP [address] [place] [address] documented as of this encounter Procedures Procedure [...] EST) VBG pH 7.43 7.32 - 7.43 [facility] Comment:METER #: [id number] additional_comment: Lester mauro VBG PCO2 55 mmHg [facility] Comment:METER #: [id number] additional_comment: Lester mauro VBG PO2 142 mmHg [facility] Comment:METER #: [id number] additional_comment: Lester mauro VBG Base Excess 11.0 mmol/L [facility] Comment:METER #: [id number] additional_comment: Lester mauro VBG HCO3 37(H) 22 - 26 mmol/L [facility] Comment:METER #: [id number] additional_comment: Lester mauro O2 Sat, Domenic 99.0 % [facility] Comment:METER #: [id number] additional_comment: Lester mauro 02/25/2023 8:33 PM EST 02/25/2023 8:37 PM EST Generic External Data Provider LAB BLOOD ORDERAB LES Final Result Performing Organization Address [facility] de Phone Number [facility] [address] [place] [address] [phone] * SARS-CoV-2 RNA, Influenza A/B, and RSV RNA, Ql NAAT (02/25/2023 8:27 PM EST) Influenza A PCR NEGATIVE Negative [facility] Influenza B PCR NEGATIVE Negative [facility] Resp Syncy Virus RNA Qual PCR NEGATIVE Negative [facility] SARS COV2 PCR NEGATIVE Negative [facility] Comment:All test results mus [...] use by authorized laboratories.Testing performed on the [employer] GeneXpert utilizingreal-time RT-PCR.All SARS CoV2 and positive influenza A/B results arereported to [facility]. 02/25/2023 8:27 PM EST 02/25/2023 8:31 PM EST us Generic External Data Provider LAB MICROBIOLOGY - GENERAL ORDERABLES Final Result Performing Organization Address [facility]/ZIP Co de Phone Number [facility] [address] [place] [address] [phone] * High Sensitivity Troponin I (02/25/2023 8:27 PM EST) [facility] TROPONIN I HIGH SENSITIVITY 5.3 <3.5 - 35.0 ng/L [facility] Comment:The Bonds high sens itivity Troponin-I results should beused in conjunction with other diagnostic information suchas ECG, clinical observations and information, and patientsymptoms to aid in the diagnosis of NM. 02/25/2023 8:27 PM EST 02/25/2023 8:31 PM EST Generic External Data Provider LAB BLOOD ORDERAB LES Final Result Performing Organization Address [facility] Phone Number [facility] [address] [place] [phone] * Magnesium (02/25/2023 8:27 PM EST) [facility] Magnesium 2.1 1.6 - 2.6 mg/dL [facility] 02/25/2023 8:27 PM EST 02/25/2023 8:31 PM EST Generic External Data Provider LAB BLOOD ORDERAB LES Final Result Performing Organization Address [facility] de Phone Number [facility] [address] [place] [phone] * (ABNORMAL) Basic Metabolic Panel (02/25/2023 8:27 PM EST) [facility] Sodium 144 135 - 145 mmol/L [facility] Potassium 3.8 3.3 - 5.1 mmol/L [facility] Chloride 102 96 - 108 mmol/L [facility] Carbon Dioxide 34(H) 22 - 29 mmol/L [facility] Anion Gap 12 12 - 20 [facility] Urea Nitrogen (BUN) 8(L) 9 - 16 mg/dL [facility] Creatinine, Serum 0.92 0.5 - 1.4 mg/dL [facility] Creatinine Clr Calc Pharmacy 129.5 [facility] Comment:eGFR (calculated fro m the MDRD study equation) and eCrCl(calculated from the Cockcroft-Gault equation) are based ondifferent parameters and may not yield comparable results.If eCrCl result is absurd, please check patient'sheight/weight. Estimated Glomerular Filt Rate >60 [facility] Comment:NOTE: For -Am erican individuals, multiply the result by 1.210.Chronic Kidney Disease: Estimated GFR < 60 mL/min/[id number] Kidney Disease: Estimated GFR < 15 mL/min/1.73m2 Glucose 140(H) 60 - 115 mg/dL [facility] Calcium 8.8 8.4 - 10.2 mg/dL [facility] 02/25/2023 8:27 PM EST 02/25/2023 8:31 PM EST us Generic External Data Provider LAB BLOOD ORDERAB LES Final Result [facility] [address] [place] [phone] * (ABNORMAL) Hepatic Function Panel (02/25/2023 8:27 PM EST) Bilirubin, Total 0.2 0.0 - 1.0 mg/dL [facility] Bilirubin, Direct 0.2 0.0 - 0.5 mg/dL [facility] Aspartate Amino Transferase 23 5 - 37 U/L [facility] Alanine Aminotransferase 19 0 - 40 U/L [facility] Total Protein 8.1(H) 6.5 - 8.0 g/dL [facility] Albumin Level 3.9 3.5 - 5.0 g/dL [facility] Alkaline Phosphatase 79 39 - 117 U/L [facility] 02/25/2023 8:27 PM EST 02/25/2023 8:31 PM EST Generic External Data Provider LAB BLOOD ORDERAB LES Final Result Performing Organization Address [facility]/ZIP Co de Phone Number [facility] [address] [place] [phone] * Lactic Acid (02/25/2023 8:27 PM EST) [facility] Lactic Acid 1.0 0.5 - 2.0 mmol/L [facility] 02/25/2023 8:27 PM EST 02/25/2023 8:31 PM EST Generic External Data Provider LAB BLOOD ORDERAB LES Final Result Performing Organization Address [facility] Phone Number [facility] [address] [place] [phone] * Prothrombin Time-INR (02/25/2023 8:27 PM EST) [facility] Prothrombin Time 11.6 11.1 - 13.3 SEC [facility] INTERNATIONAL NORM RATIO 1.0 0.9 - 1.1 [facility] Comment:INTERNATIONAL NORMAL IZED RATIO (INR) [...] ORDERAB LES Final Result Performing Organization Address [facility] Co de Phone Number [facility] [address] [place] [phone] * (ABNORMAL) CBC auto differential (02/25/2023 8:27 PM EST) White Blood Count 8.9 4.8 - 10.8 X10*3/uL [facility] Red Blood Count 4.48(L) 4.60 - 5.80 X10*6/uL [facility] Hemoglobin 12.6(L) 14.0 - 18.0 g/dl [facility] Hematocrit 39.5(L) 42.0 - 52.0 % [facility] Mean Corpuscular Volume 88.2 80.0 - 98.0 fL [facility] Mean Corpuscular Hemoglobin 28.1 27.0 - 33.0 pg [facility] Mean Corpuscular HGB Conc 31.9 31.0 - 36.0 g/dl [facility] Red Cell Distribution Width 13.3 11.0 - 16.0 % [facility] Platelet Count 219 160 - 400 X10*3/uL [facility] Mean Platelet Volume 9.6 9.4 - 12.4 fL [facility] Neutrophils Percent Auto 66.7 45 - 73 % [facility] Imm Gran Pct Auto 0.1 0.0 - 0.4 % [facility] Lymphocytes Percent Auto 18.4(L) 20 - 40 % [facility] Monocytes Percent Auto 7.2 2 - 11 % [facility] Eosinophils Percent Auto 7.1(H) 0 - 4 % [facility] Basophils Percent Auto 0.5 0 - 2 % [facility] NRBC Pct Auto 0.0 0.0 - 0.2 /100WBC [facility] Neutrophils Absolute Auto 5.9 2.0 - 8.3 x10*3/uL [facility] Imm Gran Abs Auto 0.01 0.00 - 0.03 X10*3/uL [facility] Lymphocytes Absolute Auto 1.6 1.2 - 4.9 X10*3/uL [facility] Monocytes Absolute Auto 0.6 0.1 - 1.2 X10*3/uL [facility] Eosinophils Absolute Auto 0.6(H) 0.0 - 0.4 X10*3/uL [facility] Basophils Absolute Auto 0.0 0.0 - 0.2 X10*3/uL [facility] NRBC Abs Auto 0.000 0.0 - 0.012 X10*3/uL [facility] 02/25/2023 8:27 PM EST 02/25/2023 8:31 PM EST Generic External Data Provider LAB BLOOD ORDERAB LES Final Result Performing Organization Address [facility] Co de Phone Number [facility] [address] [place] [address] [phone] * (ABNORMAL) VENOUS BLOOD GAS (09/10/2022 2:06 PM EDT) [facility] VBG pH 7.36 7.32 - 7.43 [facility] Comment:METER #: [id number] additional_comment: Cbfurrkat VBG PCO2 63 mmHg [facility] Comment:METER #: [id number] additional_comment: Cbfurrkat VBG PO2 75 mmHg [facility] Comment:METER #: [id number] additional_comment: Cbfurrkat VBG Base Excess 8.3 mmol/L [facility] Comment:METER #: [id number] additional_comment: Cbfurrkat VBG HCO3 36(H) 22 - 26 mmol/L [facility] Comment:METER #: [id number] additional_comment: Cbfurrkat O2 Sat, Domenic 93.0 % [facility] Comment:METER #: [id number] additional_comment: Cbfurrkat 09/10/2022 2:06 PM EDT 09/10/2022 2:13 PM EDT [facility] External Provider LAB BLO OD ORDERABLES Final Result Performing Organization Address [facility] Co de Phone Number [facility] [address] [place] [address] [phone] * High Sensitivity Troponin I (09/10/2022 2:01 PM EDT) [facility] TROPONIN I HIGH SENSITIVITY 16.1 <3.5 - 35.0 ng/L [facility] Comment:The Bonds high sens itivity Troponin-I results should beused in conjunction with other diagnostic information suchas ECG, clinical observations and information, and patientsymptoms to aid in the diagnosis of NM. 09/10/2022 2:01 PM EDT 09/10/2022 2:06 PM EDT [facility] External Provider LAB BLO OD ORDERABLES Final Result Performing Organization Address [facility] Co de Phone Number [facility] [address] [place] [address] [phone] * B Type Natriuretic Peptide (BNP) (09/10/2022 2:01 PM EDT) [facility] B Type Natriuretic Peptide 97 <100 pg/mL [facility] Comment:For those patients w ho are being treated with Natrecor(nesiritide, recombinant BNP), BNP testing should beperformed at least two hours post treatment in order toensure that only endogenous levels of BNP are detected. 09/10/2022 2:01 PM EDT 09/10/2022 2:06 PM EDT [facility] External Provider LAB BLO OD ORDERABLES Final Result Performing Organization Address [facility] Co de Phone Number [facility] [address] [place] [address] [phone] * (ABNORMAL) Comprehensive Metabolic Panel (09/10/2022 2:01 PM EDT) [facility] Sodium 143 135 - 145 mmol/L [facility] Potassium 4.0 3.3 - 5.1 mmol/L [facility] Chloride 104 96 - 108 mmol/L [facility] Carbon Dioxide 32(H) 22 - 29 mmol/L [facility] Anion Gap 11(L) 12 - 20 [facility] Urea Nitrogen (BUN) 10 9 - 16 mg/dL [facility] Creatinine, Serum 0.81 0.5 - 1.4 mg/dL [facility] Creatinine Clr Calc Pharmacy 143.3 [facility] Comment:eGFR (calculated fro m the MDRD study equation) and eCrCl(calculated from the Cockcroft-Gault equation) are based ondifferent parameters and may not yield comparable results.If eCrCl result is absurd, please check patient'sheight/weight. Estimated Glomerular Filt Rate >60 [facility] Comment:NOTE: For -Am erican individuals, multiply the result by 1.210.Chronic Kidney Disease: Estimated GFR < 60 mL/min/1.46c2Wlnhmc Kidney Disease: Estimated GFR < 15 mL/min/1.73m2 Glucose 110 60 - 115 mg/dL [facility] Calcium 8.9 8.4 - 10.2 mg/dL [facility] Bilirubin, Total 0.3 0.0 - 1.0 mg/dL [facility] Aspartate Amino Transferase 194(H) 5 - 37 U/L [facility] Alanine Aminotransferase 177(H) 0 - 40 U/L [facility] Total Protein 7.4 6.5 - 8.0 g/dL [facility] Albumin Level 3.7 3.5 - 5.0 g/dL [facility] Alkaline Phosphatase 87 39 - 117 U/L [facility] 09/10/2022 2:01 PM EDT 09/10/2022 2:06 PM EDT us [facility] External Provider LAB BLO OD ORDERABLES Final Result [facility] [address] [place] [address] [phone] * COVID-19 ID NOW (BONDS) (09/10/2022 2:01 PM EDT) IDNOW SERIAL# [id number] [facility] COVID-19 TEST Negative Negative [facility] COVID-19 NOTE See Note [facility] Comment: Results are for the identification of SARS-CoV2 RNA. TheSARS-CoV2 RNA is generally detectable in respiratory samplesduring the acute phase of infection. Positive results areindicative of the presence of SARS-CoV-2 RNA; clinicalcorrelation with patient history and other diagnosticinformation is necessary to determine patient infectionstatus. Positive results do not rule out bacterial infectionor co- infection with other viruses.Testing facilities within the [facility] and itsterritories are required to report all [...] use by authorized laboratories.Testing performed on the [employer] NOW utilizing NAAT. 09/10/2022 2:01 PM EDT 09/10/2022 2:06 PM EDT [facility] Exter nal Provider LAB MOLECULAR DIAGNOSTICS ORDERABLES Final Result [facility] [address] [place] [address] [phone] * (ABNORMAL) CBC auto differential (09/10/2022 2:01 PM EDT) White Blood Count 8.7 4.8 - 10.8 X10*3/uL [facility] Red Blood Count 4.58(L) 4.60 - 5.80 X10*6/uL [facility] Hemoglobin 12.6(L) 14.0 - 18.0 g/dl [facility] Hematocrit 40.2(L) 42.0 - 52.0 % [facility] Mean Corpuscular Volume 87.8 80.0 - 98.0 fL [facility] Mean Corpuscular Hemoglobin 27.5 27.0 - 33.0 pg [facility] Mean Corpuscular HGB Conc 31.3 31.0 - 36.0 g/dl [facility] Red Cell Distribution Width 13.8 11.0 - 16.0 % [facility] Platelet Count 202 160 - 400 X10*3/uL [facility] Mean Platelet Volume 9.7 9.4 - 12.4 fL [facility] Neutrophils Percent Auto 72.5 45 - 73 % [facility] Imm Gran Pct Auto 0.3 0.0 - 0.4 % [facility] Lymphocytes Percent Auto 11.4(L) 20 - 40 % [facility] Monocytes Percent Auto 6.2 2 - 11 % [facility] Eosinophils Percent Auto 9.0(H) 0 - 4 % [facility] Basophils Percent Auto 0.6 0 - 2 % [facility] NRBC Pct Auto 0.0 0.0 - 0.2 /100WBC [facility] Neutrophils Absolute Auto 6.3 2.0 - 8.3 x10*3/uL [facility] Imm Gran Abs Auto 0.03 0.00 - 0.03 X10*3/uL [facility] Lymphocytes Absolute Auto 1.0(L) 1.2 - 4.9 X10*3/uL [facility] Monocytes Absolute Auto 0.5 0.1 - 1.2 X10*3/uL [facility] Eosinophils Absolute Auto 0.8(H) 0.0 - 0.4 X10*3/uL [facility] Basophils Absolute Auto 0.1 0.0 - 0.2 X10*3/uL [facility] NRBC Abs Auto 0.000 0.0 - 0.012 X10*3/uL [facility] 09/10/2022 2:01 PM EDT 09/10/2022 2:06 PM EDT us [facility] External Provider LAB BLO OD ORDERABLES Final Result [facility] [address] [place] [phone] documented in this encounter Visit Diagnoses Not on filedocumented in this encounter Care Teams Jira Developer Relationship Specialty Start Date End Date Kimmie Henao FNP PCP - General Family Medicine 10/06/21 01/19/23 Rebecca Hogan NP [address] [place] [address] PCP - General Family Medicine 01/20/23 documented as of this encounter
--- OUTSIDE RECORDS SUMMARY | 2025-02-17 16:53 | XMS_ITS | Encounter Summary ---
Author Organization [employer] [facility] Address [address] [place] [address] [address] [place] [address] Care Team Providers Care Welcome Hostess Name Role Phone Kimmie Henao Primary Care Provider Rebecca Bain NP Primary Care Provider [phone] Reason for Visit * Reason Comments Med Refill Encounter Details Date Type Department Care Team (Late st Contact Info) Description 07/21/2022 Refill [facility] MEDICINE [address] [place] [address] Kimmie Henao FNP Seasonal allergic rhinitis, unspecified [...] [facility] [address] [place] [address] Rebecca Hogan NP [address] [place] [address] documented as of this encounter Visit Diagnoses Diagnosis Seasonal allergic rhinitis, unspecified trigger documented in this encounter Care Teams Welcome Hostess Relationship Specialty Start Date End Date Kimmie Henao FNP PCP - General Family Medicine 10/06/21 01/19/23 Rebecca Hogan NP [address] [place] [phone] PCP - General Family Medicine 01/20/23 documented as of this encounter
--- OUTSIDE RECORDS SUMMARY | 2025-02-17 16:53 | XMS_ITS | Encounter Summary ---
Author Organization [employer] [facility] Address [address] [place] [address] [address] [place] [address] Care Team Providers Care Cleaning Laborer Name Role Phone Kimmie Henao Primary Care Provider Rebecca Bain NP Primary Care Provider [phone] Reason for Visit * Reason Comments Med Refill Encounter Details Date Type Department Care Team (Late st Contact Info) Description 10/24/2022 Refill [facility] MEDICINE [address] [place] [address] Kimmie Henao FNP Primary hypertension Social History [...] Description 02/24/2025 11:00 AM EST Office Visit [facility] MEDICINE [address] [place] [address] Rebecca Hogan NP [address] [place] [address] documented as of this encounter Visit Diagnoses Diagnosis Primary hypertension Unspecified essential hypertension documented in this encounter Care Teams Cleaning Laborer Relationship Specialty Start Date End Date Kimmie Henao FNP PCP - General Family Medicine 10/06/21 01/19/23 Rebecca Hogan NP [address] [place] [phone] PCP - General Family Medicine 01/20/23 documented as of this encounter
--- OUTSIDE RECORDS SUMMARY | 2025-02-17 16:53 | XMS_ITS | Encounter Summary ---
Author Organization [employer] Address [address] [facility] [address] [place] [address] Care Team Providers Care Railroad Baggage Porter Name Role Phone Rebecca Hogan NP Primary Care Provider [phone] Reason for Visit * Reason Onset Date Comments Med Refill 02/14/2024 Encounter Details Date Type Department Care Team ([facility] st Contact Info) Description 02/14/2024 Refill [facility] MEDICINE [address] [place] [address] Rebecca Hogan NP [address] [place] [address] Social History Tobacco Use Types Packs/Day Years [...] Description 02/24/2025 11:00 AM EST Office Visit [facility] MEDICINE [address] [place] [address] Rebecca Hogan NP [address] [place] [address] documented as of this encounter Visit Diagnoses Not on filedocumented in this encounter Additional Health Concerns Assessment Noted Time PHQ-9 Depression Total Score: 18 024 1:40 PM EST documented as of this encounter Care Teams Railroad Baggage Porter Relationship Specialty Start Date End Date Rebecca Hogan NP [address] [place] [address] PCP - General Family Medicine 01/20/23 documented as of this encounter
--- OUTSIDE RECORDS SUMMARY | 2025-02-17 16:53 | XMS_ITS | Clinical Summary ---
Author Organization [employer] Address [address] [facility] [address] [place] [address] Care Team Providers Care Accounting Technician Name Role Phone Rebecca Hogan NP Primary Care Provider [phone] Allergies No known active allergies Medications methadone (Dolophine) 10 MG/5ML solution 60mg daily at methadone clinic Active ferrous gluconate (Fergon) 324 (38 Fe) MG tablet Take 1 tablet (324 mg) by mouth every other day. With vitamin C 30 tablet 2 05/03/19 25 026 Active Ascorbic Acid (vitamin C) 250 MG tablet Take 1 tablet (250 mg) by mouth every other day. With iron 30 tablet 2 05/03/19 25 026 Active cloNIDine (Catapres) 0.1 MG tablet Take 1 tablet by mouth if needed in the morning and at bedtime (anxiety or withdrawals) . 08/01/19 25 Active loratadine (Claritin) 10 MG tablet Take 1 tablet by mouth Once per day. Active albuterol (2.5 MG/3ML) 0.083% nebulizer solutionIndicat ions:Mild persistent asthma with acute exacerbation USE 3 ML VIA NEBULIZER FOUR TIMES DAILY 90 mL 3 08/10/19 25 Active albuterol 108 (90 Base) MCG/ACT inhalerIndicati ons:Asthma with COPD (CMS/HCC) (HCC) INHALE 2 PUFFS BY MOUTH EVERY 4 TO 6 HOURS NEEDED 18 g 10/31/19 25 Active hydroCHLOROthia zide 12.5 MG tabletIndicatio ns:Primary hypertension TAKE 1 TABLET(12.5 MG) BY MOUTH DAILY 90 tablet 10/31/19 25 Active amLODIPine (Norvasc) 5 MG tabletIndicatio ns:Primary hypertension TAKE 1 TABLET(5 MG) BY MOUTH IN THE MORNING 90 tablet 10/31/19 25 Active Spiriva Respimat 1.25 MCG/ACT inhalerIndicati ons:Asthma with COPD (CMS/[facility]) ([facility]) INHALE 2 PUFFS BY MOUTH DAILY 4 g 2 11/27/19 25 Active traZODone (Desyrel) 100 MG tablet Take 1 tablet (100 mg) by mouth if needed at bedtime for sleep. 30 tablet 1 01/14/20 25 Active montelukast (Singulair) 10 MG tabletIndicatio ns:Asthma with COPD ([facility]) ([facility]) TAKE 1 TABLET(10 MG) BY MOUTH AT BEDTIME 90 tablet 01/25/20 25 Active fluticasone (Flonase) 50 MCG/ACT nasal sprayIndication s:Seasonal allergic rhinitis, unspecified trigger SHAKE LIQUID AND USE 2 SPRAYS IN EACH NOSTRIL EVERY DAY 48 g 02/04/20 25 Active Fluticasone-Jacek meterol (Advair Diskus) 250-50 MCG/ACT aerosol powder Inhale. Active Fluticasone-Jacek meterol (Advair Diskus) 500-50 MCG/ACT aerosol powderIndicatio ns:Asthma with COPD ([facility]) ([facility]) Inhale 1 puff 2 times daily. 60 each 2 04/15/20 24 025 Discontinued(Do se adjustment) montelukast (Singulair) 10 MG tabletIndicatio ns:Asthma with COPD ([facility]) ([facility]) Take 1 tablet (10 mg) by mouth at bedtime. 90 tablet 08/01/19 25 025 Discontinued fluticasone (Flonase) 50 MCG/ACT nasal sprayIndication s:Seasonal allergic rhinitis, unspecified trigger SHAKE LIQUID AND USE 2 SPRAYS IN EACH NOSTRIL EVERY DAY 48 g 09/26/19 25 025 Discontinued Active Problems Problem Noted Date Diagnosed Date Anemia 08/22/2023 Assessment & Plan (08/22/2023 9:47 PM EDT): -decreased H&H from 02/2023 -lab ordered to evaluate anemia type Colon cancer screening 08/22/2023 Assessment & Plan (2025 10:46 AM EDT): -patient is strongly encouraged to complete test Assessment & Plan (09/17/2024 9:39 AM EDT): [...] screening -GI referral placed Asthma with COPD ([facility]) 08/22/2023 Assessment & Plan (2025 10:46 AM EDT): -followed by Dr. Stewart with interventions in place -smoking cessation encouraged Assessment & Plan (09/17/2024 9:47 AM EDT): - Previously referred to pulmonology Assessment & Plan (04/15/2024 12:17 PM EST): -patient reports stable at this time -medication refills provided Assessment & Plan (08/22/2023 9:43 PM EDT): -patient reports stable at this time -medication refills provided -will assess further at next visit Substance use disorder 03/20/2023 Assessment & Plan (2025 10:46 AM EDT): -stable on methadone 60 mg with no relapse since July 2024 -has strong family support -encouraged to continue in his recovery Assessment & Plan (09/16/2024 9:15 AM EDT): -recent overdose -complicated by underlying behavioral health concerns -action state of change. will reach out to [facility] provider for assistance with other resources -provided fentanyl test strips for safe use. pipe has narcan at home -encouraged to keep appointment to establish with therapist Assessment & Plan (04/15/2024 12:16 PM EST): -verbalizes desire to engage with [facility] for suboxone treatment -will have warehouse team leader reach out to the patient for an appointment -call placed to clinician to call patient and assist with establishing with therapist Chronic right shoulder pain 09/20/2022 Assessment & Plan (09/17/2024 9:47 AM EDT): -Plan as noted for chronic knee pain Knee pain 09/20/2022 Assessment & Plan (2025 10:46 AM EDT): -established with Orthopedics surgeon Dr. Kyree Urrutia with interventions in place Assessment & Plan (09/17/2024 9:46 AM EDT): [...] 11/08/2017 Primary hypertension 06/23/2017 Assessment & Plan (2025 10:46 AM EDT): -stable on hydrochlorothiazide 12.5 mg, amlodipine 5 mg daily -reviewed low fat/low salt dietary requirements and routine physical activity -routine labs ordered to be completed prior to follow-up visit Orders: Lipid Panel, Standard; Future Albumin, Random Urine W/Creatinine; Future Hemoglobin A1c; Future Assessment & Plan (09/17/2024 9:37 AM EDT): [...] 44.9 in adult 06/23/2017 Assessment & Plan (2025 10:46 AM EDT): Dietary Recommendations: Fruits, vegetables, whole [...] equivalent combination of moderate- and vigorous-intensity activity -plan to discuss interest in GLP use at follow-up Orders: Lipid Panel, Standard; Future Hemoglobin A1c; Future Assessment & Plan (09/17/2024 9:39 AM EDT): [...] Diagnosed Date Resolved Date Opioid dependence, uncomplicated (CMS/HCC) 09/16/2024 09/16/2024 Routine screening for STI (s exually transmitted infection) 08/22/2023 09/17/2024 Assessment & Plan (08/22/2023 9:41 PM EDT): -patient agreeable to testing. labs ordered Epididymitis 10/22/2021 09/17/2024 Encounters Date Type Department Care Team Description 02/02/[address] [facility] MEDICINE [address] [place] [phone] Rebecca Hogan NP Seasonal allergic rhinitis, unspecified trigger 01/23/[address] [facility] WALK-IN CENTER [address] [place] [phone] Ken Mckeon MD Asthma with COPD ([facility]/HCC) ([facility]) 01/13/2025 11:00 AM EDT Office Visit [facility] MEDICINE [address] [place] [phone] Rebecca Hogan NP Primary hypertension (Primary Dx); Impaired awareness nonmotor epileptic seizure ([facility]); Chronic pain of both knees; Substance use disorder; Colon cancer screening; Asthma with COPD ([facility]); Recurrent major depressive disorder, remission status unspecified ([facility]); Class 3 severe obesity due to excess calories without serious comorbidity with body mass index (BMI) of 40.0 to 44.9 in adult; Sleep disturbance 01/13/2025 Travel 01/10/[address] [facility] MEDICINE [address] [place] [phone] Rebecca Hogan NP CHARTPREP 01/03/2025 Patient Outreach [facility] MED & PEDS [address] [place] [address] Rebecca Hogan NP Pre-visit Planning ([facility] unable to reach [facility] ) 11/24/[address] [facility] MEDICINE [address] [place] [phone] Rebecca Hogan NP Asthma with COPD ([facility]) 11/19/[address] [facility] MEDICINE [address] [place] [phone] Rebecca Hogan NP recall from Last 3 Months Immunizations Immunization Administration [...] Answer Date Recorded Patient Health Questionnaire-9 Score 11 01/13/2025 Patient Health Questionnaire-9 Score 11 01/13/2025 Last PHQ-9: Questionnaire Data Not on file 0 01/13/2025 Housing Stability Answer Date Recorded What is [...] Answer Date Recorded Patient Health Questionnaire-2 Score 1 01/13/2025 Internet Access Answer Date Recorded Internet Access [...] Sign Reading Time Taken Comments Blood Pressure 122/84 01/13/2025 11:49 AM EDT Pulse 80 01/13/2025 11:02 AM EDT Temperature 36.8 C (98.3 F) 01/13/2025 11:02 AM EDT Respiratory Rate 20 01/13/2025 11:02 AM EDT Oxygen Saturation 97% 01/13/2025 11:02 AM EDT Inhaled Oxygen Concentration - - Weight 135 kg (297 lb 12.8 oz) 01/13/2025 11:02 AM EDT Height 182.9 cm (6') 01/13/2025 11:02 AM EDT Body Mass Index 40.39 01/13/2025 11:02 AM EDT Plan of Treatment Upcoming Encounters Date Type Department Care Team (Late st Contact Info) Description 02/24/2025 11:00 AM EST Office Visit [facility] MEDICINE [address] [place] [phone] Rebecca Hogan NP [address] [place] [address] Health Maintenance Due Date Last Done Comments CT Colonography 1965 Colonoscopy 1965 Colorectal Cancer Screening 1965 FIT DNA/Cologuard 1965 FIT 1965 FOBT 1965 Sigmoidoscopy 1965 COVID-19 Vaccine (3 - 2024-2 6 season) 2024 09/17/2020, 08/19/2020 Influenza Vaccine (#1) 2024 RSV Patients and Patients Aged 60 years or older (1 - Risk 60-74 years 1-dose series) 2025 Alcohol/Substance Use Screening 04/15/2025 04/15/2024 SDOH Screening 06/05/2025 06/05/2024 Depression Monitoring 07/13/2025 01/13/2025 , 01/13/2025 Disability Screening 08/09/2025 08/09/2024 Tobacco Screening 2026 2025 Lipid Panel 04/15/2029 04/15/2024 DTaP/Tdap/Td Vaccines (2 - T d or Tdap) 12/01/2032 12/01/2022 Pneumococcal Vaccine: 50+ Years Completed 09/29/2022 Zoster [...] patient's age to complete this topic Hepatitis B Vaccines Aged Out No long er eligible [...] AM EST) Hepatitis C Antibody Nonreactive Nonreactive [facility] Comment:Antibodies to HCV no t detected; does not exclude early acuteHCV infection. Blood Venous blood specimen / Unknown 04/15/2024 10:49 AM EST 04/15/2024 1:18 PM EST Rebecca Hogan NP LAB BLOOD ORDERABLES Final Resu lt [facility] [address] [place] [address] [phone] * HIV-1/2 Antigen and Antibodies, Fourth Generation, with Reflexes (04/15/2024 10:49 AM EST) HIV AB/AG Nonreactive Nonreactive [facility] Comment:HIV-1 p24 Ag and/or HIV-1/HIV-2 Ab not detected.A test result that is nonreactive does not exclude thepossibility of exposure to or infection with HIV-1 and/orHIV-2. Nonreactive results in this assay for individualswith prior exposure to HIV-1 and/or HIV-2 may be due toantigen and antibody levels that are below the limit ofdetection of this assay.The [employer] HIV Ag/Ab Combo assay result andsupplemental assay results should be interpreted inconjunction with the patient's clinical presentation,history and other laboratory results. If the results areinconsistent with clinical evidence, additional testing issuggested to confirm the result. Blood Venous blood specimen / Unknown 04/15/2024 10:49 AM EST 04/15/2024 1:18 PM EST us Rebecca Hogan NP LAB BLOOD ORDERABLES Final Resu lt [facility] [address] [place] [phone] * Lipid Panel, Standard (04/15/2024 10:49 AM EST) Triglycerides 60 <150 mg/dL [facility] Comment:Desirable Triglyceri de: less than 150 mg/dLBorderline High Triglyceride 150-199 mg/dLHigh Triglyceride: 200-499 mg/dLVery High Triglyceride: greater than or equal to 5OO mg/dL Cholesterol 140 <200 mg/dL [facility] Comment:Desirable Cholestero l: less than 200 mg/dLBorderline High Cholesterol: 200-239 mg/dLHigh Cholesterol: greater than 239 mg/dL LDL Cholesterol Calculated 81 <100 mg/dL [facility] Comment:Desirable LDL: less than 100 mg/dLNear Optimal/Above Optimal LDL: 110- 129 mg/dLBorderline High LDL: 130-159 mg/dLHigh LDL: 160-189 mg/dLVery High LDL: greater than or equal to 190 mg/dL HDL Cholesterol 47 >40 mg/dL [facility] Comment:Desirable HDL: great er than 40 mg/dL Note: This HDL assay may give artificially low results in patients with liver disease. Blood Venous blood specimen / Unknown 04/15/2024 10:49 AM EST 04/15/2024 1:18 PM EST Rebecca Hogan NP LAB BLOOD ORDERABLES Final Resu lt [facility] [address] [place] [phone] from Last 3 Months or Most Recently Relevant to Health Maintenance [place] [address] [place] [address] C3 Care Teams Accounting Technician Relationship Specialty Start Date End Date Rebecca Hogan NP [address] [place] [phone] PCP - General Family Medicine 01/20/23
--- OUTSIDE RECORDS SUMMARY | 2025-02-17 16:53 | XMS_ITS | Encounter Summary ---
Author Organization [employer] Address [address] [facility] [address] [place] [address] Care Team Providers Care Application Helper Name Role Phone Rebecca Hogan NP Primary Care Provider [phone] Reason for Visit * Reason Onset Date Comments Referral 09/11/2024 Encounter Details Date Type Department Care Team ([facility] st Contact Info) Description 09/11/2024 Telephone [facility] MEDICINE [address], [place] [phone] Rebecca Hogan NP [address] [place] [address] Referral Social History Tobacco Use Types Packs/Day [...] Tc from pt daughter requesting referrals: 1) [employer] - COPD and fatigue. 2) Surgery- Cyst right ear 3) Right Shoulder, Right Knee Pain. Pt daughter states spoke with PCP regarding those referrals on 08/09. Any question contact: [phone] documented in this encounter Plan of Treatment Upcoming Encounters Date Type Department Care Team (Late st Contact Info) Description 02/24/2025 11:00 AM EST Office Visit [facility] MEDICINE [address] [place] [address] Rebecca Hogan NP [address] [place] [phone] documented as of this encounter Visit Diagnoses Not on filedocumented in this encounter Additional Health Concerns Assessment Noted Time PHQ-9 Depression Total Score: 10 025 2:53 PM EDT documented as of this encounter Care Teams Application Helper Relationship Specialty Start Date End Date Rebecca Hogan NP [address] [place] [address] PCP - General Family Medicine 01/20/23 documented as of this encounter
== END 2025-02-17 15:17 | disposition home or self-care (01) ==
LOC: HO.MRI 15:16
PROVIDERS: PCP Nurse Practitioner; Visit Provider Nurse Practitioner
DX: G40.309 Generalized idiopathic epilepsy and epileptic syndromes, not intractable, without status epilepticus (principal)
CPT/HCPCS: 70553; A9585

== ENCOUNTER → 2025-02-17 15:47 | Outpatient (BNV) | payer MEDICAID, SELFPAY | PROVIDERS: PCP Nurse Practitioner; Visit Provider Radiology Diagnostic Radiology | DX: R56.9 Unspecified convulsions (principal) | CPT/HCPCS: 70553 ==

== ENCOUNTER 2025-04-01 10:29 | Outpatient (REF) | payer MEDICAID, SELFPAY ==
--- NOTE | 2025-04-01 | EEG_ITS ---
History: Respiratory failure with hypercapnia Opioid use disorder (~08/27/18) Nocturnal hypoxemia Snoring Asthma-COPD overlap syndrome Allergic rhinitis Somnolence, daytime Morbid obesity Obstructive sleep apnea HTN Chronic respiratory failure due to obstructive sleep apnea Bursitis of right shoulder Osteoarthritis of left knee Description: Medication: albuterol sulfate 90 mcg/actuation albuterol sulfate amlodipine ascorbic acid ferrous gluconate fluticasone propion-salmeterol fluticasone propionate guaifenesin ER hydrochlorothiazide loratadine montelukast Technical description:? Photic stimulation: Yes Hyperventilation:?Yes Behavioral state: Cooperative State of Consciousness: Awake Skull defect: None Sedation: None Handedness: Right Duration of study:? 30min ? 03sec This is a 16 channel EEG with an EKG lead. Patient is reported awake during the tracing. Background EEG rhythm is mixed theta beta with some lead and muscle artifacts. No definite sharp waves or spikes are noted. Rare left hemispheric theta range slowing is noted. Photic stimulation does not produce any significant driving. Hyperventilation is unremarkable. Cardiac lead does not reveal any significant abnormality. Impression: No obvious epileptic discharges were noted. Mild left hemispheric abnormality was noted that could suggest underlying structural abnormality. If seizure disorder is strongly suspected, 48 hour ambulatory outpatient EEG is recommended. [facility]
--- OUTSIDE RECORDS SUMMARY | 2025-04-01 13:12 | XMS_ITS | Clinical Summary ---
Author Organization [employer] Address [address] [facility] 7t [place] [address] Care Team Providers Care Microsoft Developer Name Role Phone Rebecca Hogan NP Primary Care Provider [phone] Allergies No known active allergies Medications methadone [...] 30 tablet 2 5 05/03/19 26 Active cloNIDine (Catapres) 0.1 MG tablet Take 1 tablet by mouth if needed in the morning and at bedtime (anxiety or withdrawals). 5 Active loratadine (Claritin) 10 MG tablet Take 1 tablet by mouth Once per day. Active albuterol (2.5 MG/3ML) 0.083% nebulizer solutionIndicatio ns:Mild persistent asthma with acute exacerbation USE 3 ML VIA NEBULIZER FOUR TIMES DAILY 90 mL 3 5 Active albuterol 108 (90 Base) MCG/ACT inhalerIndication s:Asthma with COPD (CMS/HCC) (HCC) INHALE 2 PUFFS [...] Respimat 1.25 MCG/ACT inhalerIndication s:Asthma with COPD ([facility]) ([facility]) INHALE 2 PUFFS BY MOUTH DAILY 4 g 2 5 Active traZODone (Desyrel) 100 MG tablet Take 1 tablet (100 mg) by mouth if needed at bedtime for sleep. 30 tablet 1 5 Active montelukast (Singulair) 10 MG tabletIndications :Asthma with COPD ([facility]) ([facility]) TAKE 1 TABLET(10 MG) BY MOUTH AT BEDTIME 90 tablet 5 Active fluticasone (Flonase) 50 MCG/ACT nasal sprayIndications: Seasonal allergic rhinitis, unspecified trigger SHAKE LIQUID AND USE 2 SPRAYS IN EACH NOSTRIL EVERY DAY 48 g 5 Active Fluticasone-Salme terol (Advair Diskus) 250-50 MCG/ACT aerosol powder Inhale. Active Active Problems Problem Noted Date Diagnosed [...] screening -GI referral placed Asthma with COPD ([facility]) 08/22/2023 Assessment & Plan (2025 10:46 AM [...] state of change. will reach out to [facility] provider for assistance with other resources -provided fentanyl test strips for safe use. patinent has narcan at home -encouraged to keep appointment to establish with therapist Assessment & Plan (04/15/2024 12:16 PM EST): -verbalizes desire to engage with [facility] for suboxone treatment -will have steam setter reach out to the patient for an [...] Encounters Date Type Department Care Team Description 03/27/2025 Telephone [facility] [address] [place] [phone] Rebecca Hogan NP CHARTPREP 02/24/2025 11:00 AM EST Office Visit [facility] [address] [place] [phone] Rebecca Hogan NP Fever, unspecified fever cause (Primary Dx) 02/24/2025 Travel 02/21/2025 Telephone [facility] [address] [place] [phone] Dickson Wood MA chart prep 02/19/2025 Orders Only [facility] [address] [place] [phone] Rebecca Hogan NP 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) (Primary Dx) 02/02/2025 Refill [facility] [address] [place] [phone] Rebecca Hogan NP Seasonal allergic rhinitis, unspecified trigger 01/23/2025 Refill [facility] [address] [place] [phone] Ken Mckeon MD Asthma with COPD (CMS/HCC) ([facility]) 01/13/2025 11:00 AM EDT Office Visit [facility] [address] [place] [address] [phone] Rebecca Hogan NP Primary hypertension (Primary Dx); Impaired awareness nonmotor epileptic seizure ([facility]); Chronic pain of both knees; Substance use disorder; Colon cancer screening; Asthma with COPD ([facility]); Recurrent major depressive disorder, remission status unspecified ([facility]); Class 3 severe obesity due to excess calories without serious comorbidity with body mass index (BMI) of 40.0 to 44.9 in adult; Sleep disturbance 01/13/2025 Travel 01/10/2025 Telephone [facility] [address] [place] [address] [phone] Rebecca Hogan NP CHARTPREP 01/03/2025 Patient Outreach [facility] [address] [place] [address] Rebecca Hogan NP Pre-visit Planning ([facility] unable to reach [facility] ) from Last 3 Months Immunizations Immunization Administration [...] Sign Reading Time Taken Comments Blood Pressure 130/92 02/24/2025 11:12 AM EST Pulse 75 02/24/2025 11:12 AM EST Temperature 37.9 C (100.3 F) 02/24/2025 11:12 AM EST Respiratory Rate 19 02/24/2025 11:12 AM EST Oxygen Saturation 98% 02/24/2025 11:12 AM EST Inhaled Oxygen Concentration - - Weight 141 kg (311 lb 3.2 oz) 02/24/2025 11:12 A M EST Height 182.9 cm (6') 02/24/2025 11:12 AM EST Body Mass Index 42.21 02/24/2025 11:12 AM EST Plan of Treatment Upcoming Encounters Date Type Department Care Team (Late st Contact Info) Description 04/28/2025 10:00 AM EST Office Visit [facility] [address] [place] [address] Rebecca Hogan NP [address] [place] [address] Health Maintenance Due Date Last Done Comments CT Colonography 1965 Colonoscopy 1965 Colorectal Cancer Screening 1965 FIT DNA/Cologuard 1965 FIT 1965 FOBT 1965 Sigmoidoscopy 1965 RSV Patients and Patients Aged 60 years or older (1 - Risk 50-74 years 1-dose series) 2015 COVID-19 Vaccine (2 6 season) 2024 09/17/2020, 08/19/2020 Influenza Vaccine (#1) 2024 Alcohol/Substance Use Screening 04/15/2025 04/15/2024 SDOH Screening 06/05/2025 06/05/2024 Depression Monitoring 07/13/2025 01/13/2025 , 01/13/2025 Disability Screening 08/09/2025 08/09/2024 Tobacco Screening 02/24/2026 02/24/2025 Lipid Panel 04/15/2029 04/15/2024 DTaP/Tdap/Td Vaccines (2 [...] Procedure Name Priority Date/Time Associated Diagnosis Comments MR BRAIN W AND WO CONTRAST Urgent 02/17/2025 3:42 PM EST 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) HEPATITIS C AB W/REFL TO HCV RNA, QN, PCR Routine 04/15/2024 10:49 AM EST Encounter for health-related screening HIV 1/2 ANTIGEN/ANTIBODY, FOURTH GENERATION W/RFL Routine 04/15/2024 10:49 AM EST Encounter for health-related screening LIPID PANEL, STANDARD Routine 04/15/2024 10:49 AM EST Severe obesity (CMS/HCC) from Last 3 Months or Most Recently Relevant to Health Maintenance Results * Mr Brain w/ and w/o Contrast (02/17/2025 3:42 PM EST) Anatomical Region Laterality Modality Brain Magnetic Resonan ce 02/17/2025 3:42 PM EST Narrative 02/17/2025 4:55 PM EST [place] [address] Magnetic Resonance Report Signed Patient: Elmer Zarate MR#: [id number] : 1965 Acct:[id number] Age/Sex: 60 / M ADM Date: 02/17/25 Loc: HO.MRI Attending Dr: Rebecca Hogan Ordering Physician: Rebecca Hogan Date of Service: 02/17/25 Procedure(s): MR head/brain wo/w con Accession Number(s): [id number] cc: Rebecca Hogan Reason for Exam: new onset seizure like activity in adult; r/o brain lesion EXAMINATION: MR BRAIN WITHOUT AND WITH CONTRAST CLINICAL INFORMATION: New onset seizure-like activity. Rule out brain lesion. COMPARISON: No prior MRI. CT head 07/21/2024. TECHNIQUE: Multiplanar, multisequence MRI of the brain was obtained before and after the intravenous administration of 10 mL Gadavist. Examination performed on a 1.5 Joana Siemens high-field unit. FINDINGS: There is no diffusion restriction. There is no intracranial hemorrhage, acute infarction, mass effect, or edema. Ventricles, sulci, and cisterns are normal in size and configuration for patient age. No shift of midline. No abnormal hemosiderin deposition is identified. There are a few scattered punctate and minimally confluent foci of white matter T2 hyperintensity in the periventricular, subcortical, and hemispheric deep white matter. These foci are nonspecific but statistically relate to small vessel ischemic changes. There is no abnormal intra or extra-axial contrast enhancement. There is no evidence of hippocampal atrophy or abnormal signal. No evidence of heterotopic raines matter, or cortical dysplasia. Midline structures appear normally formed. The pituitary gland appears normal. Posterior fossa structures appear normal. Cerebellar tonsils are appropriately located. Major flow voids are preserved within the skull base. The globes and orbital contents demonstrate no abnormalities. Moderate mucosal thickening and scattered fluid is present within the bilateral maxillary sinuses, right sphenoid sinus, and bilateral ethmoid sinuses, extending into the frontal recesses and left frontal sinus. Trace fluid in the bilateral mastoid air cells. Tympanic cavities are aerated normally. Extracranial soft tissues demonstrate a lipoma measuring 3.1 x 1.2 x 2.6 cm abutting the right mastoid. No suspicious bone marrow changes are evident. Atlantoaxial joint is trace mild to moderate degenerative changes. MR/MR head/brain wo/w con IMPRESSION: 1. No evidence of intracranial hemorrhage, acute infarction, mass effect, or edema. No abnormal contrast enhancement. 2. Very mild changes of small vessel ischemia. 3. Moderate pansinus disease is present. Electronically signed by: Navi Johnson MD 02/17/2025 04:52 PM [facility] Dictated By: Navi Johnson MD Signed By: <Electronically signed by Navi Johnson MD in OV> 02/17/25 1652 DD/ 1542 TD/TT: 02/17/25 1614 Acting Manager: Procedure Note Donotuseinterpreter, Image - 02/17/[address] [address] Magnetic Resonance Report Signed Patient: Elmer Zarate [facility]#: [id number] : 1965Acct:[id number] Age/Sex: 60 / MADM Date: 02/17/25 Loc: HO.MRI Attending Dr: Rebecca Hogan Ordering Physician: Rebecca Hogan Date of Service: 02/17/25 Procedure(s): MR head/brain wo/w con Accession Number(s): [id number] cc: Rebecca Hogan Reason for Exam: new onset seizure like activity in adult; r/o brainlesion EXAMINATION: MR BRAIN WITHOUT AND WITH CONTRAST CLINICAL INFORMATION: New onset seizure-like activity. Rule out brain lesion. COMPARISON: No prior MRI. CT head 07/21/2024. TECHNIQUE: Multiplanar, multisequence MRI of the brain was obtained before and after the intravenous administration of 10 mL Gadavist. Examination performed on a 1.5 Joana Siemens high-field unit. FINDINGS: There is no diffusion restriction. There is no intracranial hemorrhage, acute infarction, mass effect, or edema. Ventricles, sulci, and cisterns are normal in size and configuration for patient age. No shift of midline. No abnormal hemosiderin deposition is identified. There are a few scattered punctate and minimally confluent foci of white matter T2 hyperintensity in the periventricular, subcortical, and hemispheric deep white matter. These foci are nonspecific but statistically relate to small vessel ischemic changes. There is no abnormal intra or extra-axial contrast enhancement. There is no evidence of hippocampal atrophy or abnormal signal. No evidence of heterotopic raines matter, or cortical dysplasia. Midline structures appear normally formed. The pituitary gland appears normal. Posterior fossa structures appear normal. Cerebellar tonsils are appropriately located. Major flow voids are preserved within the skull base. The globes and orbital contents demonstrate no abnormalities. Moderate mucosal thickening and scattered fluid is present within the bilateral maxillary sinuses, right sphenoid sinus, and bilateral ethmoid sinuses, extending into the frontal recesses and left frontal sinus. Trace fluid in the bilateral mastoid air cells. Tympanic cavities are aerated normally. Extracranial soft tissues demonstrate a lipoma measuring 3.1 x 1.2 x 2.6 cm abutting the right mastoid. No suspicious bone marrow changes are evident. Atlantoaxial joint is trace mild to moderate degenerative changes. MR/MR head/brain wo/w con IMPRESSION: 1. No evidence of intracranial hemorrhage, acute infarction, mass effect, or edema. No abnormal contrast enhancement. 2. Very mild changes of small vessel ischemia. 3. Moderate pansinus disease is present. Electronically signed by: Navi Johnson MD 02/17/2025 04:52 PM EST Dictated By: Navi Johnson MD Signed By: <Electronically signed by Navi Johnson MD in OV> 02/17/25 1652 DD/ 1542 TD/TT: 02/17/25 1614 Acting Manager: us Rebecca Hogan NP IMG MRI PROCEDURES Final Result * Hepatitis C Antibody with Reflex to HCV, RNA, Quantitative, Real-Time PCR (04/15/2024 10:49 AM EST) Hepatitis C Antibody Nonreactive Nonreactive [facility] Comment:Antibodies to HCV no t detected; does not exclude early acuteHCV infection. Blood Venous blood specimen / Unknown 04/15/2024 10:49 AM EST 04/15/2024 1:18 PM EST us Rebecca Hogan NP LAB BLOOD ORDERABLES Final Resu lt [facility] [address] [place] [phone] * HIV-1/2 Antigen and Antibodies, Fourth Generation, with Reflexes (04/15/2024 10:49 AM EST) HIV AB/AG Nonreactive Nonreactive [facility] Comment:HIV-1 p24 Ag and/or HIV-1/HIV-2 Ab not detected.A test result that is nonreactive does not exclude thepossibility of exposure to or infection with HIV-1 and/orHIV-2. Nonreactive results in this assay for individualswith prior exposure to HIV-1 and/or HIV-2 may be due toantigen and antibody levels that are below the limit ofdetection of this assay.The Manifest HIV Ag/Ab Combo assay result andsupplemental assay results should be interpreted inconjunction with the patient's clinical presentation,history and other laboratory results. If the results areinconsistent with clinical evidence, additional testing issuggested to confirm the result. Blood Venous blood specimen / Unknown 04/15/2024 10:49 AM EST 04/15/2024 1:[address] [facility] MACHINE BASTER LAB BLOOD ORDERABLES Final Resu lt Performing Organization Address [facility] de Phone Number [facility] [address] [place] [phone] * Lipid Panel, Standard (04/15/2024 10:49 AM EST) Triglycerides 60 <150 mg/dL [facility] Comment:Desirable Triglyceri de: less than 150 mg/dLBorderline High Triglyceride 150-199 mg/dLHigh Triglyceride: 200-499 mg/dLVery High Triglyceride: greater than or equal to 5OO mg/dL Cholesterol 140 <200 mg/dL [facility] Comment:Desirable Cholestero l: less than 200 mg/dLBorderline High Cholesterol: 200-239 mg/dLHigh Cholesterol: greater than 239 mg/dL LDL Cholesterol Calculated 81 <100 mg/dL [facility] Comment:Desirable LDL: less than 100 mg/dLNear Optimal/Above Optimal LDL: 110- 129 mg/dLBorderline High LDL: 130-159 mg/dLHigh LDL: 160-189 mg/dLVery High LDL: greater than or equal to 190 mg/dL HDL Cholesterol 47 >40 mg/dL [facility] Comment:Desirable HDL: great er than 40 mg/dL Note: This HDL assay may give artificially low results in patients with liver disease. Blood Venous blood specimen / Unknown 04/15/2024 10:49 AM EST 04/15/2024 1:18 PM EST [facility] [employer]ACHINE [employer] LAB BLOOD ORDERABLES Final Resu lt Performing Organization Address [facility] Co de Phone Number [facility] [address] [place] [phone] [phone] from Last 3 Months or Most Recently Relevant to Health Maintenance [place] [address] [place] [address] C3 Care Teams Microsoft Developer Relationship Specialty Start Date End Date Rebecca Hogan NP [address] [place] [phone] PCP - General Family Medicine 01/20/23
--- OUTSIDE RECORDS SUMMARY | 2025-04-01 13:12 | XMS_ITS | Encounter Summary ---
Author Organization [employer] Address [address] [facility] [address]t [place] [address] Care Team Providers Care Retail Key Holder Name Role Phone Rebecca Hogan NP Primary Care Provider [phone] Reason for Visit * Reason Comments Med Refill Encounter Details Date Type Department Care Team ([facility] st Contact Info) Description 05/05/2023 Refill [facility] [address] [place], [place] [phone] Name, MD Bg [address] [place] [address] Seasonal allergic rhinitis, unspecified trigger; Primary hypertension [...] Description 04/28/2025 10:00 AM EST Office Visit [facility] [address] [place] [address] Rebecca Hogan NP [address] [place] [address] documented as of this encounter Visit Diagnoses Diagnosis Seasonal allergic rhinitis, unspecified trigger Primary hypertension Unspecified essential hypertension documented in this encounter Care Teams Retail Key Holder Relationship Specialty Start Date End Date Rebecca Hogan NP [address] [place] [address] PCP - General Family Medicine 01/20/23 documented as of this encounter
--- OUTSIDE RECORDS SUMMARY | 2025-04-01 13:12 | XMS_ITS | Encounter Summary ---
Author Organization [employer] Address [address] [facility] 7t [place] [address] Care Team Providers Care Tripe Cooker Name Role Phone Rebecca Hogan NP Primary Care Provider [phone] Reason for Visit * Reason Onset Date Comments CHARTPREP 03/27/2025 Encounter Details Date Type Department Care Team ([facility] st Contact Info) Description 03/27/2025 Telephone [facility] [address] [place], [place] [phone] Rebecca Hogan NP [address] [place] [address] CHARTPREP Social History Tobacco Use Types Packs/Day Years [...] encounter Miscellaneous Notes * Telephone Encounter - Alison Barraza [place] - 03/27/2025 1:03 PM EST Chart Prep Labs: not done DYLLAN called pt today 03/27/25 to remind lab order,left a message. Images: done Referrals: complete EEG e 04/01/25 10:30 AM [facility] Property Insurance Inspector received a fax from [facility] requesting for notes from hospitalization and all image reports. Patient should have MRI w/ and w/o and EGG done . Property Insurance Inspector just had [facility] send the MRIto power share and printed the ED report from July 2024 faxed to office on 02/18/2025. Message sent to referring provider that office still needs the EGG. Vaccines due: Covid, Flu, and RSV Screenings: colonoscopy Overdue care gaps: Not applicable documented in this encounter Plan of Treatment Upcoming Encounters Date Type Department Care Team (Late st Contact Info) Description 04/28/2025 10:00 AM EST Office Visit [facility] [address] [place] [address] Rebecca Hogan NP [address] [place] [address] documented as of this encounter Visit Diagnoses Not on filedocumented in this encounter Additional Health Concerns Assessment Noted Time PHQ-9 Depression Total Score: 11 025 11:03 AM EDT documented as of this encounter Care Teams Tripe Cooker Relationship Specialty Start Date End Date Rebecca Hogan NP [address] [place] [address] PCP - General Family Medicine 01/20/23 documented as of this encounter
--- OUTSIDE RECORDS SUMMARY | 2025-04-01 13:12 | XMS_ITS | Encounter Summary ---
Author Organization [employer] [facility] Address [address] [place] [address] 7t [place] [address] Care Team Providers Care Economics Consultant Name Role Phone Kimmie Henao Primary Care Provider Rebecca Bain NP Primary Care Provider [phone] Reason for Visit * Reason Comments Med Refill Encounter Details Date Type Department Care Team (Late st Contact Info) Description 10/24/2022 Refill [facility] [address] [place] [address] Kimmie Henao FNP Primary hypertension Social History [...] Description 04/28/2025 10:00 AM EST Office Visit [facility] [address] [place] [address] Rebecca Hogan NP [address] [place] [address] documented as of this encounter Visit Diagnoses Diagnosis Primary hypertension Unspecified essential hypertension documented in this encounter Care Teams Economics Consultant Relationship Specialty Start Date End Date Kimmie Henao FNP PCP - General Family Medicine 10/06/21 01/19/23 Rebecca Hogan NP [address] [place] [phone] PCP - General Family Medicine 01/20/23 documented as of this encounter
--- OUTSIDE RECORDS SUMMARY | 2025-04-01 13:12 | XMS_ITS | Encounter Summary ---
Author Organization [employer] Address [address] [facility] [address] [place] [address] Care Team Providers Care Head Of Marketing Analytics Name Role Phone Rebecca Hogan NP Primary Care Provider [phone] Encounter Details Date Type Department Care Team ([facility] st Contact Info) Description 07/31/2024 Orders Only [facility] [address] [place] [address] [phone] Ken Mckeon MD [address] [place], [place] [phone] Asthma with COPD ([facility]) Social History Tobacco Use Types Packs/Day [...] Description 04/28/2025 10:00 AM EST Office Visit [facility] [address] [place] [address] Rebecca Hogan NP [address] [place] [address] documented as of this encounter Visit Diagnoses Diagnosis Asthma with COPD (CMS/HCC) ([facility]) documented in this encounter Additional Health Concerns Assessment Noted Time PHQ-9 Depression Total Score: 10 025 2:53 PM EDT documented as of this encounter Care Teams Head Of Marketing Analytics Relationship Specialty Start Date End Date Rebecca Hogan NP [address] [place] [address] PCP - General Family Medicine 01/20/23 documented as of this encounter
--- OUTSIDE RECORDS SUMMARY | 2025-04-01 13:12 | XMS_ITS | Encounter Summary ---
Author Organization [employer] Address [address] [facility] 7t [place] [address] Care Team Providers Care Arborer Name Role Phone Rebecca Hogan NP Primary Care Provider [phone] Reason for Visit * Reason Onset Date Comments Med Refill 02/14/2024 Encounter Details Date Type Department Care Team ([facility] st Contact Info) Description 02/14/2024 Refill [facility] [address] [place] [address] Rebecca Hogan NP [address] [place] [address] Social History Tobacco Use Types Packs/Day Years [...] Description 04/28/2025 10:00 AM EST Office Visit [facility] [address] [place] [address] Rebecca Hogan NP [address] [place] [address] documented as of this encounter Visit Diagnoses Not on filedocumented in this encounter Additional Health Concerns Assessment Noted Time PHQ-9 Depression Total Score: 18 024 1:40 PM EST documented as of this encounter Care Teams Arborer Relationship Specialty Start Date End Date Rebecca Hogan NP [address] [place] [address] PCP - General Family Medicine 01/20/23 documented as of this encounter
--- OUTSIDE RECORDS SUMMARY | 2025-04-01 13:12 | XMS_ITS | Encounter Summary ---
Author Organization [facility] Address [address] [place] [address] 7[address] [place] [address] Care Team Providers Care Event Coordinator Name Role Phone Kimmie HenaoP Primary Care Provider Rebecca Bain NP Primary Care Provider [phone] Encounter Details Date Type Department Care Team (Late st Contact Info) Description 06/13/2022 Orders Only [facility] [address] [place] [address] Tess Perez LPN Social History Tobacco Use [...] Description 04/28/2025 10:00 AM EST Office Visit [facility] [address] [place] [address] Rebecca Hogan NP [address] [place] [address] documented as of this encounter Procedures Procedure [...] EST) VBG pH 7.43 7.32 - 7.43 [facility] Comment:METER #: [id number] additional_comment: Lester mauro VBG PCO2 55 mmHg [facility] Comment:METER #: [id number] additional_comment: Lester mauro VBG PO2 142 mmHg [facility] Comment:METER #: [id number] additional_comment: Lester mauro VBG Base Excess 11.0 mmol/L [facility] Comment:METER #: [id number] additional_comment: Lester mauro VBG HCO3 37(H) 22 - 26 mmol/L [facility] Comment:METER #: [id number] additional_comment: Lester mauro O2 Sat, Domenic 99.0 % [facility] Comment:METER #: [id number] additional_comment: Lester mauro 02/25/2023 8:33 PM EST 02/25/2023 8:37 PM EST Generic External Data Provider LAB BLOOD ORDERAB LES Final Result Performing Organization Address [facility] de Phone Number [facility] [address] [place] [address] [phone] * SARS-CoV-2 RNA, Influenza A/B, and RSV RNA, Ql NAAT (02/25/2023 8:27 PM EST) Influenza A PCR NEGATIVE Negative [facility] Influenza B PCR NEGATIVE Negative [facility] Resp Syncy Virus RNA Qual PCR NEGATIVE Negative [facility] SARS COV2 PCR NEGATIVE Negative [facility] Comment:All test results mus t be [...] use by authorized laboratories.Testing performed on the Hepa Wash GeneXpert utilizingreal-time RT-PCR.All SARS CoV2 and positive influenza A/B results arereported to [facility]. 02/25/2023 8:27 PM EST 02/25/2023 8:31 PM EST us Generic External Data Provider LAB MICROBIOLOGY - GENERAL ORDERABLES Final Result Performing Organization Address [facility]/ZIP Co de Phone Number [facility] [address] [place] [address] [phone] * High Sensitivity Troponin I (02/25/2023 8:27 PM EST) [facility] TROPONIN I HIGH SENSITIVITY 5.3 <3.5 - 35.0 ng/L [facility] Comment:The Bonds high sens itivity Troponin-I results should beused in conjunction with other diagnostic information suchas ECG, clinical observations and information, and patientsymptoms to aid in the diagnosis of UT. 02/25/2023 8:27 PM EST 02/25/2023 8:31 PM EST Generic External Data Provider LAB BLOOD ORDERAB LES Final Result Performing Organization Address [facility] Phone Number [facility] [address] [place] [phone] * Magnesium (02/25/2023 8:27 PM EST) [facility] Magnesium 2.1 1.6 - 2.6 mg/dL [facility] 02/25/2023 8:27 PM EST 02/25/2023 8:31 PM EST Generic External Data Provider LAB BLOOD ORDERAB LES Final Result Performing Organization Address [facility] de Phone Number [facility] [address] [place] [phone] * (ABNORMAL) Basic Metabolic Panel (02/25/2023 8:27 PM EST) [facility] Sodium 144 135 - 145 mmol/L [facility] Potassium 3.8 3.3 - 5.1 mmol/L [facility] Chloride 102 96 - 108 mmol/L [facility] Carbon Dioxide 34(H) 22 - 29 mmol/L [facility] Anion Gap 12 12 - 20 [facility] Urea Nitrogen (BUN) 8(L) 9 - 16 mg/dL [facility] Creatinine, Serum 0.92 0.5 - 1.4 mg/dL [facility] Creatinine Clr Calc Pharmacy 129.5 [facility] Comment:eGFR (calculated fro m the MDRD study equation) and eCrCl(calculated from the Cockcroft-Gault equation) are based ondifferent parameters and may not yield comparable results.If eCrCl result is absurd, please check patient'sheight/weight. Estimated Glomerular Filt Rate >60 [facility] Comment:NOTE: For -Am erican individuals, multiply the result by 1.210.Chronic Kidney Disease: Estimated GFR < 60 mL/min/[id number] Kidney Disease: Estimated GFR < 15 mL/min/1.73m2 Glucose 140(H) 60 - 115 mg/dL [facility] Calcium 8.8 8.4 - 10.2 mg/dL [facility] 02/25/2023 8:27 PM EST 02/25/2023 8:31 PM EST us Generic External Data Provider LAB BLOOD ORDERAB LES Final Result [facility] [address] [place] [phone] * (ABNORMAL) Hepatic Function Panel (02/25/2023 8:27 PM EST) Bilirubin, Total 0.2 0.0 - 1.0 mg/dL [facility] Bilirubin, Direct 0.2 0.0 - 0.5 mg/dL [facility] Aspartate Amino Transferase 23 5 - 37 U/L [facility] Alanine Aminotransferase 19 0 - 40 U/L [facility] Total Protein 8.1(H) 6.5 - 8.0 g/dL [facility] Albumin Level 3.9 3.5 - 5.0 g/dL [facility] Alkaline Phosphatase 79 39 - 117 U/L [facility] 02/25/2023 8:27 PM EST 02/25/2023 8:31 PM EST Generic External Data Provider LAB BLOOD ORDERAB LES Final Result Performing Organization Address [facility]/ZIP Co de Phone Number [facility] [address] [place] [phone] * Lactic Acid (02/25/2023 8:27 PM EST) [facility] Lactic Acid 1.0 0.5 - 2.0 mmol/L [facility] 02/25/2023 8:27 PM EST 02/25/2023 8:31 PM EST Generic External Data Provider LAB BLOOD ORDERAB LES Final Result Performing Organization Address [facility] Phone Number [facility] [address] [place] [phone] * Prothrombin Time-INR (02/25/2023 8:27 PM EST) [facility] Prothrombin Time 11.6 11.1 - 13.3 SEC [facility] INTERNATIONAL NORM RATIO 1.0 0.9 - 1.1 [facility] Comment:INTERNATIONAL NORMAL IZED RATIO (INR) [...] ORDERAB LES Final Result Performing Organization Address [facility] Co de Phone Number [facility] [address] [place] [phone] * (ABNORMAL) CBC auto differential (02/25/2023 8:27 PM EST) White Blood Count 8.9 4.8 - 10.8 X10*3/uL [facility] Red Blood Count 4.48(L) 4.60 - 5.80 X10*6/uL [facility] Hemoglobin 12.6(L) 14.0 - 18.0 g/dl [facility] Hematocrit 39.5(L) 42.0 - 52.0 % [facility] Mean Corpuscular Volume 88.2 80.0 - 98.0 fL [facility] Mean Corpuscular Hemoglobin 28.1 27.0 - 33.0 pg [facility] Mean Corpuscular HGB Conc 31.9 31.0 - 36.0 g/dl [facility] Red Cell Distribution Width 13.3 11.0 - 16.0 % [facility] Platelet Count 219 160 - 400 X10*3/uL [facility] Mean Platelet Volume 9.6 9.4 - 12.4 fL [facility] Neutrophils Percent Auto 66.7 45 - 73 % [facility] Imm Gran Pct Auto 0.1 0.0 - 0.4 % [facility] Lymphocytes Percent Auto 18.4(L) 20 - 40 % [facility] Monocytes Percent Auto 7.2 2 - 11 % [facility] Eosinophils Percent Auto 7.1(H) 0 - 4 % [facility] Basophils Percent Auto 0.5 0 - 2 % [facility] NRBC Pct Auto 0.0 0.0 - 0.2 /100WBC [facility] Neutrophils Absolute Auto 5.9 2.0 - 8.3 x10*3/uL [facility] Imm Gran Abs Auto 0.01 0.00 - 0.03 X10*3/uL [facility] Lymphocytes Absolute Auto 1.6 1.2 - 4.9 X10*3/uL [facility] Monocytes Absolute Auto 0.6 0.1 - 1.2 X10*3/uL [facility] Eosinophils Absolute Auto 0.6(H) 0.0 - 0.4 X10*3/uL [facility] Basophils Absolute Auto 0.0 0.0 - 0.2 X10*3/uL [facility] NRBC Abs Auto 0.000 0.0 - 0.012 X10*3/uL [facility] 02/25/2023 8:27 PM EST 02/25/2023 8:31 PM EST Generic External Data Provider LAB BLOOD ORDERAB LES Final Result Performing Organization Address [facility] Co de Phone Number [facility] [address] [place] [phone] * (ABNORMAL) VENOUS BLOOD GAS (09/10/2022 2:06 PM EDT) [facility] VBG pH 7.36 7.32 - 7.43 [facility] Comment:METER #: [id number] additional_comment: Cbfurrkat VBG PCO2 63 mmHg [facility] Comment:METER #: [id number] additional_comment: Cbfurrkat VBG PO2 75 mmHg [facility] Comment:METER #: [id number] additional_comment: Cbfurrkat VBG Base Excess 8.3 mmol/L [facility] Comment:METER #: [id number] additional_comment: Cbfurrkat VBG HCO3 36(H) 22 - 26 mmol/L [facility] Comment:METER #: [id number] additional_comment: Cbfurrkat O2 Sat, Domenic 93.0 % [facility] Comment:METER #: [id number] additional_comment: Cbfurrkat 09/10/2022 2:06 PM EDT 09/10/2022 2:13 PM EDT [facility] External Provider LAB BLO OD ORDERABLES Final Result Performing Organization Address [facility] Co de Phone Number [facility] [address] [place] [phone] * High Sensitivity Troponin I (09/10/2022 2:01 PM EDT) [facility] TROPONIN I HIGH SENSITIVITY 16.1 <3.5 - 35.0 ng/L [facility] Comment:The Bonds high sens itivity Troponin-I results should beused in conjunction with other diagnostic information suchas ECG, clinical observations and information, and patientsymptoms to aid in the diagnosis of UT. 09/10/2022 2:01 PM EDT 09/10/2022 2:06 PM EDT [facility] External Provider LAB BLO OD ORDERABLES Final Result Performing Organization Address [facility] Co de Phone Number [facility] [address] [place] [phone] * B Type Natriuretic Peptide (BNP) (09/10/2022 2:01 PM EDT) [facility] B Type Natriuretic Peptide 97 <100 pg/mL [facility] Comment:For those patients w ho are being treated with Natrecor(nesiritide, recombinant BNP), BNP testing should beperformed at least two hours post treatment in order toensure that only endogenous levels of BNP are detected. 09/10/2022 2:01 PM EDT 09/10/2022 2:06 PM EDT [facility] External Provider LAB BLO OD ORDERABLES Final Result Performing Organization Address [facility] Co de Phone Number [facility] [address] [place] [phone] * (ABNORMAL) Comprehensive Metabolic Panel (09/10/2022 2:01 PM EDT) [facility] Sodium 143 135 - 145 mmol/L [facility] Potassium 4.0 3.3 - 5.1 mmol/L [facility] Chloride 104 96 - 108 mmol/L [facility] Carbon Dioxide 32(H) 22 - 29 mmol/L [facility] Anion Gap 11(L) 12 - 20 [facility] Urea Nitrogen (BUN) 10 9 - 16 mg/dL [facility] Creatinine, Serum 0.81 0.5 - 1.4 mg/dL [facility] Creatinine Clr Calc Pharmacy 143.3 [facility] Comment:eGFR (calculated fro m the MDRD study equation) and eCrCl(calculated from the Cockcroft-Gault equation) are based ondifferent parameters and may not yield comparable results.If eCrCl result is absurd, please check patient'sheight/weight. Estimated Glomerular Filt Rate >60 [facility] Comment:NOTE: For -Am erican individuals, multiply the result by 1.210.Chronic Kidney Disease: Estimated GFR < 60 mL/min/1.58z6Gzmjha Kidney Disease: Estimated GFR < 15 mL/min/1.73m2 Glucose 110 60 - 115 mg/dL [facility] Calcium 8.9 8.4 - 10.2 mg/dL [facility] Bilirubin, Total 0.3 0.0 - 1.0 mg/dL [facility] Aspartate Amino Transferase 194(H) 5 - 37 U/L [facility] Alanine Aminotransferase 177(H) 0 - 40 U/L [facility] Total Protein 7.4 6.5 - 8.0 g/dL [facility] Albumin Level 3.7 3.5 - 5.0 g/dL [facility] Alkaline Phosphatase 87 39 - 117 U/L [facility] 09/10/2022 2:01 PM EDT 09/10/2022 2:06 PM EDT us [facility] External Provider LAB BLO OD ORDERABLES Final Result [facility] [address] [place] [address] [phone] * COVID-19 ID NOW (BONDS) (09/10/2022 2:01 PM EDT) IDNOW SERIAL# [id number] [facility] COVID-19 TEST Negative Negative [facility] COVID-19 NOTE See Note [facility] Comment: Results are for the identification of SARS-CoV2 RNA. TheSARS-CoV2 RNA is generally detectable in respiratory samplesduring the acute phase of infection. Positive results areindicative of the presence of SARS-CoV-2 RNA; clinicalcorrelation with patient history and other diagnosticinformation is necessary to determine patient infectionstatus. Positive results do not rule out bacterial infectionor co- infection with other viruses.Testing facilities within the [facility] and itsterritories are required to [...] use by authorized laboratories.Testing performed on the Salor[employer] NOW utilizing NAAT. 09/10/2022 2:01 PM EDT 09/10/2022 2:06 PM EDT [facility] Exter nal Provider LAB MOLECULAR DIAGNOSTICS ORDERABLES Final Result [facility] [address] [place] [address] [phone] * (ABNORMAL) CBC auto differential (09/10/2022 2:01 PM EDT) White Blood Count 8.7 4.8 - 10.8 X10*3/uL [facility] Red Blood Count 4.58(L) 4.60 - 5.80 X10*6/uL [facility] Hemoglobin 12.6(L) 14.0 - 18.0 g/dl [facility] Hematocrit 40.2(L) 42.0 - 52.0 % [facility] Mean Corpuscular Volume 87.8 80.0 - 98.0 fL [facility] Mean Corpuscular Hemoglobin 27.5 27.0 - 33.0 pg [facility] Mean Corpuscular HGB Conc 31.3 31.0 - 36.0 g/dl [facility] Red Cell Distribution Width 13.8 11.0 - 16.0 % [facility] Platelet Count 202 160 - 400 X10*3/uL [facility] Mean Platelet Volume 9.7 9.4 - 12.4 fL [facility] Neutrophils Percent Auto 72.5 45 - 73 % [facility] Imm Gran Pct Auto 0.3 0.0 - 0.4 % [facility] Lymphocytes Percent Auto 11.4(L) 20 - 40 % [facility] Monocytes Percent Auto 6.2 2 - 11 % [facility] Eosinophils Percent Auto 9.0(H) 0 - 4 % [facility] Basophils Percent Auto 0.6 0 - 2 % [facility] NRBC Pct Auto 0.0 0.0 - 0.2 /100WBC [facility] Neutrophils Absolute Auto 6.3 2.0 - 8.3 x10*3/uL [facility] Imm Gran Abs Auto 0.03 0.00 - 0.03 X10*3/uL [facility] Lymphocytes Absolute Auto 1.0(L) 1.2 - 4.9 X10*3/uL [facility] Monocytes Absolute Auto 0.5 0.1 - 1.2 X10*3/uL [facility] Eosinophils Absolute Auto 0.8(H) 0.0 - 0.4 X10*3/uL [facility] Basophils Absolute Auto 0.1 0.0 - 0.2 X10*3/uL [facility] NRBC Abs Auto 0.000 0.0 - 0.012 X10*3/uL [facility] 09/10/2022 2:01 PM EDT 09/10/2022 2:06 PM EDT us [facility] External Provider LAB BLO OD ORDERABLES Final Result [facility] [address] [place] [phone] documented in this encounter Visit Diagnoses Not on filedocumented in this encounter Care Teams Event Coordinator Relationship Specialty Start Date End Date Kimmie Henao FNP PCP - General Family Medicine 10/06/21 01/19/23 Rebecca Hogan NP [address] [place] [address] PCP - General Family Medicine 01/20/23 documented as of this encounter
--- OUTSIDE RECORDS SUMMARY | 2025-04-01 13:12 | XMS_ITS | Encounter Summary ---
Author Organization [employer] Address [address] [facility] 7 [place] [address] Care Team Providers Care Beater Room Supervisor Name Role Phone Rebecca Hogan NP Primary Care Provider [phone] Reason for Visit * Reason Onset Date Comments Hospital Follow-up 06/04/2024 Encounter Details Date Type Department Care Team ([facility] st Contact Info) Description 06/04/2024 Telephone [facility] [address] [place], [place] [phone] Rebecca Hogan NP [address] [place] [address] Hospital Follow-up Social History Tobacco Use Types [...] from pt requesting a HDF appt. Hospital: [facility] Date of admission: 05/31 Discharge date: 06/03 Diagnosed: flu, pneumonia *Send message to [facility] Care Coordinators [phone] documented in this encounter Plan of Treatment Upcoming Encounters Date Type Department Care Team (Late st Contact Info) Description 04/28/2025 10:00 AM EST Office Visit [facility] [address] [place] [address] Rebecca Hogan NP [address] [place] [address] documented as of this encounter Visit Diagnoses Not on filedocumented in this encounter Additional Health Concerns Assessment Noted Time PHQ-9 Depression Total Score: 18 024 1:40 PM EST documented as of this encounter Care Teams Beater Room Supervisor Relationship Specialty Start Date End Date Rebecca Hogan NP [address] [place] [address] PCP - General Family Medicine 01/20/23 documented as of this encounter
--- OUTSIDE RECORDS SUMMARY | 2025-04-01 13:12 | XMS_ITS | Encounter Summary ---
Author Organization [employer] Address [address] [facility] [address] [place] [address] Care Team Providers Care Electrical Installation Supervisor Name Role Phone Rebecca Hogan NP Primary Care Provider [phone] Reason for Visit * Reason Onset Date Comments Referral 09/11/2024 Encounter Details Date Type Department Care Team ([facility] st Contact Info) Description 09/11/2024 Telephone [facility] [address] [place], [place] [phone] Rebecca Hogan NP [address] [place] [address] Referral Social History Tobacco Use Types Packs/Day [...] Tc from pt daughter requesting referrals: 1) Stencil Sprayer - COPD and fatigue. 2) Surgery- Cyst right ear 3) Right Shoulder, Right Knee Pain. Pt daughter states spoke with PCP regarding those referrals on 08/09. Any question contact: [phone] documented in this encounter Plan of Treatment Upcoming Encounters Date Type Department Care Team (Late st Contact Info) Description 04/28/2025 10:00 AM EST Office Visit [facility] [address] [place] [address] Rebecca Hogan NP [address] [place] [address] documented as of this encounter Visit Diagnoses Not on filedocumented in this encounter Additional Health Concerns Assessment Noted Time PHQ-9 Depression Total Score: 10 025 2:53 PM EDT documented as of this encounter Care Teams Electrical Installation Supervisor Relationship Specialty Start Date End Date Rebecca Hogan NP [address] [place] [address] PCP - General Family Medicine 01/20/23 documented as of this encounter
--- OUTSIDE RECORDS SUMMARY | 2025-04-01 13:12 | XMS_ITS | Encounter Summary ---
Author Organization [employer] [facility] Address [address] [place] [address] [address] [place] [address] Care Team Providers Care Warm In Name Role Phone Kimmie Henao Primary Care Provider Rebecca Bain NP Primary Care Provider [phone] Reason for Visit * Reason Comments Med Refill Encounter Details Date Type Department Care Team (Late st Contact Info) Description 07/21/2022 Refill [facility] [address] [place] [address] Kimmie Henao FNP Seasonal allergic rhinitis, unspecified [...] Description 04/28/2025 10:00 AM EST Office Visit [facility] [address] [place] [address] Rebecca Hogan NP [address] [place] [address] documented as of this encounter Visit Diagnoses Diagnosis Seasonal allergic rhinitis, unspecified trigger documented in this encounter Care Teams Warm In Relationship Specialty Start Date End Date Kimmie Henao FNP PCP - General Family Medicine 10/06/21 01/19/23 Rebecca Hogan NP [address] [place] [phone] PCP - General Family Medicine 01/20/23 documented as of this encounter
--- OUTSIDE RECORDS SUMMARY | 2025-04-01 13:12 | XMS_ITS | Encounter Summary ---
Author Organization [employer] Address [address] [facility] [address] [place] [address] Care Team Providers Care Bin Filler Name Role Phone Rebecca Hogan NP Primary Care Provider [phone] Reason for Visit * Reason Onset Date Comments Hospital Follow-up 07/25/2024 Encounter Details Date Type Department Care Team ([facility] st Contact Info) Description 07/25/2024 Telephone [facility] [address] [place], [place] [phone] Rebecca Hogan NP [address] [place] [address] Hospital Follow-up Social History Tobacco Use Types [...] from pt requesting a HDF appt. Hospital: [facility] Date of admission: 07/21 Discharge date: 07/23 Diagnosed: Opioid use disorder *Send message to [facility] Clinical Care Coordinators [phone] documented in this encounter Plan of Treatment Upcoming Encounters Date Type Department Care Team (Late st Contact Info) Description 04/28/2025 10:00 AM EST Office Visit [facility] [address] [place] [address] Rebecca Hogan NP [address] [place] [address] documented as of this encounter Visit Diagnoses Not on filedocumented in this encounter Additional Health Concerns Assessment Noted Time PHQ-9 Depression Total Score: 10 025 2:53 PM EDT documented as of this encounter Care Teams Bin Filler Relationship Specialty Start Date End Date Rebecca Hogan NP [address] [place] [address] PCP - General Family Medicine 01/20/23 documented as of this encounter
== END 2025-04-01 10:30 | disposition home or self-care (01) ==
LOC: HO.NEURO 10:29
PROVIDERS: PCP Nurse Practitioner; Visit Provider Nurse Practitioner
DX: G40.309 Generalized idiopathic epilepsy and epileptic syndromes, not intractable, without status epilepticus (principal)
CPT/HCPCS: 95819

== ENCOUNTER → 2025-04-01 10:30 | Outpatient (BNV) | payer MEDICAID, SELFPAY | PROVIDERS: PCP Nurse Practitioner; Visit Provider Psychiatry & Neurology Neurology | DX: G40.309 Generalized idiopathic epilepsy and epileptic syndromes, not intractable, without status epilepticus (principal) | CPT/HCPCS: 95816 ==